=== PATIENT | male | born 1945 | race African-American/Black ===

== ENCOUNTER 2018-11-17 12:50 | Emergency (ER) | payer OTHER ==
--- NOTE | 2018-11-17 14:44 | RAD REPORT ---
EXAM DESCRIPTION: Grabiel Single View11/17/2018 2:35 pm CLINICAL HISTORY: Congestion COMPARISON: 2017 FINDINGS: The lungs are hyperaerated. The lungs appear clear of acute infiltrate. The heart is normal size IMPRESSION: COPD without visualization of an acute abnormality
[2018-11-17] MEDS ORDERED: ALBUTEROL 2.5 MG/3 ML NEB SOL ONE ×2 (17:03→17:07)
[2018-11-17] MEDS ORDERED: IPRATROPIUM BROM 0.5MG/2.5ML ONE (17:04)
--- NOTE | 2018-11-17 17:52 | EDPHYS ---
Physician Documentation [facility] Name: Jesus Mcdowell Age: 73 yrs Sex: Male : 1945 Arrival Date: 11/17/2018 Time: 12:55 Bed 13 Private MD: ED Physician Ismael Figueroa HPI: 11/17 17:44 This 73 yrs old Black Male presents to ER via Ambulatory with complaints of CHECK FOR kb FLUID IN LUNG. 17:44 The patient presents to the emergency department with wheezing, Current therapy: kb albuterol inhaler. Onset: The symptoms/episode began/occurred 2 week(s) ago. Modifying factors: The symptoms are alleviated by inhaler, the symptoms are aggravated by smoking cigarettes. Associated signs and symptoms: The patient has no apparent associated signs or symptoms. Severity of symptoms: At their worst the symptoms were moderate in the emergency department the symptoms are unchanged. The patient has experienced similar episodes in the past, chronically. The patient has not recently seen a physician. 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 States "I know the cigarettes have something to do with it. I will be breathing fine until I smoke and then the wheezing starts. I use my inhaler and it gets better." Denies shortness of breath. Historical: - Allergies: 13:34 No Known Allergies; ph - PMHx: 13:34 Asthma; COPD; Hypertension; ph - Immunization history:: Adult Immunizations unknown. - Social history:: Smoking status: unknown. - Ebola Screening: : Patient negative for fever greater than or equal to 101.5 degrees Fahrenheit, and additional compatible Ebola Virus Disease symptoms Patient denies exposure to infectious person Patient denies travel to an Ebola-affected area in the 21 days before illness onset No symptoms or risks identified at this time. ROS: 17:46 Constitutional: Negative for fever, chills, and weight loss, Cardiovascular: Negative kb for chest pain, palpitations, and edema, Abdomen/GI: Negative for abdominal pain, nausea, vomiting, diarrhea, and constipation, Back: Negative for injury and pain, : Negative for injury, bleeding, discharge, and swelling, MS/Extremity: Negative for injury and deformity, Skin: Negative for injury, rash, and discoloration, Neuro: Negative for headache, weakness, numbness, tingling, and seizure. 17:46 Respiratory: Positive for wheezing, Negative for cough, dyspnea on exertion, hemoptysis, orthopnea, pleurisy, shortness of breath, sputum production. Exam: 17:46 Constitutional: This is a well developed, well nourished patient who is awake, alert, kb and in no acute distress. Head/Face: Normocephalic, atraumatic. ENT: Nares patent. No nasal discharge, no septal abnormalities noted. Tympanic membranes are normal and external auditory canals are clear. Oropharynx with no redness, swelling, or masses, exudates, or evidence of obstruction, uvula midline. Mucous membranes moist. Neck: Trachea midline, no thyromegaly or masses palpated, and no cervical lymphadenopathy. Supple, full range of motion without nuchal rigidity, or vertebral point tenderness. No Meningismus. Chest/axilla: Normal chest wall appearance and motion. Nontender with no deformity. No lesions are appreciated. Cardiovascular: Regular rate and rhythm with a normal S1 and S2. No gallops, murmurs, or rubs. Normal PMI, no JVD. No pulse deficits. Abdomen/GI: Soft, non-tender, with normal bowel sounds. No distension or tympany. No guarding or rebound. No evidence of tenderness throughout. Skin: Warm, dry with normal turgor. Normal color with no rashes, no lesions, and no evidence of cellulitis. MS/ Extremity: Pulses equal, no cyanosis. Neurovascular intact. Full, normal range of motion. Neuro: Awake and alert, GCS 15, oriented to person, place, time, and situation. Cranial nerves II-XII grossly intact. Motor strength 5/5 in all extremities. Sensory grossly intact. Cerebellar exam normal. Normal gait. 17:46 Respiratory: the patient does not display signs of respiratory distress, Respirations: normal, Breath sounds: wheezing: expiratory that is moderate, is heard diffusely. Vital Signs: 13:33 BP 155 / 83; Pulse 73; Resp 18; Temp 97.9; Pulse Ox 98% on R/A; ph 18:20 BP 148 / 78; Pulse 70; Resp 19; Pulse Ox 98% on R/A; Pain 0/10; ls4 MDM: 16:34 Patient medically screened. kb 17:40 Data reviewed: vital signs, nurses notes. Data interpreted: Pulse oximetry: on room air kb is 99 %. Interpretation: normal. 17:50 Counseling: I had a detailed discussion with the patient and/or guardian regarding: the kb historical points, exam findings, and any diagnostic results supporting the discharge/admit diagnosis, radiology results, the need for outpatient follow up, a family practitioner, to return to the emergency department if symptoms worsen or persist or if there are any questions or concerns that arise at home. ED course: wheezing decreased, still denies shortness of breath. 11/17 13:35 Order name: Chest Single View XRAY; Complete Time: 15:05 ph Administered Medications: 16:59 Drug: DuoNeb (3:1) (2.5 mg - 0.5 mg) 3 ml Route: Nebulizer; ls4 18:21 Follow up: Response: No adverse reaction; Marked relief of symptoms ls4 18:10 Drug: predniSONE 40 mg Route: PO; ls4 18:22 Follow up: Response: No adverse reaction; Marked relief of symptoms ls4 18:25 Follow up: Response: No adverse reaction ls4 Disposition: 11/18 09:15 Co-signature as Attending Physician, Ismael Figueroa MD I agree with the assessment and lolis plan of care. Disposition: 11/17/18 17:51 Discharged to Home. Impression: Chronic obstructive pulmonary disease, unspecified. - Condition is Stable. - Discharge Instructions: Chronic Obstructive Pulmonary Disease. - Prescriptions for Prednisone 20 mg Oral Tablet - take 1 tablet by ORAL route once daily for 5 days; 5 tablet. - Medication Reconciliation Form, Thank You Letter, Antibiotic Education, Prescription Opioid Use form. - Follow up: Emergency Department; When: As needed; Reason: Worsening of condition. Follow up: Private Physician; When: 2 - 3 days; Reason: Recheck today's complaints, Continuance of care, Re-evaluation by your physician. Signatures: Dispatcher [employer] Pita Jefferson, URMILA-C URMILA-Ismael Linn MD MD cha Hall, Patricia, RN RN Alma Rodriguez RN RN ls4 Corrections: (The following items were deleted from the chart) 11/17 18:28 17:51 11/17/2018 17:51 Discharged to Home. Impression: Chronic obstructive pulmonary ls4 disease, unspecified. Condition is Stable. Forms are Medication Reconciliation Form, Thank You Letter, Antibiotic Education, Prescription Opioid Use. Follow up: Emergency Department; When: As needed; Reason: Worsening of condition. Follow up: Private Physician; When: 2 - 3 days; Reason: Recheck today's complaints, Continuance of care, Re-evaluation by your physician. kb
--- NOTE | 2018-11-17 17:52 | ER ---
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 Transition of care: patient was not received from another setting of care. Onset of symptoms was November 17, 2018. Risk Assessment: Do you want to hurt yourself or someone else? Patient reports no desire to harm self or others. Care prior to arrival: None. 13:30 Method Of Arrival: Ambulatory ph 13:30 Acuity: [place] 3 ph 16:45 Initial Sepsis Screen: Does the patient meet any 2 criteria? No. Patient's initial ls4 sepsis screen is negative. Does the patient have a suspected source of infection? No. Patient's initial sepsis screen is negative. Triage Assessment: 16:44 General: Appears in no apparent distress. Behavior is cooperative. Pain: Denies pain. ls4 Historical: - Allergies: 13:34 No Known Allergies; ph - PMHx: 13:34 Asthma; COPD; Hypertension; ph - Immunization history:: Adult Immunizations unknown. - Social history:: Smoking status: unknown. - Ebola Screening: : Patient negative for fever greater than or equal to 101.5 degrees Fahrenheit, and additional compatible Ebola Virus Disease symptoms Patient denies exposure to infectious person Patient denies travel to an Ebola-affected area in the 21 days before illness onset No symptoms or risks identified at this time. Screenin:44 Abuse screen: Denies threats or abuse. Denies injuries from another. Nutritional ls4 screening: No deficits noted. Tuberculosis screening: No symptoms or risk factors identified. Fall Risk None identified. Assessment: 16:40 Respiratory: Breath sounds are coarse Breath sounds with rhonchi bilaterally. Breath ls4 sounds with wheezes bilaterally. 16:40 Musculoskeletal: No deficits noted. ls4 Vital Signs: 13:33 BP 155 / 83; Pulse 73; Resp 18; Temp 97.9; Pulse Ox 98% on R/A; ph 18:20 BP 148 / 78; Pulse 70; Resp 19; Pulse Ox 98% on R/A; Pain 0/10; ls4 ED Course: 12:55 Patient arrived in ED. tw3 13:33 Triage completed. ph 13:34 Arm band placed on Patient placed in waiting room, Patient notified of wait time. X-ray ph ordered. 14:33 X-ray completed. Patient tolerated procedure well. Patient moved to radiology via tm4 wheelchair. Patient moved back from radiology. 14:34 Chest Single View XRAY In Process Unspecified. EDMS 16:33 Pita Rdz FNP-C is [facility]. kb 16:33 Ismael Figueroa MD is Attending Physician. kb 16:43 Alma Graham, RN is Primary Nurse. ls4 16:44 Patient has correct armband on for positive identification. Bed in low position. Call ls4 light in reach. Side rails up X 1. 16:44 No provider procedures requiring assistance completed. ls4 18:26 Patient did not have IV access during this emergency room visit. ls4 Administered Medications: 16:59 Drug: DuoNeb (3:1) (2.5 mg - 0.5 mg) 3 ml Route: Nebulizer; ls4 18:21 Follow up: Response: No adverse reaction; Marked relief of symptoms ls4 18:10 Drug: predniSONE 40 mg Route: PO; ls4 18:22 Follow up: Response: No adverse reaction; Marked relief of symptoms ls4 18:25 Follow up: Response: No adverse reaction ls4 Outcome: 17:51 Discharge ordered by . kb 18:25 Discharged to home ambulatory, with family. ls4 18:25 Condition: stable 18:25 Discharge instructions given to patient, family, Instructed on discharge instructions, follow up and referral plans. medication usage, Demonstrated understanding of instructions, follow-up care, medications, Prescriptions given X 1. 18:28 Patient left the ED. ls4 Signatures: Dispatcher [employer] EDMS Pita Rdz FNP-C FNP-Ckb Marroquin, Tracy tm4 Mariel Rosa RN RN ph Wade, Laura tw3 Alma Graham, CHE RN ls4
[2018-11-17] MEDS ORDERED: predniSONE 20 MG TAB ONE (18:10)
[2018-11-17 18:33] VITALS: TEMP 97.9; O2SAT 98
[2018-11-17 18:35] VITALS: BP 148/78
== END 2018-11-17 18:28 | disposition home or self-care (01) ==
LOC: ER 12:50
DX: J44.9 Chronic obstructive pulmonary disease, unspecified (principal); I10 Essential (primary) hypertension; F17.210 Nicotine dependence, cigarettes, uncomplicated
CPT/HCPCS: 71045; 94640; 99284; J7512

== ENCOUNTER 2019-03-13 00:01 | Emergency (ER) | payer OTHER ==
[2019-03-13] MEDS ORDERED: FENTANYL CITR 100 MCG/2 ML ONE ×2 (00:41→02:02)
[2019-03-13] MEDS ORDERED: ONDANSETRON 4 MG/2 ML VIAL ONE (00:41)
[2019-03-13 01:11] LABS: Protime INR 1.05
[2019-03-13 01:13] LABS: Absolute Lymphocytes (CBC) 1.1 K/uL (0.7-4.9); Basophils % 0.5 % (0-1.3); Eosinophils % 0.3 % (0-4.4); Hematocrit 46.5 % (39.6-49.0); Lymphocytes % 12.9 % (15.3-44.8); Monocytes % 11.6 % (3.3-12.3); RBC Red Blood Cell Count 5.32 M/uL (4.33-5.43)
[2019-03-13 01:27] LABS: ALT/SGPT 31 U/L (12-78); AST/SGOT 54 U/L (15-37); Albumin 3.9 g/dL (3.4-5.0); Alkaline Phosphatase 75 U/L (45-117); BUN Blood Urea Nitrogen 19 mg/dL (7-18); Bicarbonate 23 mmol/L (21-32); Bilirubin Direct 0.2 mg/dL (0-0.2); Bilirubin Total 0.7 mg/dL (0.2-1.0); Glucose Level 138 mg/dL (74-106); NT PRO-BNP 132 pg/mL (<450); Potassium 3.9 mmol/L (3.5-5.1); Protein, Total 7.9 g/dL (6.4-8.2); Sodium Level 127 mmol/L (136-145); Troponin (Emerg Dept Use Only) < 0.02 ng/mL (0.0-0.045)
--- NOTE | 2019-03-13 01:27 | ER ---
Nurse's Notes [facility] Name: Jesus Mcdowell Age: 73 yrs Sex: Male : 1945 Arrival Date: 03/13/2019 Time: 00:04 Bed 6 Private MD: Diagnosis: Acute Left Lower Limb Ischemia;Acute Left Lower Leg Pain Presentation: 03/13 00:31 Presenting complaint: Patient states: pain to L leg for two weeks, getting worse the ch past 4 days. I cannot stand it now. Transition of care: patient was not received from another setting of care. Onset of symptoms was February 2019. Risk Assessment: Do you want to hurt yourself or someone else? Patient reports no desire to harm self or others. Initial Sepsis Screen: Does the patient meet any 2 criteria? No. Patient's initial sepsis screen is negative. Does the patient have a suspected source of infection? No. Patient's initial sepsis screen is negative. Care prior to arrival: None. 00:31 Method Of Arrival: EMS: [facility] 00:31 Acuity: [place] 2 ch Triage Assessment: 00:37 General: Appears in no apparent distress. uncomfortable, Behavior is cooperative, ch appropriate for age. Pain: Complains of pain in left leg Pain currently is 9 out of 10 on a pain scale. Pain began gradually. Neuro: No deficits noted. Cardiovascular: Heart tones S1 S2 present Capillary refill is > 3 seconds in bilateral fingers toes pt has poor peripheral circulation. Clubbing of nail beds is present Pulses are absent in left popliteal artery, left posterior tibial artery and left dorsalis pedis artery Rhythm is regular. Respiratory: Airway is patent Respiratory effort is even, unlabored, Breath sounds with wheezes bilaterally. GI: No signs and/or symptoms were reported involving the gastrointestinal system. Derm: Skin is normal, brown. Musculoskeletal: Capillary refill is sluggish, in left toes. Range of motion: limited in left knee and left ankle pt L foot is dusky and cool. pulses are not palpable manually, wrong equipment in the ER to find pulses via Doppler. US ordered. Historical: - Allergies: 00:37 No Known Allergies; ch - Home Meds: 00:37 buspirone 10 mg Oral tab 1 tab 2 times per day [Active]; donepezil 10 mg oral tab 1 tab ch once daily [Active]; isosorbide mononitrate 30 mg Oral Tb24 1 tab once daily [Active]; aspirin 81 mg Oral chew 1 tab once daily [Active]; Toprol XL 100 mg Oral Tb24 1 tab once daily [Active]; pentoxifylline 400 mg oral TbER 1 tab 2 times per day [Active]; tamsulosin 0.4 mg oral cp24 1 cap once daily [Active]; - PMHx: 00:37 COPD; Asthma; Hypertension; arterial insufficiency L leg.; blood clots eren legs; ch "prostates problems"; - PSHx: 00:37 L leg bypass; ch - Immunization history:: Adult Immunizations up to date, Flu vaccine status is unknown. - Social history:: Smoking status: Patient uses tobacco products, states he is a former smoker. - Ebola Screening: : Patient negative for fever greater than or equal to 101.5 degrees Fahrenheit, and additional compatible Ebola Virus Disease symptoms Patient denies exposure to infectious person Patient denies travel to an Ebola-affected area in the 21 days before illness onset No symptoms or risks identified at this time. - Family history:: not pertinent. - Hospitalizations: : No recent hospitalization is reported. Screenin:15 Abuse screen: Denies threats or abuse. Denies injuries from another. Nutritional ch screening: No deficits noted. Tuberculosis screening: No symptoms or risk factors identified. Fall Risk None identified. Assessment: 00:20 Reassessment: pt vomits from pain. ch 01:04 Reassessment: Patient appears in no apparent distress at this time. Patient and/or ch family updated on plan of care and expected duration. Pain level reassessed. Patient is alert, oriented x 3, equal unlabored respirations, skin warm/dry/pink. pt states the pain medication and nausea medication have helped him. awaiting US now Patient states feeling better. Patient states symptoms have improved. 01:30 Reassessment: Patient appears in no apparent distress at this time. pt attempts to get ch out of bed because he hurts. physician notified, verbal order to repeat fentynal. 02:06 Reassessment: Patient appears in no apparent distress at this time. Patient and/or ch family updated on plan of care and expected duration. Pain level reassessed. report called to [facility]. awaiting EMS. 03:01 Reassessment: Patient appears in no apparent distress at this time. pt premedicated for pain for the trip. pt still has dusky cold foot. Vital Signs: 00:15 BP 148 / 81; Pulse 82; Resp 18; Temp 99.2(O); Pulse Ox 95% on R/A; Pain 10/10; ch 01:04 BP 161 / 85; Pulse 84; Resp 12; Pulse Ox 98% on R/A; Pain 3/10; ch 02:14 BP 167 / 73; Pulse 82; Resp 16; Temp 99; Pulse Ox 94% on R/A; Pain 4/10; ch 03:01 BP 162 / 84; Pulse 78; Resp 16; Temp 98.8; Pulse Ox 99% on R/A; Pain 2/10; ch ED Course: 00:04 Patient arrived in ED. 00:08 Jaziel Brennan MD is Attending Physician. ks 00:18 Karmen Hull, RN is Primary Nurse. 00:20 No provider procedures requiring assistance completed. 00:20 Patient has correct armband on for positive identification. Bed in low position. Call light in reach. Side rails up X 1. monitoring and evaluation advisor on. Pulse ox on. NIBP on. Warm blanket given. 00:32 Triage completed. 00:32 EKG done, by ED staff, reviewed by Jaziel Brennan MD. Inserted saline lock: 18 gauge in ag4 left forearm, using aseptic technique. Blood collected. 00:37 Arm band placed on left wrist. Patient placed in an exam room, on a stretcher, on monitor and storage bin tender, on pulse oximetry. 00:46 XRAY Chest (1 view) In Process Unspecified. EDMS 03:01 No apparent distress. Resting quietly. ch 03:01 Patient transferred, IV remains in place. Administered Medications: 00:33 Drug: fentaNYL (PF) 50 mcg Route: IVP; Site: left forearm; lp1 02:58 Follow up: Response: No adverse reaction; Marked relief of symptoms ch 00:33 Drug: Zofran 4 mg Route: IVP; Site: left forearm; lp1 02:58 Follow up: Response: No adverse reaction; Marked relief of symptoms ch 01:47 Drug: fentaNYL (PF) 50 mcg Route: IVP; Site: left forearm; ch 03:00 Follow up: Response: No adverse reaction 02:45 Drug: Dilaudid 1 mg Route: IVP; Site: left forearm; 03:01 Follow up: Response: No adverse reaction Outcome: 01:26 ER care complete, transfer ordered by . judson 03:01 Transferred by ground EMS to [facility], Transfer form completed. X-rays sent w/ patient. 03:01 Condition: unchanged 03:01 critical 03:01 Instructed on the need for transfer. 03:04 Patient left the ED. ch Signatures: Dispatcher [employer] EDKarmen Montano, RN RN ch Kassidy Talbot RN RN Mary Ellen Diaz RN RN lp1 Jaziel Brennan MD MD wa Guzman, Adan ag4 Corrections: (The following items were deleted from the chart) 01:05 00:33 BP 148 / 81; Pulse 82bpm; Resp 18bpm; Pulse Ox 99.2% RA; Temp 95F; ag4 ch 01:07 00:32 Inserted saline lock: 18 gauge in right forearm, using aseptic technique. Blood ch collected. ag4
--- NOTE | 2019-03-13 01:27 | EDPHYS ---
Physician Documentation [facility] Name: Jesus Mcdowell Age: 73 yrs Sex: Male : 1945 Arrival Date: 03/13/2019 Time: 00:04 Bed 6 Private MD: ED Physician Jaziel Brennan HPI: 03/13 02:56 This 73 yrs old Black Male presents to ER via EMS with complaints of L leg pain. wa 02:56 The patient presents with pain, that is acute. The complaints affect the . Context: The wa problem was sustained at home, resulted from an unknown cause, the patient can partially bear weight, the patient is able to ambulate, with severe difficulty, Problem is a result from a previous injury: No. Onset: The symptoms/episode began/occurred 2 day(s) ago. Modifying factors: The symptoms are alleviated by nothing. the symptoms are aggravated by nothing. Associated signs and symptoms: The patient has no apparent associated signs or symptoms. Treatment prior to arrival includes: no previous treatment. Severity of symptoms: At their worst the symptoms were severe, in the emergency department the symptoms are unchanged. The patient has not experienced similar symptoms in the past. The patient has not recently seen a physician. h/o fem-pop bypass at [facility]. [facility] sees Dr. Ant Sood over there. denies injury. [facility] has never has such severe pain in his leg before. Historical: - Allergies: 00:37 No Known Allergies; ch - Home Meds: 00:37 buspirone 10 mg Oral tab 1 tab 2 times per day [Active]; donepezil 10 mg oral tab 1 tab ch once daily [Active]; isosorbide mononitrate 30 mg Oral Tb24 1 tab once daily [Active]; aspirin 81 mg Oral chew 1 tab once daily [Active]; Toprol XL 100 mg Oral Tb24 1 tab once daily [Active]; pentoxifylline 400 mg oral TbER 1 tab 2 times per day [Active]; tamsulosin 0.4 mg oral cp24 1 cap once daily [Active]; - PMHx: 00:37 COPD; Asthma; Hypertension; arterial insufficiency L leg.; blood clots eren legs; ch "prostates problems"; - PSHx: 00:37 L leg bypass; ch - Immunization history:: Adult Immunizations up to date, Flu vaccine status is unknown. - Social history:: Smoking status: Patient uses tobacco products, states he is a former smoker. - Ebola Screening: : Patient negative for fever greater than or equal to 101.5 degrees Fahrenheit, and additional compatible Ebola Virus Disease symptoms Patient denies exposure to infectious person Patient denies travel to an Ebola-affected area in the 21 days before illness onset No symptoms or risks identified at this time. - Family history:: not pertinent. - Hospitalizations: : No recent hospitalization is reported. ROS: 03:02 Constitutional: Negative for fever, chills, and weight loss, Eyes: Negative for injury, wa pain, redness, and discharge, ENT: Negative for injury, pain, and discharge, Neck: Negative for injury, pain, and swelling, Cardiovascular: Negative for chest pain, palpitations, and edema, Respiratory: Negative for shortness of breath, cough, wheezing, and pleuritic chest pain, Abdomen/GI: Negative for abdominal pain, nausea, vomiting, diarrhea, and constipation, Back: Negative for injury and pain, : Negative for injury, bleeding, discharge, and swelling, Skin: Negative for injury, rash, and discoloration, Neuro: Negative for headache, weakness, numbness, tingling, and seizure, Psych: Negative for depression, anxiety, suicide ideation, homicidal ideation, and hallucinations. 03:02 MS/extremity: Positive for pain, Negative for swelling, tenderness. 03:02 Skin: Positive for pallor, of the left leg. 05:09 All other systems are negative. wa Exam: 03:03 Constitutional: This is a well developed, well nourished patient who is awake, alert, wa and in no acute distress. Head/Face: Normocephalic, atraumatic. Eyes: Pupils equal round and reactive to light, extra-ocular motions intact. Lids and lashes normal. Conjunctiva and sclera are non-icteric and not injected. Cornea within normal limits. Periorbital areas with no swelling, redness, or edema. ENT: Nares patent. No nasal discharge, no septal abnormalities noted. Tympanic membranes are normal and external auditory canals are clear. Oropharynx with no redness, swelling, or masses, exudates, or evidence of obstruction, uvula midline. Mucous membranes moist. Neck: Trachea midline, no thyromegaly or masses palpated, and no cervical lymphadenopathy. Supple, full range of motion without nuchal rigidity, or vertebral point tenderness. No Meningismus. Chest/axilla: Normal chest wall appearance and motion. Nontender with no deformity. No lesions are appreciated. Cardiovascular: Regular rate and rhythm with a normal S1 and S2. No gallops, murmurs, or rubs. Normal PMI, no JVD. No pulse deficits. Respiratory: Lungs have equal breath sounds bilaterally, clear to auscultation and percussion. No rales, rhonchi or wheezes noted. No increased work of breathing, no retractions or nasal flaring. Abdomen/GI: Soft, non-tender, with normal bowel sounds. No distension or tympany. No guarding or rebound. No evidence of tenderness throughout. Back: No spinal tenderness. No costovertebral tenderness. Full range of motion. Neuro: Awake and alert, GCS 15, oriented to person, place, time, and situation. Cranial nerves II-XII grossly intact. Motor strength 5/5 in all extremities. Sensory grossly intact. Cerebellar exam normal. Normal gait. Psych: Awake, alert, with orientation to person, place and time. Behavior, mood, and affect are within normal limits. 03:03 Skin: Appearance: Color: dusky, LLE. cool to touch compared to R. DP pulses not palpable even with doppler. 05:09 Musculoskeletal/extremity: Extremities: grossly normal except: noted in the left leg: wa cool to touch. no DP even with doppler. Vital Signs: 00:15 BP 148 / 81; Pulse 82; Resp 18; Temp 99.2(O); Pulse Ox 95% on R/A; Pain 10/10; ch 01:04 BP 161 / 85; Pulse 84; Resp 12; Pulse Ox 98% on R/A; Pain 3/10; ch 02:14 BP 167 / 73; Pulse 82; Resp 16; Temp 99; Pulse Ox 94% on R/A; Pain 4/10; ch 03:01 BP 162 / 84; Pulse 78; Resp 16; Temp 98.8; Pulse Ox 99% on R/A; Pain 2/10; ch MDM: 00:08 Patient medically screened. wa 03:04 Differential diagnosis: concern for arterial occlusion/insufficiency. will work up and wa transfer for emergent vascular evaluation. Data reviewed: vital signs, nurses notes. Response to treatment: the patient's symptoms have mildly improved after treatment. Physician consultation: Dr. Portillo at [facility] Accepted pt for further eval. will have pt transported via ambulance. ED course: had to receive several doses of meds due to pain. . 03:07 Test interpretation: by ED physician or midlevel provider: labs pending. 03/13 00:14 Order name: NT PRO-BNP; Complete Time: 02:03/13 00:14 Order name: Basic Metabolic Panel; Complete Time: 02:03/13 00:14 Order name: CBC with Diff; Complete Time: :03/13 00:14 Order name: LFT's; Complete Time: :03/13 00:14 Order name: PT-INR; Complete Time: :03/13 00:14 Order name: Troponin (emerg Dept Use Only); Complete Time: :03/13 00:14 Order name: XRAY Chest (1 view) 03/13 00:14 Order name: EKG; Complete Time: 00:16 03/13 00:14 Order name: Cardiac monitoring; Complete Time: 00:32 03/13 00:14 Order name: EKG - Nurse/Tech; Complete Time: 00:03/13 00:14 Order name: IV Saline Lock; Complete Time: 00:03/13 00:14 Order name: Labs collected and sent; Complete Time: 00:32 03/13 00:14 Order name: O2 Per Protocol; Complete Time: 00:03/13 00:14 Order name: O2 Sat Monitoring; Complete Time: 00:32 ct Administered Medications: 00:33 Drug: fentaNYL (PF) 50 mcg Route: IVP; Site: left forearm; lp1 02:58 Follow up: Response: No adverse reaction; Marked relief of symptoms ch 00:33 Drug: Zofran 4 mg Route: IVP; Site: left forearm; lp1 02:58 Follow up: Response: No adverse reaction; Marked relief of symptoms ch 01:47 Drug: fentaNYL (PF) 50 mcg Route: IVP; Site: left forearm; ch 03:00 Follow up: Response: No adverse reaction ch 02:45 Drug: Dilaudid 1 mg Route: IVP; Site: left forearm; ch 03:01 Follow up: Response: No adverse reaction Disposition: 03/13/19 01:[address] [facility]. Diagnosis are Acute Left Lower Limb Ischemia, Acute Left Lower Leg Pain. - Reason for transfer: Higher level of care. - Accepting physician is Dr. Portillo. - Condition is Stable. - Problem is new. - Symptoms have improved. Signatures: Dispatcher [employer] Karmen Monroe RN RN Mary Ellen Diaz RN RN lp1 Jaziel Brennan MD MD wa Corrections: (The following items were deleted from the chart) 03:04 01:26 03/13/2019 01:[address] [facility]. Diagnosis is ch Acute Left Lower Limb Ischemia; Acute Left Lower Leg Pain. Reason for transfer: Higher level of care. Accepting physician is Dr. Portillo. Condition is Stable. Problem is new. Symptoms have improved. wa
[2019-03-13] MEDS ORDERED: HYDROMORPHONE HCL 1 MG/ML INJ ONE (03:01)
[2019-03-13 03:20] VITALS: BP 162/84; TEMP 98.8; O2SAT 99
--- NOTE | 2019-03-13 09:09 | RAD REPORT ---
EXAM DESCRIPTION: RAD - Chest Single View - 03/13/2019 12:48 am CLINICAL HISTORY: Shortness of breath COMPARISON: November 2018 TECHNIQUE: AP portable chest image was obtained 0043 hours . FINDINGS: No focal lung parenchymal process. Interstitial pattern is mildly prominent but stable. No failure or volume overload. Heart and vasculature are normal. No measurable pleural effusion and no pneumothorax. No acute bony abnormality seen. No acute aortic findings suspected. IMPRESSION: No acute cardiopulmonary process. No significant change from comparison.
--- NOTE | 2019-03-13 12:52 | EKG ---
Test Date: 2019-03-13 Test Time: 00:25:49 Mortgage Consultant: LEANNE MEASUREMENT RESULTS: Intervals: Rate: 84 KS: 92 QRSD: 118 QT: 386 QTc: 456 [place]: P: 99 KS: 92 QRS: -63 T: 111 INTERPRETIVE STATEMENTS: Sinus rhythm with short KS with premature atrial complexes Left anterior fascicular block Left ventricular hypertrophy with QRS widening Cannot rule out Anteroseptal infarct, age undetermined Abnormal ECG Compared to ECG 03/26/2017 23:25:43 Atrial premature complex(es) now present Short KS interval now present Left anterior fascicular block now present Left ventricular hypertrophy now present Myocardial infarct finding still present Electronically Signed On 03-13-19 12:49:33 CDT by Mehdi Ayala
== END 2019-03-13 03:04 | disposition short-term general hospital (02) ==
LOC: ER 00:01
DX: I77.1 Stricture of artery (principal); M79.605 Pain in left leg; I44.4 Left anterior fascicular block; I51.7 Cardiomegaly; J44.9 Chronic obstructive pulmonary disease, unspecified; J45.909 Unspecified asthma, uncomplicated; I10 Essential (primary) hypertension; Z79.82 Long term (current) use of aspirin
CPT/HCPCS: 93005; 85025; 80048; 36415; 85610; 80076; 84484; 83880; 71045; 96375; 96374; 99285; J3010 ×2; J1170; J2405

== ENCOUNTER 2021-06-27 06:26 | Day surgery (SDC) | payer OTHER ==
--- NOTE | 2021-06-25 12:06 | RAD REPORT ---
EXAM DESCRIPTION: Grabiel Lamas (2 Views)06/25/2021 11:56 am CLINICAL HISTORY: Preop for hernia repair COMPARISON: 2019 FINDINGS: Lungs are mildly hyperaerated. The lungs appear clear of acute infiltrate. The heart is n ormal size IMPRESSION: No acute abnormalities displayed
[2021-06-25 12:52] LABS: Absolute Lymphocytes (CBC) 1.3 K/uL (0.7-4.9); Basophils % 1.5 % (0-1.3); Hematocrit 42.3 % (39.6-49.0); Lymphocytes % 27.3 % (15.3-44.8); MPV 7.6 fL (7.6-11.3); RBC Red Blood Cell Count 4.81 M/uL (4.33-5.43)
[2021-06-27] MEDS ORDERED: CEFAZOLIN/NS 1gm 1 GM/50 ML BAG ONE (07:32)
[2021-06-27] MEDS ORDERED: Ringers Lactate 1,000 ML IV ONE (07:32)
[2021-06-27] MEDS ORDERED: FENTANYL CITR 100 MCG/2 ML ONE (07:43)
[2021-06-27] MEDS ORDERED: LIDOCAINE 2% MPF 5 ML VIAL ONE (07:43)
[2021-06-27] MEDS ORDERED: ROCURONIUM 50 MG/5 ML VIAL IV ONE (07:43)
[2021-06-27] MEDS ORDERED: MIDAZOLAM HCL 2 MG/2 ML INJ ONE (07:43)
[2021-06-27] MEDS ORDERED: propofoL 200 MG/20 ML VIAL IV ONE (07:43)
[2021-06-27] MEDS ORDERED: GLYCOPYRROLATE 0.2 MG/ML SYR ONE ×3 (07:52→09:33)
[2021-06-27] MEDS ORDERED: EPHEDRINE SULF 50 MG/ML VIAL ONE (08:18)
[2021-06-27] MEDS ORDERED: NEOSTIGMINE 1 MG/ML -5 ML ONE (09:24)
[2021-06-27] MEDS ORDERED: ONDANSETRON 4 MG/2 ML VIAL ONE (09:33)
[2021-06-27] MEDS ORDERED: Mastisol Adhesive Liq ONE (09:45)
[2021-06-27] MEDS: HYDROMORPHONE HCL 1 MG/ML INJ ONE ×2 (09:55→10:00)
[2021-06-27] MEDS ORDERED: ALBUTEROL 2.5 MG/3 ML NEB SOL ONE (10:03)
[2021-06-27] MEDS ORDERED: CODEINE 30MG/APAP 300MG TAB ONE ×2 (11:17→15:36)
--- NOTE | 2021-06-27 14:32 | OP ---
Date of Procedure: 06/27/2021 Surgeon: Erik Cai MD Net Sorter: Mike Hdez, surgical endoscopist certified. Preoperative Diagnoses: Umbilical hernia and right inguinal hernia. Postoperative Diagnoses: Umbilical hernia and right inguinal hernia. Procedures: Laparoscopic repair of umbilical hernia and repair of right inguinal hernia. Estimated Blood Loss: Minimal. Specimen: Hernia sac x2. Finding: As above. Anesthesia: General. Complications: None. Disposition: The patient tolerated the procedure in stable condition and taken to Recovery in good g eneral condition. Procedure In Detail: The patient was brought to the OR and placed in supine position. General anest hesia was begun. The patient was prepped and draped in the usual sterile fashion and then Marcaine 0 .5% infiltrated in the left upper quadrant. Subcutaneous tissue divided. Fascia was identified and divided. After 1 cm incision was made and then fascia was identified and divided #1 Vicryl stay sutu re was placed. Peritoneal cavity entered with sharp and blunt dissection. A 12 mm trocar was placed into the peritoneal cavity under direct vision. Pneumoperitoneum was established and then 5 mm troc ar placed in the left lower quadrant under direct vision. Laparoscopy revealed an umbilical hernia a pproximately a 2 cm defect. Then a 3 cm incision made over the umbilicus, subcu tissue divided. Her abhilash contents and sac identified and excised and sent to Pathology. Good fascial edges obtained, then Ventralex medium size mesh was placed in the peritoneal cavity and hernia defect closed with a figur e-of-eight #1 PDS suture. Then pneumoperitoneum reestablished and the mesh was secured to the perito hailee surface with Protac and then complete coverage of the hernia sac with good borders of at least 3 cm in every direction was made and then all trocars were removed under direct vision. Stay sutures were tied to each other to approximate the fascial defect. Subcu wounds were irrigated. Bleeding co ntrolled with cautery. 3-0 chromic used to approximate subcutaneous tissue and 4-0 Monocryl used to close the skin. Then, Marcaine 0.5% was infiltrated in the right groin and then a 4 cm incision was made in the right groin between the pubic tubercle and the anterior iliac superior spine. Subcutaneo us tissue divided. Gary's fascia identified and divided. The aponeurosis was identified and mobil ized inferiorly to expose the shelving edge and then opened through the external ring. The ilioingui nal nerve was identified and retracted out of the field of dissection. The cord mobilized at the pub ic tubercle, and a large direct sac identified medial to the epigastric vessels and freed from the montaño rrounding tissue with sharp and blunt dissection. An opening was approximately 3 cm and this was pur sestring on the inside to close the defect and hernia sac was excised and sent to Pathology as specim en. The inguinal floor was still patulous and so 2-0 nylon was used to strengthen the inguinal floor by starting at the pubic tubercle and joining the conjoined tendon to the shelving edge, including t he internal ring. There was no indirect sac identified. Subsequently Marlex mesh plug was placed in the internal ring and secured with a VersaTack stapler. Onlay mesh was placed on the inguinal floor and secured medially to the pubic tubercle, superiorly to the conjoined tendon, inferiorly to the sh elving edge, laterally to each other and then cord structures and ilioinguinal nerve were placed back in anatomical location and then 2-0 Prolene was used to close the aponeurosis. 3-0 chromic used to r eapproximate subcutaneous tissue and Gary's fascia and 4-0 Monocryl used to close the skin. Steril e dressing was applied. The patient was awakened and taken to recovery room in good general conditio n. Discharge Note: The patient will go to Day Surgery and home when stable. Disposition: Home. Condition: Stable. Discharge Instructions: Resume home medications and diet. Activity as tolerated. No heavy lifting. Remove outer dressing in 2 days. Shower. Keep wound clean and dry. Keep Steri-Strips on at all t imes. Follow up in my office in 1 week. Call for appointment. Tylenol No. 3 one tablet p.o. q.4 p. r.n. pain. Abdominal binder, scrotal support, ice pack as ordered. /MODL Voice ID: [id number] Report ID: [id number]
[2021-06-27 17:09] VITALS: BP 141/69; O2SAT 96
[2021-06-27 18:12] VITALS: TEMP 99
== END 2021-06-27 18:09 | disposition home or self-care (01) ==
LOC: OR 06:26
PROVIDERS: ATTEND Surgery
PROC: 0WQF4ZZ Repair Abdominal Wall, Percutaneous Endoscopic Approach (ICD-10-PCS; principal; 2021-06-27 07:30)
PROC: 0WQF4ZZ Repair Abdominal Wall, Percutaneous Endoscopic Approach (ICD-10-PCS; 2021-06-27 07:30)
DX: K42.9 Umbilical hernia without obstruction or gangrene (principal); K40.90 Unilateral inguinal hernia, without obstruction or gangrene, not specified as recurrent; Z20.822 Contact with and (suspected) exposure to COVID-19
CPT/HCPCS: 36415; 71046; 80048; 85025; 88302; 93005; J0690; J1170; J2250; J2405; J2704; J2710; J3010; J7120; U0003

== ENCOUNTER 2022-10-13 17:56 | Emergency (ER) | payer OTHER ==
--- OUTSIDE RECORDS SUMMARY | 2022-10-13 18:04 | XMS REPORT | Continuity of Care Document ---
:1945 Author Organization [facility] t Address [address] [place] [address] Care Team Providers Name Role Phone SCOOBY VIRGINIASACHIN Primary Care Physician Unavailable Summer HANSEN Attending Clinician Unavailable [id number] Attending Clinician Unavailable Georgi Benton Attending Clinician Unavailable Ana Mendosa Attending Clinician Unavailable Rodney Attending Clinician Unavailable Miftari_E Attending Clinician Unavailable OW_Vineet Attending Clinician Unavailable Nga Hernandez Attending Clinician Kahlil Garcia MD Attending Clinician TAY KOCH Attending Clinician Unavailable [id number] Admitting Clinician Unavailable Rodney Admitting Clinician Unavailable Miftari_E Admitting Clinician Unavailable BRIGITTE_Vineet Admitting Clinician Unavailable TAY KOCH Admitting Clinician Unavailable Payers Payer Name Policy Type Policy Number Effective Date Expiration Date [id number] (MEDICARE 00:00:00 REPLACEMENT O) Problems Condition Condition Condition Status Onset Resolution Last Treating Co mments Source Name Details Category Date Date Treatment Clinician Date Paroxysmal Paroxysmal Disease Active [facility] tachycardi tachycardi 7-16 [facility] a a 00:00: Medical 00 [place] Acute Acute Disease Active [facility] blood loss blood loss 7-15 [facility] [facility] anemia anemia 00:00: Medical 00 [place] 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 [facility]15 [facility] lower lower 00:00: Medical extremitie extremitie 00 Ce nter s, initial s, initial encounter encounter Sepsis Sepsis Disease [facility] Acute Acute Disease Active [facility] respirator respirator 7-15 [place] [facility] y failure y failure 00:00: [facility] with with 00 Center hypoxia hypoxia Critical Critical Disease Active [facility] lower limb lower limb 08 [place] [facility] ischemia ischemia 00:00: Medica l 00 Center Hypertensi Hypertensi Disease Active [facility] on on 03-13 [facility] 00:[facility]: Medical 00 [place] Hyponatrem Hyponatrem Disease Active [facility] ia ia 03-13 [facility] 00:[facility] 00 Center Renal Renal Disease Active [facility] insufficie insufficie 03-13 [facility] ncy ncy 00:00: Medical 00 [place] Postoperat Postoperat Disease Active [facility] jorge anemia jorge anemia 10-13 [facility] due to due to 00:00: Medical acute acute 00 Center blood loss blood loss COPD COPD Disease Active [facility] (chronic (chronic 10-13 [facility] obstructiv obstructiv 00:00: Me dical e e 00 Center pulmonary pulmonary disease) disease) PAD PAD Disease Active [facility] (periphera (periphera 1-30 [place] l artery l artery 00:00: Medica l disease) disease) 00 Center Hyperglyce Hyperglyce Disease Active [facility] Acute Acute Disease Active [facility] post-opera post-opera [facility] tive pain tive pain [facility] SHANIQUE (acute SHANIQUE (acute Disease Active [facility] Medical [place] Encephalop Encephalop Disease Active [facility] athy acute athy acute [facility] Aspiration Aspiration Disease Active [facility] pneumonia pneumonia [facility] of right of right Medica l middle middle Center lobe due lobe due to gastric to gastric secretions secretions Peripheral Peripheral Disease [facility] vascular vascular Colleg e disease disease of Medicin e Venous Venous Disease Active [facility] stasis stasis [place] ulcer of ulcer of of left lower left lower Me dicin extremity extremity e Allergies, Adverse Reactions, Alerts Allergy Allergy Status Severity Reaction(s) Onset Inactive Treating Comm ents Source Name Type Date Date Clinician NO KNOWN Allergy Active [facility] S[facility]NA[facility] Social History Social Habit Start Date Stop Date Quantity Comments Source History of tobacco Cigarette Smoker [facility] [place] use [facility] Alcohol intake 2019-03-29 2019-03-29 Current JUANA Ghotra es 00:00:00 00:00:00 non-drinker of Medical Ce nter alcohol (finding) Cigarettes smoked 2015-10-05 2015-10-[address] [facility] [address] [place] current (pack per 00:00:00 00:00:00 Medical Center day) - Reported Tobacco use and 2015-10-05 2015-10-05 Never used JUANA Kline exposure 00:00:00 00:00:00 [facility] Tobacco Comment 2015-09-25 2015-09-25 used to smoke [facility] 00:00:00 00:00:00 1ppd x 50 yrs of Medicine until 2014 Sex Assigned At [birth year] [facility] [address] Ewa tejada 00:00:00 00:00:00 [facility] Smoking Status Start Date Stop Date Source Never smoker [facility] o f Medicine Current every day smoker 2015-10-05 00:00:00 [facility] Medications Ordered Filled Start Stop Current Ordering Indication Dosage Frequency Signature Comments Components Source Medication Medication Date Date Medication? Clinician (SIG) Name Name fluticasone Yes 1{puff} Inhale 1 [facility] -salmeterol 04-26 Puff by Colle ge (ADVAIR) 19:55: mouth of 250-50 03 every 12 Medicin MCG/DOSE hours. e inhaler aspirin 81 Yes 81mg Take 81 mg [facility] MG tablet 04-26 by mouth Colleg e 19:55: daily. of Medicin e ACETAMINOPH Yes Take by [place] [facility] EN-CODEINE - mouth. College #4 OR 19:55: of 03 Medicin e aspirin 325 2018- Yes 325mg Take 325 [facility] mg tablet 8-21 mg by College 19:55: mouth of 03 every 6 Medicin hours as e needed for Pain. lisinopril 2018- Yes 40mg Take 40 mg [facility] (PRINIVIL, 8-21 by mouth Colle ge ZESTRIL) 40 19:55: daily. of MG tablet Medicin e amlodipine Yes 10mg Take 10 mg [facility] (NORVASC) 821 by mouth Colleg e 10 MG 19:55: daily. of tablet 03 Medicin e collagenase Yes Apply [facility] ointment 04-26 topically Colleg e 19:55: daily. of 03 Medicin e isosorbide Yes 30mg Take 30 mg [facility] dinitrate 04-26 by mouth Colleg e (ISORDIL) 19:55: four times of 30 MG 03 daily. Medicin tablet e metoprolol Yes 100mg Take 100 [facility] (LOPRESSOR) 8-21 mg by [place] 100 MG 19:55: mouth two of tablet 03 times Medicin daily. e gabapentin Yes 100mg Take 100 [facility] (NEURONTIN) 8-21 mg by [place] 100 MG 19:55: mouth 3 of capsule 03 times Medicin daily. e LEILANI Yes Take by [facility] ASPIRIN EC 04-26 mouth. [place] LOW DOSE OR 19:55: of Medicin e Dentifrices Yes Place onto [facility] (CLOSE-UP 04-26 teeth. [place] DT) 19:55: of Medicin e fluticasone Yes 1{puff} Inhale 1 [facility] -salmeterol 04-12 Puff by [facility] betty (ADVAIR) 20:30: mouth of 250-50 56 every 12 Medicin MCG/DOSE hours. e inhaler aspirin 81 Yes 81mg Take 81 mg [facility] MG tablet 04-12 by mouth Colleg e 20:30: daily. of 56 Medicin e ACETAMINOPH Yes Take by [facility] EN-CODEINE 04-12 mouth. [place] #4 OR 20:30: of 56 Medicin e aspirin 325 Yes 325mg Take 325 [facility] mg tablet - mg by [place] 20:30: mouth of 56 every 6 Medicin hours as e needed for Pain. lisinopril Yes 40mg Take 40 mg [facility] (PRINIVIL, 04-12 by mouth Pranav ge ZESTRIL) 40 20:30: daily. of MG tablet 56 Medicin e amlodipine Yes 10mg Take 10 mg [facility] (NORVASC) 07 by mouth Colleg e 10 MG 20:30: daily. of tablet 56 Medicin e collagenase Yes Apply [facility] ointment 04-12 topically Colleg e 20:30: daily. of 56 Medicin e isosorbide 2019 Yes 30mg Take 30 mg [facility] dinitrate 8-07 by mouth Colleg e (ISORDIL) 20:30: four times of 30 MG 56 daily. Medicin tablet e metoprolol 20190 Yes 100mg Take 100 [facility] (LOPRESSOR) 8-07 mg by [place] 100 MG 20:30: mouth two of tablet 56 times Medicin daily. e gabapentin 2019-0 Yes 100mg Take 100 [facility] (NEURONTIN) 8-07 mg by [place] 100 MG 20:30: mouth 3 of capsule 56 times Medicin daily. e LEILANI 0 Yes Take by [facility] ASPIRIN EC 8-07 mouth. [place] LOW DOSE OR 20:30: of [address] Medicin [address] Yes [address] onto [facility] (CLOSE-UP 8- teeth. [place] DT) 20:30: of 56 Medicin e amLODIPine Yes 10mg QD Take [address] (NORVASC) 7-27 by mouth [facility] 10 MG 17:51: daily . Medical tablet 27 [place] aspirin 81 0 Yes 81mg Take [address] MG EC 7-27 by mouth [facility] tablet 17:51: as needed Medica l 27 . Center fluticasone 0 Yes 1{puff} Take [address] -salmeterol 7-27 puff by [facility] (ADVAIR) 17:51: mouth as Medic al 250-50 27 needed . Center mcg/dose diskus inhaler pentoxifyll 0 Yes 400mg Take [address] ine 7-27 mg by [facility] (TRENTAL) 17:51: mouth 3 Medic al 400 mg CR 27 (three) Center tablet times daily with meals. busPIRone 20190 Yes 10mg Q.[id number] Take [address] (BUSPAR) 10 7-27 [id number] by mouth 3 [facility] MG tablet 17:51: 3D (three) Medic al 27 times Center daily. metoprolol 20190 Yes 100mg QD Take [address] (TOPROL-XL) 7-27 mg by [facility] 100 MG 24 17:51: mouth Medical hr tablet 27 daily. Center tamsulosin 0 Yes .4mg QD Take 0.[address] (FLOMAX) 7-27 mg by [facility] 0.4 mg Cap 17:51: mouth Medica l 24 hr 27 daily. Center capsule Immunizations Ordered Immunization Filled Immunization Date Status Commen ts Source Name Name Influenza High Dose 2015-10-18 Completed JUANA [place] Preservative Free 00:00:00 [facility] [id number] Vital Signs Vital Name Observation Time Observation Value Comments Source Systolic blood 2019-04-26 19:54:00 109 mm[Hg] [facility] Diastolic blood 2019-04-26 19:54:00 68 mm[Hg] [facility] Heart rate 2019-04-26 19:54:00 65 /min [facility] Systolic blood 2019-04-26 19:54:00 109 mm[Hg] [facility] Diastolic blood 2019-04-26 19:54:00 68 mm[Hg] [facility] Heart rate 2019-04-26 19:54:00 65 /min [facility] Systolic blood 2019-04-12 20:30:00 99 mm[Hg] [facility] Diastolic blood 2019-04-12 20:30:00 53 mm[Hg] [facility] Heart rate 2019-04-12 20:30:00 91 /min [facility] Systolic blood 2019-04-12 20:30:00 99 mm[Hg] [facility] Diastolic blood 2019-04-12 20:30:00 53 mm[Hg] [facility] Heart rate 2019-04-12 20:30:00 91 /min [facility] Procedures This patient has no known procedures. Plan of Care Planned Activity Planned Date Details Comments Source Future Scheduled Test COLON CANCER SCREENING: [facility] COLONOSCOPY [code = Medicine COLON CANCER SCREENING: COLONOSCOPY] Future Scheduled Test TETANUS SHOT (ADULT) [facility] [code = TETANUS SHOT Medicin e (ADULT)] Future Scheduled Test FALL SCREEN [code = [facility] FALL SCREEN] Medicine Future Scheduled Test PNEUMOVAX >=65 (PPSV23) [facility] [code = PNEUMOVAX >=65 Medic ine (PPSV23)] Future Scheduled Test PREVNAR >= 65 (PCV13) [facility] [code = PREVNAR >= 65 Medici ne (PCV13)] Future Scheduled Test FLU VACCINE > 6 MONTHS [facility] [code = FLU VACCINE > 6 Medi cine MONTHS] Future Scheduled Test COLON CANCER SCREENING: [facility] COLONOSCOPY [code = Medicine COLON CANCER SCREENING: COLONOSCOPY] Future Scheduled Test TETANUS SHOT (ADULT) [facility] [code = TETANUS SHOT Medicin e (ADULT)] Future Scheduled Test FALL SCREEN [code = [facility] FALL SCREEN] Medicine Future Scheduled Test PNEUMOVAX >=65 (PPSV23) [facility] [code = PNEUMOVAX >=65 Medic ine (PPSV23)] Future Scheduled Test PREVNAR >= 65 (PCV13) [facility] [code = PREVNAR >= 65 Medici ne (PCV13)] Future Scheduled Test FLU VACCINE > 6 MONTHS [facility] [code = FLU VACCINE > 6 Medi cine MONTHS] Encounters Start End Encounter Admission Attending Care Care Encounter Source Date/Time Date/Time Type Type Clinicians Facility Department ID 2022-09-03 Outpatient JADE, Na STLMLC STLMLC [id number] 2 Common 16:14:[id number] [facility] 2022-08-21 Outpatient Jade, Na STLMLC STLMLC [id number] 2 Common 11:17:[id number] [facility] 2022-06-09 Outpatient Jade, Na STLMLC STLMLC [id number] 2 Common 13:51:[id number] [facility] 2021-10-02 Out[facility] 3 [id number] [facility] [id number] [facility] 11:14:[address] [facility] 2021-10-02 Outpatient 3 [id number] ENCWO REF [id number] [facility] 11:01:[id number] [facility] 2021-10-01 Outpatient Jade, Na STLMLC STLMLC [id number] 2 Common 13:57:[id number] [facility] 2021-10-01 Outpatient Jade, Na STLMLC STLMLC [id number] 2 Common 12:57:[address] [facility] 2021-10-01 Outpatient STLMLC STLMLC [id number] Common 12:26:[id number] [facility] 2021-10-01 Outpatient STLMLC STLC [id number] Common 12:16:[address] [facility] 2021-10-01 Outpatient Georgi Benton STLMLC STLMLC [id number] 02 Common 12:14:[address] [facility] 2021-10-01 Outpatient Georgi Benton STLMLC STLMLC [id number] 02 Common 12:06:[address] [facility] 2021-10-01 Outpatient Georgi Benton STLMLC STLC [id number] 02 Common 11:59:[id number] [facility] 2021-10-01 Outpatient Deondre, STLMLC STLC [id number] Common 11:14:[address] [facility] 2021-10-01 Outpatient Vikasender, STLMLC STLC [id number] Common 11:05:[address] [facility] 2021-10-01 Outpatient Vikasender, STLMLC STLC [id number] Common 11:05:[address] [facility] 2022-07-28 2022-07-28 [id number] -[id number] [facility] 00:00:00 00:00:00 1122 [facility] 2022-07-28 2022-07-28 Outpatient BWilliams DMG DMG [id number] [facility] 00:00:00 00:00:00 0103 Medica l Group 2022-06-23 2022-06-23 Outpatient Miftari_E DMG G [id number] -[id number] [facility] 00:00:00 00:00:00 1018 Medica l Group 2022-06-02 2022-06-02 Outpatient OWENS_T DMG DM [id number] [facility] 00:00:00 00:00:00 0927 Medica l Group 2022-03-20 2022-03-20 Outpatient OWENS_T DMG DMG [id number] [facility] 06:24:00 06:24:00 0715 Medica l Group 2021-12-23 2021-12-23 CAV Tomora [id number]. [facility] [id number] [facility] 14:30:00 15:30:00 Hernandez [id number]. [facility] [id number] 2021-11-26 2021-11-26 Outpatient OWENS_T DMG [facility] [id number] [facility] 03:33:00 03:33:00 0323 Medica l Group 2020-12-27 2020-12-27 Outpatient OWENS_T DMG [facility] [id number] [facility] 11:41:00 11:41:00 0423 Medica l Group 2019-04-26 2019-04-26 Office MARK Garcia [id number] [facility] 14:09:10 14:24:10 Visit Jayer AMBULATOR [id number] College Y 0.2.7.2.686 of [id number] [facility] tony 820 e 2019-04-26 2019-04-26 Office MARK Garcia [id number] 14:09:10 14:24:10 Visit Jayer AMBULATOR [id number] Y [id number] [id number] 2019-04-12 2019-04-12 Office MARK Garcia [id number] [facility] 15:16:44 16:16:54 Visit Jayer AMBULATOR [id number] College Y 0.2.7.2.686 of [id number] [facility] 820 e 2019-04-12 2019-04-12 Office MARK Garcia [id number] 15:16:44 16:16:54 Visit Jayer AMBULATOR [id number] Y [id number] [id number] Results Test Description Test Time Test Comments Results Result [facility] e Comments TISSUE EXAM 2019-04-02 Surgical Pathology 15:11:00 Report Case: [id number] Authorizing Provider: Kahlil Garcia MD Collected: 03/20/20191812 Ordering Location: [address] Received: 03/21/2019 0905 Cardiovascular Pathologist: Donaldo Crockett MD Specimens: A) - Leg, Left B) - Leg, Right A. EXTREMITY, LEFT LEG, ABOVE THE KNEE AMPUTATION: - VIABLE BONE, SKIN, SOFT TISSUE AND VASCULAR MARGINS - COMPLETE SLOUGHING OF SKIN CONSISTENT WITH GANGRENE - MODERATE TO SEVERE CALCIFIC ATHEROSCLEROSIS B. EXTREMITY, RIGHT LEG, ABOVE THE KNEE AMPUTATION: - VIABLE BONE, SKIN, SOFT TISSUE AND VASCULAR MARGINS - COMPLETE SLOUGHING OF SKIN CONSISTENT WITH GANGRENE - MODERATE TO SEVERE CALCIFIC ATHEROSCLEROSIS Signing Pathologist Direct Phone Line: [phone] ally signed by Donaldo Crockett MD on 04/02/2019 at 3:11 [id number] provided A. LEFT LOWER LEG. B. RIGHT LOWER LEGPart A. Received fresh in a biohazard bag labeled with the patient's name, accession number and "LL" is an zsatk-uey-fivp left leg amputation measuring 65 cm in length and ranging 6.8-12 cm in diameter. There is a 4.5 cm in length of exposed fibula. The attached foot measures 26.8 cm in length. The foot has all five digits, and each digit has an attached, thickened, yellow-donald nail. The lateral surface of the calf has a 17 cm previous incision. On the opposite side of the calf on the medial aspect is a second incision measuring 13.5 cm in length. Distal to the medial incision is a 12.5 x 4 x 0.1 cm hypopigmented, bosselated, pink skin with skin slippage. The tissue subjacent to this area reveals focal areas of hemorrhage in the soft tissue and muscle. The bone is unremarkable. The arteries are dissected, and the dorsalis pedis artery is 90% stenosed by atherosclerotic plaque, and the popliteal artery is 80% stenosed by atherosclerotic plaque, and the anterior tibial artery is 90% stenosed by atherosclerotic plaque. Audio Visual Engineer sections are submitted.Section code:A1-A2, bone margin, bisected, en face A3, skin, soft tissue and femoral artery margin, en face A4, pharmaceutical service representative of hypopigmented skin with underlying tissue A5, pharmaceutical service representative of dorsalis pedis artery, anterior tibial artery (blue), popliteal artery and posterior tibial artery (yellow), following decalcification Part B. Received fresh in a biohazard bag labeled with the patient's name, accession number and "RL" is a right leg unvwf-kwu-hiee amputation measuring 65 cm in length and ranging 6.5-12 cm in diameter. There is a 5.5 cm in length of exposed, transected fibula. The foot length is 27 cm. The foot has all five digits attached, and each digit has an attached, thickened, donald-yellow nail. The skin is brown-black to donald and mottled throughout. There is a 12 x 5.2 x 0.5 cm bulla on the anterior lateral jeffrey located 17 cm from the skin margin. The specimen is serially sectioned to reveal focal areas of hemorrhage. The vessels are dissected, and the anterior tibial artery is 40% stenosed by atherosclerotic plaque, the dorsalis pedis is 20% stenosed by atherosclerotic plaque, the popliteal artery is 30% stenosed by atherosclerotic plaque, and the posterior artery is 80% stenosed by atherosclerotic plaque. The bone is unremarkable. Audio Visual Engineer sections are submitted.Section code:B1-B2, bone margin, bisected, en face, following decalcification B3, skin, soft tissue and femoral vascular margin, en face B4, pharmaceutical service representative of bulla with underlying soft tissueB5, dorsalis pedis artery, anterior tibial artery (blue), popliteal artery (yellow) and posterior tibial artery (red), following decalcificationCG/ewPe rformed. POCT-GLUCOSE METER 2019-04-01 09:22:00 Test Item Value Reference Range Interpretation Comme [facility] POC-GLUCOSE METER (BEAKER) (test 131 mg/dL 70-110 H TESTED AT [facility] [address] [facility] code = 1538) [facility] 7703 0 [id number] 06:35:00 Test Item Value Reference Range Interpretation Comments PHOSPHORUS (BEAKER) (test code = 3.6 mg/dL 2.3-4.7 604) [id number] 06:35:00 Test Item Value Reference Range Interpretation Comments MAGNESIUM (BEAKER) (test code = 1.8 mg/dL 1.6-2.6 627) BASIC METABOLIC [id number] 06:35:00 Test Item Value Reference Range Interpretation Comments SODIUM (BEAKER) 140 meq/L 136-145 (test code = 381) POTASSIUM (BEAKER) 4.1 meq/L 3.5-5.1 (test code = 379) CHLORIDE (BEAKER) 106 meq/L 98-107 (test code = 382) CO2 (BEAKER) (test 25 meq/L 22-29 code = 355) BLOOD UREA NITROGEN 59 mg/dL 7-21 H (BEAKER) (test code = 354) CREATININE (BEAKER) 2.50 mg/dL 0.57-1.25 H (test code = 358) GLUCOSE RANDOM 142 mg/dL 70-105 H (BEAKER) (test code = 652) CALCIUM (BEAKER) 8.3 mg/dL 8.4-10.2 L (test code = 697) EGFR (BEAKER) (test 31 mL/min/1.73 ESTIMA MOHSEN GFR IS code = 1092) sq m NOT ACCURATE CREATININE CLEARANCE IN PREDICTING GLOMERULAR FILTRATION RATE . ESTIMATED GFR I S NOT APPLICABLE FOR DIALYSIS PATIEN TS. CBC W/PLT COUNT & AUTO [id number] 06:16:00 Test Item Value Reference Range Interpretation Comments WHITE BLOOD CELL COUNT (BEAKER) 8.2 K/ L 3.5-10.5 (test code = 775) RED BLOOD CELL COUNT (BEAKER) 2.62 M/ L 4.63-6.08 L (test code = 761) HEMOGLOBIN (BEAKER) (test code = 7.3 GM/DL 13.7-17.5 L 410) HEMATOCRIT (BEAKER) (test code = 23.6 % 40.1-51.0 L 411) MEAN CORPUSCULAR VOLUME (BEAKER) 90.1 fL 79.0-92.2 (test code = 753) MEAN CORPUSCULAR HEMOGLOBIN 27.9 pg 25.7-32.2 (BEAKER) (test code = 751) MEAN CORPUSCULAR HEMOGLOBIN CONC 30.9 GM/DL 32.3-36.5 L (BEAKER) (test code = 752) RED CELL DISTRIBUTION WIDTH 16.8 % 11.6-14.4 H (BEAKER) (test code = 412) PLATELET COUNT (BEAKER) (test 638 K/CU MM 150-450 H code = 756) MEAN PLATELET VOLUME (BEAKER) 9.8 fL 9.4-12.4 (test code = 754) NUCLEATED RED BLOOD CELLS 0 /100 WBC 0-0 (BEAKER) (test code = 413) NEUTROPHILS RELATIVE PERCENT 77 % (BEAKER) (test code = 429) LYMPHOCYTES RELATIVE PERCENT 12 % (BEAKER) (test code = 430) MONOCYTES RELATIVE PERCENT 8 % (BEAKER) (test code = 431) EOSINOPHILS RELATIVE PERCENT 1 % (BEAKER) (test code = 432) BASOPHILS RELATIVE PERCENT 1 % (BEAKER) (test code = 437) NEUTROPHILS ABSOLUTE COUNT 6.29 K/ L 1.78-5.38 H (BEAKER) (test code = 670) LYMPHOCYTES ABSOLUTE COUNT 1.01 K/ L 1.32-3.57 L (BEAKER) (test code = 414) MONOCYTES ABSOLUTE COUNT (BEAKER) 0.62 K/ L 0.30-0.82 (test code = 415) EOSINOPHILS ABSOLUTE COUNT 0.11 K/ L 0.04-0.54 (BEAKER) (test code = 416) BASOPHILS ABSOLUTE COUNT (BEAKER) 0.05 K/ L 0.01-0.08 (test code = 417) IMMATURE GRANULOCYTES-RELATIVE 1 % 0-1 PERCENT (BEAKER) (test code = 2801) POCT-GLUCOSE [id number] 21:28:00 Test Item Value Reference Range Interpretation Comments POC-GLUCOSE METER 140 mg/dL 70-110 H TESTED AT [place] [address] [facility] (test code = [facility] 1538) [address] POCT-GLUCOSE [id number] 16:51:00 Test Item Value Reference Range Interpretation Comments POC-GLUCOSE METER 141 mg/dL 70-110 H TESTED AT [place] [address] ([facility]) (test code = [facility] 1538) [address] POCT-GLUCOSE [id number] 11:51:00 Test Item Value Reference Range Interpretation Comments POC-GLUCOSE METER 91 mg/dL 70-110 TESTED AT [place] [address] ([facility]) (test code = [facility] [address] 1538) POCT-GLUCOSE [id number] 07:31:00 Test Item Value Reference Range Interpretation Comments POC-GLUCOSE METER 129 mg/dL 70-110 H TESTED AT [place] [address] ([facility]) (test code = [facility] 1538) [address] BASIC METABOLIC [id number] 06:51:00 Test Item Value Reference Range Interpretation Comments SODIUM (BEAKER) 139 meq/L 136-145 (test code = 381) POTASSIUM (BEAKER) 4.1 meq/L 3.5-5.1 (test code = 379) CHLORIDE (BEAKER) 107 meq/L 98-107 (test code = 382) CO2 (BEAKER) (test 24 meq/L 22-29 code = 355) BLOOD UREA NITROGEN 68 mg/dL 7-21 H (BEAKER) (test code = 354) CREATININE (BEAKER) 2.79 mg/dL 0.57-1.25 H (test code = 358) GLUCOSE RANDOM 101 mg/dL 70-105 (BEAKER) (test code = 652) CALCIUM (BEAKER) 8.2 mg/dL 8.4-10.2 L (test code = 697) EGFR (BEAKER) (test 27 mL/min/1.73 ESTIMA MOHSEN GFR IS code = 1092) sq m NOT ACCURATE CREATININE CLEARANCE IN PREDICTING GLOMERULAR FILTRATION RATE . ESTIMATED GFR I S NOT APPLICABLE FOR DIALYSIS PATIEN TS. CBC W/PLT COUNT & AUTO [id number] 06:46:00 Test Item Value Reference Range Interpretation Comments WHITE BLOOD CELL COUNT (BEAKER) 9.7 K/ L 3.5-10.5 (test code = 775) RED BLOOD CELL COUNT (BEAKER) 2.71 M/ L 4.63-6.08 L (test code = 761) HEMOGLOBIN (BEAKER) (test code = 7.8 GM/DL 13.7-17.5 L 410) HEMATOCRIT (BEAKER) (test code = 23.8 % 40.1-51.0 L 411) MEAN CORPUSCULAR VOLUME (BEAKER) 87.8 fL 79.0-92.2 (test code = 753) MEAN CORPUSCULAR HEMOGLOBIN 28.8 pg 25.7-32.2 (BEAKER) (test code = 751) MEAN CORPUSCULAR HEMOGLOBIN CONC 32.8 GM/DL 32.3-36.5 (BEAKER) (test code = 752) RED CELL DISTRIBUTION WIDTH 16.8 % 11.6-14.4 H (BEAKER) (test code = 412) PLATELET COUNT (BEAKER) (test 661 K/CU MM 150-450 H code = 756) MEAN PLATELET VOLUME (BEAKER) 9.7 fL 9.4-12.4 (test code = 754) NUCLEATED RED BLOOD CELLS 0 /100 WBC 0-0 (BEAKER) (test code = 413) NEUTROPHILS RELATIVE PERCENT 77 % (BEAKER) (test code = 429) LYMPHOCYTES RELATIVE PERCENT 12 % (BEAKER) (test code = 430) MONOCYTES RELATIVE PERCENT 8 % (BEAKER) (test code = 431) EOSINOPHILS RELATIVE PERCENT 2 % (BEAKER) (test code = 432) BASOPHILS RELATIVE PERCENT 1 % (BEAKER) (test code = 437) NEUTROPHILS ABSOLUTE COUNT 7.44 K/ L 1.78-5.38 H (BEAKER) (test code = 670) LYMPHOCYTES ABSOLUTE COUNT 1.16 K/ L 1.32-3.57 L (BEAKER) (test code = 414) MONOCYTES ABSOLUTE COUNT (BEAKER) 0.74 K/ L 0.30-0.82 (test code = 415) EOSINOPHILS ABSOLUTE COUNT 0.17 K/ L 0.04-0.54 (BEAKER) (test code = 416) BASOPHILS ABSOLUTE COUNT (BEAKER) 0.06 K/ L 0.01-0.08 (test code = 417) IMMATURE GRANULOCYTES-RELATIVE 1 % 0-1 PERCENT (BEAKER) (test code = 2801) [id number] 06:41:00 Test Item Value Reference Range Interpretation Comments PHOSPHORUS (BEAKER) (test code = 3.5 mg/dL 2.3-4.7 604) [id number] 06:41:00 Test Item Value Reference Range Interpretation Comments MAGNESIUM (BEAKER) (test code = 1.9 mg/dL 1.6-2.6 627) POCT-GLUCOSE [id number] 21:15:00 Test Item Value Reference Range Interpretation Comments POC-GLUCOSE METER 145 mg/dL 70-110 H TESTED AT [facility] 6720 (BEAKER) (test code = [place] 1538) [id number] POCT-GLUCOSE [id number] 16:32:00 Test Item Value Reference Range Interpretation Comments POC-GLUCOSE METER 144 mg/dL 70-110 H TESTED AT [facility] 6720 (BEAKER) (test code = [place] 1538) [address] POCT-GLUCOSE [id number] 11:57:00 Test Item Value Reference Range Interpretation Comments POC-GLUCOSE METER 107 mg/dL 70-110 TESTED AT [facility] 6720 (BEAKER) (test code = [place] 1538) [address] POCT-GLUCOSE [id number] 07:42:00 Test Item Value Reference Range Interpretation Comments POC-GLUCOSE METER 112 mg/dL 70-110 H TESTED AT [facility] 6720 (BEAKER) (test code = [place] 1538) [address] BASIC METABOLIC [id number] 05:48:00 Test Item Value Reference Range Interpretation Comments SODIUM (BEAKER) 140 meq/L 136-145 (test code = 381) POTASSIUM (BEAKER) 3.8 meq/L 3.5-5.1 (test code = 379) CHLORIDE (BEAKER) 108 meq/L 98-107 H (test code = 382) CO2 (BEAKER) (test 24 meq/L 22-29 code = 355) BLOOD UREA NITROGEN 73 mg/dL 7-21 H (BEAKER) (test code = 354) CREATININE (BEAKER) 3.22 mg/dL 0.57-1.25 H (test code = 358) GLUCOSE RANDOM 109 mg/dL 70-105 H (BEAKER) (test code = 652) CALCIUM (BEAKER) 7.9 mg/dL 8.4-10.2 L (test code = 697) EGFR (BEAKER) (test 23 mL/min/1.73 ESTIMA MOHSEN GFR IS code = 1092) sq m NOT ACCURATE CREATININE CLEARANCE IN PREDICTING GLOMERULAR FILTRATION RATE . ESTIMATED GFR I S NOT APPLICABLE FOR DIALYSIS PATIEN TS. [id number] 05:03:00 Test Item Value Reference Range Interpretation Comments PHOSPHORUS (BEAKER) (test code = 3.6 mg/dL 2.3-4.7 604) [id number] 05:03:00 Test Item Value Reference Range Interpretation Comments MAGNESIUM (BEAKER) (test code = 2.0 mg/dL 1.6-2.6 627) CBC W/PLT COUNT & AUTO [id number] 04:39:00 Test Item Value Reference Range Interpretation Comments WHITE BLOOD CELL COUNT (BEAKER) 10.3 K/ L 3.5-10.5 (test code = 775) RED BLOOD CELL COUNT (BEAKER) 2.55 M/ L 4.63-6.08 L (test code = 761) HEMOGLOBIN (BEAKER) (test code = 7.2 GM/DL 13.7-17.5 L 410) HEMATOCRIT (BEAKER) (test code = 22.0 % 40.1-51.0 L 411) MEAN CORPUSCULAR VOLUME (BEAKER) 86.3 fL 79.0-92.2 (test code = 753) MEAN CORPUSCULAR HEMOGLOBIN 28.2 pg 25.7-32.2 (BEAKER) (test code = 751) MEAN CORPUSCULAR HEMOGLOBIN CONC 32.7 GM/DL 32.3-36.5 (BEAKER) (test code = 752) RED CELL DISTRIBUTION WIDTH 16.4 % 11.6-14.4 H (BEAKER) (test code = 412) PLATELET COUNT (BEAKER) (test 685 K/CU MM 150-450 H code = 756) MEAN PLATELET VOLUME (BEAKER) 9.5 fL 9.4-12.4 (test code = 754) NUCLEATED RED BLOOD CELLS 0 /100 WBC 0-0 (BEAKER) (test code = 413) NEUTROPHILS RELATIVE PERCENT 79 % (BEAKER) (test code = 429) LYMPHOCYTES RELATIVE PERCENT 10 % (BEAKER) (test code = 430) MONOCYTES RELATIVE PERCENT 7 % (BEAKER) (test code = 431) EOSINOPHILS RELATIVE PERCENT 2 % (BEAKER) (test code = 432) BASOPHILS RELATIVE PERCENT 0 % (BEAKER) (test code = 437) NEUTROPHILS ABSOLUTE COUNT 8.21 K/ L 1.78-5.38 H (BEAKER) (test code = 670) LYMPHOCYTES ABSOLUTE COUNT 1.07 K/ L 1.32-3.57 L (BEAKER) (test code = 414) MONOCYTES ABSOLUTE COUNT (BEAKER) 0.74 K/ L 0.30-0.82 (test code = 415) EOSINOPHILS ABSOLUTE COUNT 0.16 K/ L 0.04-0.54 (BEAKER) (test code = 416) BASOPHILS ABSOLUTE COUNT (BEAKER) 0.04 K/ L 0.01-0.08 (test code = 417) IMMATURE GRANULOCYTES-RELATIVE 1 % 0-1 PERCENT (BEAKER) (test code = 2801) POCT-GLUCOSE [id number] 21:40:00 Test Item Value Reference Range Interpretation Comments POC-GLUCOSE METER 174 mg/dL 70-110 H TESTED AT [facility] 6720 (BEAKER) (test code = [place] [facility] 1538) [address] POCT-GLUCOSE [id number] 17:50:00 Test Item Value Reference Range Interpretation Comments POC-GLUCOSE METER 178 mg/dL 70-110 H [facility] [place] [address] [facility] (test code = [place] [facility] 1538) [address] POCT-GLUCOSE [id number] 12:35:00 Test Item Value Reference Range Interpretation Comments POC-GLUCOSE METER 127 mg/dL 70-110 H TESTED AT [place] [address] ([facility]) (test code = [place] [facility] 1538) [address] POCT-GLUCOSE [id number] 07:48:00 Test Item Value Reference Range Interpretation Comments POC-GLUCOSE METER 122 mg/dL 70-110 H TESTED AT [place] [address] ([facility]) (test code = [place] [facility] 1538) [address] BASIC METABOLIC [id number] 07:00:00 Test Item Value Reference Range Interpretation Comments SODIUM (BEAKER) 141 meq/L 136-145 (test code = 381) POTASSIUM (BEAKER) 3.6 meq/L 3.5-5.1 (test code = 379) CHLORIDE (BEAKER) 107 meq/L 98-107 (test code = 382) CO2 (BEAKER) (test 26 meq/L 22-29 code = 355) BLOOD UREA NITROGEN 71 mg/dL 7-21 H (BEAKER) (test code = 354) CREATININE (BEAKER) 3.59 mg/dL 0.57-1.25 H (test code = 358) GLUCOSE RANDOM 111 mg/dL 70-105 H (BEAKER) (test code = 652) CALCIUM (BEAKER) 8.2 mg/dL 8.4-10.2 L (test code = 697) EGFR (BEAKER) (test 20 mL/min/1.73 ESTIMA MOHSEN GFR IS code = 1092) sq m NOT ACCURATE CREATININE CLEARANCE IN PREDICTING GLOMERULAR FILTRATION RATE . ESTIMATED GFR I S NOT APPLICABLE FOR DIALYSIS PATIEN TS. [id number] 06:59:00 Test Item Value Reference Range Interpretation Comments PHOSPHORUS (BEAKER) (test code = 3.9 mg/dL 2.3-4.7 604) [id number] 06:59:00 Test Item Value Reference Range Interpretation Comments MAGNESIUM (BEAKER) (test code = 2.3 mg/dL 1.6-2.6 627) CBC W/PLT COUNT & AUTO [id number] 06:23:00 Test Item Value Reference Range Interpretation Comments WHITE BLOOD CELL COUNT (BEAKER) 11.1 K/ L 3.5-10.5 H (test code = 775) RED BLOOD CELL COUNT (BEAKER) 2.73 M/ L 4.63-6.08 L (test code = 761) HEMOGLOBIN (BEAKER) (test code = 7.7 GM/DL 13.7-17.5 L 410) HEMATOCRIT (BEAKER) (test code = 23.9 % 40.1-51.0 L 411) MEAN CORPUSCULAR VOLUME (BEAKER) 87.5 fL 79.0-92.2 (test code = 753) MEAN CORPUSCULAR HEMOGLOBIN 28.2 pg 25.7-32.2 (BEAKER) (test code = 751) MEAN CORPUSCULAR HEMOGLOBIN CONC 32.2 GM/DL 32.3-36.5 L (BEAKER) (test code = 752) RED CELL DISTRIBUTION WIDTH 16.6 % 11.6-14.4 H (BEAKER) (test code = 412) PLATELET COUNT (BEAKER) (test 762 K/CU MM 150-450 H code = 756) MEAN PLATELET VOLUME (BEAKER) 9.6 fL 9.4-12.4 (test code = 754) NUCLEATED RED BLOOD CELLS 0 /100 WBC 0-0 (BEAKER) (test code = 413) NEUTROPHILS RELATIVE PERCENT 81 % (BEAKER) (test code = 429) LYMPHOCYTES RELATIVE PERCENT 10 % (BEAKER) (test code = 430) MONOCYTES RELATIVE PERCENT 6 % (BEAKER) (test code = 431) EOSINOPHILS RELATIVE PERCENT 2 % (BEAKER) (test code = 432) BASOPHILS RELATIVE PERCENT 0 % (BEAKER) (test code = 437) NEUTROPHILS ABSOLUTE COUNT 8.90 K/ L 1.78-5.38 H (BEAKER) (test code = 670) LYMPHOCYTES ABSOLUTE COUNT 1.06 K/ L 1.32-3.57 L (BEAKER) (test code = 414) MONOCYTES ABSOLUTE COUNT (BEAKER) 0.71 K/ L 0.30-0.82 (test code = 415) EOSINOPHILS ABSOLUTE COUNT 0.19 K/ L 0.04-0.54 (BEAKER) (test code = 416) BASOPHILS ABSOLUTE COUNT (BEAKER) 0.04 K/ L 0.01-0.08 (test code = 417) IMMATURE GRANULOCYTES-RELATIVE 1 % 0-1 PERCENT (BEAKER) (test code = 2801) POCT-GLUCOSE [id number] 21:18:00 Test Item Value Reference Range Interpretation Comments POC-GLUCOSE METER 135 mg/dL 70-110 H [facility] [place] [address] [facility] (test code = [facility] 1538) [address] POCT-GLUCOSE [id number] 16:41:00 Test Item Value Reference Range Interpretation Comments POC-GLUCOSE METER 123 mg/dL 70-110 H TESTED AT [place] [address] ([facility]) (test code = [facility] 1538) [address] [id number] 16:21:00 Test Item Value Reference Range Interpretation Comments POTASSIUM (BEAKER) (test code = 3.4 meq/L 3.5-5.1 L 379) POCT-GLUCOSE [id number] 12:31:00 Test Item Value Reference Range Interpretation Comments POC-GLUCOSE METER 143 mg/dL 70-110 H TESTED AT [place] [address] ([facility]) (test code = [facility] 1538) [address] POCT-GLUCOSE [id number] 07:27:00 Test Item Value Reference Range Interpretation Comments POC-GLUCOSE METER 118 mg/dL 70-110 H TESTED AT [place] [address] [facility] (test code = [facility] 1538) [address] [id number] 05:22:00 Test Item Value Reference Range Interpretation Comments FERRITIN (BEAKER) (test code = 361) 884 ng/mL 5-275 H BASIC METABOLIC [id number] 05:21:00 Test Item Value Reference Range Interpretation Comments SODIUM (BEAKER) 141 meq/L 136-145 (test code = 381) POTASSIUM (BEAKER) 3.0 meq/L 3.5-5.1 L (test code = 379) CHLORIDE (BEAKER) 105 meq/L 98-107 (test code = 382) CO2 (BEAKER) (test 26 meq/L 22-29 code = 355) BLOOD UREA NITROGEN 69 mg/dL 7-21 H (BEAKER) (test code = 354) CREATININE (BEAKER) 3.81 mg/dL 0.57-1.25 H (test code = 358) GLUCOSE RANDOM 102 mg/dL 70-105 (BEAKER) (test code = 652) CALCIUM (BEAKER) 8.0 mg/dL 8.4-10.2 L (test code = 697) EGFR (BEAKER) (test 19 mL/min/1.73 ESTIMA MOHSEN GFR IS code = 1092) sq m NOT ACCURATE CREATININE CLEARANCE IN PREDICTING GLOMERULAR FILTRATION RATE . ESTIMATED GFR I S NOT APPLICABLE FOR DIALYSIS PATIEN TS. [id number] 05:20:00 Test Item Value Reference Range Interpretation Comments PHOSPHORUS (BEAKER) (test code = 3.9 mg/dL 2.3-4.7 604) [id number] 05:20:00 Test Item Value Reference Range Interpretation Comments MAGNESIUM (BEAKER) (test code = 2.3 mg/dL 1.6-2.6 627) CBC W/PLT COUNT & AUTO [id number] 05:02:00 Test Item Value Reference Range Interpretation Comments WHITE BLOOD CELL COUNT (BEAKER) 12.5 K/ L 3.5-10.5 H (test code = 775) RED BLOOD CELL COUNT (BEAKER) 2.86 M/ L 4.63-6.08 L (test code = 761) HEMOGLOBIN (BEAKER) (test code = 8.2 GM/DL 13.7-17.5 L 410) HEMATOCRIT (BEAKER) (test code = 24.5 % 40.1-51.0 L 411) MEAN CORPUSCULAR VOLUME (BEAKER) 85.7 fL 79.0-92.2 (test code = 753) MEAN CORPUSCULAR HEMOGLOBIN 28.7 pg 25.7-32.2 (BEAKER) (test code = 751) MEAN CORPUSCULAR HEMOGLOBIN CONC 33.5 GM/DL 32.3-36.5 (BEAKER) (test code = 752) RED CELL DISTRIBUTION WIDTH 16.3 % 11.6-14.4 H (BEAKER) (test code = 412) PLATELET COUNT (BEAKER) (test 702 K/CU MM 150-450 H code = 756) MEAN PLATELET VOLUME (BEAKER) 9.8 fL 9.4-12.4 (test code = 754) NUCLEATED RED BLOOD CELLS 0 /100 WBC 0-0 (BEAKER) (test code = 413) NEUTROPHILS RELATIVE PERCENT 83 % (BEAKER) (test code = 429) LYMPHOCYTES RELATIVE PERCENT 7 % (BEAKER) (test code = 430) MONOCYTES RELATIVE PERCENT 6 % (BEAKER) (test code = 431) EOSINOPHILS RELATIVE PERCENT 2 % (BEAKER) (test code = 432) BASOPHILS RELATIVE PERCENT 0 % (BEAKER) (test code = 437) NEUTROPHILS ABSOLUTE COUNT 10.41 K/ L 1.78-5.38 H (BEAKER) (test code = 670) LYMPHOCYTES ABSOLUTE COUNT 0.90 K/ L 1.32-3.57 L (BEAKER) (test code = 414) MONOCYTES ABSOLUTE COUNT (BEAKER) 0.77 K/ L 0.30-0.82 (test code = 415) EOSINOPHILS ABSOLUTE COUNT 0.26 K/ L 0.04-0.54 (BEAKER) (test code = 416) BASOPHILS ABSOLUTE COUNT (BEAKER) 0.04 K/ L 0.01-0.08 (test code = 417) IMMATURE GRANULOCYTES-RELATIVE 1 % 0-1 PERCENT (BEAKER) (test code = 2807) IRON, TIBC, % SAT. (WITHOUT FERRITIN)2019-03-28 05:02:00 Test Item Value Reference Range Interpretation Comments IRON (BEAKER) (test code = 547) 25.0 ug/dL 40.0-160.0 L TOTAL IRON BINDING CAPACITY 140 ug/dL 250-450 L (BEAKER) (test code = 769) IRON % SATURATION (2) (BEAKER) 18 % 20-55 L (test code = 2590) POCT-GLUCOSE [id number] 21:14:00 Test Item Value Reference Range Interpretation Comments POC-GLUCOSE METER 125 mg/dL 70-110 H TESTED AT [facility] 6720 (BEAKER) (test code = [facility] 1538) [address] POCT-GLUCOSE [id number] 18:05:00 Test Item Value Reference Range Interpretation Comments POC-GLUCOSE METER 124 mg/dL 70-110 H TESTED AT [facility] 6720 (BEAKER) (test code = [facility] 1538) [address] POCT-GLUCOSE [id number] 12:17:00 Test Item Value Reference Range Interpretation Comments POC-GLUCOSE METER 132 mg/dL 70-110 H TESTED AT [facility] [facility] (test code = [place] 1538) [address] BASIC METABOLIC [id number] 06:49:00 Test Item Value Reference Range Interpretation Comments SODIUM (BEAKER) 141 meq/L 136-145 (test code = 381) POTASSIUM (BEAKER) 3.4 meq/L 3.5-5.1 L Specimen slightly (test code = 379) hemolyzed CHLORIDE (BEAKER) 104 meq/L 98-107 (test code = 382) CO2 (BEAKER) (test 26 meq/L 22-29 code = 355) BLOOD UREA NITROGEN 69 mg/dL 7-21 H (BEAKER) (test code = 354) CREATININE (BEAKER) 4.09 mg/dL 0.57-1.25 H Specimen slightly (test code = 358) hemolyzed GLUCOSE RANDOM 105 mg/dL 70-105 (BEAKER) (test code = 652) CALCIUM (BEAKER) 8.1 mg/dL 8.4-10.2 L (test code = 697) EGFR (BEAKER) (test 17 mL/min/1.73 ESTIMA MOHSEN GFR IS code = 1092) sq m NOT ACCURATE CREATININE CLEARANCE IN PREDICTING GLOMERULAR FILTRATION RATE . ESTIMATED GFR I S NOT APPLICABLE FOR DIALYSIS PATIEN TS. POCT-GLUCOSE [id number] 06:38:00 Test Item Value Reference Range Interpretation Comments POC-GLUCOSE METER 129 mg/dL 70-110 H TESTED AT [facility] 6720 (BEAKER) (test code = [place] [facility] 1538) [address] [id number] 06:15:00 Test Item Value Reference Range Interpretation Comments MAGNESIUM (BEAKER) 2.6 mg/dL 1.6-2.6 Specimen slightly (test code = 627) hemolyzed [id number] 06:15:00 Test Item Value Reference Range Interpretation Comments PHOSPHORUS (BEAKER) 3.7 mg/dL 2.3-4.7 Specimen slightly (test code = 604) hemolyzed CBC W/PLT COUNT & AUTO [id number] 05:00:00 Test Item Value Reference Range Interpretation Comments WHITE BLOOD CELL COUNT (BEAKER) 13.2 K/ L 3.5-10.5 H (test code = 775) RED BLOOD CELL COUNT (BEAKER) 2.74 M/ L 4.63-6.08 L (test code = 761) HEMOGLOBIN (BEAKER) (test code = 7.9 GM/DL 13.7-17.5 L 410) HEMATOCRIT (BEAKER) (test code = 23.7 % 40.1-51.0 L 411) MEAN CORPUSCULAR VOLUME (BEAKER) 86.5 fL 79.0-92.2 (test code = 753) MEAN CORPUSCULAR HEMOGLOBIN 28.8 pg 25.7-32.2 (BEAKER) (test code = 751) MEAN CORPUSCULAR HEMOGLOBIN CONC 33.3 GM/DL 32.3-36.5 (BEAKER) (test code = 752) RED CELL DISTRIBUTION WIDTH 16.8 % 11.6-14.4 H (BEAKER) (test code = 412) PLATELET COUNT (BEAKER) (test 684 K/CU MM 150-450 H code = 756) MEAN PLATELET VOLUME (BEAKER) 10.2 fL 9.4-12.4 (test code = 754) NUCLEATED RED BLOOD CELLS 0 /100 WBC 0-0 (BEAKER) (test code = 413) NEUTROPHILS RELATIVE PERCENT 83 % (BEAKER) (test code = 429) LYMPHOCYTES RELATIVE PERCENT 7 % (BEAKER) (test code = 430) MONOCYTES RELATIVE PERCENT 6 % (BEAKER) (test code = 431) EOSINOPHILS RELATIVE PERCENT 2 % (BEAKER) (test code = 432) BASOPHILS RELATIVE PERCENT 0 % (BEAKER) (test code = 437) NEUTROPHILS ABSOLUTE COUNT 10.93 K/ L 1.78-5.38 H (BEAKER) (test code = 670) LYMPHOCYTES ABSOLUTE COUNT 0.94 K/ L 1.32-3.57 L (BEAKER) (test code = 414) MONOCYTES ABSOLUTE COUNT (BEAKER) 0.79 K/ L 0.30-0.82 (test code = 415) EOSINOPHILS ABSOLUTE COUNT 0.29 K/ L 0.04-0.54 (BEAKER) (test code = 416) BASOPHILS ABSOLUTE COUNT (BEAKER) 0.05 K/ L 0.01-0.08 (test code = 417) IMMATURE GRANULOCYTES-RELATIVE 1 % 0-1 PERCENT (BEAKER) (test code = 2801) POCT-GLUCOSE [id number] 00:14:00 Test Item Value Reference Range Interpretation Comments POC-GLUCOSE METER 111 mg/dL 70-110 H TESTED AT [place] [address] ([facility]) (test code = [place] [facility] 1538) [address] POCT-GLUCOSE [id number] 23:11:00 Test Item Value Reference Range Interpretation Comments POC-GLUCOSE METER 106 mg/dL 70-110 TESTED AT [place] [address] ([facility]) (test code = [place] [facility] 1538) [address] POCT-GLUCOSE [id number] 17:18:00 Test Item Value Reference Range Interpretation Comments POC-GLUCOSE METER 127 mg/dL 70-110 H TESTED AT [place] [address] ([facility]) (test code = [place] [facility] 1538) [address] CBC (HEMOGRAM ONLY)2019-03-26 13:23:00 Test Item Value Reference Range Interpretation Comments WHITE BLOOD CELL COUNT (BEAKER) 13.0 K/ L 3.5-10.5 H (test code = 775) RED BLOOD CELL COUNT (BEAKER) 2.66 M/ L 4.63-6.08 L (test code = 761) HEMOGLOBIN (BEAKER) (test code = 7.6 GM/DL 13.7-17.5 L 410) HEMATOCRIT (BEAKER) (test code = 22.8 % 40.1-51.0 L 411) MEAN CORPUSCULAR VOLUME (BEAKER) 85.7 fL 79.0-92.2 (test code = 753) MEAN CORPUSCULAR HEMOGLOBIN 28.6 pg 25.7-32.2 (BEAKER) (test code = 751) MEAN CORPUSCULAR HEMOGLOBIN CONC 33.3 GM/DL 32.3-36.5 (BEAKER) (test code = 752) RED CELL DISTRIBUTION WIDTH 16.5 % 11.6-14.4 H (BEAKER) (test code = 412) PLATELET COUNT (BEAKER) (test 550 K/CU MM 150-450 H code = 756) MEAN PLATELET VOLUME (BEAKER) 10.1 fL 9.4-12.4 (test code = 754) NUCLEATED RED BLOOD CELLS 0 /100 WBC 0-0 (BEAKER) (test code = 413) BASIC METABOLIC [id number] 13:11:00 Test Item Value Reference Range Interpretation Comments SODIUM (BEAKER) 143 meq/L 136-145 (test code = 381) POTASSIUM (BEAKER) 3.5 meq/L 3.5-5.1 (test code = 379) CHLORIDE (BEAKER) 104 meq/L 98-107 (test code = 382) CO2 (BEAKER) (test 31 meq/L 22-29 H code = 355) BLOOD UREA NITROGEN 65 mg/dL 7-21 H (BEAKER) (test code = 354) CREATININE (BEAKER) 3.99 mg/dL 0.57-1.25 H (test code = 358) GLUCOSE RANDOM 116 mg/dL 70-105 H (BEAKER) (test code = 652) CALCIUM (BEAKER) 8.2 mg/dL 8.4-10.2 L (test code = 697) EGFR (BEAKER) (test 18 mL/min/1.73 ESTIMA MOHSEN GFR IS code = 1092) sq m NOT ACCURATE CREATININE CLEARANCE IN PREDICTING GLOMERULAR FILTRATION RATE . ESTIMATED GFR I S NOT APPLICABLE FOR DIALYSIS PATIEN TS. [id number] 13:08:00 Test Item Value Reference Range Interpretation Comments PHOSPHORUS (BEAKER) (test code = 2.9 mg/dL 2.3-4.7 604) [id number] 13:08:00 Test Item Value Reference Range Interpretation Comments MAGNESIUM (BEAKER) (test code = 2.7 mg/dL 1.6-2.6 H 627) POCT-GLUCOSE [id number] 12:32:00 Test Item Value Reference Range Interpretation Comments POC-GLUCOSE METER 186 mg/dL 70-110 H TESTED AT [facility] [address] (BEAKER) (test code = [place] 1538) [id number] POCT-GLUCOSE [id number] 06:32:00 Test Item Value Reference Range Interpretation Comments POC-GLUCOSE METER 152 mg/dL 70-110 H TESTED AT [facility] 67[address] (BEAKER) (test code = [place] 1538) [id number] BASIC METABOLIC [id number] 04:43:00 Test Item Value Reference Range Interpretation Comments SODIUM (BEAKER) 143 meq/L 136-145 (test code = 381) POTASSIUM (BEAKER) 2.9 meq/L 3.5-5.1 L (test code = 379) CHLORIDE (BEAKER) 102 meq/L 98-107 (test code = 382) CO2 (BEAKER) (test 29 meq/L 22-29 code = 355) BLOOD UREA NITROGEN 59 mg/dL 7-21 H (BEAKER) (test code = 354) CREATININE (BEAKER) 3.79 mg/dL 0.57-1.25 H (test code = 358) GLUCOSE RANDOM 122 mg/dL 70-105 H (BEAKER) (test code = 652) CALCIUM (BEAKER) 8.0 mg/dL 8.4-10.2 L (test code = 697) EGFR (BEAKER) (test 19 mL/min/1.73 ESTIMA MOHSEN GFR IS code = 1092) sq m NOT ACCURATE CREATININE CLEARANCE IN PREDICTING GLOMERULAR FILTRATION RATE . ESTIMATED GFR I S NOT APPLICABLE FOR DIALYSIS PATIEN TS. [id number] 04:32:00 Test Item Value Reference Range Interpretation Comments PHOSPHORUS (BEAKER) (test code = 2.7 mg/dL 2.3-4.7 604) [id number] 04:32:00 Test Item Value Reference Range Interpretation Comments MAGNESIUM (BEAKER) (test code = 2.6 mg/dL 1.6-2.6 627) HEPATIC FUNCTION [id number] 04:32:00 Test Item Value Reference Range Interpretation Comments TOTAL PROTEIN (BEAKER) (test code = 5.9 gm/dL 6.0-8.3 L 770) ALBUMIN (BEAKER) (test code = 1145) 3.2 g/dL 3.5-5.0 L BILIRUBIN TOTAL (BEAKER) (test code 0.8 mg/dL 0.2-1.2 = 377) BILIRUBIN DIRECT (BEAKER) (test 0.5 mg/dL 0.1-0.5 code = 706) ALKALINE PHOSPHATASE (BEAKER) (test 145 U/L 40-150 code = 346) AST (SGOT) (BEAKER) (test code = 61 U/L 5-34 H 353) ALT (SGPT) (BEAKER) (test code = 48 U/L 6-55 347) CBC W/PLT COUNT & AUTO [id number] 04:09:00 Test Item Value Reference Range Interpretation Comments WHITE BLOOD CELL COUNT (BEAKER) 13.6 K/ L 3.5-10.5 H (test code = 775) RED BLOOD CELL COUNT (BEAKER) 2.43 M/ L 4.63-6.08 L (test code = 761) HEMOGLOBIN (BEAKER) (test code = 7.2 GM/DL 13.7-17.5 L 410) HEMATOCRIT (BEAKER) (test code = 20.6 % 40.1-51.0 L 411) MEAN CORPUSCULAR VOLUME (BEAKER) 84.8 fL 79.0-92.2 (test code = 753) MEAN CORPUSCULAR HEMOGLOBIN 29.6 pg 25.7-32.2 (BEAKER) (test code = 751) MEAN CORPUSCULAR HEMOGLOBIN CONC 35.0 GM/DL 32.3-36.5 (BEAKER) (test code = 752) RED CELL DISTRIBUTION WIDTH 16.5 % 11.6-14.4 H (BEAKER) (test code = 412) PLATELET COUNT (BEAKER) (test 483 K/CU MM 150-450 H code = 756) MEAN PLATELET VOLUME (BEAKER) 10.2 fL 9.4-12.4 (test code = 754) NUCLEATED RED BLOOD CELLS 0 /100 WBC 0-0 (BEAKER) (test code = 413) NEUTROPHILS RELATIVE PERCENT 84 % (BEAKER) (test code = 429) LYMPHOCYTES RELATIVE PERCENT 7 % (BEAKER) (test code = 430) MONOCYTES RELATIVE PERCENT 6 % (BEAKER) (test code = 431) EOSINOPHILS RELATIVE PERCENT 1 % (BEAKER) (test code = 432) BASOPHILS RELATIVE PERCENT 0 % (BEAKER) (test code = 437) NEUTROPHILS ABSOLUTE COUNT 11.44 K/ L 1.78-5.38 H (BEAKER) (test code = 670) LYMPHOCYTES ABSOLUTE COUNT 0.92 K/ L 1.32-3.57 L (BEAKER) (test code = 414) MONOCYTES ABSOLUTE COUNT (BEAKER) 0.81 K/ L 0.30-0.82 (test code = 415) EOSINOPHILS ABSOLUTE COUNT 0.16 K/ L 0.04-0.54 (BEAKER) (test code = 416) BASOPHILS ABSOLUTE COUNT (BEAKER) 0.02 K/ L 0.01-0.08 (test code = 417) IMMATURE GRANULOCYTES-RELATIVE 2 % 0-1 H PERCENT ([facility]) (test code = 2801) POCT-GLUCOSE [id number] 00:24:00 Test Item Value Reference Range Interpretation Comments POC-GLUCOSE METER 126 mg/dL 70-110 H TESTED AT [place] [address] ([facility]) (test code = [place] [facility] 1538) [id number] POCT-GLUCOSE [id number] 18:59:00 Test Item Value Reference Range Interpretation Comments POC-GLUCOSE METER 178 mg/dL 70-110 H TESTED AT [place] [address] ([facility]) (test code = [place] [facility] 1538) [id number] POCT-GLUCOSE [id number] 12:57:00 Test Item Value Reference Range Interpretation Comments POC-GLUCOSE METER 173 mg/dL 70-110 H TESTED AT [place] [address] ([facility]) (test code = [place] Jose [facility] 1538) [address] RAD, CHEST, 1 VIEW, NON [id number] 09:49:00Reason for exam:->Pulmonary edemaFINAL REPORT AP chest HISTORY: Pulmonary edema. COMPARISON: 03/24/2018. IMPRESSION: Left IJ catheter. Stable cardiac silhouette. Diffuse interstitial opacities unchanged. No pneumothorax. Signed: Uri Govea MDReport Verified Date/Time: 03/25/2019 09:49:08 Reading Location: [address] Consult Reading Room URINE [id number] 09:31:00 Test Item Value Reference Range Interpretation Comments CULTURE ([facility]) (test code = 1095) No growth OCCULT BLOOD, [id number] 07:54:00 Test Item Value Reference Range Interpretation Comments FECAL OCCULT BLOOD ([facility]) (test Negative Negative code = 618) POCT-GLUCOSE [id number] 07:31:00 Test Item Value Reference Range Interpretation Comments POC-GLUCOSE METER 131 mg/dL 70-110 H TESTED AT [place] [address] ([facility]) (test code = [place] [facility] 1538) [address] BASIC METABOLIC [id number] 04:31:00 Test Item Value Reference Range Interpretation Comments SODIUM ([facility]) 142 meq/L 136-145 (test code = 381) POTASSIUM (BEAKER) 3.2 meq/L 3.5-5.1 L (test code = 379) CHLORIDE (BEAKER) 100 meq/L 98-107 (test code = 382) CO2 (BEAKER) (test 31 meq/L 22-29 H code = 355) BLOOD UREA NITROGEN 37 mg/dL 7-21 H (BEAKER) (test code = 354) CREATININE (BEAKER) 2.60 mg/dL 0.57-1.25 H (test code = 358) GLUCOSE RANDOM 120 mg/dL 70-105 H (BEAKER) (test code = 652) CALCIUM (BEAKER) 8.1 mg/dL 8.4-10.2 L (test code = 697) EGFR (BEAKER) (test 29 mL/min/1.73 ESTIMA MOHSEN GFR IS code = 1092) sq m NOT ACCURATE CREATININE CLEARANCE IN PREDICTING GLOMERULAR FILTRATION RATE . ESTIMATED GFR I S NOT APPLICABLE FOR DIALYSIS PATIEN TS. [id number] 04:24:00 Test Item Value Reference Range Interpretation Comments PHOSPHORUS (BEAKER) (test code = 2.4 mg/dL 2.3-4.7 604) [id number] 04:24:00 Test Item Value Reference Range Interpretation Comments MAGNESIUM (BEAKER) (test code = 1.9 mg/dL 1.6-2.6 627) HEPATIC FUNCTION [id number] 04:24:00 Test Item Value Reference Range Interpretation Comments TOTAL PROTEIN (BEAKER) (test code = 6.0 gm/dL 6.0-8.3 770) ALBUMIN (BEAKER) (test code = 1145) 2.6 g/dL 3.5-5.0 L BILIRUBIN TOTAL (BEAKER) (test code 0.8 mg/dL 0.2-1.2 = 377) BILIRUBIN DIRECT (BEAKER) (test 0.4 mg/dL 0.1-0.5 code = 706) ALKALINE PHOSPHATASE (BEAKER) (test 220 U/L 40-150 H code = 346) AST (SGOT) (BEAKER) (test code = 96 U/L 5-34 H 353) ALT (SGPT) (BEAKER) (test code = 71 U/L 6-55 H 347) CBC W/PLT COUNT & AUTO [id number] 04:11:00 Test Item Value Reference Range Interpretation Comments WHITE BLOOD CELL COUNT (BEAKER) 25.0 K/ L 3.5-10.5 H (test code = 775) RED BLOOD CELL COUNT (BEAKER) 2.93 M/ L 4.63-6.08 L (test code = 761) HEMOGLOBIN (BEAKER) (test code = 8.6 GM/DL 13.7-17.5 L 410) HEMATOCRIT (BEAKER) (test code = 24.6 % 40.1-51.0 L 411) MEAN CORPUSCULAR VOLUME (BEAKER) 84.0 fL 79.0-92.2 (test code = 753) MEAN CORPUSCULAR HEMOGLOBIN 29.4 pg 25.7-32.2 (BEAKER) (test code = 751) MEAN CORPUSCULAR HEMOGLOBIN CONC 35.0 GM/DL 32.3-36.5 (BEAKER) (test code = 752) RED CELL DISTRIBUTION WIDTH 16.1 % 11.6-14.4 H (BEAKER) (test code = 412) PLATELET COUNT (BEAKER) (test 486 K/CU MM 150-450 H code = 756) MEAN PLATELET VOLUME (BEAKER) 10.1 fL 9.4-12.4 (test code = 754) NUCLEATED RED BLOOD CELLS 0 /100 WBC 0-0 (BEAKER) (test code = 413) NEUTROPHILS RELATIVE PERCENT 90 % (BEAKER) (test code = 429) LYMPHOCYTES RELATIVE PERCENT 5 % (BEAKER) (test code = 430) MONOCYTES RELATIVE PERCENT 4 % (BEAKER) (test code = 431) EOSINOPHILS RELATIVE PERCENT 0 % (BEAKER) (test code = 432) BASOPHILS RELATIVE PERCENT 0 % (BEAKER) (test code = 437) NEUTROPHILS ABSOLUTE COUNT 22.33 K/ L 1.78-5.38 H (BEAKER) (test code = 670) LYMPHOCYTES ABSOLUTE COUNT 1.12 K/ L 1.32-3.57 L (BEAKER) (test code = 414) MONOCYTES ABSOLUTE COUNT (BEAKER) 0.95 K/ L 0.30-0.82 H (test code = 415) EOSINOPHILS ABSOLUTE COUNT 0.08 K/ L 0.04-0.54 (BEAKER) (test code = 416) BASOPHILS ABSOLUTE COUNT (BEAKER) 0.04 K/ L 0.01-0.08 (test code = 417) IMMATURE GRANULOCYTES-RELATIVE 2 % 0-1 H PERCENT (BEAKER) (test code = 2801) CBC (HEMOGRAM ONLY)2019-03-25 00:20:00 Test Item Value Reference Range Interpretation Comments WHITE BLOOD CELL COUNT (BEAKER) 28.0 K/ L 3.5-10.5 H (test code = 775) RED BLOOD CELL COUNT (BEAKER) 3.02 M/ L 4.63-6.08 L (test code = 761) HEMOGLOBIN (BEAKER) (test code = 8.7 GM/DL 13.7-17.5 L 410) HEMATOCRIT (BEAKER) (test code = 25.7 % 40.1-51.0 L 411) MEAN CORPUSCULAR VOLUME (BEAKER) 85.1 fL 79.0-92.2 (test code = 753) MEAN CORPUSCULAR HEMOGLOBIN 28.8 pg 25.7-32.2 (BEAKER) (test code = 751) MEAN CORPUSCULAR HEMOGLOBIN CONC 33.9 GM/DL 32.3-36.5 (BEAKER) (test code = 752) RED CELL DISTRIBUTION WIDTH 15.8 % 11.6-14.4 H (BEAKER) (test code = 412) PLATELET COUNT (BEAKER) (test 488 K/CU MM 150-450 H code = 756) MEAN PLATELET VOLUME (BEAKER) 10.3 fL 9.4-12.4 (test code = 754) NUCLEATED RED BLOOD CELLS 0 /100 WBC 0-0 (BEAKER) (test code = 413) POCT-GLUCOSE [id number] 23:42:00 Test Item Value Reference Range Interpretation Comments POC-GLUCOSE METER 116 mg/dL 70-110 H [facility] [place] [address] [facility] (test code = [place] 1538) [address] POCT-GLUCOSE [id number] 17:36:00 Test Item Value Reference Range Interpretation Comments POC-GLUCOSE METER 156 mg/dL 70-110 H [facility] AT [place] [address] [facility] (test code = [place] 1538) [address] POCT-GLUCOSE [id number] 11:18:00 Test Item Value Reference Range Interpretation Comments POC-GLUCOSE METER 115 mg/dL 70-110 H TESTED AT [facility] 6720 (BEAKER) (test code = [place] 1538) [address] RAD, CHEST, 1 VIEW, NON [id number] 09:13:00Reason for exam:->Pulmonary edemaShould this be performed at the bedside?->YesFINAL REPORT Chest dated 03/24/2019 Clinical Information: Pulmonary edema Comment: Heart is normal in size. Pulmonary vasculature is indistinct. Interstitial disease is seen bilaterally suggestive of vascular congestion, pulmonary edema, pneumonia. No pleural effusion is noted. Left IJ central venous catheter is present. No pneumothorax is seen. Signed: Deshawn Arzolaeport Verified Date/Time: 03/24/2019 09:13:53 Reading Location: [facility] Radiology Reading Room CBC W/PLT COUNT & AUTO [id number] 07:50:00 Test Item Value Reference Range Interpretation Comments WHITE BLOOD CELL COUNT (BEAKER) 24.7 K/ L 3.5-10.5 H (test code = 775) RED BLOOD CELL COUNT (BEAKER) 2.42 M/ L 4.63-6.08 L (test code = 761) HEMOGLOBIN (BEAKER) (test code = 7.1 GM/DL 13.7-17.5 L 410) HEMATOCRIT (BEAKER) (test code = 21.1 % 40.1-51.0 L 411) MEAN CORPUSCULAR VOLUME (BEAKER) 87.2 fL 79.0-92.2 (test code = 753) MEAN CORPUSCULAR HEMOGLOBIN 29.3 pg 25.7-32.2 (BEAKER) (test code = 751) MEAN CORPUSCULAR HEMOGLOBIN CONC 33.6 GM/DL 32.3-36.5 (BEAKER) (test code = 752) RED CELL DISTRIBUTION WIDTH 15.4 % 11.6-14.4 H (BEAKER) (test code = 412) PLATELET COUNT (BEAKER) (test 468 K/CU MM 150-450 H code = 756) MEAN PLATELET VOLUME (BEAKER) 10.1 fL 9.4-12.4 (test code = 754) NUCLEATED RED BLOOD CELLS 0 /100 WBC 0-0 (BEAKER) (test code = 413) (CELLAVISION MANUAL DIFF)2019-03-24 07:50:00 Test Item Value Reference Range Interpretation Comments NEUTROPHILS - REL 96 % (CELLAVISION)(BEAKER) (test code = 2816) LYMPHOCYTES - REL 3 % (CELLAVISION)(BEAKER) (test code = 2817) MONOCYTES - REL 1 % (CELLAVISION)(BEAKER) (test code = 2818) NEUTROPHILS - ABS 23.71 K/ul 1.78-5.38 H (CELLAVISION)(BEAKER) (test code = 2830) LYMPHOCYTES - ABS 0.74 K/ul 1.32-3.57 L (CELLAVISION)(BEAKER) (test code = 2831) MONOCYTES - ABS 0.25 K/uL 0.30-0.82 L (CELLAVISION)(BEAKER) (test code = 2832) TOTAL COUNTED (BEAKER) (test code 100 = 1351) WBC MORPHOLOGY (BEAKER) (test Normal code = 487) PLT MORPHOLOGY (BEAKER) (test Normal code = 486) POLYCHROMATOPHILLIC RBCS(BEAKER) 1+ few (test code = 478) HYPOCHROMIA (BEAKER) (test code = 2+ moderate 963) ANISOCYTOSIS (BEAKER) (test code 1+ few = 961) MACROCYTES (BEAKER) (test code = 1+ few 964) POIKILOCYTES (BEAKER) (test code 2+ moderate = 966) ROULEAUX (BEAKER) (test code = 1+ few 763) ELLIPTOCYTES (BEAKER) (test code 2+ moderate = 962) OVALOCYTES (BEAKER) (test code = 2+ moderate 477) TEAR DROP CELLS (BEAKER) (test 1+ few code = 481) STOMATOCYTES (BEAKER) (test code 1+ few = 479) ARTIFACT (CELLAVISION)(BEAKER) Present (test code = 3432) PLATELET CONCENTRATION Increased (CELLAVISION)(BEAKER) (test code = 3438) Received comment: User comments: Slide comments: WBC: SEGMENTED WITH TOXIC GRANULATIONS PRESENTHEMOGLOBIN AND [id number] 06:19:00 Test Item Value Reference Range Interpretation Comments HEMOGLOBIN (BEAKER) (test code = 7.0 GM/DL 13.7-17.5 L 410) HEMATOCRIT (BEAKER) (test code = 21.0 % 40.1-51.0 L 411) POCT-GLUCOSE [id number] 05:41:00 Test Item Value Reference Range Interpretation Comments POC-GLUCOSE METER 134 mg/dL 70-110 H TESTED AT [facility] 6720 (BEAKER) (test code = [place] 1538) [address] BASIC METABOLIC [id number] 04:09:00 Test Item Value Reference Range Interpretation Comments SODIUM (BEAKER) 142 meq/L 136-145 (test code = 381) POTASSIUM (BEAKER) 3.9 meq/L 3.5-5.1 (test code = 379) CHLORIDE (BEAKER) 104 meq/L 98-107 (test code = 382) CO2 (BEAKER) (test 28 meq/L 22-29 code = 355) BLOOD UREA NITROGEN 69 mg/dL 7-21 H (BEAKER) (test code = 354) CREATININE (BEAKER) 4.88 mg/dL 0.57-1.25 H (test code = 358) GLUCOSE RANDOM 108 mg/dL 70-105 H (BEAKER) (test code = 652) CALCIUM (BEAKER) 8.0 mg/dL 8.4-10.2 L (test code = 697) EGFR (BEAKER) (test 14 mL/min/1.73 ESTIMA MOHSEN GFR IS code = 1092) sq m NOT ACCURATE CREATININE CLEARANCE IN PREDICTING GLOMERULAR FILTRATION RATE . ESTIMATED GFR I S NOT APPLICABLE FOR DIALYSIS PATIEN TS. [id number] 04:04:00 Test Item Value Reference Range Interpretation Comments PHOSPHORUS (BEAKER) (test code = 4.3 mg/dL 2.3-4.7 604) [id number] 04:04:00 Test Item Value Reference Range Interpretation Comments MAGNESIUM (BEAKER) (test code = 2.5 mg/dL 1.6-2.6 627) HEPATIC FUNCTION [id number] 04:04:00 Test Item Value Reference Range Interpretation Comments TOTAL PROTEIN (BEAKER) (test code = 5.6 gm/dL 6.0-8.3 L 770) ALBUMIN (BEAKER) (test code = 1145) 2.4 g/dL 3.5-5.0 L BILIRUBIN TOTAL (BEAKER) (test code 0.6 mg/dL 0.2-1.2 = 377) BILIRUBIN DIRECT (BEAKER) (test 0.4 mg/dL 0.1-0.5 code = 706) ALKALINE PHOSPHATASE (BEAKER) (test 248 U/L 40-150 H code = 346) AST (SGOT) (BEAKER) (test code = 95 U/L 5-34 H 353) ALT (SGPT) (BEAKER) (test code = 65 U/L 6-55 H 347) POCT-GLUCOSE [id number] 00:03:00 Test Item Value Reference Range Interpretation Comments POC-GLUCOSE METER 128 mg/dL 70-110 H TESTED AT [place] [address] ([facility]) (test code = [place] 1538) [address] OCCULT BLOOD, [id number] 22:12:00 Test Item Value Reference Range Interpretation Comments FECAL OCCULT BLOOD (AKER) (test Negative Negative code = 618) POCT-GLUCOSE [id number] 18:02:00 Test Item Value Reference Range Interpretation Comments POC-GLUCOSE METER 145 mg/dL 70-110 H TESTED AT [place] [address] ([facility]) (test code = [place] [facility] 1538) [id number] CBC (HEMOGRAM ONLY)2019-03-23 14:54:00 Test Item Value Reference Range Interpretation Comments WHITE BLOOD CELL COUNT (BEAKER) 24.0 K/ L 3.5-10.5 H (test code = 775) RED BLOOD CELL COUNT (BEAKER) 2.78 M/ L 4.63-6.08 L (test code = 761) HEMOGLOBIN (BEAKER) (test code = 8.0 GM/DL 13.7-17.5 L 410) HEMATOCRIT (BEAKER) (test code = 24.0 % 40.1-51.0 L 411) MEAN CORPUSCULAR VOLUME (BEAKER) 86.3 fL 79.0-92.2 (test code = 753) MEAN CORPUSCULAR HEMOGLOBIN 28.8 pg 25.7-32.2 (BEAKER) (test code = 751) MEAN CORPUSCULAR HEMOGLOBIN CONC 33.3 GM/DL 32.3-36.5 (BEAKER) (test code = 752) RED CELL DISTRIBUTION WIDTH 15.1 % 11.6-14.4 H (BEAKER) (test code = 412) PLATELET COUNT (BEAKER) (test 426 K/CU MM 150-450 code = 756) MEAN PLATELET VOLUME (BEAKER) 10.2 fL 9.4-12.4 (test code = 754) NUCLEATED RED BLOOD CELLS 0 /100 WBC 0-0 (BEAKER) (test code = 413) POCT-GLUCOSE [id number] 11:33:00 Test Item Value Reference Range Interpretation Comments POC-GLUCOSE METER 136 mg/dL 70-110 H TESTED AT [facility] 6720 (BEAKER) (test code = [place] 1538) [address] RAD, CHEST, 1 VIEW, NON [id number] 09:50:00Reason for exam:->Ett placement verificationShould this be performed at the bedside?->YesFINAL REPORT Chest, 1 view. History: Endotracheal tube placement verification. Comparison: 03/22/2019. Impression: Endotracheal tube tip terminates approximately 4.2 cm above the fabricio. Right IJ central venous catheter and left IJ nontunneled dialysis catheter identified in stableposition. Enteric tubes noted coursing below the diaphragm. The trachea is midline. There are mildlyincreased right basilar opacities, improved from the prior examination. There is no evidence for newlarge focal consolidation, pneumothorax, or significant pleural effusion. The cardiomediastinal silhouette is within normal limits. No acute osseous abnormality is identified. Signed: Wayne Harman MDRepresearch psychiatric center Verified Date/Time: 03/23/2019 09:50:27 Reading Location: [facility] Radiology Reading Room CREATINE KINASE (CK)2019-03-23 06:32:00 Test Item Value Reference Range Interpretation Comments CREATINE KINASE TOTAL (BEAKER) (test 2512 U/L 29-200 H code = 380) HEMOGLOBIN AND [id number] 06:05:00 Test Item Value Reference Range Interpretation Comments HEMOGLOBIN (BEAKER) (test code = 7.2 GM/DL 13.7-17.5 L 410) HEMATOCRIT (BEAKER) (test code = 20.9 % 40.1-51.0 L 411) Recollect.POCT-GLUCOSE [id number] 05:55:00 Test Item Value Reference Range Interpretation Comments POC-GLUCOSE METER 138 mg/dL 70-110 H TESTED AT [facility] 6720 (BEAKER) (test code = [place] 1538) [address] CBC W/PLT COUNT & AUTO [id number] 04:33:00 Test Item Value Reference Range Interpretation Comments WHITE BLOOD CELL COUNT (BEAKER) 27.1 K/ L 3.5-10.5 H (test code = 775) RED BLOOD CELL COUNT (BEAKER) 2.38 M/ L 4.63-6.08 L (test code = 761) HEMOGLOBIN (BEAKER) (test code = 6.9 GM/DL 13.7-17.5 L 410) HEMATOCRIT (BEAKER) (test code = 20.1 % 40.1-51.0 L 411) MEAN CORPUSCULAR VOLUME (BEAKER) 84.5 fL 79.0-92.2 (test code = 753) MEAN CORPUSCULAR HEMOGLOBIN 29.0 pg 25.7-32.2 (BEAKER) (test code = 751) MEAN CORPUSCULAR HEMOGLOBIN CONC 34.3 GM/DL 32.3-36.5 (BEAKER) (test code = 752) RED CELL DISTRIBUTION WIDTH 15.3 % 11.6-14.4 H (BEAKER) (test code = 412) PLATELET COUNT (BEAKER) (test 380 K/CU MM 150-450 code = 756) MEAN PLATELET VOLUME (BEAKER) 10.5 fL 9.4-12.4 (test code = 754) NUCLEATED RED BLOOD CELLS 0 /100 WBC 0-0 (BEAKER) (test code = 413) NEUTROPHILS RELATIVE PERCENT 89 % (BEAKER) (test code = 429) LYMPHOCYTES RELATIVE PERCENT 3 % (BEAKER) (test code = 430) MONOCYTES RELATIVE PERCENT 4 % (BEAKER) (test code = 431) EOSINOPHILS RELATIVE PERCENT 1 % (BEAKER) (test code = 432) BASOPHILS RELATIVE PERCENT 0 % (BEAKER) (test code = 437) NEUTROPHILS ABSOLUTE COUNT 24.19 K/ L 1.78-5.38 H (BEAKER) (test code = 670) LYMPHOCYTES ABSOLUTE COUNT 0.88 K/ L 1.32-3.57 L (BEAKER) (test code = 414) MONOCYTES ABSOLUTE COUNT (BEAKER) 1.00 K/ L 0.30-0.82 H (test code = 415) EOSINOPHILS ABSOLUTE COUNT 0.17 K/ L 0.04-0.54 (BEAKER) (test code = 416) BASOPHILS ABSOLUTE COUNT (BEAKER) 0.04 K/ L 0.01-0.08 (test code = 417) IMMATURE GRANULOCYTES-RELATIVE 3 % 0-1 H PERCENT (BEAKER) (test code = 2801) BASIC METABOLIC [id number] 04:18:00 Test Item Value Reference Range Interpretation Comments SODIUM (BEAKER) 140 meq/L 136-145 (test code = 381) POTASSIUM (BEAKER) 3.9 meq/L 3.5-5.1 (test code = 379) CHLORIDE (BEAKER) 104 meq/L 98-107 (test code = 382) CO2 (BEAKER) (test 27 meq/L 22-29 code = 355) BLOOD UREA NITROGEN 43 mg/dL 7-21 H (BEAKER) (test code = 354) CREATININE (BEAKER) 3.52 mg/dL 0.57-1.25 H (test code = 358) GLUCOSE RANDOM 140 mg/dL 70-105 H (BEAKER) (test code = 652) CALCIUM (BEAKER) 8.3 mg/dL 8.4-10.2 L (test code = 697) EGFR (BEAKER) (test 21 mL/min/1.73 ESTIMA MOHSEN GFR IS code = 1092) sq m NOT ACCURATE CREATININE CLEARANCE IN PREDICTING GLOMERULAR FILTRATION RATE . ESTIMATED GFR I S NOT APPLICABLE FOR DIALYSIS PATIEN TS. [id number] 03:36:00 Test Item Value Reference Range Interpretation Comments PHOSPHORUS (BEAKER) (test code = 3.7 mg/dL 2.3-4.7 604) [id number] 03:36:00 Test Item Value Reference Range Interpretation Comments MAGNESIUM (BEAKER) (test code = 2.2 mg/dL 1.6-2.6 627) HEMOGLOBIN AND [id number] 03:14:00 Test Item Value Reference Range Interpretation Comments HEMOGLOBIN (BEAKER) (test code = 6.9 GM/DL 13.7-17.5 L 410) HEMATOCRIT (BEAKER) (test code = 20.1 % 40.1-51.0 L 411) POCT-GLUCOSE [id number] 23:53:00 Test Item Value Reference Range Interpretation Comments POC-GLUCOSE METER 173 mg/dL 70-110 H TESTED AT [facility] 67 ([facility]) (test code = [place] 1538) [id number] OCCULT BLOOD, [id number] 19:28:00 Test Item Value Reference Range Interpretation Comments FECAL OCCULT BLOOD (BEAKER) (test Negative Negative code = 618) POCT-GLUCOSE [id number] 18:50:00 Test Item Value Reference Range Interpretation Comments POC-GLUCOSE METER 162 mg/dL 70-110 H TESTED AT [place] [address] ([facility]) (test code = [place] 1538) [address] HEMOGLOBIN AND [id number] 18:44:00 Test Item Value Reference Range Interpretation Comments HEMOGLOBIN (BEAKER) (test code = 7.9 GM/DL 13.7-17.5 L 410) HEMATOCRIT (BEAKER) (test code = 22.1 % 40.1-51.0 L 411) CBC W/PLT COUNT & AUTO [id number] 16:27:00 Test Item Value Reference Range Interpretation Comments WHITE BLOOD CELL COUNT (BEAKER) 32.6 K/ L 3.5-10.5 H (test code = 775) RED BLOOD CELL COUNT (BEAKER) 2.67 M/ L 4.63-6.08 L (test code = 761) HEMOGLOBIN (BEAKER) (test code = 7.9 GM/DL 13.7-17.5 L 410) HEMATOCRIT (BEAKER) (test code = 22.3 % 40.1-51.0 L 411) MEAN CORPUSCULAR VOLUME (BEAKER) 83.5 fL 79.0-92.2 (test code = 753) MEAN CORPUSCULAR HEMOGLOBIN 29.6 pg 25.7-32.2 (BEAKER) (test code = 751) MEAN CORPUSCULAR HEMOGLOBIN CONC 35.4 GM/DL 32.3-36.5 (BEAKER) (test code = 752) RED CELL DISTRIBUTION WIDTH 15.3 % 11.6-14.4 H (BEAKER) (test code = 412) PLATELET COUNT (BEAKER) (test 359 K/CU MM 150-450 code = 756) MEAN PLATELET VOLUME (BEAKER) 9.9 fL 9.4-12.4 (test code = 754) NUCLEATED RED BLOOD CELLS 0 /100 WBC 0-0 (BEAKER) (test code = 413) (CELLAVISION MANUAL DIFF)2019-03-22 16:26:00 Test Item Value Reference Range Interpretation Comments NEUTROPHILS - REL 97 % (CELLAVISION)(BEAKER) (test code = 2816) LYMPHOCYTES - REL 1 % (CELLAVISION)(BEAKER) (test code = 2817) MONOCYTES - REL 2 % (CELLAVISION)(BEAKER) (test code = 2818) NEUTROPHILS - ABS 31.62 K/ul 1.78-5.38 H (CELLAVISION)(BEAKER) (test code = 2830) LYMPHOCYTES - ABS 0.33 K/ul 1.32-3.57 L (CELLAVISION)(BEAKER) (test code = 2831) MONOCYTES - ABS 0.65 K/uL 0.30-0.82 (CELLAVISION)(BEAKER) (test code = 2832) TOTAL COUNTED (BEAKER) (test code 100 = 1351) WBC MORPHOLOGY (BEAKER) (test code Normal = 487) GIANT PLATELETS (BEAKER) (test Present code = 313) POLYCHROMATOPHILLIC RBCS(BEAKER) 1+ few (test code = 478) ANISOCYTOSIS (BEAKER) (test code = 1+ few 961) MACROCYTES (BEAKER) (test code = 1+ few 964) POIKILOCYTES (BEAKER) (test code = 1+ few 966) TARGET CELLS (BEAKER) (test code = 1+ few 480) OVALOCYTES (BEAKER) (test code = 1+ few 477) ARTIFACT (CELLAVISION)(BEAKER) Present (test code = 3432) PLATELET CONCENTRATION Adequate (CELLAVISION)(BEAKER) (test code = 3438) Received comment: User comments: Slide comments:BASIC METABOLIC [id number] 16:23:00 Test Item Value Reference Range Interpretation Comments SODIUM (BEAKER) 142 meq/L 136-145 (test code = 381) POTASSIUM (BEAKER) 3.5 meq/L 3.5-5.1 (test code = 379) CHLORIDE (BEAKER) 103 meq/L 98-107 (test code = 382) CO2 (BEAKER) (test 31 meq/L 22-29 H code = 355) BLOOD UREA NITROGEN 30 mg/dL 7-21 H (BEAKER) (test code = 354) CREATININE (BEAKER) 2.51 mg/dL 0.57-1.25 H (test code = 358) GLUCOSE RANDOM 118 mg/dL 70-105 H (BEAKER) (test code = 652) CALCIUM (BEAKER) 8.4 mg/dL 8.4-10.2 (test code = 697) EGFR (BEAKER) (test 31 mL/min/1.73 ESTIMA MOHSEN GFR IS code = 1092) sq m NOT ACCURATE CREATININE CLEARANCE IN PREDICTING GLOMERULAR FILTRATION RATE . ESTIMATED GFR I S NOT APPLICABLE FOR DIALYSIS PATIEN TS. HEMOGLOBIN AND [id number] 16:01:00 Test Item Value Reference Range Interpretation Comments HEMOGLOBIN (BEAKER) (test code = 7.9 GM/DL 13.7-17.5 L 410) HEMATOCRIT (BEAKER) (test code = 22.3 % 40.1-51.0 L 411) POCT-GLUCOSE [id number] 13:00:00 Test Item Value Reference Range Interpretation Comments POC-GLUCOSE METER 160 mg/dL 70-110 H TESTED AT [facility] 6720 (BEAKER) (test code = [place] [facility] 1538) [address] RAD, CHEST, 1 VIEW, NON [id number] 09:50:00Reason for exam:->eval pulm edemaShould this be performed at the bedside?->YesFINAL REPORT Comparison: 03/21/2019 TECHNIQUE: Single view of the chest FINDINGS: There is airspace disease in the right mid and lower lung which appears somewhat increased from before. This could represent worsening pneumonitis. Some nonspecific scattered interstitial opacities elsewhere in the lungs are seen. No large effusions. Support lines and tubes are stable. Signed: Kerwin Mcgeeeport Verified Date/Time: 03/22/2019 09:50:01 Reading Location: [facility] Radiology Reading Room POCT-GLUCOSE [id number] 06:36:00 Test Item Value Reference Range Interpretation Comments POC-GLUCOSE METER 151 mg/dL 70-110 H TESTED AT [facility] 6720 (BEAKER) (test code = [place] 1538) [address] CBC W/PLT COUNT & AUTO [id number] 04:22:00 Test Item Value Reference Range Interpretation Comments WHITE BLOOD CELL COUNT (BEAKER) 27.0 K/ L 3.5-10.5 H (test code = 775) RED BLOOD CELL COUNT (BEAKER) 2.44 M/ L 4.63-6.08 L (test code = 761) HEMOGLOBIN (BEAKER) (test code = 7.2 GM/DL 13.7-17.5 L 410) HEMATOCRIT (BEAKER) (test code = 20.3 % 40.1-51.0 L 411) MEAN CORPUSCULAR VOLUME (BEAKER) 83.2 fL 79.0-92.2 (test code = 753) MEAN CORPUSCULAR HEMOGLOBIN 29.5 pg 25.7-32.2 (BEAKER) (test code = 751) MEAN CORPUSCULAR HEMOGLOBIN CONC 35.5 GM/DL 32.3-36.5 (BEAKER) (test code = 752) RED CELL DISTRIBUTION WIDTH 14.7 % 11.6-14.4 H (BEAKER) (test code = 412) PLATELET COUNT (BEAKER) (test 302 K/CU MM 150-450 code = 756) MEAN PLATELET VOLUME (BEAKER) 10.2 fL 9.4-12.4 (test code = 754) NUCLEATED RED BLOOD CELLS 0 /100 WBC 0-0 (BEAKER) (test code = 413) NEUTROPHILS RELATIVE PERCENT 89 % (BEAKER) (test code = 429) LYMPHOCYTES RELATIVE PERCENT 3 % (BEAKER) (test code = 430) MONOCYTES RELATIVE PERCENT 4 % (BEAKER) (test code = 431) EOSINOPHILS RELATIVE PERCENT 0 % (BEAKER) (test code = 432) BASOPHILS RELATIVE PERCENT 0 % (BEAKER) (test code = 437) NEUTROPHILS ABSOLUTE COUNT 24.08 K/ L 1.78-5.38 H (BEAKER) (test code = 670) LYMPHOCYTES ABSOLUTE COUNT 0.86 K/ L 1.32-3.57 L (BEAKER) (test code = 414) MONOCYTES ABSOLUTE COUNT (BEAKER) 1.14 K/ L 0.30-0.82 H (test code = 415) EOSINOPHILS ABSOLUTE COUNT 0.04 K/ L 0.04-0.54 (BEAKER) (test code = 416) BASOPHILS ABSOLUTE COUNT (BEAKER) 0.03 K/ L 0.01-0.08 (test code = 417) IMMATURE GRANULOCYTES-RELATIVE 3 % 0-1 H PERCENT (BEAKER) (test code = 2801) PH, [id number] 03:53:00 Test Item Value Reference Range Interpretation Comments PH UA (BEAKER) (test code = 467) 7.5 5.0-8.0 CREATINE KINASE (CK)2019-03-22 03:45:00 Test Item Value Reference Range Interpretation Comments CREATINE KINASE TOTAL (BEAKER) (test 3289 U/L 29-200 H code = 380) BASIC METABOLIC [id number] 03:45:00 Test Item Value Reference Range Interpretation Comments SODIUM (BEAKER) 142 meq/L 136-145 (test code = 381) POTASSIUM (BEAKER) 4.0 meq/L 3.5-5.1 (test code = 379) CHLORIDE (BEAKER) 104 meq/L 98-107 (test code = 382) CO2 (BEAKER) (test 25 meq/L 22-29 code = 355) BLOOD UREA NITROGEN 68 mg/dL 7-21 H (BEAKER) (test code = 354) CREATININE (BEAKER) 5.59 mg/dL 0.57-1.25 H (test code = 358) GLUCOSE RANDOM 131 mg/dL 70-105 H (BEAKER) (test code = 652) CALCIUM (BEAKER) 7.7 mg/dL 8.4-10.2 L (test code = 697) EGFR (BEAKER) (test 12 mL/min/1.73 ESTIMA MOHSEN GFR IS code = 1092) sq m NOT ACCURATE CREATININE CLEARANCE IN PREDICTING GLOMERULAR FILTRATION RATE . ESTIMATED GFR I S NOT APPLICABLE FOR DIALYSIS PATIEN TS. [id number] 03:42:00 Test Item Value Reference Range Interpretation Comments PHOSPHORUS (BEAKER) (test code = 6.1 mg/dL 2.3-4.7 H 604) [id number] 03:42:00 Test Item Value Reference Range Interpretation Comments MAGNESIUM (BEAKER) (test code = 2.6 mg/dL 1.6-2.6 627) [id number] 03:36:00 Test Item Value Reference Range Interpretation Comments PARTIAL THROMBOPLASTIN TIME 44.2 seconds 22.5-36.0 H (BEAKER) (test code = 760) CALCIUM, [id number] 03:29:00 Test Item Value Reference Range Interpretation Comments CALCIUM IONIZED (BEAKER) (test 1.00 mmol/L 1.12-1.27 L code = 698) PH, BLOOD (BEAKER) (test code = 7.47 1810) POCT-GLUCOSE [id number] 00:23:00 Test Item Value Reference Range Interpretation Comments POC-GLUCOSE METER 136 mg/dL 70-110 H TESTED AT [facility] [address] (BEAKER) (test code = [place] [address]) [address] BASIC METABOLIC [id number] 19:09:00 Test Item Value Reference Range Interpretation Comments SODIUM (BEAKER) 142 meq/L 136-145 (test code = 381) POTASSIUM (BEAKER) 4.4 meq/L 3.5-5.1 Specimen slightly (test code = 379) hemolyzed CHLORIDE (BEAKER) 104 meq/L 98-107 (test code = 382) CO2 (BEAKER) (test 24 meq/L 22-29 code = 355) BLOOD UREA NITROGEN 60 mg/dL 7-21 H (BEAKER) (test code = 354) CREATININE (BEAKER) 5.33 mg/dL 0.57-1.25 H Specimen slightly (test code = 358) hemolyzed GLUCOSE RANDOM 121 mg/dL 70-105 H (BEAKER) (test code = 652) CALCIUM (BEAKER) 8.0 mg/dL 8.4-10.2 L (test code = 697) EGFR (BEAKER) (test 13 mL/min/1.73 ESTIMA MOHSEN GFR IS code = 1092) sq m NOT ACCURATE CREATININE CLEARANCE IN PREDICTING GLOMERULAR FILTRATION RATE . ESTIMATED GFR I S NOT APPLICABLE FOR DIALYSIS PATIEN TS. [id number] 19:08:00 Test Item Value Reference Range Interpretation Comments PROTIME (BEAKER) (test code = 15.9 seconds 11.9-14.2 H 759) INR (BEAKER) (test code = 370) 1.3 <=5.9 PARTIAL THROMBOPLASTIN TIME 39.9 seconds 22.5-36.0 H (BEAKER) (test code = 760) Effective 02/01/2019: PT Reference Range ChangeNew: 11.9-14.2 Previous: 11.7- 14.7RECOMMENDED COUMADIN/WARFARIN INR THERAPY RANGESSTANDARD DOSE: 2.0-3.0 Includes: PROPHYLAXIS for venous thrombosis, systemic embolization; TREATMENT for venous thrombosis and/or pulmonary embolus.HIGH RISK: Target INR is 2.5-3.5 for patients wiht mechanical heart valves.POCT-GLUCOSE [id number] 18:32:00 Test Item Value Reference Range Interpretation Comments POC-GLUCOSE METER 134 mg/dL 70-110 H TESTED AT [facility] [address] (BEAKER) (test code = [place] [address]) [address] URINALYSIS W/ [id number] 14:36:00 Test Item Value Reference Range Interpretation Comments COLOR (BEAKER) (test code = 470) Yellow CLARITY (BEAKER) (test code = 469) Hazy SPECIFIC GRAVITY UA (BEAKER) (test 1.012 1.001-1.035 code = 468) PH UA (BEAKER) (test code = 467) 7.5 5.0-8.0 PROTEIN UA (BEAKER) (test code = 100 mg/dL Negative A 464) GLUCOSE UA (BEAKER) (test code = Negative Negative 365) KETONES UA (BEAKER) (test code = Negative Negative 371) BILIRUBIN UA (BEAKER) (test code = Negative Negative 462) BLOOD UA (BEAKER) (test code = 461) Moderate Negative A NITRITE UA (BEAKER) (test code = Negative Negative 465) LEUKOCYTE ESTERASE UA (BEAKER) Large Negative A (test code = 466) UROBILINOGEN UA (BEAKER) (test code 0.2 mg/dL 0.2-1.0 = 463) RBC UA (BEAKER) (test code = 519) 9 /HPF WBC UA (BEAKER) (test code = 520) 56 /HPF SQUAMOUS EPITHELIAL (BEAKER) (test < /HPF code = 516) HYALINE CASTS (BEAKER) (test code = 2 /LPF 514) TRIPLE PHOSPHATE CRYSTALS (BEAKER) Rare (test code = 1582) SOURCE(BEAKER) (test code = 2795) BLOOD [id number] 12:01:00 Test Item Value Reference Range Interpretation Comments CULTURE (BEAKER) (test No growth in 5 days code = 1095) BLOOD [id number] 12:01:00 Test Item Value Reference Range Interpretation Comments CULTURE (BEAKER) (test No growth in 5 days code = 1095) POCT-GLUCOSE [id number] 11:46:00 Test Item Value Reference Range Interpretation Comments POC-GLUCOSE METER 147 mg/dL 70-110 H TESTED AT [facility] [address] ([facility]) (test code = [place] [facility] 1538) [address] VANCOMYCIN LEVEL, [id number] 09:14:00 Test Item Value Reference Range Interpretation Comments VANCOMYCIN RANDOM (BEAKER) (test 19.5 ug/mL code = 523) Reference Range: No NormalsPOCT-GLUCOSE [id number] 08:33:00 Test Item Value Reference Range Interpretation Comments POC-GLUCOSE METER 115 mg/dL 70-110 H TESTED AT [place] [address] ([facility]) (test code = [place] [facility] 1538) [address] RAD, CHEST, 1 VIEW, NON [id number] 06:55:00Reason for exam:->respiratory failureShould this be performed at the bedside?->YesFINAL REPORT Chest one view. Clinical history: respiratory failure Comparison: Chest radiograph 03/20/2019. Technique: A single frontal view of the chest was obtained. Findings:Support lines and tubes are in satisfactory positions.The cardiomediastinal contours are stable. There are small bibasilar airspace opacities which may represent pneumonia. There is no pleural effusion or pn eumothorax. Signed: Nahed Landis MDReport Verified Date/Time: 03/21/2019 06:55:56 CBC W/PLT COUNT & AUTO [id number] 06:48:00 Test Item Value Reference Range Interpretation Comments WHITE BLOOD CELL COUNT (BEAKER) 24.5 K/ L 3.5-10.5 H (test code = 775) RED BLOOD CELL COUNT (BEAKER) 3.19 M/ L 4.63-6.08 L (test code = 761) HEMOGLOBIN (BEAKER) (test code = 9.3 GM/DL 13.7-17.5 L 410) HEMATOCRIT (BEAKER) (test code = 26.8 % 40.1-51.0 L 411) MEAN CORPUSCULAR VOLUME (BEAKER) 84.0 fL 79.0-92.2 (test code = 753) MEAN CORPUSCULAR HEMOGLOBIN 29.2 pg 25.7-32.2 (BEAKER) (test code = 751) MEAN CORPUSCULAR HEMOGLOBIN CONC 34.7 GM/DL 32.3-36.5 (BEAKER) (test code = 752) RED CELL DISTRIBUTION WIDTH 14.3 % 11.6-14.4 (BEAKER) (test code = 412) PLATELET COUNT (BEAKER) (test 280 K/CU MM 150-450 code = 756) MEAN PLATELET VOLUME (BEAKER) 10.4 fL 9.4-12.4 (test code = 754) NUCLEATED RED BLOOD CELLS 0 /100 WBC 0-0 (BEAKER) (test code = 413) (CELLAVISION MANUAL DIFF)2019-03-21 06:48:00 Test Item Value Reference Range Interpretation Comments NEUTROPHILS - REL 91 % (CELLAVISION)(BEAKER) (test code = 2816) LYMPHOCYTES - REL 3 % (CELLAVISION)(BEAKER) (test code = 2817) MONOCYTES - REL 2 % (CELLAVISION)(BEAKER) (test code = 2818) MYELOCYTES - REL 2 % 0-0 H (CELLAVISION)(BEAKER) (test code = 2822) PROMYELOCYTES - REL 1 % 0-0 H (CELLAVSION)(BEAKER) (test code = 2825) ATYPICAL LYMPHOCYTES - REL 1 % 0-0 H (CELLAVISION)(BEAKER) (test code = 2829) NEUTROPHILS - ABS 22.30 K/ul 1.78-5.38 H (CELLAVISION)(BEAKER) (test code = 2830) LYMPHOCYTES - ABS 0.74 K/ul 1.32-3.57 L (CELLAVISION)(BEAKER) (test code = 2831) MONOCYTES - ABS 0.49 K/uL 0.30-0.82 (CELLAVISION)(BEAKER) (test code = 2832) MYELOCYTES-ABS 0.49 K/uL 0.00-0.00 H (CELLAVISION)(BEAKER) (test code = 2837) PROMYELOCYTES - ABS 0.25 K/uL 0.00-0.00 H (CELLAVISION)(BEAKER) (test code = 2838) ATYPICAL LYMPHOCYTES - ABS 0.25 K/uL 0.00-0.00 H (CELLAVISION)(BEAKER) (test code = 2858) TOTAL COUNTED (BEAKER) (test code 100 = 1351) SMUDGE CELLS (BEAKER) (test code Present = 1371) GIANT PLATELETS (BEAKER) (test Present code = 313) POLYCHROMATOPHILLIC RBCS(BEAKER) 1+ few (test code = 478) ANISOCYTOSIS (BEAKER) (test code 1+ few = 961) POIKILOCYTES (BEAKER) (test code 2+ moderate = 966) TARGET CELLS (BEAKER) (test code 1+ few = 480) SCHISTOCYTES (BEAKER) (test code 1+ few = 765) GRISELDA CELLS (BEAKER) (test code = 1+ few 474) PLATELET CONCENTRATION Adequate (CELLAVISION)(BEAKER) (test code = 3438) Received comment: User comments: Slide comments:RAD, ABDOMEN/KUB, 1 VIEW AP 2019-03-21 06:19:00Reason for exam:->CORPAK PLACEMENTFINAL REPORT Abdomen one view Comparison: Abdominal radiograph 03/18/2019. Reason for exam: CORPAK PLACEMENT Findings:Supine view of the abdomen was obtained. There is a feeding tube with tip in the gastric fundus. There is gaseous distention of small and large bowel loops which may represent an ileus. There are bibasilar airspace opacities, right greater than left which may represent pneumonia and/or subsegmental atelectasis. There is a mild lumbar levoscoliosis. There are vascul ar stents overlying the pelvis. Signed: Nahed Landis MDReport Verified Date/Time: 03/21/2019 06:19:55 PH, [id number] 05:05:00 Test Item Value Reference Range Interpretation Comments PH UA (BEAKER) (test code = 467) 7.5 5.0-8.0 BASIC METABOLIC [id number] 05:01:00 Test Item Value Reference Range Interpretation Comments SODIUM (BEAKER) 142 meq/L 136-145 (test code = 381) POTASSIUM (BEAKER) 4.9 meq/L 3.5-5.1 (test code = 379) CHLORIDE (BEAKER) 105 meq/L 98-107 (test code = 382) CO2 (BEAKER) (test 25 meq/L 22-29 code = 355) BLOOD UREA NITROGEN 36 mg/dL 7-21 H (BEAKER) (test code = 354) CREATININE (BEAKER) 3.90 mg/dL 0.57-1.25 H (test code = 358) GLUCOSE RANDOM 116 mg/dL 70-105 H (BEAKER) (test code = 652) CALCIUM (BEAKER) 8.3 mg/dL 8.4-10.2 L (test code = 697) EGFR (BEAKER) (test 18 mL/min/1.73 ESTIMA MOHSEN GFR IS code = 1092) sq m NOT ACCURATE CREATININE CLEARANCE IN PREDICTING GLOMERULAR FILTRATION RATE . ESTIMATED GFR I S NOT APPLICABLE FOR DIALYSIS PATIEN TS. CREATINE KINASE (CK)2019-03-21 05:01:00 Test Item Value Reference Range Interpretation Comments CREATINE KINASE TOTAL (BEAKER) 495[address] U/L 29-200 H (test code = 380) [id number] 04:55:00 Test Item Value Reference Range Interpretation Comments PHOSPHORUS (BEAKER) (test code = 5.6 mg/dL 2.3-4.7 H 604) [id number] 04:55:00 Test Item Value Reference Range Interpretation Comments MAGNESIUM (BEAKER) (test code = 2.1 mg/dL 1.6-2.6 627) CBC W/PLT COUNT & AUTO [id number] 04:28:00 Test Item Value Reference Range Interpretation Comments WHITE BLOOD CELL COUNT (BEAKER) 31.0 K/ L 3.5-10.5 H (test code = 775) RED BLOOD CELL COUNT (BEAKER) 3.15 M/ L 4.63-6.08 L (test code = 761) HEMOGLOBIN (BEAKER) (test code = 9.3 GM/DL 13.7-17.5 L 410) HEMATOCRIT (BEAKER) (test code = 25.9 % 40.1-51.0 L 411) MEAN CORPUSCULAR VOLUME (BEAKER) 82.2 fL 79.0-92.2 (test code = 753) MEAN CORPUSCULAR HEMOGLOBIN 29.5 pg 25.7-32.2 (BEAKER) (test code = 751) MEAN CORPUSCULAR HEMOGLOBIN CONC 35.9 GM/DL 32.3-36.5 (BEAKER) (test code = 752) RED CELL DISTRIBUTION WIDTH 14.5 % 11.6-14.4 H (BEAKER) (test code = 412) PLATELET COUNT (BEAKER) (test 288 K/CU MM 150-450 code = 756) MEAN PLATELET VOLUME (BEAKER) 10.6 fL 9.4-12.4 (test code = 754) NUCLEATED RED BLOOD CELLS 0 /100 WBC 0-0 (BEAKER) (test code = 413) NEUTROPHILS RELATIVE PERCENT 89 % (BEAKER) (test code = 429) LYMPHOCYTES RELATIVE PERCENT 2 % (BEAKER) (test code = 430) MONOCYTES RELATIVE PERCENT 6 % (BEAKER) (test code = 431) EOSINOPHILS RELATIVE PERCENT 0 % (BEAKER) (test code = 432) BASOPHILS RELATIVE PERCENT 0 % (BEAKER) (test code = 437) NEUTROPHILS ABSOLUTE COUNT 27.56 K/ L 1.78-5.38 H (BEAKER) (test code = 670) LYMPHOCYTES ABSOLUTE COUNT 0.64 K/ L 1.32-3.57 L (BEAKER) (test code = 414) MONOCYTES ABSOLUTE COUNT (BEAKER) 1.78 K/ L 0.30-0.82 H (test code = 415) EOSINOPHILS ABSOLUTE COUNT 0.01 K/ L 0.04-0.54 L (BEAKER) (test code = 416) BASOPHILS ABSOLUTE COUNT (BEAKER) 0.07 K/ L 0.01-0.08 (test code = 417) IMMATURE GRANULOCYTES-RELATIVE 3 % 0-1 H PERCENT (BEAKER) (test code = 2801) BLOOD GAS, [id number] 04:20:00 Test Item Value Reference Range Interpretation Comments PH ARTERIAL (BEAKER) (test code = 7.43 7.35-7.45 383) PCO2 ARTERIAL (BEAKER) (test code 40 mmHg 35-45 = 384) PO2 ARTERIAL (BEAKER) (test code = 346 mmHg 80-90 H 385) O2 SATURATION ARTERIAL (BEAKER) 99.8 % 96.0-97.0 H (test code = 386) HCO3 ARTERIAL (BEAKER) (test code 26 mmol/L 21-29 = 388) BASE EXCESS ARTERIAL (BEAKER) 1.8 mmol/L -2.0-3.0 (test code = 387) PATIENT TEMPERATURE (BEAKER) (test 37.5 C code = 1818) FIO2 (BEAKER) (test code = 1819) 100.0 % CALCIUM, [id number] 04:19:00 Test Item Value Reference Range Interpretation Comments CALCIUM IONIZED (BEAKER) (test 1.02 mmol/L 1.12-1.27 L code = 698) PH, BLOOD (BEAKER) (test code = 7.44 1810) TROPONIN [id number] 01:31:00 Test Item Value Reference Range Interpretation Comments TROPONIN I (BEAKER) (test code = 0.05 ng/mL 0.00-0.03 H 397) Troponin I (TnI) levels must be interpreted in the context of the presenting symptoms and the clinical findings. Elevated TnI levels indicate myocardial damage, but are not specific for ischemic heart disease. Elevated TnI levels are seen in patients with other cardiac conditions (including myocarditis and congestive heart failure), and slight TnI elevations occur in patients with other conditions, including sepsis, renal failure, acidosis, acute neurological disease, and persistent tachyarrhythmia.HEMOGLOBIN AND [id number] 01:26:00 Test Item Value Reference Range Interpretation Comments HEMOGLOBIN (BEAKER) (test code = 9.1 GM/DL 13.7-17.5 L 410) HEMATOCRIT (BEAKER) (test code = 26.3 % 40.1-51.0 L 411) POCT-GLUCOSE [id number] 00:23:00 Test Item Value Reference Range Interpretation Comments POC-GLUCOSE METER 119 mg/dL 70-110 H TESTED AT [facility] [address] (BEAKER) (test code = [place] [address]) [id number] 00:09:00 Test Item Value Reference Range Interpretation Comments PHOSPHORUS (BEAKER) (test code = 9.1 mg/dL 2.3-4.7 HH 604) BASIC METABOLIC [id number] 00:08:00 Test Item Value Reference Range Interpretation Comments SODIUM (BEAKER) 141 meq/L 136-145 (test code = 381) POTASSIUM (BEAKER) 4.7 meq/L 3.5-5.1 (test code = 379) CHLORIDE (BEAKER) 103 meq/L 98-107 (test code = 382) CO2 (BEAKER) (test 23 meq/L 22-29 code = 355) BLOOD UREA NITROGEN 69 mg/dL 7-21 H (BEAKER) (test code = 354) CREATININE (BEAKER) 6.40 mg/dL 0.57-1.25 H (test code = 358) GLUCOSE RANDOM 125 mg/dL 70-105 H (BEAKER) (test code = 652) CALCIUM (BEAKER) 7.9 mg/dL 8.4-10.2 L (test code = 697) EGFR (BEAKER) (test 10 mL/min/1.73 ESTIMA MOHSEN GFR IS code = 1092) sq m NOT ACCURATE CREATININE CLEARANCE IN PREDICTING GLOMERULAR FILTRATION RATE . ESTIMATED GFR I S NOT APPLICABLE FOR DIALYSIS PATIEN TS. [id number] 23:53:00 Test Item Value Reference Range Interpretation Comments PROTIME (BEAKER) (test code = 15.0 seconds 11.9-14.2 H 759) INR (BEAKER) (test code = 370) 1.2 <=5.9 PARTIAL THROMBOPLASTIN TIME 28.9 seconds 22.5-36.0 (BEAKER) (test code = 760) Effective 02/01/2019: PT Reference Range ChangeNew: 11.9-14.2 Previous: 11.7- 14.7RECOMMENDED COUMADIN/WARFARIN INR THERAPY RANGESSTANDARD DOSE: 2.0-3.0 Includes: PROPHYLAXIS for venous thrombosis, systemic embolization; TREATMENT for venous thrombosis and/or pulmonary embolus.HIGH RISK: Target INR is 2.5-3.5 for patients wiht mechanical heart valves.[id number] 23:46:00 Test Item Value Reference Range Interpretation Comments MAGNESIUM (BEAKER) (test code = 2.6 mg/dL 1.6-2.6 627) LACTIC ACID, [id number] 23:21:00 Test Item Value Reference Range Interpretation Comments LACTATE BLOOD ARTERIAL (2) 0.8 mmol/L 0.5-2.2 (BEAKER) (test code = 2874) BLOOD GAS, [id number] 19:37:00 Test Item Value Reference Range Interpretation Comments PH ARTERIAL (BEAKER) (test code = 7.39 7.35-7.45 383) PCO2 ARTERIAL (BEAKER) (test code 45 mmHg 35-45 = 384) PO2 ARTERIAL (BEAKER) (test code = 106 mmHg 80-90 H 385) O2 SATURATION ARTERIAL (BEAKER) 97.8 % 96.0-97.0 H (test code = 386) HCO3 ARTERIAL (BEAKER) (test code 26 mmol/L 21-29 = 388) BASE EXCESS ARTERIAL (BEAKER) 1.3 mmol/L -2.0-3.0 (test code = 387) PATIENT TEMPERATURE (BEAKER) (test 37.2 C code = 1818) FIO2 (BEAKER) (test code = 1819) 55.0 % GLUCOSE-STAT [id number] 19:37:00 Test Item Value Reference Range Interpretation Comments GLUCOSE RANDOM (BEAKER) (test code 125 mg/dL 70-110 H = 652) HGB/HCT (H&H) - STAT [id number] 19:37:00 Test Item Value Reference Range Interpretation Comments HEMOGLOBIN (BEAKER) (test code = 8.2 g/dL 13.0-16.8 L 410) HEMATOCRIT (BEAKER) (test code = 24.0 % 40.0-50.0 L 411) SODIUM NA-STAT [id number] 19:36:00 Test Item Value Reference Range Interpretation Comments SODIUM (BEAKER) (test code = 381) 138 meq/L 135-148 POTASSIUM-STAT [id number] 19:36:00 Test Item Value Reference Range Interpretation Comments POTASSIUM (BEAKER) (test code = 4.3 meq/L 3.6-5.5 379) BLOOD GAS, [id number] 18:51:00 Test Item Value Reference Range Interpretation Comments PH ARTERIAL (BEAKER) (test code = 7.29 7.35-7.45 L 383) PCO2 ARTERIAL (BEAKER) (test code 54 mmHg 35-45 H = 384) PO2 ARTERIAL (BEAKER) (test code 102 mmHg 80-90 H = 385) O2 SATURATION ARTERIAL (BEAKER) 96.6 % 96.0-97.0 (test code = 386) HCO3 ARTERIAL (BEAKER) (test code 25 mmol/L 21-29 = 388) BASE EXCESS ARTERIAL (BEAKER) -1.8 mmol/L -2.0-3.0 (test code = 387) PATIENT TEMPERATURE (BEAKER) 37.9 C (test code = 1818) FIO2 (BEAKER) (test code = 1819) 55.0 % GLUCOSE-STAT [id number] 18:51:00 Test Item Value Reference Range Interpretation Comments GLUCOSE RANDOM (BEAKER) (test code 124 mg/dL 70-110 H = 652) HGB/HCT (H&H) - STAT [id number] 18:51:00 Test Item Value Reference Range Interpretation Comments HEMOGLOBIN (BEAKER) (test code = 9.8 g/dL 13.0-16.8 L 410) HEMATOCRIT (BEAKER) (test code = 29.0 % 40.0-50.0 L 411) SODIUM NA-STAT [id number] 18:35:00 Test Item Value Reference Range Interpretation Comments SODIUM (BEAKER) (test code = 381) 138 meq/L 135-148 POTASSIUM-STAT [id number] 18:35:00 Test Item Value Reference Range Interpretation Comments POTASSIUM (BEAKER) (test code = 4.2 meq/L 3.6-5.5 379) SODIUM NA-STAT [id number] 17:38:00 Test Item Value Reference Range Interpretation Comments SODIUM (BEAKER) (test code = 381) 135 meq/L 135-148 POTASSIUM-STAT [id number] 17:38:00 Test Item Value Reference Range Interpretation Comments POTASSIUM (BEAKER) (test code = 3.8 meq/L 3.6-5.5 379) BLOOD GAS, [id number] 17:38:00 Test Item Value Reference Range Interpretation Comments PH ARTERIAL (BEAKER) (test code = 7.34 7.35-7.45 L 383) PCO2 ARTERIAL (BEAKER) (test code 52 mmHg 35-45 H = 384) PO2 ARTERIAL (BEAKER) (test code = 150 mmHg 80-90 H 385) O2 SATURATION ARTERIAL (BEAKER) 98.8 % 96.0-97.0 H (test code = 386) HCO3 ARTERIAL (BEAKER) (test code 27 mmol/L 21-29 = 388) BASE EXCESS ARTERIAL (BEAKER) 1.1 mmol/L -2.0-3.0 (test code = 387) PATIENT TEMPERATURE (BEAKER) (test 37.4 C code = 1818) FIO2 (BEAKER) (test code = 1819) 60.0 % GLUCOSE-STAT [id number] 17:38:00 Test Item Value Reference Range Interpretation Comments GLUCOSE RANDOM (BEAKER) (test code 124 mg/dL 70-110 H = 652) HGB/HCT (H&H) - STAT [id number] 17:38:00 Test Item Value Reference Range Interpretation Comments HEMOGLOBIN (BEAKER) (test code = 9.0 g/dL 13.0-16.8 L 410) HEMATOCRIT (BEAKER) (test code = 26.0 % 40.0-50.0 L 411) TROPONIN [id number] 15:32:00 Test Item Value Reference Range Interpretation Comments TROPONIN I (BEAKER) (test code = 0.05 ng/mL 0.00-0.03 H 397) Troponin I (TnI) levels must be interpreted in the context of the presenting symptoms and the clinical findings. Elevated TnI levels indicate myocardial damage, but are not specific for ischemic heart disease. Elevated TnI levels are seen in patients with other cardiac conditions (including myocarditis and congestive heart failure), and slight TnI elevations occur in patients with other conditions, including sepsis, renal failure, acidosis, acute neurological disease, and persistent tachyarrhythmia.BASIC METABOLIC [id number] 15:25:00 Test Item Value Reference Range Interpretation Comments SODIUM (BEAKER) 141 meq/L 136-145 (test code = 381) POTASSIUM (BEAKER) 4.1 meq/L 3.5-5.1 Specimen slightly (test code = 379) hemolyzed CHLORIDE (BEAKER) 101 meq/L 98-107 (test code = 382) CO2 (BEAKER) (test 25 meq/L 22-29 code = 355) BLOOD UREA NITROGEN 63 mg/dL 7-21 H (BEAKER) (test code = 354) CREATININE (BEAKER) 6.24 mg/dL 0.57-1.25 H Specimen slightly (test code = 358) hemolyzed GLUCOSE RANDOM 128 mg/dL 70-105 H (BEAKER) (test code = 652) CALCIUM (BEAKER) 8.3 mg/dL 8.4-10.2 L (test code = 697) EGFR (BEAKER) (test 11 mL/min/1.73 ESTIMA MOHSEN GFR IS code = 1092) sq m NOT ACCURATE CREATININE CLEARANCE IN PREDICTING GLOMERULAR FILTRATION RATE . ESTIMATED GFR I S NOT APPLICABLE FOR DIALYSIS PATIEN TS. SPUTUM CULTURE + GRAM [id number] 14:04:00 Test Item Value Reference Range Interpretation Comments CULTURE (BEAKER) (test See comment code = 1095) GRAM STAIN RESULT 3+ WBCs (BEAKER) (test code = 1123) GRAM STAIN RESULT 5-10 epithelial cells (BEAKER) (test code = 800285) GRAM STAIN RESULT <1+ gram variable rods (BEAKER) (test code = 878657) 2+ Normal respiratory nathan [id number] 12:57:00 Test Item Value Reference Range Interpretation Comments PARTIAL THROMBOPLASTIN TIME 55.4 seconds 22.5-36.0 H (BEAKER) (test code = 760) POCT-GLUCOSE [id number] 11:38:00 Test Item Value Reference Range Interpretation Comments POC-GLUCOSE METER 151 mg/dL 70-110 H TESTED AT [facility] [address] (BEAKER) (test code = [place] 1538) [address] PH, [id number] 11:38:00 Test Item Value Reference Range Interpretation Comments PH UA (BEAKER) (test code = 467) 7.5 5.0-8.0 RAD, CHEST, 1 VIEW, NON [id number] 10:15:00Reason for exam:->respiratory failureShould this be performed at the bedside?->YesFINAL REPORT AP chest HISTORY: Respiratory failure. COMPARISON: 03/19/2019. IMPRE SSION: Supportive lines unchanged. Stable cardiac silhouette. Grossly clear lungs. Signed: Uri Goveaeport Verified Date/Time: 03/20/2019 10:15:56 [facility] [place] [facility] CREATINE KINASE (CK) 2019-03-20 06:29:00 Test Item Value Reference Range Interpretation Comments CREATINE KINASE TOTAL (BEAKER) 21269 U/L 29-200 H (test code = 380) [id number] 05:29:00 Test Item Value Reference Range Interpretation Comments PARTIAL THROMBOPLASTIN TIME 53.3 seconds 22.5-36.0 H (BEAKER) (test code = 760) BASIC METABOLIC [id number] 05:29:00 Test Item Value Reference Range Interpretation Comments SODIUM (BEAKER) 140 meq/L 136-145 (test code = 381) POTASSIUM (BEAKER) 3.8 meq/L 3.5-5.1 (test code = 379) CHLORIDE (BEAKER) 100 meq/L 98-107 (test code = 382) CO2 (BEAKER) (test 27 meq/L 22-29 code = 355) BLOOD UREA NITROGEN 57 mg/dL 7-21 H (BEAKER) (test code = 354) CREATININE (BEAKER) 5.68 mg/dL 0.57-1.25 H (test code = 358) GLUCOSE RANDOM 137 mg/dL 70-105 H (BEAKER) (test code = 652) CALCIUM (BEAKER) 8.1 mg/dL 8.4-10.2 L (test code = 697) EGFR (BEAKER) (test 12 mL/min/1.73 ESTIMA MOHSEN GFR IS code = 1092) sq m NOT ACCURATE CREATININE CLEARANCE IN PREDICTING GLOMERULAR FILTRATION RATE . ESTIMATED GFR I S NOT APPLICABLE FOR DIALYSIS PATIEN TS. [id number] 05:28:00 Test Item Value Reference Range Interpretation Comments PHOSPHORUS (BEAKER) (test code = 7.3 mg/dL 2.3-4.7 H 604) [id number] 05:28:00 Test Item Value Reference Range Interpretation Comments MAGNESIUM (BEAKER) (test code = 2.6 mg/dL 1.6-2.6 627) CBC W/PLT COUNT & AUTO [id number] 05:26:00 Test Item Value Reference Range Interpretation Comments WHITE BLOOD CELL COUNT (BEAKER) 18.5 K/ L 3.5-10.5 H (test code = 775) RED BLOOD CELL COUNT (BEAKER) 2.62 M/ L 4.63-6.08 L (test code = 761) HEMOGLOBIN (BEAKER) (test code = 7.6 GM/DL 13.7-17.5 L 410) HEMATOCRIT (BEAKER) (test code = 21.8 % 40.1-51.0 L 411) MEAN CORPUSCULAR VOLUME (BEAKER) 83.2 fL 79.0-92.2 (test code = 753) MEAN CORPUSCULAR HEMOGLOBIN 29.0 pg 25.7-32.2 (BEAKER) (test code = 751) MEAN CORPUSCULAR HEMOGLOBIN CONC 34.9 GM/DL 32.3-36.5 (BEAKER) (test code = 752) RED CELL DISTRIBUTION WIDTH 15.0 % 11.6-14.4 H (BEAKER) (test code = 412) PLATELET COUNT (BEAKER) (test 290 K/CU MM 150-450 code = 756) MEAN PLATELET VOLUME (BEAKER) 10.4 fL 9.4-12.4 (test code = 754) NUCLEATED RED BLOOD CELLS 0 /100 WBC 0-0 (BEAKER) (test code = 413) NEUTROPHILS RELATIVE PERCENT 84 % (BEAKER) (test code = 429) LYMPHOCYTES RELATIVE PERCENT 4 % (BEAKER) (test code = 430) MONOCYTES RELATIVE PERCENT 7 % (BEAKER) (test code = 431) EOSINOPHILS RELATIVE PERCENT 0 % (BEAKER) (test code = 432) BASOPHILS RELATIVE PERCENT 0 % (BEAKER) (test code = 437) NEUTROPHILS ABSOLUTE COUNT 15.48 K/ L 1.78-5.38 H (BEAKER) (test code = 670) LYMPHOCYTES ABSOLUTE COUNT 0.71 K/ L 1.32-3.57 L (BEAKER) (test code = 414) MONOCYTES ABSOLUTE COUNT (BEAKER) 1.25 K/ L 0.30-0.82 H (test code = 415) EOSINOPHILS ABSOLUTE COUNT 0.04 K/ L 0.04-0.54 (BEAKER) (test code = 416) BASOPHILS ABSOLUTE COUNT (BEAKER) 0.02 K/ L 0.01-0.08 (test code = 417) IMMATURE GRANULOCYTES-RELATIVE 5 % 0-1 H PERCENT (BEAKER) (test code = 2801) CALCIUM, [id number] 04:55:00 Test Item Value Reference Range Interpretation Comments CALCIUM IONIZED (BEAKER) (test 0.99 mmol/L 1.12-1.27 L code = 698) PH, BLOOD (BEAKER) (test code = 7.45 1810) BLOOD GAS, [id number] 04:55:00 Test Item Value Reference Range Interpretation Comments PH ARTERIAL (BEAKER) (test code = 7.44 7.35-7.45 383) PCO2 ARTERIAL (BEAKER) (test code 39 mmHg 35-45 = 384) PO2 ARTERIAL (BEAKER) (test code = 115 mmHg 80-90 H 385) O2 SATURATION ARTERIAL (BEAKER) 98.3 % 96.0-97.0 H (test code = 386) HCO3 ARTERIAL (BEAKER) (test code 26 mmol/L 21-29 = 388) BASE EXCESS ARTERIAL (BEAKER) 1.8 mmol/L -2.0-3.0 (test code = 387) PATIENT TEMPERATURE (BEAKER) (test 37.4 C code = 1818) FIO2 (BEAKER) (test code = 1819) 40.0 % POCT-GLUCOSE [id number] 00:55:00 Test Item Value Reference Range Interpretation Comments POC-GLUCOSE METER 141 mg/dL 70-110 H TESTED AT [facility] 6720 (BEAKER) (test code = [place] 1538) [address] HEMOGLOBIN AND [id number] 23:07:00 Test Item Value Reference Range Interpretation Comments HEMOGLOBIN (BEAKER) (test code = 7.7 GM/DL 13.7-17.5 L 410) HEMATOCRIT (BEAKER) (test code = 21.7 % 40.1-51.0 L 411) BASIC METABOLIC [id number] 18:46:00 Test Item Value Reference Range Interpretation Comments SODIUM (BEAKER) 139 meq/L 136-145 (test code = 381) POTASSIUM (BEAKER) 3.8 meq/L 3.5-5.1 (test code = 379) CHLORIDE (BEAKER) 101 meq/L 98-107 (test code = 382) CO2 (BEAKER) (test 27 meq/L 22-29 code = 355) BLOOD UREA NITROGEN 51 mg/dL 7-21 H (BEAKER) (test code = 354) CREATININE ([facility]) 5.28 mg/dL 0.57-1.25 H (test code = 358) GLUCOSE RANDOM 135 mg/dL 70-105 H ([facility]) (test code = 652) CALCIUM ([facility]) 8.0 mg/dL 8.4-10.2 L (test code = 697) EGFR ([facility]) (test 13 mL/min/1.73 ESTIMA MOHSEN GFR IS code = 1092) sq m NOT ACCURATE CREATININE CLEARANCE IN PREDICTING GLOMERULAR FILTRATION RATE . ESTIMATED GFR I S NOT APPLICABLE FOR DIALYSIS PATIEN TS. POCT-GLUCOSE [id number] 18:14:00 Test Item Value Reference Range Interpretation Comments POC-GLUCOSE METER 153 mg/dL 70-110 H TESTED AT [place] [address] ([facility]) (test code = [place] [facility] 1538) [address] POCT-GLUCOSE [id number] 12:26:00 Test Item Value Reference Range Interpretation Comments POC-GLUCOSE METER 133 mg/dL 70-110 H TESTED AT [place] [address] ([facility]) (test code = [facility] 1538) [address] HEMOGLOBIN AND [id number] 12:24:00 Test Item Value Reference Range Interpretation Comments HEMOGLOBIN ([facility]) (test code = 7.6 GM/DL 13.7-17.5 L 410) HEMATOCRIT ([facility]) (test code = 21.4 % 40.1-51.0 L 411) POCT-GLUCOSE [id number] 11:57:00 Test Item Value Reference Range Interpretation Comments POC-GLUCOSE METER 141 mg/dL 70-110 H TESTED AT [place] [address] ([facility]) (test code = [facility] 1538) [address] RAD, CHEST, 1 VIEW, NON [id number] 09:39:00Reason for exam:->respiratory failureShould this be performed at the bedside?->YesFINAL REPORT Chest dated 03/19/2019 COMPARISON: 03/18/2019 Clinical Information: r espiratory failure Comment: Heart is normal in size. Pulmonary vasculature is indistinct. Interstitial disease is seen bilaterally suggestive of vascular congestion, pulmonary edema, or pneumonia improved since prior examination. No pleural effusion or pneumothorax is seen. Left hemidiaphragm is elevated. Feeding tube and bilateral IJ central venous catheter present. Tip of feeding tube is seen in the gastric fundus. Signed: Deshawn Arzola MDReport Verified Date/Time: 03/19/2019 09:39:26 Reading Location: [facility] B1 C013Y CT Body Reading Room OMYCIN LEVEL, [id number] 08:58:00 Test Item Value Reference Range Interpretation Comments VANCOMYCIN TROUGH (BEAKER) (test 14.4 ug/mL 10.0-20.0 code = 522) CREATINE KINASE (CK)2019-03-19 08:51:00 Test Item Value Reference Range Interpretation Comments CREATINE KINASE TOTAL (BEAKER) 04396 U/L 29-200 H (test code = 380) BLOOD GAS, [id number] 08:31:00 Test Item Value Reference Range Interpretation Comments PH ARTERIAL (BEAKER) (test code = 7.46 7.35-7.45 H 383) PCO2 ARTERIAL (BEAKER) (test code 39 mmHg 35-45 = 384) PO2 ARTERIAL (BEAKER) (test code = 148 mmHg 80-90 H 385) O2 SATURATION ARTERIAL (BEAKER) 99.0 % 96.0-97.0 H (test code = 386) HCO3 ARTERIAL (BEAKER) (test code 27 mmol/L 21-29 = 388) BASE EXCESS ARTERIAL (BEAKER) 3.1 mmol/L -2.0-3.0 H (test code = 387) PATIENT TEMPERATURE (BEAKER) (test 37.5 C code = 1818) FIO2 (BEAKER) (test code = 1819) 40.0 % POCT-GLUCOSE [id number] 05:55:00 Test Item Value Reference Range Interpretation Comments POC-GLUCOSE METER 134 mg/dL 70-110 H TESTED AT [facility] 6720 (BEAKER) (test code = [place] 1538) [address] BASIC METABOLIC [id number] 05:23:00 Test Item Value Reference Range Interpretation Comments SODIUM (BEAKER) 138 meq/L 136-145 (test code = 381) POTASSIUM (BEAKER) 3.9 meq/L 3.5-5.1 (test code = 379) CHLORIDE (BEAKER) 101 meq/L 98-107 (test code = 382) CO2 (BEAKER) (test 26 meq/L 22-29 code = 355) BLOOD UREA NITROGEN 40 mg/dL 7-21 H (BEAKER) (test code = 354) CREATININE (BEAKER) 4.37 mg/dL 0.57-1.25 H (test code = 358) GLUCOSE RANDOM 123 mg/dL 70-105 H (BEAKER) (test code = 652) CALCIUM (BEAKER) 7.9 mg/dL 8.4-10.2 L (test code = 697) EGFR (BEAKER) (test 16 mL/min/1.73 ESTIMA MOHSEN GFR IS code = 1092) sq m NOT ACCURATE CREATININE CLEARANCE IN PREDICTING GLOMERULAR FILTRATION RATE . ESTIMATED GFR I S NOT APPLICABLE FOR DIALYSIS PATIEN TS. PH, [id number] 05:16:00 Test Item Value Reference Range Interpretation Comments PH UA (BEAKER) (test code = 467) 7.5 5.0-8.0 [id number] 05:03:00 Test Item Value Reference Range Interpretation Comments PHOSPHORUS (BEAKER) (test code = 5.8 mg/dL 2.3-4.7 H 604) [id number] 05:03:00 Test Item Value Reference Range Interpretation Comments MAGNESIUM (BEAKER) (test code = 2.3 mg/dL 1.6-2.6 627) CALCIUM, [id number] 04:36:00 Test Item Value Reference Range Interpretation Comments CALCIUM IONIZED (BEAKER) (test 0.97 mmol/L 1.12-1.27 L code = 698) PH, BLOOD (BEAKER) (test code = 7.48 1810) [id number] 04:30:00 Test Item Value Reference Range Interpretation Comments PARTIAL THROMBOPLASTIN TIME 69.5 seconds 22.5-36.0 H (BEAKER) (test code = 760) CBC W/PLT COUNT & AUTO [id number] 04:27:00 Test Item Value Reference Range Interpretation Comments WHITE BLOOD CELL COUNT (BEAKER) 15.0 K/ L 3.5-10.5 H (test code = 775) RED BLOOD CELL COUNT (BEAKER) 2.56 M/ L 4.63-6.08 L (test code = 761) HEMOGLOBIN (BEAKER) (test code = 7.5 GM/DL 13.7-17.5 L 410) HEMATOCRIT (BEAKER) (test code = 20.7 % 40.1-51.0 L 411) MEAN CORPUSCULAR VOLUME (BEAKER) 80.9 fL 79.0-92.2 (test code = 753) MEAN CORPUSCULAR HEMOGLOBIN 29.3 pg 25.7-32.2 (BEAKER) (test code = 751) MEAN CORPUSCULAR HEMOGLOBIN CONC 36.2 GM/DL 32.3-36.5 (BEAKER) (test code = 752) RED CELL DISTRIBUTION WIDTH 14.6 % 11.6-14.4 H (BEAKER) (test code = 412) PLATELET COUNT (BEAKER) (test 249 K/CU MM 150-450 code = 756) MEAN PLATELET VOLUME (BEAKER) 10.1 fL 9.4-12.4 (test code = 754) NUCLEATED RED BLOOD CELLS 0 /100 WBC 0-0 (BEAKER) (test code = 413) NEUTROPHILS RELATIVE PERCENT 83 % (BEAKER) (test code = 429) LYMPHOCYTES RELATIVE PERCENT 6 % (BEAKER) (test code = 430) MONOCYTES RELATIVE PERCENT 9 % (BEAKER) (test code = 431) EOSINOPHILS RELATIVE PERCENT 0 % (BEAKER) (test code = 432) BASOPHILS RELATIVE PERCENT 0 % (BEAKER) (test code = 437) NEUTROPHILS ABSOLUTE COUNT 12.45 K/ L 1.78-5.38 H (BEAKER) (test code = 670) LYMPHOCYTES ABSOLUTE COUNT 0.90 K/ L 1.32-3.57 L (BEAKER) (test code = 414) MONOCYTES ABSOLUTE COUNT (BEAKER) 1.33 K/ L 0.30-0.82 H (test code = 415) EOSINOPHILS ABSOLUTE COUNT 0.03 K/ L 0.04-0.54 L (BEAKER) (test code = 416) BASOPHILS ABSOLUTE COUNT (BEAKER) 0.01 K/ L 0.01-0.08 (test code = 417) IMMATURE GRANULOCYTES-RELATIVE 2 % 0-1 H PERCENT (BEAKER) (test code = 2801) POCT-GLUCOSE [id number] 00:07:00 Test Item Value Reference Range Interpretation Comments POC-GLUCOSE METER 130 mg/dL 70-110 H TESTED AT [facility] 6720 (BEAKER) (test code = [place] 1538) [address] POCT-GLUCOSE [id number] 18:51:00 Test Item Value Reference Range Interpretation Comments POC-GLUCOSE METER 124 mg/dL 70-110 H TESTED AT [facility] 6720 (BEAKER) (test code = [place] 1538) [address] HEPATITIS B SURFACE [id number] 13:52:00 Test Item Value Reference Range Interpretation Comments HEPATITIS B SURFACE ANTIGEN (2) Nonreactive Nonreactive (BEAKER) (test code = 2585) HEPATIC FUNCTION [id number] 13:30:00 Test Item Value Reference Range Interpretation Comments TOTAL PROTEIN (BEAKER) (test code = 5.6 gm/dL 6.0-8.3 L 770) ALBUMIN (BEAKER) (test code = 1145) 2.8 g/dL 3.5-5.0 L BILIRUBIN TOTAL (BEAKER) (test code 0.8 mg/dL 0.2-1.2 = 377) BILIRUBIN DIRECT (BEAKER) (test 0.6 mg/dL 0.1-0.5 H code = 706) ALKALINE PHOSPHATASE (BEAKER) (test 198 U/L 40-150 H code = 346) AST (SGOT) (BEAKER) (test code = 474 U/L 5-34 H 353) ALT (SGPT) (BEAKER) (test code = 118 U/L 6-55 H 347) HEMOGLOBIN AND [id number] 13:14:00 Test Item Value Reference Range Interpretation Comments HEMOGLOBIN (BEAKER) (test code = 8.2 GM/DL 13.7-17.5 L 410) HEMATOCRIT (BEAKER) (test code = 22.5 % 40.1-51.0 L 411) Please draw \\T\\ send HH as soon as PRBC are done transfusing - no post- transfusion wait timeRAD, CHEST, 1 VIEW, NON [id number] 12:39:00Reason for exam:->HD line placementShould this be performed at the bedside?->YesFINAL REPORT History: Status post central venous catheter placement Comparison:0542 hours on 03/18/2019 Findings: Interval placement of a left jugular catheter, with the tip in thesuperior vena cava region. A right jugular catheter remains in place, with its tip in the superior vena cava region. No pneumothorax is identified. Nasogastric tube passes below the diaphragm, with thetip not imaged. Airspace consolidation in the right infrahilar region is similar in appearance as are mild are opacities in the right perihilar region. Question mild focal consolidation at the medial left lung base. Cardiac shadow normal in size. No pleural effusions or pneumothorax are identified. Signed: Ezequiel Arredondo Verified Date/Time: 03/18/2019 12:39:44 Reading Location: [address] Transitional Reading Room RAD, ABDOMEN/KUB, 1 VIEW AP 2019-03-18 12:34:00Reason for exam:->corpak placementShould this be performed at the bedside?->YesFINAL REPORT ONE VIEW ABDOMEN HISTORY: Status post feeding tube placement COMPARISON: 03/17/2019 FINDINGS: Single supine AP image of the abdomen was obtained. Feeding tube passes below the diaphragm, with the tip in the region of the proximal stomach. No dilated bowel loops are identified. Signed: Ezequiel Arredondo Verified Date/Time: 03/18/2019 12:34:39 Reading Location: [address] Transitional Reading Room POCT-GLUCOSE [id number] 12:17:00 Test Item Value Reference Range Interpretation Comments POC-GLUCOSE METER 137 mg/dL 70-110 H TESTED AT [place] [address] ([facility] (test code = [facility] 1538) [address] POCT-GLUCOSE [id number] 09:22:00 Test Item Value Reference Range Interpretation Comments POC-GLUCOSE METER 117 mg/dL 70-110 H TESTED AT [place] [address] ([facility] (test code = [facility] 1538) [address] VANCOMYCIN LEVEL, [id number] 09:05:00 Test Item Value Reference Range Interpretation Comments VANCOMYCIN TROUGH ([facility]) (test 12.9 ug/mL 10.0-20.0 code = 522) Check level before giving dose on 03/18 hold vancomycin if trough level >20 URINALYSIS W/ [id number] 08:05:00 Test Item Value Reference Range Interpretation Comments COLOR (BEAKER) (test code = 470) Light Yellow CLARITY (BEAKER) (test code = Hazy 469) SPECIFIC GRAVITY UA (BEAKER) 1.008 1.001-1.035 (test code = 468) PH UA (BEAKER) (test code = 467) 6.0 5.0-8.0 PROTEIN UA (BEAKER) (test code = 50 mg/dL Negative A 464) GLUCOSE UA (BEAKER) (test code = Negative Negative 365) KETONES UA (BEAKER) (test code = Negative Negative 371) BILIRUBIN UA (BEAKER) (test code Negative Negative = 462) BLOOD UA (BEAKER) (test code = Large Negative A 461) NITRITE UA (BEAKER) (test code = Negative Negative 465) LEUKOCYTE ESTERASE UA (BEAKER) Negative Negative (test code = 466) UROBILINOGEN UA (BEAKER) (test 0.2 mg/dL 0.2-1.0 code = 463) RBC UA (BEAKER) (test code = 2 /HPF 519) WBC UA (BEAKER) (test code = 2 /HPF 520) BACTERIA (BEAKER) (test code = Occasional 517) MUCUS (BEAKER) (test code = Rare 1574) SOURCE(BEAKER) (test code = 1958) POCT-GLUCOSE [id number] 08:01:00 Test Item Value Reference Range Interpretation Comments POC-GLUCOSE METER 134 mg/dL 70-110 H TESTED AT [facility] 6720 (BEAKER) (test code = [place] 1538) [address] CBC W/PLT COUNT & AUTO [id number] 07:55:00 Test Item Value Reference Range Interpretation Comments WHITE BLOOD CELL COUNT (BEAKER) 13.3 K/ L 3.5-10.5 H (test code = 775) RED BLOOD CELL COUNT (BEAKER) 2.31 M/ L 4.63-6.08 L (test code = 761) HEMOGLOBIN (BEAKER) (test code = 6.7 GM/DL 13.7-17.5 L 410) HEMATOCRIT (BEAKER) (test code = 18.7 % 40.1-51.0 L 411) MEAN CORPUSCULAR VOLUME (BEAKER) 81.0 fL 79.0-92.2 (test code = 753) MEAN CORPUSCULAR HEMOGLOBIN 29.0 pg 25.7-32.2 (BEAKER) (test code = 751) MEAN CORPUSCULAR HEMOGLOBIN CONC 35.8 GM/DL 32.3-36.5 (BEAKER) (test code = 752) RED CELL DISTRIBUTION WIDTH 14.9 % 11.6-14.4 H (BEAKER) (test code = 412) PLATELET COUNT (BEAKER) (test 215 K/CU MM 150-450 code = 756) MEAN PLATELET VOLUME (BEAKER) 9.7 fL 9.4-12.4 (test code = 754) NUCLEATED RED BLOOD CELLS 0 /100 WBC 0-0 (BEAKER) (test code = 413) (CELLAVISION MANUAL DIFF)2019-03-18 07:55:00 Test Item Value Reference Range Interpretation Comments NEUTROPHILS - REL 91 % (CELLAVISION)(BEAKER) (test code = 2816) LYMPHOCYTES - REL 3 % (CELLAVISION)(BEAKER) (test code = 2817) MONOCYTES - REL 4 % (CELLAVISION)(BEAKER) (test code = 2818) BANDS - REL (CELLAVISION)(BEAKER) 2 % 0-10 (test code = 2826) NEUTROPHILS - ABS 12.10 K/ul 1.78-5.38 H (CELLAVISION)(BEAKER) (test code = 2830) LYMPHOCYTES - ABS 0.40 K/ul 1.32-3.57 L (CELLAVISION)(BEAKER) (test code = 2831) MONOCYTES - ABS 0.53 K/uL 0.30-0.82 (CELLAVISION)(BEAKER) (test code = 2832) BANDS - ABS (CELLAVISION)(BEAKER) 0.27 K/uL 0.00-0.80 (test code = 2840) TOTAL COUNTED (BEAKER) (test code 100 = 1351) WBC MORPHOLOGY (BEAKER) (test Normal code = 487) GIANT PLATELETS (BEAKER) (test Present code = 313) LARGE PLT(BEAKER) (test code = Present 2155) POLYCHROMATOPHILLIC RBCS(BEAKER) 1+ few (test code = 478) HYPOCHROMIA (BEAKER) (test code = 2+ moderate 963) ANISOCYTOSIS (BEAKER) (test code 2+ moderate = 961) MICROCYTES (BEAKER) (test code = 1+ few 965) MACROCYTES (BEAKER) (test code = 2+ moderate 964) POIKILOCYTES (BEAKER) (test code 1+ few = 966) TARGET CELLS (BEAKER) (test code 1+ few = 480) ARTIFACT (CELLAVISION)(BEAKER) Present (test code = 3432) PLATELET CONCENTRATION Adequate (CELLAVISION)(BEAKER) (test code = 3438) Received comment: User comments: Slide comments:RAD, CHEST, 1 VIEW, NON DEPT 2019-03-18 07:15:00Reason for exam:->hypoxiaShould this be performed at the bedside?->YesFINAL REPORT Chest dated 03/18/2019 COMPARISON: 03/17/2019 Clinical Information: hypoxia Comment: Heart is normal in size. Pulmonary vasculature is indistinct. Interstitial disease is seen on the right suggestive of pulmonary edema or pneumonia. No pleural effusion or pneumothorax seen. Right IJ centimeters catheter remains in place. Signed: Deshawn Arzola MDReport Verified Date/Time:03/18/2019 07:15:32 Reading Location: [facility] C013Y CT Body Reading Room CREATINE KINASE (CK)2019-03-18 06:57:00 Test Item Value Reference Range Interpretation Comments CREATINE KINASE TOTAL (BEAKER) (test > U/L 29-200 H code = 380) PH, [id number] 06:39:00 Test Item Value Reference Range Interpretation Comments PH UA (BEAKER) (test code = 467) 6.0 5.0-8.0 HEMOGLOBIN AND [id number] 06:10:00 Test Item Value Reference Range Interpretation Comments HEMOGLOBIN (BEAKER) (test code = 6.4 GM/DL 13.7-17.5 L 410) HEMATOCRIT (BEAKER) (test code = 17.8 % 40.1-51.0 L 411) BASIC METABOLIC [id number] 04:49:00 Test Item Value Reference Range Interpretation Comments SODIUM (BEAKER) 137 meq/L 136-145 (test code = 381) POTASSIUM (BEAKER) 3.9 meq/L 3.5-5.1 (test code = 379) CHLORIDE (BEAKER) 98 meq/L 98-107 (test code = 382) CO2 (BEAKER) (test 24 meq/L 22-29 code = 355) BLOOD UREA NITROGEN 56 mg/dL 7-21 H (BEAKER) (test code = 354) CREATININE (BEAKER) 5.55 mg/dL 0.57-1.25 H (test code = 358) GLUCOSE RANDOM 121 mg/dL 70-105 H (BEAKER) (test code = 652) CALCIUM (BEAKER) 7.5 mg/dL 8.4-10.2 L (test code = 697) EGFR (BEAKER) (test 12 mL/min/1.73 ESTIMA MOHSEN GFR IS code = 1092) sq m NOT ACCURATE CREATININE CLEARANCE IN PREDICTING GLOMERULAR FILTRATION RATE . ESTIMATED GFR I S NOT APPLICABLE FOR DIALYSIS PATIEN TS. URIC [id number] 04:47:00 Test Item Value Reference Range Interpretation Comments URIC ACID (BEAKER) (test code = 9.7 mg/dL 2.6-7.2 H 773) [id number] 04:47:00 Test Item Value Reference Range Interpretation Comments MAGNESIUM (BEAKER) (test code = 2.4 mg/dL 1.6-2.6 627) [id number] 04:47:00 Test Item Value Reference Range Interpretation Comments PHOSPHORUS (BEAKER) (test code = 8.3 mg/dL 2.3-4.7 H 604) [id number] 04:38:00 Test Item Value Reference Range Interpretation Comments PARTIAL THROMBOPLASTIN TIME 76.1 seconds 22.5-36.0 H (BEAKER) (test code = 760) CALCIUM, [id number] 04:35:00 Test Item Value Reference Range Interpretation Comments CALCIUM IONIZED (BEAKER) (test 0.91 mmol/L 1.12-1.27 L code = 698) PH, BLOOD (BEAKER) (test code = 7.46 1810) BLOOD GAS, [id number] 02:26:00 Test Item Value Reference Range Interpretation Comments PH ARTERIAL (BEAKER) (test code = 7.48 7.35-7.45 H 383) PCO2 ARTERIAL (BEAKER) (test code 35 mmHg 35-45 = 384) PO2 ARTERIAL (BEAKER) (test code = 91 mmHg 80-90 H 385) O2 SATURATION ARTERIAL (BEAKER) 97.4 % 96.0-97.0 H (test code = 386) HCO3 ARTERIAL (BEAKER) (test code 25 mmol/L 21-29 = 388) BASE EXCESS ARTERIAL (BEAKER) 1.8 mmol/L -2.0-3.0 (test code = 387) PATIENT TEMPERATURE (BEAKER) (test 37.3 C code = 1818) FIO2 (BEAKER) (test code = 1819) 60.0 % BLOOD GAS, [id number] 23:31:00 Test Item Value Reference Range Interpretation Comments PH ARTERIAL (BEAKER) (test code = 7.49 7.35-7.45 H 383) PCO2 ARTERIAL (BEAKER) (test code 34 mmHg 35-45 L = 384) PO2 ARTERIAL (BEAKER) (test code = 93 mmHg 80-90 H 385) O2 SATURATION ARTERIAL (BEAKER) 97.6 % 96.0-97.0 H (test code = 386) HCO3 ARTERIAL (BEAKER) (test code 25 mmol/L 21-29 = 388) BASE EXCESS ARTERIAL (BEAKER) 1.3 mmol/L -2.0-3.0 (test code = 387) PATIENT TEMPERATURE (BEAKER) (test 37.0 C code = 1818) FIO2 (BEAKER) (test code = 1819) 75.0 % BASIC METABOLIC [id number] 23:25:00 Test Item Value Reference Range Interpretation Comments SODIUM (BEAKER) 135 meq/L 136-145 L (test code = 381) POTASSIUM (BEAKER) 3.9 meq/L 3.5-5.1 (test code = 379) CHLORIDE (BEAKER) 97 meq/L 98-107 L (test code = 382) CO2 (BEAKER) (test 22 meq/L 22-29 code = 355) BLOOD UREA NITROGEN 51 mg/dL 7-21 H (BEAKER) (test code = 354) CREATININE (BEAKER) 5.39 mg/dL 0.57-1.25 H (test code = 358) GLUCOSE RANDOM 123 mg/dL 70-105 H (BEAKER) (test code = 652) CALCIUM (BEAKER) 7.7 mg/dL 8.4-10.2 L (test code = 697) EGFR (BEAKER) (test 13 mL/min/1.73 ESTIMA MOHSEN GFR IS code = 1092) sq m NOT ACCURATE CREATININE CLEARANCE IN PREDICTING GLOMERULAR FILTRATION RATE . ESTIMATED GFR I S NOT APPLICABLE FOR DIALYSIS PATIEN TS. POCT-GLUCOSE [id number] 23:20:00 Test Item Value Reference Range Interpretation Comments POC-GLUCOSE METER 130 mg/dL 70-110 H TESTED AT [facility] 6720 ([place]) (test code = [place] 1538) [address] [id number] 22:52:00 Test Item Value Reference Range Interpretation Comments PHOSPHORUS (BEAKER) (test code = 7.6 mg/dL 2.3-4.7 H 604) [id number] 22:52:00 Test Item Value Reference Range Interpretation Comments MAGNESIUM (BEAKER) (test code = 2.7 mg/dL 1.6-2.6 H 627) RAD, CHEST, 1 VIEW, NON [id number] 22:50:00Reason for exam:->tube placementShould this be performed at the bedside?->YesFINAL REPORT EXAMINATION: AP PORTABLE CHEST RADIOGRAPH CLINICAL INDICATION: Fee ding tube placement IMPRESSION: Compared with 03/17/2019, 1819 hours. Asymmetric loss of right lung volume and multiple right-sided parenchymal lung opacities are again noted, similar to previous. Although the etiology is indeterminate, the findings may reflect a multifocal pneumonia. Pulmonary hemorrhage as well as sequela from aspiration would also be considerations. Underlying neoplastic process cannot be excluded. No definite evidence of new lung consolidation, pleural effusion or pneumothorax. Cardiac and mediastinal contours are stable. The tip of the feeding tube extends below the diaphragm and inferior margin of today's study. The tip of the right jugular central line projects over the super ior vena cava. Chest CT could be performed for further evaluation if warranted. Signed: Sourav HudsonMDReport Verified Date/Time: 03/17/2019 22:50:01 Reading Location: [address] Reading Room RAD, ABDOMEN/KUB, 1 VIEW [id number] 22:39:00 Reason for exam:->corpak placementShould this be performed at the bedside?->YesFINAL REPORT Abdomen, 03/17/2019 There is been no change since the prior study done approximately one hour ago. Feeding tube is again seen with its tip in the fundus the stomach. Moderate amount of gas remains throughout the gastrointestinal tract. No definite abnormal calcifications are seen. Signed: Jeannette Thomson MDRriverort Verified Date/Time: 03/17/2019 22:39:11 Reading Location:[address] Consult Reading Room BLOOD GAS, [id number] 22:33:00 Test Item Value Reference Range Interpretation Comments PH ARTERIAL (BEAKER) (test code = 7.47 7.35-7.45 H 383) PCO2 ARTERIAL (BEAKER) (test code 36 mmHg 35-45 = 384) PO2 ARTERIAL (BEAKER) (test code = 57 mmHg 80-90 L 385) O2 SATURATION ARTERIAL (BEAKER) 91.6 % 96.0-97.0 L (test code = 386) HCO3 ARTERIAL (BEAKER) (test code 26 mmol/L 21-29 = 388) BASE EXCESS ARTERIAL (BEAKER) 2.2 mmol/L -2.0-3.0 (test code = 387) PATIENT TEMPERATURE (BEAKER) (test 37.0 C code = 1818) FIO2 (BEAKER) (test code = 1819) 75.0 % RAD, ABDOMEN/KUB, 1 VIEW [id number] 20:42:00Reason for exam:->corpak replacedShould this be performed at the bedside?->YesFINAL REPORT EXAMINATION: SUPINE ABDOMEN CLINICAL INDICATION: FEEDING TUBE PLACEMENT IMPRESSION: Compared with 03/17/2019, 1822 hours. Tip of the feeding tube projects over left upper abdomen in the region of the stomach. Gaseous distention of the stomach and bowel is again noted, nonspecific but possible ileus. Obstructive process cannot be excluded. Signed: Hudson, Sourav MDReport Verified Date/Time: 03/17/2019 20:42:57 Reading Location: [address] Reading Room [id number] 20:17:00 Test Item Value Reference Range Interpretation Comments PARTIAL THROMBOPLASTIN TIME 82.2 seconds 22.5-36.0 H (BEAKER) (test code = 760) RAD, ABDOMEN/KUB, 1 VIEW [id number] 19:37:00Reason for exam:->corpak placementShould this be performed at the bedside?->YesFINAL REPORT EXAMINATION: SUPINE ABDOMEN CLINICAL INDICATION: FEEDING TUBE PLACE MENT IMPRESSION: Tip of the feeding tube projects over left upper abdomen in the region of the stomach. There is moderate gaseous distention of the small bowel and colon, nonspecific but possible ileus. Obstructive process cannot be excluded. Signed: Sourav Hudson MDReport Verified Date/Time: 03/17/2019 19:37:19 Reading Location: [address] Reading Room RAD, CHEST, 1 VIEW, NON [id number] 18:58:00Reason for exam:->suspicion of aspirationShould this be performed at the bedside?->YesFINAL REPORT Chest, 03/17/2019 Patchy opacities are seen in the right perihilar region that appears similar to that noted 12 hours previously. Right jugular catheter is seen with its tip at the junction of superior vena cava and right atrium. Feeding tube terminates below the diaphragm. Left lung is clear. Heart size normal Patchy right-sided pulmonary abnormalities consistent with pneumonitis. Signed: Jeannette Thomson MDReport Verified Date/Time: 03/17/2019 18:58:58 Reading Location: [facility] B1 [id number] Consult Reading Room BASIC METABOLIC [id number] 18:03:00 Test Item Value Reference Range Interpretation Comments SODIUM (BEAKER) 135 meq/L 136-145 L (test code = 381) POTASSIUM (BEAKER) 4.4 meq/L 3.5-5.1 Specimen slightly (test code = 379) hemolyzed CHLORIDE (BEAKER) 98 meq/L 98-107 (test code = 382) CO2 (BEAKER) (test 25 meq/L - code = 355) BLOOD UREA NITROGEN 50 mg/dL 7-21 H (BEAKER) (test code = 354) CREATININE (BEAKER) 5.20 mg/dL 0.57-1.25 H Specimen slightly (test code = 358) hemolyzed GLUCOSE RANDOM 122 mg/dL 70-105 H (BEAKER) (test code = 652) CALCIUM (BEAKER) 8.1 mg/dL 8.4-10.2 L (test code = 697) EGFR (BEAKER) (test 13 mL/min/1.73 ESTIMA MOHSEN GFR IS code = 1092) sq m NOT ACCURATE CREATININE CLEARANCE IN PREDICTING GLOMERULAR FILTRATION RATE . ESTIMATED GFR I S NOT APPLICABLE FOR DIALYSIS PATIEN TS. POCT-GLUCOSE [id number] 17:18:00 Test Item Value Reference Range Interpretation Comments POC-GLUCOSE METER 143 mg/dL 70-110 H TESTED AT [facility] 67 ([facility]) (test code = [facility] 1538) [id number] 13:29:00 Test Item Value Reference Range Interpretation Comments PARTIAL THROMBOPLASTIN TIME 71.8 seconds 22.5-36.0 H (BEAKER) (test code = 760) POCT-GLUCOSE [id number] 12:41:00 Test Item Value Reference Range Interpretation Comments POC-GLUCOSE METER 149 mg/dL 70-110 H TESTED AT [facility] 6720 ([facility]) (test code = [facility] 1538) [id number] BASIC METABOLIC [id number] 10:26:00 Test Item Value Reference Range Interpretation Comments SODIUM (BEAKER) 132 meq/L 136-145 L (test code = 381) POTASSIUM (BEAKER) 4.1 meq/L 3.5-5.1 Specimen slightly (test code = 379) hemolyzed CHLORIDE (BEAKER) 96 meq/L 98-107 L (test code = 382) CO2 (BEAKER) (test 23 meq/L code = 355) BLOOD UREA NITROGEN 45 mg/dL 7-21 H (BEAKER) (test code = 354) CREATININE (BEAKER) 4.79 mg/dL 0.57-1.25 H Specimen slightly (test code = 358) hemolyzed GLUCOSE RANDOM 128 mg/dL 70-105 H (BEAKER) (test code = 652) CALCIUM (BEAKER) 8.4 mg/dL 8.4-10.2 (test code = 697) EGFR (BEAKER) (test 14 mL/min/1.73 ESTIMA MOHSEN GFR IS code = 1092) sq m NOT ACCURATE CREATININE CLEARANCE IN PREDICTING GLOMERULAR FILTRATION RATE . ESTIMATED GFR I S NOT APPLICABLE FOR DIALYSIS PATIEN TS. CBC W/PLT COUNT & AUTO [id number] 10:15:00 Test Item Value Reference Range Interpretation Comments WHITE BLOOD CELL COUNT (BEAKER) 11.6 K/ L 3.5-10.5 H (test code = 775) RED BLOOD CELL COUNT (BEAKER) 2.60 M/ L 4.63-6.08 L (test code = 761) HEMOGLOBIN (BEAKER) (test code = 7.6 GM/DL 13.7-17.5 L 410) HEMATOCRIT (BEAKER) (test code = 20.9 % 40.1-51.0 L 411) MEAN CORPUSCULAR VOLUME (BEAKER) 80.4 fL 79.0-92.2 (test code = 753) MEAN CORPUSCULAR HEMOGLOBIN 29.2 pg 25.7-32.2 (BEAKER) (test code = 751) MEAN CORPUSCULAR HEMOGLOBIN CONC 36.4 GM/DL 32.3-36.5 (BEAKER) (test code = 752) RED CELL DISTRIBUTION WIDTH 14.7 % 11.6-14.4 H (BEAKER) (test code = 412) PLATELET COUNT (BEAKER) (test 177 K/CU MM 150-450 code = 756) MEAN PLATELET VOLUME (BEAKER) 10.1 fL 9.4-12.4 (test code = 754) NUCLEATED RED BLOOD CELLS 0 /100 WBC 0-0 (BEAKER) (test code = 413) (CELLAVISION MANUAL DIFF)2019-03-17 10:15:00 Test Item Value Reference Range Interpretation Comments NEUTROPHILS - REL 89 % (CELLAVISION)(BEAKER) (test code = 2816) LYMPHOCYTES - REL 6 % (CELLAVISION)(BEAKER) (test code = 2817) MONOCYTES - REL 4 % (CELLAVISION)(BEAKER) (test code = 2818) BASOPHILS - REL 1 % (CELLAVISION)(BEAKER) (test code = 2820) NEUTROPHILS - ABS 10.32 K/ul 1.78-5.38 H (CELLAVISION)(BEAKER) (test code = 2830) LYMPHOCYTES - ABS 0.70 K/ul 1.32-3.57 L (CELLAVISION)(BEAKER) (test code = 2831) MONOCYTES - ABS 0.46 K/uL 0.30-0.82 (CELLAVISION)(BEAKER) (test code = 2832) BASOPHILS - ABS 0.12 K/uL 0.01-0.08 H (CELLAVISION)(BEAKER) (test code = 2835) TOTAL COUNTED (BEAKER) (test code 100 = 1351) WBC MORPHOLOGY (BEAKER) (test code Normal = 487) PLT MORPHOLOGY (BEAKER) (test code Normal = 486) POIKILOCYTES (BEAKER) (test code = 1+ few 966) TARGET CELLS (BEAKER) (test code = 1+ few 480) ARTIFACT (CELLAVISION)(BEAKER) Present (test code = 3432) PLATELET CONCENTRATION Adequate (CELLAVISION)(BEAKER) (test code = 3438) Received comment: User comments: Slide comments:POCT-GLUCOSE [id number] 09:44:00 Test Item Value Reference Range Interpretation Comments POC-GLUCOSE METER 139 mg/dL 70-110 H TESTED AT [facility] 67[address] (BEAKER) (test code = [place] [facility] 1538) [id number] RAD, CHEST, 1 VIEW, NON [id number] 09:00:00Reason for exam:- >hypoxiaShould this be performed at the bedside?->YesFINAL REPORT Exam: RAD, CHEST, 1 VIEW, NON DEPTDate: 03/17/2019 8:58 AM Indicatio n: Hypoxia Comparison: Chest radiograph 03/16/2019 FINDINGS: Lines/Tubes: Right IJ central venous catheter terminates in SVC. EKG leads overlie the chest. Lungs: The lungs are moderately inflated. Againseen are patchy airspace opacities in the right lung which silhouette the right heart border. Pleura:No pleural effusion. No pneumothorax. Heart/Mediastinum:The cardiomediastinal silhouette is normal in size and contour. Bones/Soft Tissues:No acute fracture or dislocation. Abdomen:No free air under the diaphragm. IMPRESSION:Patchy right lung airspace opacities, slightly increased at the right middle lobe compared to 03/16/2019 represent aspiration and/or pneumonia in the proper clinical setting. Signed: Earnestine North MDReport Verified Date/Time: 03/17/2019 09:00:52 Reading Location: [facility] Radiology Reading Room URINALYSIS W/ [id number] 07:05:00 Test Item Value Reference Range Interpretation Comments COLOR (BEAKER) (test code = 470) Yellow CLARITY (BEAKER) (test code = 469) Hazy SPECIFIC GRAVITY UA (BEAKER) (test 1.006 1.001-1.035 code = 468) PH UA (BEAKER) (test code = 467) 7.5 5.0-8.0 PROTEIN UA (BEAKER) (test code = 30 mg/dL Negative A 464) GLUCOSE UA (BEAKER) (test code = Negative Negative 365) KETONES UA (BEAKER) (test code = Negative Negative 371) BILIRUBIN UA (BEAKER) (test code = Negative Negative 462) BLOOD UA (BEAKER) (test code = 461) Moderate Negative A NITRITE UA (BEAKER) (test code = Negative Negative 465) LEUKOCYTE ESTERASE UA (BEAKER) Moderate Negative A (test code = 466) UROBILINOGEN UA (BEAKER) (test code 0.2 mg/dL 0.2-1.0 = 463) RBC UA (BEAKER) (test code = 519) < /HPF WBC UA (BEAKER) (test code = 520) 16 /HPF SQUAMOUS EPITHELIAL (BEAKER) (test 1 /HPF code = 516) GRANULAR CASTS (BEAKER) (test code 11 /LPF = 515) SOURCE(BEAKER) (test code = 2795) CREATINE KINASE (CK)2019-03-17 06:53:00 Test Item Value Reference Range Interpretation Comments CREATINE KINASE TOTAL (BEAKER) (test > U/L 29-200 H code = 380) BASIC METABOLIC [id number] 06:38:00 Test Item Value Reference Range Interpretation Comments SODIUM (BEAKER) 135 meq/L 136-145 L (test code = 381) POTASSIUM (BEAKER) 4.3 meq/L 3.5-5.1 Specimen slightly (test code = 379) hemolyzed CHLORIDE (BEAKER) 98 meq/L 98-107 (test code = 382) CO2 (BEAKER) (test 25 meq/L 22-29 code = 355) BLOOD UREA NITROGEN 44 mg/dL 7-21 H (BEAKER) (test code = 354) CREATININE (BEAKER) 4.72 mg/dL 0.57-1.25 H Specimen slightly (test code = 358) hemolyzed GLUCOSE RANDOM 125 mg/dL 70-105 H (BEAKER) (test code = 652) CALCIUM (BEAKER) 8.1 mg/dL 8.4-10.2 L (test code = 697) EGFR (BEAKER) (test 15 mL/min/1.73 ESTIMA MOHSEN GFR IS code = 1092) sq m NOT ACCURATE CREATININE CLEARANCE IN PREDICTING GLOMERULAR FILTRATION RATE . ESTIMATED GFR I S NOT APPLICABLE FOR DIALYSIS PATIEN TS. [id number] 05:36:00 Test Item Value Reference Range Interpretation Comments PARTIAL THROMBOPLASTIN TIME 67.0 seconds 22.5-36.0 H (BEAKER) (test code = 760) CALCIUM, [id number] 04:55:00 Test Item Value Reference Range Interpretation Comments CALCIUM IONIZED (BEAKER) (test 1.00 mmol/L 1.12-1.27 L code = 698) PH, BLOOD (BEAKER) (test code = 7.47 1810) [id number] 04:43:00 Test Item Value Reference Range Interpretation Comments MAGNESIUM (BEAKER) 2.3 mg/dL 1.6-2.6 Specimen slightly (test code = 627) hemolyzed [id number] 04:43:00 Test Item Value Reference Range Interpretation Comments PHOSPHORUS (BEAKER) 7.1 mg/dL 2.3-4.7 H Specimen slightly (test code = 604) hemolyzed URIC [id number] 04:43:00 Test Item Value Reference Range Interpretation Comments URIC ACID (BEAKER) 9.0 mg/dL 2.6-7.2 H Specimen slightly (test code = 773) hemolyzed PH, [id number] 04:38:00 Test Item Value Reference Range Interpretation Comments PH UA (BEAKER) (test code = 467) 7.5 5.0-8.0 LACTIC ACID, [id number] 04:29:00 Test Item Value Reference Range Interpretation Comments LACTATE BLOOD 0.8 mmol/L 0.5-2.2 Specimen sligh tly ARTERIAL (2) (BEAKER) hemoly zed (test code = 2874) BLOOD GAS, [id number] 04:22:00 Test Item Value Reference Range Interpretation Comments PH ARTERIAL (BEAKER) (test code = 7.47 7.35-7.45 H 383) PCO2 ARTERIAL (BEAKER) (test code 37 mmHg 35-45 = 384) PO2 ARTERIAL (BEAKER) (test code = 72 mmHg 80-90 L 385) O2 SATURATION ARTERIAL (BEAKER) 95.4 % 96.0-97.0 L (test code = 386) HCO3 ARTERIAL (BEAKER) (test code 27 mmol/L 21-29 = 388) BASE EXCESS ARTERIAL (BEAKER) 3.1 mmol/L -2.0-3.0 H (test code = 387) PATIENT TEMPERATURE (BEAKER) (test 37.0 C code = 1818) FIO2 (BEAKER) (test code = 1819) 60.0 % BASIC METABOLIC [id number] 00:38:00 Test Item Value Reference Range Interpretation Comments SODIUM (BEAKER) 133 meq/L 136-145 L (test code = 381) POTASSIUM (BEAKER) 4.6 meq/L 3.5-5.1 Specimen slightly (test code = 379) hemolyzed CHLORIDE (BEAKER) 97 meq/L 98-107 L (test code = 382) CO2 (BEAKER) (test 24 meq/L 22-29 code = 355) BLOOD UREA NITROGEN 41 mg/dL 7-21 H (BEAKER) (test code = 354) CREATININE (BEAKER) 4.33 mg/dL 0.57-1.25 H Specimen slightly (test code = 358) hemolyzed GLUCOSE RANDOM 125 mg/dL 70-105 H (BEAKER) (test code = 652) CALCIUM (BEAKER) 7.7 mg/dL 8.4-10.2 L (test code = 697) EGFR (BEAKER) (test 16 mL/min/1.73 ESTIMA MOHSEN GFR IS code = 1092) sq m NOT ACCURATE CREATININE CLEARANCE IN PREDICTING GLOMERULAR FILTRATION RATE . ESTIMATED GFR I S NOT APPLICABLE FOR DIALYSIS PATIEN TS. [id number] 23:33:00 Test Item Value Reference Range Interpretation Comments PARTIAL THROMBOPLASTIN TIME 76.4 seconds 22.5-36.0 H (BEAKER) (test code = 760) POCT-GLUCOSE [id number] 22:04:00 Test Item Value Reference Range Interpretation Comments POC-GLUCOSE METER 175 mg/dL 70-110 H TESTED AT [place] [address] ([facility]) (test code = [facility] 1538) [id number] POCT-GLUCOSE [id number] 17:56:00 Test Item Value Reference Range Interpretation Comments POC-GLUCOSE METER 118 mg/dL 70-110 H TESTED AT [place] [address] ([facility]) (test code = [facility] 1538) [id number] [id number] 15:00:00 Test Item Value Reference Range Interpretation Comments PARTIAL THROMBOPLASTIN TIME 68.9 seconds 22.5-36.0 H (BEAKER) (test code = 760) BASIC METABOLIC [id number] 13:21:00 Test Item Value Reference Range Interpretation Comments SODIUM (BEAKER) 132 meq/L 136-145 L (test code = 381) POTASSIUM (BEAKER) 4.2 meq/L 3.5-5.1 (test code = 379) CHLORIDE (BEAKER) 100 meq/L 98-107 (test code = 382) CO2 (BEAKER) (test 23 meq/L 22-29 code = 355) BLOOD UREA NITROGEN 35 mg/dL 7-21 H (BEAKER) (test code = 354) CREATININE (BEAKER) 3.81 mg/dL 0.57-1.25 H (test code = 358) GLUCOSE RANDOM 135 mg/dL 70-105 H (BEAKER) (test code = 652) CALCIUM (BEAKER) 7.9 mg/dL 8.4-10.2 L (test code = 697) EGFR (BEAKER) (test 19 mL/min/1.73 ESTIMA MOHSEN GFR IS code = 1092) sq m NOT ACCURATE CREATININE CLEARANCE IN PREDICTING GLOMERULAR FILTRATION RATE . ESTIMATED GFR I S NOT APPLICABLE FOR DIALYSIS PATIEN TS. [id number] 13:19:00 Test Item Value Reference Range Interpretation Comments PHOSPHORUS (BEAKER) (test code = 6.4 mg/dL 2.3-4.7 H 604) [id number] 13:19:00 Test Item Value Reference Range Interpretation Comments MAGNESIUM (BEAKER) (test code = 2.3 mg/dL 1.6-2.6 627) CALCIUM, [id number] 12:39:00 Test Item Value Reference Range Interpretation Comments CALCIUM IONIZED (BEAKER) (test 1.03 mmol/L 1.12-1.27 L code = 698) PH, BLOOD (BEAKER) (test code = 7.47 1810) POCT-GLUCOSE [id number] 12:15:00 Test Item Value Reference Range Interpretation Comments POC-GLUCOSE METER 165 mg/dL 70-110 H TESTED AT [facility] 6720 (BEAKER) (test code = [place] 1538) [id number] CREATINE KINASE (CK)2019-03-16 09:41:00 Test Item Value Reference Range Interpretation Comments CREATINE KINASE TOTAL (BEAKER) [address] U/L 29-200 H (test code = 380) PH, [id number] 09:00:00 Test Item Value Reference Range Interpretation Comments PH UA (BEAKER) (test code = 467) 7.5 5.0-8.0 [id number] 08:54:00 Test Item Value Reference Range Interpretation Comments PARTIAL THROMBOPLASTIN TIME 78.6 seconds 22.5-36.0 H (BEAKER) (test code = 760) URIC [id number] 08:53:00 Test Item Value Reference Range Interpretation Comments URIC ACID (BEAKER) (test code = 8.3 mg/dL 2.6-7.2 H 773) CALCIUM, [id number] 08:33:00 Test Item Value Reference Range Interpretation Comments CALCIUM IONIZED (BEAKER) (test 1.03 mmol/L 1.12-1.27 L code = 698) PH, BLOOD (BEAKER) (test code = 7.48 1810) RAD, CHEST, 1 VIEW, NON [id number] 07:23:00Reason for exam:- >hypoxiaShould this be performed at the bedside?->YesFINAL REPORT Chest, 1 view, 03/16/2019 5:23 AM. History: Hypoxia. Comparison: 03/06. Discussion: The cardiomediastinal silhouette and pulmonary vasculature are within normal limits for a portable exam. Right upper and midlung airspace opacities have increased. There is no evidence of pleural effusion. Right IJ central line is unchanged in position. The soft tissues and osseousstructures are intact. IMPRESSION: Worsening of right-sided pulmonary opacities concerning for pneumonia versus asymmetric pulmonary edema. Signed: Ant Kumar Verified Date/Time: 03/16/2019 07:23:12 Reading Location: [facility] Radiology Reading Room [id number] 03:37:00 Test Item Value Reference Range Interpretation Comments PARTIAL THROMBOPLASTIN TIME 59.5 seconds 22.5-36.0 H (BEAKER) (test code = 760) PROTHROMBIN [id number] 03:36:00 Test Item Value Reference Range Interpretation Comments PROTIME (BEAKER) (test code = 15.2 seconds 11.9-14.2 H 759) INR (BEAKER) (test code = 370) 1.3 <=5.9 Effective 02/01/2019: PT Reference Range ChangeNew: 11.9-14.2 Previous: 11.7- 14.7RECOMMENDED COUMADIN/WARFARIN INR THERAPY RANGESSTANDARD DOSE: 2.0-3.0 Includes: PROPHYLAXIS for venous thrombosis, systemic embolization; TREATMENT for venous thrombosis and/or pulmonary embolus.HIGH RISK: Target INR is 2.5-3.5 for patients wiht mechanical heart valves.[id number] 03:22:00 Test Item Value Reference Range Interpretation Comments PHOSPHORUS (BEAKER) (test code = 5.5 mg/dL 2.3-4.7 H 604) [id number] 03:22:00 Test Item Value Reference Range Interpretation Comments MAGNESIUM (BEAKER) (test code = 2.3 mg/dL 1.6-2.6 627) BASIC METABOLIC [id number] 03:22:00 Test Item Value Reference Range Interpretation Comments SODIUM (BEAKER) 131 meq/L 136-145 L (test code = 381) POTASSIUM (BEAKER) 4.2 meq/L 3.5-5.1 (test code = 379) CHLORIDE (BEAKER) 99 meq/L 98-107 (test code = 382) CO2 (BEAKER) (test 23 meq/L 22-29 code = 355) BLOOD UREA NITROGEN 30 mg/dL 7-21 H (BEAKER) (test code = 354) CREATININE (BEAKER) 3.35 mg/dL 0.57-1.25 H (test code = 358) GLUCOSE RANDOM 124 mg/dL 70-105 H (BEAKER) (test code = 652) CALCIUM (BEAKER) 7.8 mg/dL 8.4-10.2 L (test code = 697) EGFR (BEAKER) (test 22 mL/min/1.73 ESTIMA MOHSEN GFR IS code = 1092) sq m NOT ACCURATE CREATININE CLEARANCE IN PREDICTING GLOMERULAR FILTRATION RATE . ESTIMATED GFR I S NOT APPLICABLE FOR DIALYSIS PATIEN TS. CBC (HEMOGRAM ONLY)2019-03-16 03:04:00 Test Item Value Reference Range Interpretation Comments WHITE BLOOD CELL COUNT (BEAKER) 10.3 K/ L 3.5-10.5 (test code = 775) RED BLOOD CELL COUNT (BEAKER) 2.65 M/ L 4.63-6.08 L (test code = 761) HEMOGLOBIN (BEAKER) (test code = 7.8 GM/DL 13.7-17.5 L 410) HEMATOCRIT (BEAKER) (test code = 21.6 % 40.1-51.0 L 411) MEAN CORPUSCULAR VOLUME (BEAKER) 81.5 fL 79.0-92.2 (test code = 753) MEAN CORPUSCULAR HEMOGLOBIN 29.4 pg 25.7-32.2 (BEAKER) (test code = 751) MEAN CORPUSCULAR HEMOGLOBIN CONC 36.1 GM/DL 32.3-36.5 (BEAKER) (test code = 752) RED CELL DISTRIBUTION WIDTH 14.7 % 11.6-14.4 H (BEAKER) (test code = 412) PLATELET COUNT (BEAKER) (test 139 K/CU MM 150-450 L code = 756) MEAN PLATELET VOLUME (BEAKER) 9.8 fL 9.4-12.4 (test code = 754) NUCLEATED RED BLOOD CELLS 0 /100 WBC 0-0 (BEAKER) (test code = 413) BLOOD GAS, [id number] 03:04:00 Test Item Value Reference Range Interpretation Comments PH ARTERIAL (BEAKER) (test code = 7.53 7.35-7.45 H 383) PCO2 ARTERIAL (BEAKER) (test code 30 mmHg 35-45 L = 384) PO2 ARTERIAL (BEAKER) (test code = 70 mmHg 80-90 L 385) O2 SATURATION ARTERIAL (BEAKER) 95.9 % 96.0-97.0 L (test code = 386) HCO3 ARTERIAL (BEAKER) (test code 25 mmol/L 21-29 = 388) BASE EXCESS ARTERIAL (BEAKER) 1.9 mmol/L -2.0-3.0 (test code = 387) PATIENT TEMPERATURE (BEAKER) (test 36.9 C code = 1818) FIO2 (BEAKER) (test code = 1819) 80.0 % [id number] 00:37:00 Test Item Value Reference Range Interpretation Comments PROTIME (BEAKER) (test code = 15.6 seconds 11.9-14.2 H 759) INR (BEAKER) (test code = 370) 1.3 <=5.9 PARTIAL THROMBOPLASTIN TIME 46.1 seconds 22.5-36.0 H (BEAKER) (test code = 760) Effective 02/01/2019: PT Reference Range ChangeNew: 11.9-14.2 Previous: 11.7- 14.7RECOMMENDED COUMADIN/WARFARIN INR THERAPY RANGESSTANDARD DOSE: 2.0-3.0 Includes: PROPHYLAXIS for venous thrombosis, systemic embolization; TREATMENT for venous thrombosis and/or pulmonary embolus.HIGH RISK: Target INR is 2.5-3.5 for patients wiht mechanical heart valves.BASIC METABOLIC [id number] 00:28:00 Test Item Value Reference Range Interpretation Comments SODIUM (BEAKER) 132 meq/L 136-145 L (test code = 381) POTASSIUM (BEAKER) 4.4 meq/L 3.5-5.1 (test code = 379) CHLORIDE (BEAKER) 100 meq/L 98-107 (test code = 382) CO2 (BEAKER) (test 23 meq/L 22-29 code = 355) BLOOD UREA NITROGEN 29 mg/dL 7-21 H (BEAKER) (test code = 354) CREATININE (BEAKER) 3.21 mg/dL 0.57-1.25 H (test code = 358) GLUCOSE RANDOM 134 mg/dL 70-105 H (BEAKER) (test code = 652) CALCIUM (BEAKER) 7.8 mg/dL 8.4-10.2 L (test code = 697) EGFR (BEAKER) (test 23 mL/min/1.73 ESTIMA MOHSEN GFR IS code = 1092) sq m NOT ACCURATE CREATININE CLEARANCE IN PREDICTING GLOMERULAR FILTRATION RATE . ESTIMATED GFR I S NOT APPLICABLE FOR DIALYSIS PATIEN TS. [id number] 00:19:00 Test Item Value Reference Range Interpretation Comments PHOSPHORUS (BEAKER) (test code = 5.4 mg/dL 2.3-4.7 H 604) [id number] 00:19:00 Test Item Value Reference Range Interpretation Comments MAGNESIUM (BEAKER) (test code = 2.2 mg/dL 1.6-2.6 627) CBC W/PLT COUNT & AUTO [id number] 23:47:00 Test Item Value Reference Range Interpretation Comments WHITE BLOOD CELL COUNT (BEAKER) 10.9 K/ L 3.5-10.5 H (test code = 775) RED BLOOD CELL COUNT (BEAKER) 2.55 M/ L 4.63-6.08 L (test code = 761) HEMOGLOBIN (BEAKER) (test code = 7.5 GM/DL 13.7-17.5 L 410) HEMATOCRIT (BEAKER) (test code = 20.8 % 40.1-51.0 L 411) MEAN CORPUSCULAR VOLUME (BEAKER) 81.6 fL 79.0-92.2 (test code = 753) MEAN CORPUSCULAR HEMOGLOBIN 29.4 pg 25.7-32.2 (BEAKER) (test code = 751) MEAN CORPUSCULAR HEMOGLOBIN CONC 36.1 GM/DL 32.3-36.5 (BEAKER) (test code = 752) RED CELL DISTRIBUTION WIDTH 15.1 % 11.6-14.4 H (BEAKER) (test code = 412) PLATELET COUNT (BEAKER) (test 142 K/CU MM 150-450 L code = 756) MEAN PLATELET VOLUME (BEAKER) 9.9 fL 9.4-12.4 (test code = 754) NUCLEATED RED BLOOD CELLS 0 /100 WBC 0-0 (BEAKER) (test code = 413) NEUTROPHILS RELATIVE PERCENT 89 % (BEAKER) (test code = 429) LYMPHOCYTES RELATIVE PERCENT 4 % (BEAKER) (test code = 430) MONOCYTES RELATIVE PERCENT 6 % (BEAKER) (test code = 431) EOSINOPHILS RELATIVE PERCENT 0 % (BEAKER) (test code = 432) BASOPHILS RELATIVE PERCENT 0 % (BEAKER) (test code = 437) NEUTROPHILS ABSOLUTE COUNT 9.65 K/ L 1.78-5.38 H (BEAKER) (test code = 670) LYMPHOCYTES ABSOLUTE COUNT 0.45 K/ L 1.32-3.57 L (BEAKER) (test code = 414) MONOCYTES ABSOLUTE COUNT (BEAKER) 0.69 K/ L 0.30-0.82 (test code = 415) EOSINOPHILS ABSOLUTE COUNT 0.00 K/ L 0.04-0.54 L (BEAKER) (test code = 416) BASOPHILS ABSOLUTE COUNT (BEAKER) 0.01 K/ L 0.01-0.08 (test code = 417) IMMATURE GRANULOCYTES-RELATIVE 1 % 0-1 PERCENT (BEAKER) (test code = 2801) CALCIUM, [id number] 23:41:00 Test Item Value Reference Range Interpretation Comments CALCIUM IONIZED (BEAKER) (test 1.03 mmol/L 1.12-1.27 L code = 698) PH, BLOOD (BEAKER) (test code = 7.51 1810) POCT-GLUCOSE [id number] 23:37:00 Test Item Value Reference Range Interpretation Comments POC-GLUCOSE METER 144 mg/dL 70-110 H TESTED AT [facility] 6720 (BEAKER) (test code = RENÉ CHAU 1538) [address] RAD, CHEST, 1 VIEW, NON [id number] 20:27:00Reason for exam:- >hypoxiaShould this be performed at the bedside?->YesFINAL REPORT Chest, 1 view. History: Hypoxia. Comparison: 03/15/2019 at 0859. Imp ression: Right IJ central venous catheter identified in stable position. The trachea is midline. There is increased opacity present within the right mid/lower lung zones which may present a developing airspace process such as pneumonia. There is no evidence for pneumothorax or significant pleural effus ion. The cardiomediastinal silhouette is stable in appearance. No acute osseous abnormality is identified. Signed: Wayne Harman MDReport Verified Date/Time: 03/15/2019 20:27:35 Reading Location: [address] Consult Reading Room APTT 2019-03-15 20:10:00 Test Item Value Reference Range Interpretation Comments PARTIAL THROMBOPLASTIN TIME 42.8 seconds 22.5-36.0 H (BEAKER) (test code = 760) [id number] 20:03:00 Test Item Value Reference Range Interpretation Comments PHOSPHORUS (BEAKER) (test code = 5.3 mg/dL 2.3-4.7 H 604) BLOOD GAS, [id number] 19:54:00 Test Item Value Reference Range Interpretation Comments PH ARTERIAL (BEAKER) (test code = 7.50 7.35-7.45 H 383) PCO2 ARTERIAL (BEAKER) (test code 33 mmHg 35-45 L = 384) PO2 ARTERIAL (BEAKER) (test code = 125 mmHg 80-90 H 385) O2 SATURATION ARTERIAL (BEAKER) 98.8 % 96.0-97.0 H (test code = 386) HCO3 ARTERIAL (BEAKER) (test code 26 mmol/L 21-29 = 388) BASE EXCESS ARTERIAL (BEAKER) 2.5 mmol/L -2.0-3.0 (test code = 387) PATIENT TEMPERATURE (BEAKER) (test 37.1 C code = 1818) FIO2 (BEAKER) (test code = 1819) 100.0 % CALCIUM, [id number] 19:54:00 Test Item Value Reference Range Interpretation Comments CALCIUM IONIZED (BEAKER) (test 0.96 mmol/L 1.12-1.27 L code = 698) PH, BLOOD (BEAKER) (test code = 7.50 1810) PH, [id number] 18:44:00 Test Item Value Reference Range Interpretation Comments PH UA (BEAKER) (test code = 467) 7.5 5.0-8.0 POCT-GLUCOSE [id number] 18:03:00 Test Item Value Reference Range Interpretation Comments POC-GLUCOSE METER 131 mg/dL 70-110 H TESTED AT [facility] 6720 (BEAKER) (test code = [place] 1538) [id number] CREATINE KINASE (CK)2019-03-15 17:56:00 Test Item Value Reference Range Interpretation Comments CREATINE KINASE TOTAL (BEAKER) 42776 U/L 29-200 H (test code = 380) BASIC METABOLIC [id number] 17:27:00 Test Item Value Reference Range Interpretation Comments SODIUM (BEAKER) 133 meq/L 136-145 L (test code = 381) POTASSIUM (BEAKER) 4.8 meq/L 3.5-5.1 (test code = 379) CHLORIDE (BEAKER) 101 meq/L 98-107 (test code = 382) CO2 (BEAKER) (test 24 meq/L 22-29 code = 355) BLOOD UREA NITROGEN 26 mg/dL 7-21 H (BEAKER) (test code = 354) CREATININE (BEAKER) 2.84 mg/dL 0.57-1.25 H (test code = 358) GLUCOSE RANDOM 129 mg/dL 70-105 H (BEAKER) (test code = 652) CALCIUM (BEAKER) 7.9 mg/dL 8.4-10.2 L (test code = 697) EGFR (BEAKER) (test 26 mL/min/1.73 ESTIMA MOHSEN GFR IS code = 1092) sq m NOT ACCURATE CREATININE CLEARANCE IN PREDICTING GLOMERULAR FILTRATION RATE . ESTIMATED GFR I S NOT APPLICABLE FOR DIALYSIS PATIEN TS. LACTIC ACID, [id number] 17:20:00 Test Item Value Reference Range Interpretation Comments LACTATE BLOOD ARTERIAL (2) 1.4 mmol/L 0.5-2.2 (BEAKER) (test code = 2874) BLOOD GAS, [id number] 17:05:00 Test Item Value Reference Range Interpretation Comments PH ARTERIAL (BEAKER) (test code = 7.49 7.35-7.45 H 383) PCO2 ARTERIAL (BEAKER) (test code 35 mmHg 35-45 = 384) PO2 ARTERIAL (BEAKER) (test code = 66 mmHg 80-90 L 385) O2 SATURATION ARTERIAL (BEAKER) 94.6 % 96.0-97.0 L (test code = 386) HCO3 ARTERIAL (BEAKER) (test code 26 mmol/L 21-29 = 388) BASE EXCESS ARTERIAL (BEAKER) 2.7 mmol/L -2.0-3.0 (test code = 387) PATIENT TEMPERATURE (BEAKER) (test 37.0 C code = 1818) FIO2 (BEAKER) (test code = 1819) 40.0 % URINALYSIS WITH MICROSCOPIC IF [id number] 11:28:00 Test Item Value Reference Range Interpretation Comments COLOR (BEAKER) (test code = 470) Yellow CLARITY (BEAKER) (test code = 469) Hazy SPECIFIC GRAVITY UA (BEAKER) (test 1.010 1.001-1.035 code = 468) PH UA (BEAKER) (test code = 467) 5.5 5.0-8.0 PROTEIN UA (BEAKER) (test code = 70 mg/dL Negative A 464) GLUCOSE UA (BEAKER) (test code = 30 mg/dL Negative A 365) KETONES UA (BEAKER) (test code = Negative Negative 371) BILIRUBIN UA (BEAKER) (test code = Negative Negative 462) BLOOD UA (BEAKER) (test code = 461) Large Negative A NITRITE UA (BEAKER) (test code = Negative Negative 465) LEUKOCYTE ESTERASE UA (BEAKER) Moderate Negative A (test code = 466) UROBILINOGEN UA (BEAKER) (test code 0.2 mg/dL 0.2-1.0 = 463) SOURCE(BEAKER) (test code = 2795) URINALYSIS [id number] 11:28:00 Test Item Value Reference Range Interpretation Comments RBC UA (BEAKER) (test code = 519) 1 /HPF WBC UA (BEAKER) (test code = 520) 18 /HPF MUCUS (BEAKER) (test code = 1574) Rare GRANULAR CASTS (BEAKER) (test code 11 /LPF = 515) AMORPHOUS CRYSTALS (BEAKER) (test Occasional code = 1584) [id number] 11:14:00 Test Item Value Reference Range Interpretation Comments PARTIAL THROMBOPLASTIN TIME 105.0 seconds 22.5-36.0 H (BEAKER) (test code = 760) BASIC METABOLIC [id number] 11:12:00 Test Item Value Reference Range Interpretation Comments SODIUM (BEAKER) 134 meq/L 136-145 L (test code = 381) POTASSIUM (BEAKER) 4.7 meq/L 3.5-5.1 (test code = 379) CHLORIDE (BEAKER) 101 meq/L 98-107 (test code = 382) CO2 (BEAKER) (test 25 meq/L 22-29 code = 355) BLOOD UREA NITROGEN 24 mg/dL 7-21 H (BEAKER) (test code = 354) CREATININE (BEAKER) 2.47 mg/dL 0.57-1.25 H (test code = 358) GLUCOSE RANDOM 130 mg/dL 70-105 H (BEAKER) (test code = 652) CALCIUM (BEAKER) 7.7 mg/dL 8.4-10.2 L (test code = 697) EGFR (BEAKER) (test 31 mL/min/1.73 ESTIMA MOHSEN GFR IS code = 1092) sq m NOT ACCURATE CREATININE CLEARANCE IN PREDICTING GLOMERULAR FILTRATION RATE . ESTIMATED GFR I S NOT APPLICABLE FOR DIALYSIS PATIEN TS. BLOOD GAS, [id number] 10:53:00 Test Item Value Reference Range Interpretation Comments PH ARTERIAL (BEAKER) (test code = 7.53 7.35-7.45 H 383) PCO2 ARTERIAL (BEAKER) (test code 31 mmHg 35-45 L = 384) PO2 ARTERIAL (BEAKER) (test code = 105 mmHg 80-90 H 385) O2 SATURATION ARTERIAL (BEAKER) 98.4 % 96.0-97.0 H (test code = 386) HCO3 ARTERIAL (BEAKER) (test code 25 mmol/L 21-29 = 388) BASE EXCESS ARTERIAL (BEAKER) 2.8 mmol/L -2.0-3.0 (test code = 387) PATIENT TEMPERATURE (BEAKER) (test 37.0 C code = 1818) FIO2 (BEAKER) (test code = 1819) 36.0 % POCT-GLUCOSE [id number] 10:49:00 Test Item Value Reference Range Interpretation Comments POC-GLUCOSE METER 154 mg/dL 70-110 H TESTED AT [facility] [address] (BEAKER) (test code = [place] 1538) [address] RAD, CHEST, 1 VIEW, NON [id number] 09:24:00Reason for exam:- >HypoxiaShould this be performed at the bedside?->YesFINAL REPORT AP view of the chest dated 03/15/2019 COMPARISON: 03/14/2019 CLINICAL INFORMATION: Hypoxia Comment: Heart is normal in size. Pulmonary vasculature is unremarkable. Infiltrate is seen in the right lower lobe suggestive pneumonia. The rest of the lungs are clear. No pleural effusion is present. Right IJ central venous catheter remains in place. Impression: Findings suggestive of right lower lobe pneumonia. Signed: Deshawn Arzola Verified Date/Time: 03/15/2019 09:24:32 Reading Location: [facility] Radiology Reading Room CREATINE KINASE (CK)2019-03-15 09:04:00 Test Item Value Reference Range Interpretation Comments CREATINE KINASE TOTAL (BEAKER) 95033 U/L 29-200 H (test code = 380) [id number] 07:52:00 Test Item Value Reference Range Interpretation Comments MAGNESIUM (BEAKER) (test code = 2.3 mg/dL 1.6-2.6 627) BASIC METABOLIC [id number] 07:00:00 Test Item Value Reference Range Interpretation Comments SODIUM (BEAKER) 133 meq/L 136-145 L (test code = 381) POTASSIUM (BEAKER) 4.5 meq/L 3.5-5.1 (test code = 379) CHLORIDE (BEAKER) 102 meq/L 98-107 (test code = 382) CO2 (BEAKER) (test 22 meq/L 22-29 code = 355) BLOOD UREA NITROGEN 23 mg/dL 7-21 H (BEAKER) (test code = 354) CREATININE (BEAKER) 2.16 mg/dL 0.57-1.25 H (test code = 358) GLUCOSE RANDOM 136 mg/dL 70-105 H (BEAKER) (test code = 652) CALCIUM (BEAKER) 7.5 mg/dL 8.4-10.2 L (test code = 697) EGFR (BEAKER) (test 36 mL/min/1.73 ESTIMA MOHSEN GFR IS code = 1092) sq m NOT ACCURATE CREATININE CLEARANCE IN PREDICTING GLOMERULAR FILTRATION RATE . ESTIMATED GFR I S NOT APPLICABLE FOR DIALYSIS PATIEN TS. BLOOD GAS, [id number] 06:32:00 Test Item Value Reference Range Interpretation Comments PH ARTERIAL (BEAKER) (test code = 7.50 7.35-7.45 H 383) PCO2 ARTERIAL (BEAKER) (test code 33 mmHg 35-45 L = 384) PO2 ARTERIAL (BEAKER) (test code = 58 mmHg 80-90 L 385) O2 SATURATION ARTERIAL (BEAKER) 92.5 % 96.0-97.0 L (test code = 386) HCO3 ARTERIAL (BEAKER) (test code 25 mmol/L 21-29 = 388) BASE EXCESS ARTERIAL (BEAKER) 1.7 mmol/L -2.0-3.0 (test code = 387) PATIENT TEMPERATURE (BEAKER) (test 36.9 C code = 1818) FIO2 (BEAKER) (test code = 1819) 28.0 % POCT-GLUCOSE [id number] 06:31:00 Test Item Value Reference Range Interpretation Comments POC-GLUCOSE METER 162 mg/dL 70-110 H TESTED AT [facility] 67[address] (BEAKER) (test code = [place] 1538) [id number] 04:29:00 Test Item Value Reference Range Interpretation Comments PROTIME (BEAKER) (test code = 16.1 seconds 11.9-14.2 H 759) INR (BEAKER) (test code = 370) 1.4 <=5.9 PARTIAL THROMBOPLASTIN TIME 80.7 seconds 22.5-36.0 H (BEAKER) (test code = 760) Effective 02/01/2019: PT Reference Range ChangeNew: 11.9-14.2 Previous: 11.7- 14.7RECOMMENDED COUMADIN/WARFARIN INR THERAPY RANGESSTANDARD DOSE: 2.0-3.0 Includes: PROPHYLAXIS for venous thrombosis, systemic embolization; TREATMENT for venous thrombosis and/or pulmonary embolus.HIGH RISK: Target INR is 2.5-3.5 for patients wiht mechanical heart valves.HEPATIC FUNCTION [id number] 03:10:00 Test Item Value Reference Range Interpretation Comments TOTAL PROTEIN (BEAKER) (test code = 5.0 gm/dL 6.0-8.3 L 770) ALBUMIN (BEAKER) (test code = 1145) 3.2 g/dL 3.5-5.0 L BILIRUBIN TOTAL (BEAKER) (test code 1.1 mg/dL 0.2-1.2 = 377) BILIRUBIN DIRECT (BEAKER) (test 0.7 mg/dL 0.1-0.5 H code = 706) ALKALINE PHOSPHATASE (BEAKER) (test 43 U/L 40-150 code = 346) AST (SGOT) (BEAKER) (test code = 302 U/L 5-34 H 353) ALT (SGPT) (BEAKER) (test code = 69 U/L 6-55 H 347) BASIC METABOLIC [id number] 03:10:00 Test Item Value Reference Range Interpretation Comments SODIUM (BEAKER) 134 meq/L 136-145 L (test code = 381) POTASSIUM (BEAKER) 4.5 meq/L 3.5-5.1 (test code = 379) CHLORIDE (BEAKER) 102 meq/L 98-107 (test code = 382) CO2 (BEAKER) (test 23 meq/L 22-29 code = 355) BLOOD UREA NITROGEN 22 mg/dL 7-21 H (BEAKER) (test code = 354) CREATININE (BEAKER) 2.06 mg/dL 0.57-1.25 H (test code = 358) GLUCOSE RANDOM 138 mg/dL 70-105 H (BEAKER) (test code = 652) CALCIUM (BEAKER) 8.0 mg/dL 8.4-10.2 L (test code = 697) EGFR (BEAKER) (test 38 mL/min/1.73 ESTIMA MOHSEN GFR IS code = 1092) sq m NOT ACCURATE CREATININE CLEARANCE IN PREDICTING GLOMERULAR FILTRATION RATE . ESTIMATED GFR I S NOT APPLICABLE FOR DIALYSIS PATIEN TS. PROTHROMBIN [id number] 02:58:00 Test Item Value Reference Range Interpretation Comments PROTIME (BEAKER) (test code = 16.1 seconds 11.9-14.2 H 759) INR (BEAKER) (test code = 370) 1.4 <=5.9 Effective 02/01/2019: PT Reference Range ChangeNew: 11.9-14.2 Previous: 11.7- 14.7RECOMMENDED COUMADIN/WARFARIN INR THERAPY RANGESSTANDARD DOSE: 2.0-3.0 Includes: PROPHYLAXIS for venous thrombosis, systemic embolization; TREATMENT for venous thrombosis and/or pulmonary embolus.HIGH RISK: Target INR is 2.5-3.5 for patients wiht mechanical heart valves.CBC (HEMOGRAM ONLY)2019-03-15 02:51:00 Test Item Value Reference Range Interpretation Comments WHITE BLOOD CELL COUNT (BEAKER) 10.0 K/ L 3.5-10.5 (test code = 775) RED BLOOD CELL COUNT (BEAKER) 3.19 M/ L 4.63-6.08 L (test code = 761) HEMOGLOBIN (BEAKER) (test code = 9.4 GM/DL 13.7-17.5 L 410) HEMATOCRIT (BEAKER) (test code = 26.6 % 40.1-51.0 L 411) MEAN CORPUSCULAR VOLUME (BEAKER) 83.4 fL 79.0-92.2 (test code = 753) MEAN CORPUSCULAR HEMOGLOBIN 29.5 pg 25.7-32.2 (BEAKER) (test code = 751) MEAN CORPUSCULAR HEMOGLOBIN CONC 35.3 GM/DL 32.3-36.5 (BEAKER) (test code = 752) RED CELL DISTRIBUTION WIDTH 14.8 % 11.6-14.4 H (BEAKER) (test code = 412) PLATELET COUNT (BEAKER) (test 166 K/CU MM 150-450 code = 756) MEAN PLATELET VOLUME (BEAKER) 9.4 fL 9.4-12.4 (test code = 754) NUCLEATED RED BLOOD CELLS 0 /100 WBC 0-0 (BEAKER) (test code = 413) POCT-GLUCOSE [id number] 23:48:00 Test Item Value Reference Range Interpretation Comments POC-GLUCOSE METER 144 mg/dL 70-110 H TESTED AT [facility] 67[address] (BEAKER) (test code = [place] 1538) [id number] CREATINE KINASE (CK)2019-03-14 22:39:00 Test Item Value Reference Range Interpretation Comments CREATINE KINASE TOTAL (BEAKER) (test > U/L 29-200 H code = 380) [id number] 22:21:00 Test Item Value Reference Range Interpretation Comments MAGNESIUM (BEAKER) 2.0 mg/dL 1.6-2.6 Specimen slightly (test code = 627) hemolyzed BASIC METABOLIC [id number] 22:21:00 Test Item Value Reference Range Interpretation Comments SODIUM (BEAKER) 135 meq/L 136-145 L (test code = 381) POTASSIUM (BEAKER) 4.5 meq/L 3.5-5.1 Specimen slightly (test code = 379) hemolyzed CHLORIDE (BEAKER) 102 meq/L 98-107 (test code = 382) CO2 (BEAKER) (test 23 meq/L 22-29 code = 355) BLOOD UREA NITROGEN 21 mg/dL 7-21 (BEAKER) (test code = 354) CREATININE (BEAKER) 1.73 mg/dL 0.57-1.25 H Specimen slightly (test code = 358) hemolyzed GLUCOSE RANDOM 141 mg/dL 70-105 H (BEAKER) (test code = 652) CALCIUM (BEAKER) 8.3 mg/dL 8.4-10.2 L (test code = 697) EGFR (BEAKER) (test 47 mL/min/1.73 ESTIMA MOHSEN GFR IS code = 1092) sq m NOT ACCURATE CREATININE CLEARANCE IN PREDICTING GLOMERULAR FILTRATION RATE . ESTIMATED GFR I S NOT APPLICABLE FOR DIALYSIS PATIEN TS. LACTIC ACID, [id number] 22:17:00 Test Item Value Reference Range Interpretation Comments LACTATE BLOOD 2.9 mmol/L 0.5-2.2 H Specimen sligh tly ARTERIAL (2) (BEAKER) hemoly zed (test code = 2874) [id number] 22:15:00 Test Item Value Reference Range Interpretation Comments PARTIAL THROMBOPLASTIN TIME 80.7 seconds 22.5-36.0 H (BEAKER) (test code = 760) HEMOGLOBIN AND [id number] 22:02:00 Test Item Value Reference Range Interpretation Comments HEMOGLOBIN (BEAKER) (test code = 10.2 GM/DL 13.7-17.5 L 410) HEMATOCRIT (BEAKER) (test code = 28.8 % 40.1-51.0 L 411) BLOOD GAS, [id number] 22:01:00 Test Item Value Reference Range Interpretation Comments PH ARTERIAL (BEAKER) (test code = 7.48 7.35-7.45 H 383) PCO2 ARTERIAL (BEAKER) (test code 35 mmHg 35-45 = 384) PO2 ARTERIAL (BEAKER) (test code = 61 mmHg 80-90 L 385) O2 SATURATION ARTERIAL (BEAKER) 93.2 % 96.0-97.0 L (test code = 386) HCO3 ARTERIAL (BEAKER) (test code 26 mmol/L 21-29 = 388) BASE EXCESS ARTERIAL (BEAKER) 2.3 mmol/L -2.0-3.0 (test code = 387) PATIENT TEMPERATURE (BEAKER) (test 36.9 C code = 1818) FIO2 (BEAKER) (test code = 1819) 21.0 % RAD, CHEST, 1 VIEW, NON [id number] 18:24:00Reason for exam:->Central LineShould this be performed at the bedside?->YesFINAL REPORT EXAM: Chest one view COMPARISON: March 13, 2019 CLINICAL HISTORY: Central line insertion FINDINGS: There is interval insertion of a right internal jugular central venouscatheter with its tip overlying the cavoatrial junction. There is no evidence of pleural effusion orpneumothorax. The cardiac size is within normal limits. Bilateral increased interstitial pulmonary opacities are noted which may represent edema versus atypical pneumonitis. The regional osseous structures are unremarkable. Signed: Luis Manuel Lawson MDReport Verified Date/Time: 03/14/2019 18:24:45 Reading Location: [address] Consult Reading Room BLOOD GAS, [id number] 17:45:00 Test Item Value Reference Range Interpretation Comments PH ARTERIAL (BEAKER) (test code = 7.51 7.35-7.45 H 383) PCO2 ARTERIAL (BEAKER) (test code 32 mmHg 35-45 L = 384) PO2 ARTERIAL (BEAKER) (test code = 58 mmHg 80-90 L 385) O2 SATURATION ARTERIAL (BEAKER) 93.2 % 96.0-97.0 L (test code = 386) HCO3 ARTERIAL (BEAKER) (test code 25 mmol/L 21-29 = 388) BASE EXCESS ARTERIAL (BEAKER) 2.2 mmol/L -2.0-3.0 (test code = 387) PATIENT TEMPERATURE (BEAKER) (test 36.5 C code = 1818) FIO2 (BEAKER) (test code = 1819) 21.0 % HEPATIC FUNCTION [id number] 17:45:00 Test Item Value Reference Range Interpretation Comments TOTAL PROTEIN (BEAKER) (test code = 5.1 gm/dL 6.0-8.3 L 770) ALBUMIN (BEAKER) (test code = 1145) 3.3 g/dL 3.5-5.0 L BILIRUBIN TOTAL (BEAKER) (test code 1.3 mg/dL 0.2-1.2 H = 377) BILIRUBIN DIRECT (BEAKER) (test 0.7 mg/dL 0.1-0.5 H code = 706) ALKALINE PHOSPHATASE (BEAKER) (test 42 U/L 40-150 code = 346) AST (SGOT) (BEAKER) (test code = 316 U/L 5-34 H 353) ALT (SGPT) (BEAKER) (test code = 67 U/L 6-55 H 347) CREATINE KINASE (CK)2019-03-14 16:52:00 Test Item Value Reference Range Interpretation Comments CREATINE KINASE TOTAL (BEAKER) (test > U/L 29-200 H code = 380) [id number] 16:33:00 Test Item Value Reference Range Interpretation Comments PHOSPHORUS (BEAKER) (test code = 5.6 mg/dL 2.3-4.7 H 604) [id number] 16:33:00 Test Item Value Reference Range Interpretation Comments MAGNESIUM (BEAKER) (test code = 2.3 mg/dL 1.6-2.6 627) BASIC METABOLIC [id number] 16:33:00 Test Item Value Reference Range Interpretation Comments SODIUM (BEAKER) 137 meq/L 136-145 (test code = 381) POTASSIUM (BEAKER) 4.9 meq/L 3.5-5.1 (test code = 379) CHLORIDE (BEAKER) 101 meq/L 98-107 (test code = 382) CO2 (BEAKER) (test 25 meq/L 22-29 code = 355) BLOOD UREA NITROGEN 17 mg/dL 7-21 (BEAKER) (test code = 354) CREATININE (BEAKER) 1.41 mg/dL 0.57-1.25 H (test code = 358) GLUCOSE RANDOM 127 mg/dL 70-105 H (BEAKER) (test code = 652) CALCIUM (BEAKER) 8.5 mg/dL 8.4-10.2 (test code = 697) EGFR (BEAKER) (test 59 mL/min/1.73 ESTIMA MOHSEN GFR IS code = 1092) sq m NOT ACCURATE CREATININE CLEARANCE IN PREDICTING GLOMERULAR FILTRATION RATE . ESTIMATED GFR I S NOT APPLICABLE FOR DIALYSIS PATIEN TS. PROTHROMBIN [id number] 16:21:00 Test Item Value Reference Range Interpretation Comments PROTIME (BEAKER) (test code = 15.8 seconds 11.9-14.2 H 759) INR (BEAKER) (test code = 370) 1.3 <=5.9 Effective 02/01/2019: PT Reference Range ChangeNew: 11.9-14.2 Previous: 11.7- 14.7RECOMMENDED COUMADIN/WARFARIN INR THERAPY RANGESSTANDARD DOSE: 2.0-3.0 Includes: PROPHYLAXIS for venous thrombosis, systemic embolization; TREATMENT for venous thrombosis and/or pulmonary embolus.HIGH RISK: Target INR is 2.5-3.5 for patients wiht mechanical heart valves.[id number] 16:21:00 Test Item Value Reference Range Interpretation Comments FIBRINOGEN LEVEL (BEAKER) (test 310 mg/dl 225-434 code = 658) [id number] 16:21:00 Test Item Value Reference Range Interpretation Comments PARTIAL THROMBOPLASTIN TIME 32.2 seconds 22.5-36.0 (BEAKER) (test code = 760) LACTIC ACID, [id number] 16:17:00 Test Item Value Reference Range Interpretation Comments LACTATE BLOOD 3.5 mmol/L 0.5-2.2 H Specimen moder ately ARTERIAL (2) (BEAKER) hemoly zed (test code = 2874) CBC W/PLT COUNT & AUTO [id number] 16:03:00 Test Item Value Reference Range Interpretation Comments WHITE BLOOD CELL COUNT (BEAKER) 9.6 K/ L 3.5-10.5 (test code = 775) RED BLOOD CELL COUNT (BEAKER) 3.74 M/ L 4.63-6.08 L (test code = 761) HEMOGLOBIN (BEAKER) (test code = 11.0 GM/DL 13.7-17.5 L 410) HEMATOCRIT (BEAKER) (test code = 31.1 % 40.1-51.0 L 411) MEAN CORPUSCULAR VOLUME (BEAKER) 83.2 fL 79.0-92.2 (test code = 753) MEAN CORPUSCULAR HEMOGLOBIN 29.4 pg 25.7-32.2 (BEAKER) (test code = 751) MEAN CORPUSCULAR HEMOGLOBIN CONC 35.4 GM/DL 32.3-36.5 (BEAKER) (test code = 752) RED CELL DISTRIBUTION WIDTH 14.9 % 11.6-14.4 H (BEAKER) (test code = 412) PLATELET COUNT (BEAKER) (test 167 K/CU MM 150-450 code = 756) MEAN PLATELET VOLUME (BEAKER) 9.0 fL 9.4-12.4 L (test code = 754) NUCLEATED RED BLOOD CELLS 0 /100 WBC 0-0 (BEAKER) (test code = 413) NEUTROPHILS RELATIVE PERCENT 85 % (BEAKER) (test code = 429) LYMPHOCYTES RELATIVE PERCENT 4 % (BEAKER) (test code = 430) MONOCYTES RELATIVE PERCENT 11 % (BEAKER) (test code = 431) EOSINOPHILS RELATIVE PERCENT 0 % (BEAKER) (test code = 432) BASOPHILS RELATIVE PERCENT 0 % (BEAKER) (test code = 437) NEUTROPHILS ABSOLUTE COUNT 8.08 K/ L 1.78-5.38 H (BEAKER) (test code = 670) LYMPHOCYTES ABSOLUTE COUNT 0.41 K/ L 1.32-3.57 L (BEAKER) (test code = 414) MONOCYTES ABSOLUTE COUNT (BEAKER) 1.02 K/ L 0.30-0.82 H (test code = 415) EOSINOPHILS ABSOLUTE COUNT 0.00 K/ L 0.04-0.54 L (BEAKER) (test code = 416) BASOPHILS ABSOLUTE COUNT (BEAKER) 0.01 K/ L 0.01-0.08 (test code = 417) IMMATURE GRANULOCYTES-RELATIVE 0 % 0-1 PERCENT (BEAKER) (test code = 2801) BLOOD GAS, [id number] 15:58:00 Test Item Value Reference Range Interpretation Comments PH ARTERIAL (BEAKER) (test code = 7.47 7.35-7.45 H 383) PCO2 ARTERIAL (BEAKER) (test code 37 mmHg 35-45 = 384) PO2 ARTERIAL (BEAKER) (test code = 64 mmHg 80-90 L 385) O2 SATURATION ARTERIAL (BEAKER) 94.0 % 96.0-97.0 L (test code = 386) HCO3 ARTERIAL (BEAKER) (test code 27 mmol/L 21-29 = 388) BASE EXCESS ARTERIAL (BEAKER) 2.8 mmol/L -2.0-3.0 (test code = 387) PATIENT TEMPERATURE (BEAKER) (test 36.5 C code = 1818) FIO2 (BEAKER) (test code = 1819) 28.0 % CALCIUM, [id number] 15:58:00 Test Item Value Reference Range Interpretation Comments CALCIUM IONIZED (BEAKER) (test 1.07 mmol/L 1.12-1.27 L code = 698) PH, BLOOD (BEAKER) (test code = 7.46 1810) PLATELET [id number] 15:55:00 Test Item Value Reference Range Interpretation Comments PLATELET COUNT (BEAKER) (test 167 K/CU MM 150-450 code = 756) HEMOGLOBIN [id number] 15:31:00 Test Item Value Reference Range Interpretation Comments HEMOGLOBIN A1C (BEAKER) (test code = 6.2 % 4.3-6.1 H 368) POSSIBLE HEMOGLOBIN S VARIANT NOTED IN HEMOGLOBIN A1C CHROMATOGRAPH. SUGGEST HEMOGLOBIN ELECTROPHORESIS IF CLINICALLY INDICATED.BLOOD GAS, [id number] 15:25:00 Test Item Value Reference Range Interpretation Comments PH ARTERIAL (BEAKER) (test code = 7.39 7.35-7.45 383) PCO2 ARTERIAL (BEAKER) (test code 49 mmHg 35-45 H = 384) PO2 ARTERIAL (BEAKER) (test code = 455 mmHg 80-90 H 385) O2 SATURATION ARTERIAL (BEAKER) 99.8 % 96.0-97.0 H (test code = 386) HCO3 ARTERIAL (BEAKER) (test code 30 mmol/L 21-29 H = 388) BASE EXCESS ARTERIAL (BEAKER) 3.8 mmol/L -2.0-3.0 H (test code = 387) PATIENT TEMPERATURE (BEAKER) (test 36.5 C code = 1818) FIO2 (BEAKER) (test code = 1819) 100.0 % SODIUM NA-STAT [id number] 15:25:00 Test Item Value Reference Range Interpretation Comments SODIUM (BEAKER) (test code = 381) 133 meq/L 135-148 L HGB/HCT (H&H) - STAT [id number] 15:25:00 Test Item Value Reference Range Interpretation Comments HEMOGLOBIN (BEAKER) (test code = 9.8 g/dL 13.0-16.8 L 410) HEMATOCRIT (BEAKER) (test code = 29.0 % 40.0-50.0 L 411) CALCIUM, [id number] 15:25:00 Test Item Value Reference Range Interpretation Comments CALCIUM IONIZED (BEAKER) (test 1.06 mmol/L 1.12-1.27 L code = 698) PH, BLOOD (BEAKER) (test code = 7.39 1810) GLUCOSE-STAT [id number] 15:22:00 Test Item Value Reference Range Interpretation Comments GLUCOSE RANDOM (BEAKER) (test code 109 mg/dL 70-110 = 652) POTASSIUM-STAT [id number] 15:22:00 Test Item Value Reference Range Interpretation Comments POTASSIUM (BEAKER) (test code = 4.4 meq/L 3.6-5.5 379) BLOOD GAS, [id number] 14:22:00 Test Item Value Reference Range Interpretation Comments PH ARTERIAL (BEAKER) (test code = 7.31 7.35-7.45 L 383) PCO2 ARTERIAL (BEAKER) (test code 47 mmHg 35-45 H = 384) PO2 ARTERIAL (BEAKER) (test code 414 mmHg 80-90 H = 385) O2 SATURATION ARTERIAL (BEAKER) 99.8 % 96.0-97.0 H (test code = 386) HCO3 ARTERIAL (BEAKER) (test code 23 mmol/L 21-29 = 388) BASE EXCESS ARTERIAL (BEAKER) -3.4 mmol/L -2.0-3.0 L (test code = 387) PATIENT TEMPERATURE (BEAKER) 36.4 C (test code = 1818) FIO2 (BEAKER) (test code = 1819) 100.0 % SODIUM NA-STAT [id number] 14:22:00 Test Item Value Reference Range Interpretation Comments SODIUM (BEAKER) (test code = 381) 132 meq/L 135-148 L GLUCOSE-STAT [id number] 14:22:00 Test Item Value Reference Range Interpretation Comments GLUCOSE RANDOM (BEAKER) (test code 150 mg/dL 70-110 H = 652) HGB/HCT (H&H) - STAT [id number] 14:22:00 Test Item Value Reference Range Interpretation Comments HEMOGLOBIN (BEAKER) (test code = 13.3 g/dL 13.0-16.8 410) HEMATOCRIT (BEAKER) (test code = 39.0 % 40.0-50.0 L 411) CALCIUM, [id number] 14:21:00 Test Item Value Reference Range Interpretation Comments CALCIUM IONIZED (BEAKER) (test 1.45 mmol/L 1.12-1.27 H code = 698) PH, BLOOD (BEAKER) (test code = 7.30 1810) POTASSIUM-STAT [id number] 14:20:00 Test Item Value Reference Range Interpretation Comments POTASSIUM (BEAKER) (test code = 3.9 meq/L 3.6-5.5 379) CREATINE KINASE ([id number] 10:50:00 Test Item Value Reference Range Interpretation Comments CREATINE KINASE TOTAL (BEAKER) (test > U/L 29-200 H code = 380) [id number] 10:08:00 Test Item Value Reference Range Interpretation Comments MAGNESIUM (BEAKER) 2.1 mg/dL 1.6-2.6 Specimen slightly (test code = 627) hemolyzed BASIC METABOLIC [id number] 10:08:00 Test Item Value Reference Range Interpretation Comments SODIUM (BEAKER) 130 meq/L 136-145 L (test code = 381) POTASSIUM (BEAKER) 4.7 meq/L 3.5-5.1 Specimen slightly (test code = 379) hemolyzed CHLORIDE (BEAKER) 101 meq/L 98-107 (test code = 382) CO2 (BEAKER) (test 21 meq/L 22-29 L code = 355) BLOOD UREA NITROGEN 14 mg/dL 7-21 (BEAKER) (test code = 354) CREATININE (BEAKER) 1.04 mg/dL 0.57-1.25 Specimen slightly (test code = 358) hemolyzed GLUCOSE RANDOM 144 mg/dL 70-105 H (BEAKER) (test code = 652) CALCIUM (BEAKER) 8.6 mg/dL 8.4-10.2 (test code = 697) EGFR (BEAKER) (test 84 mL/min/1.73 ESTIMA MOHSEN GFR IS code = 1092) sq m NOT ACCURATE CREATININE CLEARANCE IN PREDICTING GLOMERULAR FILTRATION RATE . ESTIMATED GFR I S NOT APPLICABLE FOR DIALYSIS PATIEN TS. LIPID [id number] 10:08:00 Test Item Value Reference Range Interpretation Comments TRIGLYCERIDES (BEAKER) 61 mg/dL Speci men slightly (test code = 540) hemolyzed CHOLESTEROL (BEAKER) 165 mg/dL Specime n slightly (test code = 631) hemolyzed HDL CHOLESTEROL (BEAKER) 50 mg/dL (test code = 976) LDL CHOLESTEROL 103 mg/dL CALCULATED (BEAKER) (test code = 633) Triglyceride Reference Range: Low Risk <150 Borderline 150-199 High Risk 200- 499 Very High Risk >=500Cholesterol Reference Range: Low Risk <200 Borderline 200-239 High Risk >240HDL Cholesterol Reference Range: Low Risk >=60 High Risk <40LDL Cholesterol Reference Range: Optimal <100 Near Optimal 100-129 Borderline 130-159 High 160-189 Very High >=190LACTIC ACID, [id number] 09:55:00 Test Item Value Reference Range Interpretation Comments LACTATE BLOOD 1.7 mmol/L 0.5-2.2 Specimen sligh tly ARTERIAL (2) (BEAKER) hemoly zed (test code = 2874) [id number] 09:36:00 Test Item Value Reference Range Interpretation Comments PARTIAL THROMBOPLASTIN TIME 99.8 seconds 22.5-36.0 H (BEAKER) (test code = 760) Prior to initiating heparinCBC (HEMOGRAM ONLY)2019-03-14 09:29:00 Test Item Value Reference Range Interpretation Comments WHITE BLOOD CELL COUNT (BEAKER) 12.4 K/ L 3.5-10.5 H (test code = 775) RED BLOOD CELL COUNT (BEAKER) 5.56 M/ L 4.63-6.08 (test code = 761) HEMOGLOBIN (BEAKER) (test code = 15.9 GM/DL 13.7-17.5 410) HEMATOCRIT (BEAKER) (test code = 45.3 % 40.1-51.0 411) MEAN CORPUSCULAR VOLUME (BEAKER) 81.5 fL 79.0-92.2 (test code = 753) MEAN CORPUSCULAR HEMOGLOBIN 28.6 pg 25.7-32.2 (BEAKER) (test code = 751) MEAN CORPUSCULAR HEMOGLOBIN CONC 35.1 GM/DL 32.3-36.5 (BEAKER) (test code = 752) RED CELL DISTRIBUTION WIDTH 14.8 % 11.6-14.4 H (BEAKER) (test code = 412) PLATELET COUNT (BEAKER) (test 270 K/CU MM 150-450 code = 756) MEAN PLATELET VOLUME (BEAKER) 9.2 fL 9.4-12.4 L (test code = 754) NUCLEATED RED BLOOD CELLS 0 /100 WBC 0-0 (BEAKER) (test code = 413) PROTHROMBIN TIME/[id number] 05:15:00 Test Item Value Reference Range Interpretation Comments PROTIME (BEAKER) (test code = 13.9 seconds 11.9-14.2 759) INR (BEAKER) (test code = 370) 1.1 <=5.9 Effective 02/01/2019: PT Reference Range ChangeNew: 11.9-14.2 Previous: 11.7- 14.7RECOMMENDED COUMADIN/WARFARIN INR THERAPY RANGESSTANDARD DOSE: 2.0-3.0 Includes: PROPHYLAXIS for venous thrombosis, systemic embolization; TREATMENT for venous thrombosis and/or pulmonary embolus.HIGH RISK: Target INR is 2.5-3.5 for patients wiht mechanical heart valves.[id number] 05:15:00 Test Item Value Reference Range Interpretation Comments FIBRINOGEN LEVEL (BEAKER) (test 515 mg/dl 225-434 H code = 658) [id number] 05:15:00 Test Item Value Reference Range Interpretation Comments PARTIAL THROMBOPLASTIN TIME 36.2 seconds 22.5-36.0 H (BEAKER) (test code = 760) B-TYPE NATRIURETIC FACTOR (BNP)2019-03-14 05:07:00 Test Item Value Reference Range Interpretation Comments B-TYPE NATRIURETIC PEPTIDE (BEAKER) 103 pg/mL 0-100 H (test code = 700) LACTIC ACID, [id number] 05:05:00 Test Item Value Reference Range Interpretation Comments LACTATE BLOOD VENOUS 3.8 mmol/L 0.5-2.2 H Specime n markedly (2) (BEAKER) (test hemolyzed code = 2872) Specimen slightly lipemicCBC (HEMOGRAM ONLY)2019-03-14 04:40:00 Test Item Value Reference Range Interpretation Comments WHITE BLOOD CELL COUNT (BEAKER) 10.2 K/ L 3.5-10.5 (test code = 775) RED BLOOD CELL COUNT (BEAKER) 5.97 M/ L 4.63-6.08 (test code = 761) HEMOGLOBIN (BEAKER) (test code = 17.4 GM/DL 13.7-17.5 410) HEMATOCRIT (BEAKER) (test code = 49.6 % 40.1-51.0 411) MEAN CORPUSCULAR VOLUME (BEAKER) 83.1 fL 79.0-92.2 (test code = 753) MEAN CORPUSCULAR HEMOGLOBIN 29.1 pg 25.7-32.2 (BEAKER) (test code = 751) MEAN CORPUSCULAR HEMOGLOBIN CONC 35.1 GM/DL 32.3-36.5 (BEAKER) (test code = 752) RED CELL DISTRIBUTION WIDTH 15.2 % 11.6-14.4 H (BEAKER) (test code = 412) PLATELET COUNT (BEAKER) (test 216 K/CU MM 150-450 code = 756) MEAN PLATELET VOLUME (BEAKER) 8.8 fL 9.4-12.4 L (test code = 754) NUCLEATED RED BLOOD CELLS 0 /100 WBC 0-0 (BEAKER) (test code = 413) LACTIC ACID, [id number] 01:57:00 Test Item Value Reference Range Interpretation Comments LACTATE BLOOD VENOUS 3.1 mmol/L 0.5-2.2 H Specime n markedly (2) (BEAKER) (test hemolyzed code = 287) [id number] 01:06:00 Test Item Value Reference Range Interpretation Comments FIBRINOGEN LEVEL (BEAKER) (test 533 mg/dl 225-434 H code = 658) BLOOD GAS, [id number] 00:28:00 Test Item Value Reference Range Interpretation Comments PH VENOUS (BEAKER) (test code = 7.38 7.32-7.42 701) PCO2 VENOUS (BEAKER) (test code = 43 mmHg 41-51 755) PO2 VENOUS (BEAKER) (test code = 43 mmHg 25-40 H 702) O2 SATURATION VENOUS (BEAKER) 77.9 % 40.0-70.0 H (test code = 703) HCO3 VENOUS (BEAKER) (test code = 25 mmol/L 21-29 705) BASE EXCESS VENOUS (BEAKER) (test -0.5 mmol/L -2.0-3.0 code = 704) PATIENT TEMPERATURE (BEAKER) 36.8 C (test code = 1818) FIO2 (BEAKER) (test code = 1819) 21.0 % BASIC METABOLIC [id number] 21:01:00 Test Item Value Reference Range Interpretation Comments SODIUM (BEAKER) 132 meq/L 136-145 L (test code = 381) POTASSIUM (BEAKER) 4.6 meq/L 3.5-5.1 Specimen markedly (test code = 379) hemolyzed CHLORIDE (BEAKER) 99 meq/L 98-107 (test code = 382) CO2 (BEAKER) (test 20 meq/L 22-29 L code = 355) BLOOD UREA NITROGEN 15 mg/dL 7-21 (BEAKER) (test code = 354) CREATININE (BEAKER) 1.16 mg/dL 0.57-1.25 Specimen markedly (test code = 358) hemolyzed GLUCOSE RANDOM 170 mg/dL 70-105 H (BEAKER) (test code = 652) CALCIUM (BEAKER) 8.8 mg/dL 8.4-10.2 (test code = 697) EGFR (BEAKER) (test 74 mL/min/1.73 ESTIMA MOHSEN GFR IS code = 1092) sq m NOT ACCURATE CREATININE CLEARANCE IN PREDICTING GLOMERULAR FILTRATION RATE . ESTIMATED GFR I S NOT APPLICABLE FOR DIALYSIS PATIEN TS. [id number] 20:51:00 Test Item Value Reference Range Interpretation Comments PARTIAL THROMBOPLASTIN TIME 118.2 seconds 22.5-36.0 H (BEAKER) (test code = 760) [id number] 20:48:00 Test Item Value Reference Range Interpretation Comments FIBRINOGEN LEVEL (BEAKER) (test 485 mg/dl 225-434 H code = 658) PROTHROMBIN TIME/[id number] 20:47:00 Test Item Value Reference Range Interpretation Comments PROTIME (BEAKER) (test code = 14.1 seconds 11.9-14.2 759) INR (BEAKER) (test code = 370) 1.2 <=5.9 Effective 02/01/2019: PT Reference Range ChangeNew: 11.9-14.2 Previous: 11.7- 14.7RECOMMENDED COUMADIN/WARFARIN INR THERAPY RANGESSTANDARD DOSE: 2.0-3.0 Includes: PROPHYLAXIS for venous thrombosis, systemic embolization; TREATMENT for venous thrombosis and/or pulmonary embolus.HIGH RISK: Target INR is 2.5-3.5 for patients wiht mechanical heart valves.HEMOGLOBIN AND [id number] 20:38:00 Test Item Value Reference Range Interpretation Comments HEMOGLOBIN (BEAKER) (test code = 15.3 GM/DL 13.7-17.5 410) HEMATOCRIT (BEAKER) (test code = 43.1 % 40.1-51.0 411) CBC W/PLT COUNT & AUTO [id number] 20:38:00 Test Item Value Reference Range Interpretation Comments WHITE BLOOD CELL COUNT (BEAKER) 11.3 K/ L 3.5-10.5 H (test code = 775) RED BLOOD CELL COUNT (BEAKER) 5.24 M/ L 4.63-6.08 (test code = 761) HEMOGLOBIN (BEAKER) (test code = 15.3 GM/DL 13.7-17.5 410) HEMATOCRIT (BEAKER) (test code = 43.1 % 40.1-51.0 411) MEAN CORPUSCULAR VOLUME (BEAKER) 82.3 fL 79.0-92.2 (test code = 753) MEAN CORPUSCULAR HEMOGLOBIN 29.2 pg 25.7-32.2 (BEAKER) (test code = 751) MEAN CORPUSCULAR HEMOGLOBIN CONC 35.5 GM/DL 32.3-36.5 (BEAKER) (test code = 752) RED CELL DISTRIBUTION WIDTH 15.0 % 11.6-14.4 H (BEAKER) (test code = 412) PLATELET COUNT (BEAKER) (test 313 K/CU MM 150-450 code = 756) MEAN PLATELET VOLUME (BEAKER) 9.4 fL 9.4-12.4 (test code = 754) NUCLEATED RED BLOOD CELLS 0 /100 WBC 0-0 (BEAKER) (test code = 413) NEUTROPHILS RELATIVE PERCENT 73 % (BEAKER) (test code = 429) LYMPHOCYTES RELATIVE PERCENT 14 % (BEAKER) (test code = 430) MONOCYTES RELATIVE PERCENT 11 % (BEAKER) (test code = 431) EOSINOPHILS RELATIVE PERCENT 0 % (BEAKER) (test code = 432) BASOPHILS RELATIVE PERCENT 0 % (BEAKER) (test code = 437) NEUTROPHILS ABSOLUTE COUNT 8.29 K/ L 1.78-5.38 H (BEAKER) (test code = 670) LYMPHOCYTES ABSOLUTE COUNT 1.60 K/ L 1.32-3.57 (BEAKER) (test code = 414) MONOCYTES ABSOLUTE COUNT (BEAKER) 1.26 K/ L 0.30-0.82 H (test code = 415) EOSINOPHILS ABSOLUTE COUNT 0.02 K/ L 0.04-0.54 L (BEAKER) (test code = 416) BASOPHILS ABSOLUTE COUNT (BEAKER) 0.05 K/ L 0.01-0.08 (test code = 417) IMMATURE GRANULOCYTES-RELATIVE 1 % 0-1 PERCENT (BEAKER) (test code = 2801) [id number] 14:24:00 Test Item Value Reference Range Interpretation Comments PARTIAL THROMBOPLASTIN TIME 46.9 seconds 22.5-36.0 H (BEAKER) (test code = 760) RAD, CHEST, 1 VIEW, NON [id number] 10:39:00Reason for exam:->wheezing, dyspneaFINAL REPORT AP view of the chest dated 03/13/2019 COMPARISON: October 07, 2015 CLINICAL INFORMATION: wheezing, dyspnea Comment: Heart is normal in size. Pulmonary vasculature is unremarkable. Lungs are clear. No pulmonary infiltrate or pleural effusion is present. Impression: No active cardiopulmonary disease or interval change. Signed: Deshawn Arzola Verified Date/Time: 03/13/2019 10:39:59 Reading Location: [facility] Rad[facility] Reading Room BASIC METABOLIC [id number] 10:13:00 Test Item Value Reference Range Interpretation Comments SODIUM (BEAKER) 127 meq/L 136-145 L (test code = 381) POTASSIUM (BEAKER) 4.7 meq/L 3.5-5.1 (test code = 379) CHLORIDE (BEAKER) 94 meq/L 98-107 L (test code = 382) CO2 (BEAKER) (test 25 meq/L 22-29 code = 355) BLOOD UREA NITROGEN 20 mg/dL 7-21 (BEAKER) (test code = 354) CREATININE (BEAKER) 1.52 mg/dL 0.57-1.25 H (test code = 358) GLUCOSE RANDOM 102 mg/dL 70-105 (BEAKER) (test code = 652) CALCIUM (BEAKER) 9.4 mg/dL 8.4-10.2 (test code = 697) EGFR (BEAKER) (test 54 mL/min/1.73 ESTIMA MOHSEN GFR IS code = 1092) sq m NOT ACCURATE CREATININE CLEARANCE IN PREDICTING GLOMERULAR FILTRATION RATE . ESTIMATED GFR I S NOT APPLICABLE FOR DIALYSIS PATIANDREW TS. [id number] 06:58:00 Test Item Value Reference Range Interpretation Comments PARTIAL THROMBOPLASTIN TIME 31.5 seconds 22.5-36.0 (BEAKER) (test code = 760) Prior to initiating heparinHEMOGLOBIN AND [id number] 06:38:00 Test Item Value Reference Range Interpretation Comments HEMOGLOBIN (BEAKER) (test code = 14.7 GM/DL 13.7-17.5 410) HEMATOCRIT (BEAKER) (test code = 42.8 % 40.1-51.0 411) CBC (HEMOGRAM ONLY)2019-03-13 06:38:00 Test Item Value Reference Range Interpretation Comments WHITE BLOOD CELL COUNT (BEAKER) 9.1 K/ L 3.5-10.5 (test code = 775) RED BLOOD CELL COUNT (BEAKER) 5.04 M/ L 4.63-6.08 (test code = 761) HEMOGLOBIN (BEAKER) (test code = 14.7 GM/DL 13.7-17.5 410) HEMATOCRIT (BEAKER) (test code = 42.8 % 40.1-51.0 411) MEAN CORPUSCULAR VOLUME (BEAKER) 84.9 fL 79.0-92.2 (test code = 753) MEAN CORPUSCULAR HEMOGLOBIN 29.2 pg 25.7-32.2 (BEAKER) (test code = 751) MEAN CORPUSCULAR HEMOGLOBIN CONC 34.3 GM/DL 32.3-36.5 (BEAKER) (test code = 752) RED CELL DISTRIBUTION WIDTH 14.9 % 11.6-14.4 H (BEAKER) (test code = 412) PLATELET COUNT (BEAKER) (test 245 K/CU MM 150-450 code = 756) MEAN PLATELET VOLUME (BEAKER) 8.9 fL 9.4-12.4 L (test code = 754) NUCLEATED RED BLOOD CELLS 0 /100 WBC 0-0 (BEAKER) (test code = 413)
[2022-10-13] MEDS ORDERED: IPRATROPIUM BROM 0.5MG/2.5ML ONE (18:18)
[2022-10-13] MEDS ORDERED: predniSONE 20 MG TAB ONE (18:18)
[2022-10-13] MEDS ORDERED: ALBUTEROL 2.5 MG/3 ML NEB SOL ONE (18:18)
--- NOTE | 2022-10-13 18:35 | ER ---
Nurse's Notes [facility] Name: Jesus Mcdowell Age: 77 yrs Sex: Male : 1945 Arrival Date: 10/13/2022 Time: 18:01 Bed 5 Private MD: Diagnosis: COPD/ Chronic obstructive pulmonary disease with (acute) exacerbation Presentation: 10/13 18:02 Chief complaint: EMS states: patient called with complaints of being short of breath ko1 and wheezing for 3 days. Coronavirus screen: At this time, the client does not indicate any symptoms associated with coronavirus-19. Ebola Screen: No symptoms or risks identified at this time. Initial Sepsis Screen: Does the patient meet any 2 criteria? No. Patient's initial sepsis screen is negative. Does the patient have a suspected source of infection? No. Patient's initial sepsis screen is negative. Risk Assessment: Do you want to hurt yourself or someone else? Patient reports no desire to harm self or others. Onset of symptoms was October 10, 2022 at 12:00. Care prior to arrival: Medication(s) given: Albuterol Neb x 1, Atrovent Neb x 1. 18:02 Method Of Arrival: EMS: [facility] ko1 18:02 Acuity: [place] 3 ko1 Triage Assessment: 18:04 General: Appears in no apparent distress. comfortable, Behavior is calm, cooperative, ko1 appropriate for age. Pain: Denies pain. Historical: - Allergies: 18:04 No Known Allergies; ko1 - Home Meds: 18:04 aspirin 81 mg Oral chew 1 tab once daily [Active]; ko1 - PMHx: 18:04 Asthma; arterial insufficiency L leg.; "prostates problems"; blood clots eren legs; ko1 COPD; Hypertension; - Immunization history:: Adult Immunizations up to date. - Social history:: Smoking status: Patient/guardian denies using tobacco, but has a distant history of tobacco abuse. Screenin:20 [facility] ED Fall Risk Assessment (Adult) History of falling in the last 3 months, ko1 including since admission No falls in past 3 months (0 pts) Confusion or Disorientation No (0 pts) Intoxicated or Sedated No (0 pts) Impaired Gait Yes (1 pt) Mobility Assist Device Used Yes (1 pt) Altered Elimination No (0 pt) Score/Fall Risk Level 0 - 2 = Low Risk Oriented to surroundings, Maintained a safe environment, Educated pt \\T\\ family on fall prevention, incl call for assistance when getting out of bed, Assessed \\T\\ reinforced patient's understanding of fall precautions, Provided non-skid footwear, Hourly rounding (assess needs \\T\\ fall precautionary measures) done, Used ambulatory aids as needed (educated on \\T\\ assisted with), Used gait belt as appropriate. Abuse screen: Denies threats or abuse. Denies injuries from another. Nutritional screening: No deficits noted. Tuberculosis screening: No symptoms or risk factors identified. Assessment: 18:22 General: Appears in no apparent distress. comfortable, Behavior is calm, cooperative, ko1 appropriate for age. Pain: Denies pain. Neuro: No deficits noted. Cardiovascular: No deficits noted. Respiratory: Reports shortness of breath at rest on exertion. Respiratory: Breath sounds with wheezes bilaterally. GI: No deficits noted. : No deficits noted. EENT: No deficits noted. Derm: No deficits noted. Musculoskeletal: No deficits noted. Vital Signs: 18:02 BP 162 / 79; Pulse 102; Resp 20; Temp 99.8(O); Pulse Ox 95% on R/A; Weight 53 kg; ko1 Height 5 ft. 9 in. (175.26 cm); Pain 0/10; 18:20 BP 181 / 84; Pulse 98; Resp 20; Pulse Ox 97% ; ko1 18:37 BP 172 / 84; Pulse 112; Resp 20; Pulse Ox 99% on Nebulizer Mask; ko1 18:53 BP 153 / 86; Pulse 99; Resp 20; Pulse Ox 98% ; ko1 18:02 Body Mass Index 17.25 (53.00 kg, 175.26 cm) ko1 ED Course: 18:01 Patient arrived in ED. ko1 18:02 Gloria Mercado MD is Attending Physician. sp3 18:02 Christel Izquierdo, CHE is Primary Nurse. ko1 18:04 Triage completed. ko1 18:04 Arm band placed on right wrist. ko1 18:20 Patient has correct armband on for positive identification. Bed in low position. Call ko1 light in reach. Side rails up X 1. Pulse ox on. NIBP on. 18:20 Initial Neb Treatment Given as ordered Patient was instructed and evaluated on ko1 procedure Patient tolerated procedure well without adverse effect. 18:37 No provider procedures requiring assistance completed. Patient did not have IV access ko1 during this emergency room visit. 18:51 CXR XRAY In Process Unspecified. EDMS Administered Medications: 18:19 Drug: predniSONE 40 mg Route: PO; ko1 18:48 Follow up: Response: No adverse reaction ko1 18:20 Drug: DuoNeb (albuterol 2.5 mg, ipratropium 0.5 mg) (3:1) (2.5 mg - 0.5 mg) 3 ml Route: ko1 Nebulizer; 18:48 Follow up: Response: No adverse reaction; Wheezing diminished ko1 Medication: 18:37 VIS not applicable for this client. ko1 Outcome: 18:34 Discharge ordered by . sp3 18:57 Discharged to home via ambulance. ko1 18:57 Condition: improved 18:57 Discharge instructions given to patient, EMS, Instructed on discharge instructions, follow up and referral plans. medication usage, Demonstrated understanding of instructions, follow-up care, medications, Prescriptions given X 2. 19:00 Patient left the ED. ko1 Signatures: Dispatcher [employer] EDMS Gloria Mercado MD MD sp3 Christel Izquierdo RN RN ko1
--- NOTE | 2022-10-13 18:35 | EDPHYS ---
Physician Documentation [facility] Name: Jesus Mcdowell Age: 77 yrs Sex: Male : 1945 Arrival Date: 10/13/2022 Time: 18:01 Bed 5 Private MD: ED Physician Gloria Mercado HPI: 10/13 18:16 This 77 yrs old Black Male presents to ER via EMS with complaints of cough/wheezing. 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 Denies any headache, fever, neck pain, back pain, chest pain, abdominal pain, nausea, vomiting, diarrhea, syncope, rash, known sick contacts, travel history, or any other symptoms on ROS at this time. Patient's had multiple episodes like this in the past. He is talking on the phone and had to return multiple times in order to fully assess patient and perform H\\T\\P.. Historical: - Allergies: 18:04 No Known Allergies; ko1 - Home Meds: 18:04 aspirin 81 mg Oral chew 1 tab once daily [Active]; ko1 - PMHx: 18:04 Asthma; arterial insufficiency L leg.; "prostates problems"; blood clots eren legs; ko1 COPD; Hypertension; - Immunization history:: Adult Immunizations up to date. - Social history:: Smoking status: Patient/guardian denies using tobacco, but has a distant history of tobacco abuse. ROS: 18:18 Constitutional: Negative for fever, chills, and weight loss, Eyes: Negative for injury, sp3 pain, redness, and discharge, ENT: Negative for injury, pain, and discharge, Neck: Negative for injury, pain, and swelling, Cardiovascular: Negative for chest pain, palpitations, and edema, Abdomen/GI: Negative for abdominal pain, nausea, vomiting, diarrhea, and constipation, Back: Negative for injury and pain, Skin: Negative for injury, rash, and discoloration, Neuro: Negative for headache, weakness, numbness, tingling, and seizure, Psych: Negative for depression, anxiety, suicide ideation, homicidal ideation, and hallucinations, Allergy/Immunology: Negative for hives, rash, and allergies. 18:18 All other systems are negative. Exam: 18:19 Constitutional: This is a well developed, well nourished patient who is awake, alert, sp3 and in no acute distress. Head/Face: Normocephalic, atraumatic. Eyes: Pupils equal round and reactive to light, extra-ocular motions intact. Lids and lashes normal. Conjunctiva and sclera are non-icteric and not injected. Cornea within normal limits. Periorbital areas with no swelling, redness, or edema. ENT: Nares patent. No nasal discharge, no septal abnormalities noted. External auditory canals are clear. Oropharynx with no redness, swelling, or masses, exudates, or evidence of obstruction, uvula midline. Mucous membranes moist. Neck: Trachea midline, no thyromegaly or masses palpated, and no cervical lymphadenopathy. Supple, full range of motion without nuchal rigidity, or vertebral point tenderness. No Meningismus. Chest/axilla: Normal chest wall appearance and motion. Nontender with no deformity. No lesions are appreciated. Cardiovascular: Regular rate and rhythm with a normal S1 and S2. No gallops, murmurs, or rubs. Normal PMI, no JVD. No pulse deficits. Abdomen/GI: Soft, non-tender, with normal bowel sounds. No distension or tympany. No guarding or rebound. No evidence of tenderness throughout. Back: No spinal tenderness. No costovertebral tenderness. Full range of motion. Skin: Warm, dry with normal turgor. Normal color with no rashes, no lesions, and no evidence of cellulitis. 18:20 Respiratory: Mild wheezing bilaterally. Patient is in no acute distress is able to sp3 speak freely on the phone without any difficulty. Respiratory rate is normal, there is no accessory muscle use. Oxygenation is at 95% on room air.. Vital Signs: 18:02 BP 162 / 79; Pulse 102; Resp 20; Temp 99.8(O); Pulse Ox 95% on R/A; Weight 53 kg; ko1 Height 5 ft. 9 in. (175.26 cm); Pain 0/10; 18:20 BP 181 / 84; Pulse 98; Resp 20; Pulse Ox 97% ; ko1 18:37 BP 172 / 84; Pulse 112; Resp 20; Pulse Ox 99% on Nebulizer Mask; ko1 18:53 BP 153 / 86; Pulse 99; Resp 20; Pulse Ox 98% ; ko1 18:02 Body Mass Index 17.25 (53.00 kg, 175.26 cm) ko1 MDM: 18:08 Patient medically screened. sp3 18:19 Data reviewed: vital signs, nurses notes, EMS record, radiologic studies. ED course: sp3 77-year-old male with likely mild COPD exacerbation. Symptoms are mainly resolved will obtain chest x-ray and administer 1 additional duo nebulizer and also prednisone 40 mg p.o. Likely discharge patient on steroids and Z-Boom for outpatient treatment. Patient diagnosis includes asthma exacerbation, COPD exacerbation, pneumonia, viral syndrome. Clinically I am not highly suspicious for acute coronary syndrome, aortic pathology, sepsis, shock, or any other critical findings.. 18:33 ED course: CXR negative for pneumonia -- pt still talking on the phone without any sp3 difficulty or problems. Will d/c after nebulizer treatment on Prednisone and Z-Boom. . 10/13 18:08 Order name: CXR XRAY sp3 Administered Medications: 18:19 Drug: predniSONE 40 mg Route: PO; ko1 18:48 Follow up: Response: No adverse reaction ko1 18:20 Drug: DuoNeb (albuterol 2.5 mg, ipratropium 0.5 mg) (3:1) (2.5 mg - 0.5 mg) 3 ml Route: ko1 Nebulizer; 18:48 Follow up: Response: No adverse reaction; Wheezing diminished ko1 Disposition Summary: 10/13/22 18:34 Discharge Ordered Location: Home sp3 Condition: Stable sp3 Diagnosis - COPD/ Chronic obstructive pulmonary disease with (acute) exacerbation sp3 Followup: sp3 - With: Private Physician - When: Upon discharge from the Emergency Department - Reason: Continuance of care Discharge Instructions: - Discharge Summary Sheet sp3 - Chronic Obstructive Pulmonary Disease sp3 Forms: - Medication Reconciliation Form sp3 - Thank You Letter sp3 - Antibiotic Education sp3 - Prescription Opioid Use sp3 - SBAR form ko1 Prescriptions: - Zithromax Z-Boom 250 mg Oral Tablet - take 1 tablet by ORAL route as directed for 5 days Day 1 - take two (2) tablets sp3 one time. Day 2, 3, 4 , 5 take one (1) tablet once daily.; 6 tablet; Refills: 0, Product Selection Permitted - Prednisone 20 mg Oral Tablet - take 2 tablets by ORAL route once daily for 5 days; 10 tablet; Refills: 0, sp3 Product Selection Permitted Signatures: Dispatcher [employer] Gloria Rossi MD MD sp3 Christel Izquierdo, RN RN ko1
--- NOTE | 2022-10-13 19:03 | RAD REPORT ---
EXAM DESCRIPTION: RAD - Chest Single View - 10/13/2022 6:49 pm CLINICAL HISTORY: COUGH Chest pain. COMPARISON: Chest Pa And Lat (2 Views) dated 06/25/2021; Chest Single View dated 03/13/2019; Chest Sin gle View dated 11/17/2018; Chest Pa And Lat (2 Views) dated 03/28/2017 FINDINGS: Portable technique limits examination quality. Mildly prominent bilateral interstitial lung markings noted. This may represent bronchitis/viral infe ction. The heart is normal in size. No displaced fractures.
[2022-10-13 19:43] VITALS: TEMP 99.8
[2022-10-13 19:47] VITALS: BP 153/86; O2SAT 98
== END 2022-10-13 19:00 | disposition home or self-care (01) ==
LOC: ER 17:56
DX: J44.1 Chronic obstructive pulmonary disease with (acute) exacerbation (principal); I10 Essential (primary) hypertension; Z79.82 Long term (current) use of aspirin; Z89.612 Acquired absence of left leg above knee; Z89.611 Acquired absence of right leg above knee
CPT/HCPCS: 71045; J7512; J7613; J7644

== ENCOUNTER 2023-04-14 13:54 | Emergency (ER) | payer OTHER ==
--- OUTSIDE RECORDS SUMMARY | 2023-04-14 14:06 | XMS REPORT | Continuity of Care Document ---
:1945 Author Organization [facility] t Address [address]. [address] [place] [address] Care Team Providers Name Role Phone Chase Jackson Primary Care Physician Jayden Mercado Attending Clinician Unavailable Iwona Phillips Attending Clinician Unavailable Summer HANSEN Attending Clinician Unavailable [id number] Attending Clinician Unavailable Georgi Benton Attending Clinician Unavailable Ana Mendosa Attending Clinician Unavailable Chase Jackson Attending Clinician BWillicarol Attending Clinician Unavailable Miftari_E Attending Clinician Unavailable OWENS_T Attending Clinician Unavailable Nga Hernandez Attending Clinician TAY KOCH Attending Clinician Unavailable [id number] Admitting Clinician Unavailable WILLIAMillicarol Admitting Clinician Unavailable Miftari_E Admitting Clinician Unavailable BRIGITTE_T Admitting Clinician Unavailable TAY KOCH Admitting Clinician Unavailable Payers Payer Name Policy Type Policy Number Effective Date Expiration Date S wild [facility] [id number] [facility] DUGKFK 2020 (MEDICARE 00:00:00 REPLACEMENT HMO) Problems Condition Condition Condition Status Onset Resolution Last Treating Co mments Source Name Details Category Date Date Treatment Clinician Date Paroxysmal Paroxysmal Disease Active [facility] tachycardi tachycardi 7-16 [facility] 00:[facility]: Medical 00 Center Acute Acute Disease Active [facility] blood loss blood loss 7-15 [facility] anemia anemia 00:00: Medical 00 [place] 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 both [facility]15 [facility] lower lower 00:00: Medical extremitie extremitie 00 Ce nter s, initial s, initial encounter encounter Sepsis Sepsis Disease Active [facility] Acute Acute Disease Active [facility] respirator respirator 7-15 [facility] [facility] y failure y failure 00:00: [facility] with with 00 Center hypoxia hypoxia Critical Critical Disease Active [facility] limb lower limb 7-08 [facility] ischemia ischemia 00:00: Medica l 00 Center Hypertensi Hypertensi Disease Active [facility] on on 03-13 [facility] 00:[facility]: Medical 00 [place] Hyponatrem Hyponatrem Disease Active [facility] ia ia 03-13 [facility] 00:[facility]: Medical 00 Center Renal Renal Disease Active [facility] insufficie insufficie -08 [facility] ncy ncy 00:00: Medical 00 [place] COPD COPD Disease Active [facility] (chronic (chronic 2-07 [facility] obstructiv obstructiv 00:00: Me dical e e 00 Center pulmonary pulmonary disease) disease) Postoperat Postoperat Disease Active [facility] jorge anemia jorge anemia 2-07 [facility] due to due to 00:00: Medical acute acute 00 Center blood loss blood loss PAD PAD Disease Active [facility] (periphera (periphera 1-30 [place] [facility] l artery l artery 00:00: Medica l disease) disease) 00 Center SHANIQUE (acute SHANIQUE (acute Disease Recurre [facility] kidney kidney nje [facility] injury) injury) Medical Center Aspiration Aspiration Disease Recurre [facility] pneumonia pneumonia nce [facility] s of right of right Medica l middle middle Center lobe due lobe due to gastric to gastric secretions secretions Hyperglyce Hyperglyce Disease Active [facility] kt [facility] Acute Acute Disease Active [facility] post-opera post-opera [facility] tive pain tive pain [facility] Encephalop Encephalop Disease Active [facility] athy acute athy acute [facility] Allergies, Adverse Reactions, Alerts Allergy Allergy Status Severity Reaction(s) Onset Inactive Treating Comm ents Source Name Type Date Date Clinician NO KNOWN Allergy Active [facility] SAVANAH [facility] Social History Social Habit Start Date Stop Date Quantity Comments Source History of tobacco Cigarette Smoker [facility] use [facility] Alcohol intake 2019-03-29 2019-03-29 Current JUANA Ghotra es 00:00:00 00:00:00 non-drinker of Medical Ce nter alcohol (finding) Tobacco use and 2015-10-05 2015-10-05 Never used JUANA Kline exposure 00:00:00 00:00:00 [facility] Cigarettes smoked 2015-10-05 2015-10-[address] [facility] [address] [place] current (pack per 00:00:00 00:00:00 Medical Center day) - Reported Sex Ass[birth year] At [birth year] JUANA Kline 00:00:00 00:00:00 [facility] Smoking Status Start Date Stop Date Source Current every day smoker 2015-10-05 00:00:00 [facility] Medications Ordered Filled Start Stop Current Ordering Indication Dosage Frequency Signature Comments Components Source Medication Medication Date Date Medication? Clinician (SIG) Name Name amLODIPine Yes 10mg QD Take [address] (NORVASC) 7-27 by mouth [facility] 10 MG 17:51: daily . Medical tablet 27 [place] aspirin 81 Yes 81mg Take [address] MG EC 7-27 by mouth [facility] tablet 17:51: as needed Medica l 27 . [place] fluticasone Yes 1{puff} Take [address] -salmeterol 7-27 puff by [facility] (ADVAIR) 17:51: mouth as Medic al 250-50 27 needed . [place] mcg/dose diskus inhaler pentoxifyll Yes 400mg Take [address] ine 7-27 mg by [facility] (TRENTAL) 17:51: mouth 3 Medic al 400 mg CR 27 (three) Center tablet times daily with meals. busPIRone 2018- Yes 10mg Q.[id number] Take [address] (BUSPAR) 10 7-27 [id number] by mouth 3 [facility] MG tablet 17:51: 3D (three) Medic al 27 times Center daily. metoprolol 2019-0 Yes 100mg QD Take [address] (TOPROL-XL) 7-27 mg by [facility] 100 MG 24 17:51: mouth Medical hr tablet 27 daily. Center tamsulosin 2018- Yes .4mg QD Take 0.[address] (FLOMAX) 7-27 mg by [facility] 0.4 mg Cap 17:51: mouth Medica l 24 hr 27 daily. [place] capsule amLODIPine Yes 10mg QD Take [address] (NORVASC) 7-27 by mouth [facility] 10 MG 17:51: daily . Medical tablet 27 [place] aspirin 81 Yes 81mg Take [address] MG EC 7-27 by mouth [facility] tablet 17:51: as needed Medica l 27 . [place] fluticasone Yes 1{puff} Take [address] -salmeterol 7-27 puff by [facility] (ADVAIR) 17:51: mouth as Medic al 250-50 27 needed . [place] mcg/dose diskus inhaler pentoxifyll Yes 400mg Take [address] ine 7-27 mg by [facility] (TRENTAL) 17:51: mouth 3 Medic al 400 mg CR 27 (three) Center tablet times daily with meals. busPIRone Yes 10mg Q.[id number] Take [address] (BUSPAR) 10 7-27 [id number] by mouth 3 [facility] MG tablet 17:51: 3D (three) Medic al 27 times Center daily. metoprolol Yes 100mg QD Take [address] (TOPROL-XL) 7-27 mg by [facility] 100 MG 24 17:51: mouth Medical hr tablet 27 daily. [place] tamsulosin Yes .4mg QD Take 0.[address] (FLOMAX) 7-27 mg by [facility] 0.4 mg Cap 17:51: mouth Medica l 24 hr 27 daily. [place] capsule Immunizations Ordered Immunization Filled Immunization Date Status Commen ts Source Name Name Influenza High Dose 2015-10-18 [facility] Preserv[facility] 00:00:00 [facility] [id number] Influenza High Dose 2015-10-18 [facility] Preserv[facility] Free 00[facility]00:00 [facility] [id number] Procedures This patient has no known procedures. Encounters Start End Encounter Admission Attending Care Care Encounter Source Date/Time Date/Time Type Type Clinicians Facility Department ID 2023-01-22 [facility] [id number] Common 08:51:00 [facility] [id number] [facility] 2022-12-21 Outpatient Jacqueline, STLMLC STLMLC [id number] Common 16:17:00 Iwona [address]686 [facility] 2022-12-04 Outpatient Jacqueline, STLMLC STLMLC [id number] Common 08:55:01 Iwoan 35681 [facility] 2022-12-01 Outpatient HANSEN, Na STLMLC STLMLC [id number] 2 Common 15:43:00 [id number] [facility] 2022-11-20 Outpatient HANSEN, Na STLMLC STLMLC [id number] 2 Common 15:10:00 [id number] [facility] 2022-09-03 Outpatient HANSEN, Na STLMLC STLMLC [id number] 2 Common 16:14:00 [id number] [facility] 2022-08-21 Outpatient Hansen, Na STLMLC STLMLC [id number] Common 11:17:00 [id number] [facility] 2022-06-09 Outpatient Hansen, Na STLMLC STLMLC [id number] 2 Common 13:51:00 [id number] [facility] 2021-10-02 Outpatient 3 [id number] ENCWO OT [id number] Encompa 11:14:26 [id number] [facility] 2021-10-02 Outpatient 3 [id number] ENCWO REF [id number] Encompa 11:01:40 [id number] [facility] 2021-10-01 Outpatient Hansen, Na STLMLC STLMLC [id number] 2 Common 13:57:57 [id number] [facility] 2021-10-01 Outpatient Hansen, Na STLMLC STLMLC [id number] 2 Common 12:57:39 [id number] [facility] 2021-10-01 Outpatient STLMLC STLMLC [id number] Common 12:26:02 [id number] [facility] 2021-10-01 Outpatient STLMLC STLMLC [id number] Common 12:16:11 [id number] [facility] 2021-10-01 Outpatient Benton, Kin STLMLC [facility] [id number] Common 12:14:08 [id number] [facility] 2021-10-01 Outpatient Georgi Benton [facility] [id number] 02 Common 12:06:09 [id number] [facility] 2021-10-01 Outpatient Georgi Benton [facility] [id number] 02 Common 11:59:23 [id number] [facility] 2021-10-01 Outpatient Deondre [facility] [id number] Common 11:14:35 Ana 15144 [facility] 2021-10-01 [facility] [id number] Common 11:05:44 Ana 17905 [facility] 2021-10-01 [facility] [id number] Common 11:05:33 Ana 32843 [facility] 2023-01-14 2023-01-14 Telephone Manuel, [facility] [id number] [facility] [place] 00:00:00 00:00:00 [facility] 2022-07-28 2022-07-28 Outpatient BWilliams DMG [facility] [id number] Devoted 00:00:00 00:00:00 1122 [facility] 2022-07-28 2022-07-28 Outpatient BWilliams DMG [facility] [id number] [facility] 00:00:00 00:00:00 0103 [facility] 2022-06-23 2022-06-23 Outpatient Miftari_E DMG [facility] [id number] [facility] 00:00:00 00:00:00 1018 [facility] l Group 2022-06-02 2022-06-02 Outpatient OWENS_T DMG DMG [id number] [facility]oted 00:00:00 00:00:00 0927 Medica l Group 2022-03-20 2022-03-20 Outpatient OWENS_T DMG [facility]G [id number] [facility]oted 06:24:00 06:24:00 0715 Medica l Group 2021-12-23 2021-12-23 CAV Tomora [id number] [facility] [id number] 14:30:00 15:30:00 Hernandez [id number] 5[facility] [id number] 2021-11-26 2021-11-26 Outpatient OWENS_T DMG [facility] [id number] Devoted 03:33:00 03:33:00 0323 Medica l Group 2020-12-27 2020-12-27 Outpatient OWENS_T DM DMG [id number] Devoted 11:41:00 11:41:00 0423 Medica l Group Results Test Description Test Time Test Comments Results Result [facility] e Comments TISSUE EXAM 2019-04-02 Surgical Pathology 15:11:00 Report Case: [id number] Authorizing Provider: Kahlil Garcia MD Collected: 03/20/20191812 Ordering Location: [address] Received: 03/21/2019 0905 Cardiovascular Pathologist: Donaldo [...] CALCIFIC ATHEROSCLEROSIS Signing Pathologist Direct Phone Line: [phone] ally signed by Donaldo Crockett MD on 04/02/2019 at 3:11 [id number] provided A. LEFT LOWER LEG. B. RIGHT LOWER LEGPart A. Received fresh in a biohazard bag labeled with the patient's name, accession number and "LL" is an fmtpi-bxw-ffgd left leg amputation measuring 65 cm in [...] artery is 90% stenosed by atherosclerotic plaque. Microbial Specialist sections are submitted.Section code:A1-A2, bone margin, bisected, en face A3, skin, soft tissue and femoral artery margin, en face A4, community health program representative of hypopigmented skin with underlying tissue A5, community health program representative of dorsalis pedis artery, anterior tibial artery (blue), popliteal artery and posterior tibial artery (yellow), following decalcification Part B. Received fresh in a biohazard bag labeled with the patient's name, accession number and "RL" is a right leg vuvfj-dbj-xfzf amputation measuring 65 cm in length and [...] by atherosclerotic plaque. The bone is unremarkable. Microbial Specialist sections are submitted.Section code:B1-B2, bone margin, bisected, en face, following decalcification B3, skin, soft tissue and femoral vascular margin, en face B4, community health program representative of bulla with underlying soft tissueB5, dorsalis pedis artery, anterior tibial artery (blue), popliteal artery (yellow) and posterior tibial artery (red), following decalcificationCG/ewPe rformed. POCT-GLUCOSE METER 2019-04-01 09:22:00 Test Item Value Reference Range Interpretation Comme nts POC-GLUCOSE METER (BEAKER) (test 131 mg/dL 70-110 H TESTED AT [facility] [address] code = 1538) [place] [address] [id number] 06:35:00 Test Item Value Reference Range Interpretation Comments PHOSPHORUS (BEAKER) (test code = 3.6 mg/dL 2.3-4.7 604) [id number] 06:35:00 Test Item Value Reference Range Interpretation Comments MAGNESIUM (BEAKER) (test code = 1.8 mg/dL 1.6-2.6 627) BASIC METABOLIC [id number] 06:35:00 Test Item Value Reference Range Interpretation [...] PATIEN TS. CBC W/PLT COUNT & AUTO [id number] 06:16:00 Test Item Value Reference Range Interpretation [...] PERCENT (BEAKER) (test code = 2801) POCT-GLUCOSE [id number] 21:28:00 Test Item Value Reference Range Interpretation Comments POC-GLUCOSE METER 140 mg/dL 70-110 H TESTED AT [facility] 6720 (BEAKER) (test code = [facility] 1538) [address] POCT-GLUCOSE [id number] 16:51:00 Test Item Value Reference Range Interpretation Comments POC-GLUCOSE METER 141 mg/dL 70-110 H TESTED AT [place] [address] ([facility]) (test code = [facility] 1538) [address] POCT-GLUCOSE [id number] 11:51:00 Test Item Value Reference Range Interpretation Comments POC-GLUCOSE METER 91 mg/dL 70-110 TESTED AT [place] [address] ([facility]) (test code = [facility] [address] 1538) POCT-GLUCOSE [id number] 07:31:00 Test Item Value Reference Range Interpretation Comments POC-GLUCOSE METER 129 mg/dL 70-110 H TESTED AT [place] [address] ([facility]) (test code = [facility] 1538) [address] BASIC METABOLIC [id number] 06:51:00 Test Item Value Reference Range Interpretation [...] PATIEN TS. CBC W/PLT COUNT & AUTO [id number] 06:46:00 Test Item Value Reference Range Interpretation [...] 0-1 PERCENT (BEAKER) (test code = 2801) [id number] 06:41:00 Test Item Value Reference Range Interpretation Comments PHOSPHORUS (BEAKER) (test code = 3.5 mg/dL 2.3-4.7 604) [id number] 06:41:00 Test Item Value Reference Range Interpretation Comments MAGNESIUM (BEAKER) (test code = 1.9 mg/dL 1.6-2.6 627) POCT-GLUCOSE [id number] 21:15:00 Test Item Value Reference Range Interpretation Comments POC-GLUCOSE METER 145 mg/dL 70-110 H TESTED AT [place] [address] ([facility] = [facility] 1538) [address] POCT-GLUCOSE [id number] 16:32:00 Test Item Value Reference Range Interpretation Comments POC-GLUCOSE METER 144 mg/dL 70-110 H TESTED AT [place] [address] ([facility]) (test code = [facility] 1538) [address]697 POCT-GLUCOSE [id number] 11:57:00 Test Item Value Reference Range Interpretation Comments POC-GLUCOSE METER 107 mg/dL 70-110 TESTED AT [place] [address] ([facility] (test code = [facility] 1538) [address] POCT-GLUCOSE [id number] 07:42:00 Test Item Value Reference Range Interpretation Comments POC-GLUCOSE METER 112 mg/dL 70-110 H TESTED AT [place] [address] ([facility]) (test code = [facility] 1538) [address] BASIC METABOLIC [id number] 05:48:00 Test Item Value Reference Range Interpretation [...] S NOT APPLICABLE FOR DIALYSIS PATIEN TS. [id number] 05:03:00 Test Item Value Reference Range Interpretation Comments PHOSPHORUS (BEAKER) (test code = 3.6 mg/dL 2.3-4.7 604) [id number] 05:03:00 Test Item Value Reference Range Interpretation Comments MAGNESIUM (BEAKER) (test code = 2.0 mg/dL 1.6-2.6 627) CBC W/PLT COUNT & AUTO [id number] 04:39:00 Test Item Value Reference Range Interpretation [...] PERCENT (BEAKER) (test code = 2801) POCT-GLUCOSE [id number] 21:40:00 Test Item Value Reference Range Interpretation Comments POC-GLUCOSE METER 174 mg/dL 70-110 H TESTED AT [place] [address] ([facility]) (test code = [facility] 1538) [address] POCT-GLUCOSE [id number] 17:50:00 Test Item Value Reference Range Interpretation Comments POC-GLUCOSE METER 178 mg/dL 70-110 H TESTED AT [place] [address] ([facility]) (test code = [facility] 1538) [address] POCT-GLUCOSE [id number] 12:35:00 Test Item Value Reference Range Interpretation Comments POC-GLUCOSE METER 127 mg/dL 70-110 H TESTED AT [place] [address] ([facility]) (test code = [facility] Rebeca [facility] 1538) [address] POCT-GLUCOSE [id number] 07:48:00 Test Item Value Reference Range Interpretation Comments POC-GLUCOSE METER 122 mg/dL 70-110 H TESTED AT [place] [address] ([facility]) (test code = [facility] Rebeca [facility] 1538) [address] BASIC METABOLIC [id number] 07:00:00 Test Item Value Reference Range Interpretation [...] S NOT APPLICABLE FOR DIALYSIS PATIEN TS. [id number] 06:59:00 Test Item Value Reference Range Interpretation Comments PHOSPHORUS (BEAKER) (test code = 3.9 mg/dL 2.3-4.7 604) [id number] 06:59:00 Test Item Value Reference Range Interpretation Comments MAGNESIUM (BEAKER) (test code = 2.3 mg/dL 1.6-2.6 627) CBC W/PLT COUNT & AUTO [id number] 06:23:00 Test Item Value Reference Range Interpretation [...] 0-1 PERCENT (BEAKER) (test code = 2807) POCT-GLUCOSE [id number] 21:18:00 Test Item Value Reference Range Interpretation Comments POC-GLUCOSE METER 135 mg/dL 70-110 H TESTED AT [place] [address] ([facility]) (test code = RENÉ CHAU 1538) [address] POCT-GLUCOSE [id number] 16:41:00 Test Item Value Reference Range Interpretation Comments POC-GLUCOSE METER 123 mg/dL 70-110 H TESTED AT [facility] 67 (BEAKER) (test code = [place] 1538) [address] [id number] 16:21:00 Test Item Value Reference Range Interpretation Comments POTASSIUM (BEAKER) (test code = 3.4 meq/L 3.5-5.1 L 379) POCT-GLUCOSE [id number] 12:31:00 Test Item Value Reference Range Interpretation Comments POC-GLUCOSE METER 143 mg/dL 70-110 H TESTED AT [facility] 6720 (BEAKER) (test code = RENÉ Jose [place] 1538) [address] POCT-GLUCOSE [id number] 07:27:00 Test Item Value Reference Range Interpretation Comments POC-GLUCOSE METER 118 mg/dL 70-110 H TESTED AT [facility] 6720 (BEAKER) (test code = RENÉ Jose [place] 1538) [address] [id number] 05:22:00 Test Item Value Reference Range Interpretation Comments FERRITIN (BEAKER) (test code = 361) 884 ng/mL 5-275 H BASIC METABOLIC [id number] 05:21:00 Test Item Value Reference Range Interpretation [...] S NOT APPLICABLE FOR DIALYSIS PATIEN TS. [id number] 05:20:00 Test Item Value Reference Range Interpretation Comments PHOSPHORUS (BEAKER) (test code = 3.9 mg/dL 2.3-4.7 604) [id number] 05:20:00 Test Item Value Reference Range Interpretation Comments MAGNESIUM (BEAKER) (test code = 2.3 mg/dL 1.6-2.6 627) CBC W/PLT COUNT & AUTO [id number] 05:02:00 Test Item Value Reference Range Interpretation [...] % 0-1 PERCENT (BEAKER) (test code = 7971) IRON, TIBC, % SAT. (WITHOUT FERRITIN)2019-03-28 05:02:00 Test Item Value Reference Range Interpretation Comments IRON (BEAKER) (test code = 547) 25.0 ug/dL 40.0-160.0 L TOTAL IRON BINDING CAPACITY 140 ug/dL 250-450 L (BEAKER) (test code = 769) IRON % SATURATION (2) (BEAKER) 18 % 20-55 L (test code = 2590) POCT-GLUCOSE [id number] 21:14:00 Test Item Value Reference Range Interpretation Comments POC-GLUCOSE METER 125 mg/dL 70-110 H TESTED AT [facility] 6720 (BEAKER) (test code = [facility] 1538) [address] POCT-GLUCOSE [id number] 18:05:00 Test Item Value Reference Range Interpretation Comments POC-GLUCOSE METER 124 mg/dL 70-110 H TESTED AT [place] [address] (BEAKER) (test code = [facility] 1538) [address] POCT-GLUCOSE [id number] 12:17:00 Test Item Value Reference Range Interpretation Comments POC-GLUCOSE METER 132 mg/dL 70-110 H TESTED AT [facility] 67 (BEAKER) (test code = [facility] 1538) [address] BASIC METABOLIC [id number] 06:49:00 Test Item Value Reference Range Interpretation [...] NOT APPLICABLE FOR DIALYSIS PATIEN TS. POCT-GLUCOSE [id number] 06:38:00 Test Item Value Reference Range Interpretation Comments POC-GLUCOSE METER 129 mg/dL 70-110 H TESTED AT [facility] 6720 (BEAKER) (test code = [place] 1538) [address] [id number] 06:15:00 Test Item Value Reference Range Interpretation Comments MAGNESIUM (BEAKER) 2.6 mg/dL 1.6-2.6 Specimen slightly (test code = 627) hemolyzed [id number] 06:15:00 Test Item Value Reference Range Interpretation Comments PHOSPHORUS (BEAKER) 3.7 mg/dL 2.3-4.7 Specimen slightly (test code = 604) hemolyzed CBC W/PLT COUNT & AUTO [id number] 05:00:00 Test Item Value Reference Range Interpretation [...] PERCENT (BEAKER) (test code = 2801) POCT-GLUCOSE [id number] 00:14:00 Test Item Value Reference Range Interpretation Comments POC-GLUCOSE METER 111 mg/dL 70-110 H TESTED AT [place] [address] ([facility]) (test code = RENÉ Jose [facility] 1538) [address] POCT-GLUCOSE [id number] 23:11:00 Test Item Value Reference Range Interpretation Comments POC-GLUCOSE METER 106 mg/dL 70-110 TESTED AT [place] [address] ([facility]) (test code = RENÉ Jose [facility] 1538) [address] POCT-GLUCOSE [id number] 17:18:00 Test Item Value Reference Range Interpretation Comments POC-GLUCOSE METER 127 mg/dL 70-110 H TESTED AT [place] [address] ([facility] (test code = [facility] Rebeca [facility] 1538) [address] CBC (HEMOGRAM ONLY)2019-03-26 13:23:00 Test Item Value [...] (BEAKER) (test code = 413) BASIC METABOLIC [id number] 13:11:00 Test Item Value Reference Range Interpretation [...] S NOT APPLICABLE FOR DIALYSIS PATIEN TS. [id number] 13:08:00 Test Item Value Reference Range Interpretation Comments PHOSPHORUS (BEAKER) (test code = 2.9 mg/dL 2.3-4.7 604) [id number] 13:08:00 Test Item Value Reference Range Interpretation Comments MAGNESIUM (BEAKER) (test code = 2.7 mg/dL 1.6-2.6 H 627) POCT-GLUCOSE [id number] 12:32:00 Test Item Value Reference Range Interpretation Comments POC-GLUCOSE METER 186 mg/dL 70-110 H TESTED AT [facility] 6720 (BEAKER) (test code = RENÉ Jose [place] 1538) [address] POCT-GLUCOSE [id number] 06:32:00 Test Item Value Reference Range Interpretation Comments POC-GLUCOSE METER 152 mg/dL 70-110 H TESTED AT [facility] 6720 (BEAKER) (test code = SIMÓNID Rebeca [place] 1538) [address] BASIC METABOLIC [id number] 04:43:00 Test Item Value Reference Range Interpretation [...] S NOT APPLICABLE FOR DIALYSIS PATIEN TS. [id number] 04:32:00 Test Item Value Reference Range Interpretation Comments PHOSPHORUS (BEAKER) (test code = 2.7 mg/dL 2.3-4.7 604) [id number] 04:32:00 Test Item Value Reference Range Interpretation Comments MAGNESIUM (BEAKER) (test code = 2.6 mg/dL 1.6-2.6 627) HEPATIC FUNCTION [id number] 04:32:00 Test Item Value Reference Range Interpretation [...] 6-55 347) CBC W/PLT COUNT & AUTO [id number] 04:09:00 Test Item Value Reference Range Interpretation [...] PERCENT (BEAKER) (test code = 2801) POCT-GLUCOSE [id number] 00:24:00 Test Item Value Reference Range Interpretation Comments POC-GLUCOSE METER 126 mg/dL 70-110 H TESTED AT [place] [address] ([facility] (test code = [facility] Rebeca [facility] 1538) [address] POCT-GLUCOSE [id number] 18:59:00 Test Item Value Reference Range Interpretation Comments POC-GLUCOSE METER 178 mg/dL 70-110 H TESTED AT [place] [id number] ([facility]) (test code = [facility] 1538) [address] POCT-GLUCOSE [id number] 12:57:00 Test Item Value Reference Range Interpretation Comments POC-GLUCOSE METER 173 mg/dL 70-110 H TESTED AT [place] [address] ([facility]) (test code = [facility] 1538) [address] RAD, CHEST, 1 VIEW, NON [id number] 09:49:00Reason for exam:->Pulmonary edemaFINAL REPORT AP chest HISTORY: Pulmonary edema. COMPARISON: 03/24/2018. IMPRESSION: Left IJ catheter. Stable cardiac silhouette. Diffuse interstitial opacities unchanged. No pneumothorax. Signed: Uri Govea MDReport Verified Date/Time: 03/25/2019 09:49:08 Reading Location: [address] Ortho Consult Reading Room URINE [id number] 09:31:00 Test Item Value Reference Range Interpretation Comments CULTURE (BEAKER) (test code = 1095) No growth OCCULT BLOOD, [id number] 07:54:00 Test Item Value Reference Range Interpretation Comments FECAL OCCULT BLOOD (BEAKER) (test Negative Negative code = 618) POCT-GLUCOSE [id number] 07:31:00 Test Item Value Reference Range Interpretation Comments POC-GLUCOSE METER 131 mg/dL 70-110 H TESTED AT [facility] 6720 (BEAKER) (test code = [place] 1538) [address] BASIC METABOLIC [id number] 04:31:00 Test Item Value Reference Range Interpretation [...] S NOT APPLICABLE FOR DIALYSIS PATIEN TS. [id number] 04:24:00 Test Item Value Reference Range Interpretation Comments PHOSPHORUS (BEAKER) (test code = 2.4 mg/dL 2.3-4.7 604) [id number] 04:24:00 Test Item Value Reference Range Interpretation Comments MAGNESIUM (BEAKER) (test code = 1.9 mg/dL 1.6-2.6 627) HEPATIC FUNCTION [id number] 04:24:00 Test Item Value Reference Range Interpretation [...] H 347) CBC W/PLT COUNT & AUTO [id number] 04:11:00 Test Item Value Reference Range Interpretation [...] H code = 756) MEAN PLATELET VOLUME ([facility]) 10.3 fL 9.4-12.4 (test code = 754) NUCLEATED RED BLOOD CELLS 0 /100 WBC 0-0 ([facility]) (test code = 413) POCT-GLUCOSE [id number] 23:42:00 Test Item Value Reference Range Interpretation Comments POC-GLUCOSE METER 116 mg/dL 70-110 H TESTED AT [place] [address] ([facility]) (test code = REN[place] Jose [facility] 1538) [address] POCT-GLUCOSE [id number] 17:36:00 Test Item Value Reference Range Interpretation Comments POC-GLUCOSE METER 156 mg/dL 70-110 H TESTED AT [place] [address] ([facility]) (test code = [facility] Rebeca [facility] 1538) [address] POCT-GLUCOSE [id number] 11:18:00 Test Item Value Reference Range Interpretation Comments POC-GLUCOSE METER 115 mg/dL 70-110 H TESTED AT [place] [address] ([facility]) (test code = [facility] Rebeca [facility] 1538) [address] RAD, CHEST, 1 VIEW, NON [id number] 09:13:00Reason for exam:->Pulmonary edemaShould this be performed at the bedside?->YesFINAL REPORT Chest dated 03/24/2019 Clinical Information: Pulmonary edema Comment: Heart is normal in size. Pulmonary vasculature is indistinct. Interstitial disease is seen bilaterally suggestive of vascular congestion, pulmonary edema, pneumonia. No pleural effusion is noted. Left IJ central venous catheter is present. No pneumothorax is seen. Signed: Deshawn Arzola Verified Date/Time: 03/24/2019 09:13:53 Reading Location: [facility] Radiology Reading Room CBC W/PLT COUNT & AUTO [id number] 07:50:00 Test Item Value Reference Range Interpretation Comments WHITE BLOOD CELL COUNT ([facility]) 24.7 K/ L 3.5-10.5 H (test code = 775) RED BLOOD CELL COUNT (AKER) 2.42 M/ L 4.63-6.08 L (test code [...] WBC: SEGMENTED WITH TOXIC GRANULATIONS PRESENTHEMOGLOBIN AND [id number] 06:19:00 Test Item Value Reference Range Interpretation Comments HEMOGLOBIN (BEAKER) (test code = 7.0 GM/DL 13.7-17.5 L 410) HEMATOCRIT (BEAKER) (test code = 21.0 % 40.1-51.0 L 411) POCT-GLUCOSE [id number] 05:41:00 Test Item Value Reference Range Interpretation Comments POC-GLUCOSE METER 134 mg/dL 70-110 H TESTED AT [facility] 6720 (BEAKER) (test code = [place] 1538) [address] BASIC METABOLIC [id number] 04:09:00 Test Item Value Reference Range Interpretation [...] S NOT APPLICABLE FOR DIALYSIS PATIEN TS. [id number] 04:04:00 Test Item Value Reference Range Interpretation Comments PHOSPHORUS (BEAKER) (test code = 4.3 mg/dL 2.3-4.7 604) [id number] 04:04:00 Test Item Value Reference Range Interpretation Comments MAGNESIUM (BEAKER) (test code = 2.5 mg/dL 1.6-2.6 627) HEPATIC FUNCTION [id number] 04:04:00 Test Item Value Reference Range Interpretation [...] = 65 U/L 6-55 H 347) POCT-GLUCOSE [id number] 00:03:00 Test Item Value Reference Range Interpretation Comments POC-GLUCOSE METER 128 mg/dL 70-110 H TESTED AT [facility] 6720 (BEAKER) (test code = [place] 1538) [address] OCCULT BLOOD, [id number] 22:12:00 Test Item Value Reference Range Interpretation Comments FECAL OCCULT BLOOD (BEAKER) (test Negative Negative code = 618) POCT-GLUCOSE [id number] 18:02:00 Test Item Value Reference Range Interpretation Comments POC-GLUCOSE METER 145 mg/dL 70-110 H TESTED AT [facility] 6720 (BEAKER) (test code = [place] 1538) [address] CBC (HEMOGRAM ONLY)2019-03-23 14:54:00 Test Item Value [...] 0-0 (BEAKER) (test code = 413) POCT-GLUCOSE [id number] 11:33:00 Test Item Value Reference Range Interpretation Comments POC-GLUCOSE METER 136 mg/dL 70-110 H TESTED AT [facility] 67[facility] ([facility] (test code = [place] Jose [facility] 1538) [address] RAD, CHEST, 1 VIEW, NON [id number] 09:50:00Reason for exam:->Ett placement verificationShould this be [...] osseous abnormality is identified. Signed: Wayne Harman Verified Date/Time: 03/23/2019 09:50:27 Reading Location: [facility] Radiology Reading Room CREATINE KINASE (CK)2019-03-23 06:32:00 Test Item Value Reference Range Interpretation Comments CREATINE KINASE TOTAL (BEAKER) (test 2512 U/L 29-200 H code = 380) HEMOGLOBIN AND [id number] 06:05:00 Test Item Value Reference Range Interpretation Comments HEMOGLOBIN (BEAKER) (test code = 7.2 GM/DL 13.7-17.5 L 410) HEMATOCRIT (BEAKER) (test code = 20.9 % 40.1-51.0 L 411) Recollect.POCT-GLUCOSE [id number] 05:55:00 Test Item Value Reference Range Interpretation Comments POC-GLUCOSE METER 138 mg/dL 70-110 H TESTED AT [facility] 6720 (BEAKER) (test code = [place] Jose [facility] 1538) [address] CBC W/PLT COUNT & AUTO [id number] 04:33:00 Test Item Value Reference Range Interpretation [...] (BEAKER) (test code = 2801) BASIC METABOLIC [id number] 04:18:00 Test Item Value Reference Range Interpretation [...] S NOT APPLICABLE FOR DIALYSIS PATIEN TS. [id number] 03:36:00 Test Item Value Reference Range Interpretation Comments PHOSPHORUS (BEAKER) (test code = 3.7 mg/dL 2.3-4.7 604) [id number] 03:36:00 Test Item Value Reference Range Interpretation Comments MAGNESIUM (BEAKER) (test code = 2.2 mg/dL 1.6-2.6 627) HEMOGLOBIN AND [id number] 03:14:00 Test Item Value Reference Range Interpretation Comments HEMOGLOBIN (BEAKER) (test code = 6.9 GM/DL 13.7-17.5 L 410) HEMATOCRIT (BEAKER) (test code = 20.1 % 40.1-51.0 L 411) POCT-GLUCOSE [id number] 23:53:00 Test Item Value Reference Range Interpretation Comments POC-GLUCOSE METER 173 mg/dL 70-110 H TESTED AT [place] [address] ([facility] 1538) [address] OCCULT BLOOD, [id number] 19:28:00 Test Item Value Reference Range Interpretation Comments FECAL OCCULT BLOOD (BEAKER) (test Negative Negative code = 618) POCT-GLUCOSE [id number] 18:50:00 Test Item Value Reference Range Interpretation Comments POC-GLUCOSE METER 162 mg/dL 70-110 H TESTED AT [facility] 6720 (BEAKER) ([facility] = [facility] 1538) [address] HEMOGLOBIN AND [id number] 18:44:00 Test Item Value Reference Range Interpretation Comments HEMOGLOBIN (BEAKER) (test code = 7.9 GM/DL 13.7-17.5 L 410) HEMATOCRIT (BEAKER) (test code = 22.1 % 40.1-51.0 L 411) CBC W/PLT COUNT & AUTO [id number] 16:27:00 Test Item Value Reference Range Interpretation [...] Received comment: User comments: Slide comments:BASIC METABOLIC [id number] 16:23:00 Test Item Value Reference Range Interpretation [...] APPLICABLE FOR DIALYSIS PATIEN TS. HEMOGLOBIN AND [id number] 16:01:00 Test Item Value Reference Range Interpretation Comments HEMOGLOBIN (BEAKER) (test code = 7.9 GM/DL 13.7-17.5 L 410) HEMATOCRIT (BEAKER) (test code = 22.3 % 40.1-51.0 L 411) POCT-GLUCOSE [id number] 13:00:00 Test Item Value Reference Range Interpretation Comments POC-GLUCOSE METER 160 mg/dL 70-110 H TESTED AT [facility] 6720 ([facility]) (test code = [place] Jose [facility] 1538) [address] RAD, CHEST, 1 VIEW, NON [id number] 09:50:00Reason for exam:->eval pulm edemaShould this be [...] lines and tubes are stable. Signed: Kerwin Mcgee Verified Date/Time: 03/22/2019 09:50:01 Reading Location: [facility] Radiology Reading Room POCT-GLUCOSE [id number] 06:36:00 Test Item Value Reference Range Interpretation Comments POC-GLUCOSE METER 151 mg/dL 70-110 H TESTED AT [facility] 6720 ([facility]) (test code = [place] Jose [facility] 1538) [address] CBC W/PLT COUNT & AUTO [id number] 04:22:00 Test Item Value Reference Range Interpretation [...] PERCENT (BEAKER) (test code = 2801) PH, [id number] 03:53:00 Test Item Value Reference Range Interpretation Comments PH UA (BEAKER) (test code = 467) 7.5 5.0-8.0 CREATINE KINASE (CK)2019-03-22 03:45:00 Test Item Value Reference Range Interpretation Comments CREATINE KINASE TOTAL (BEAKER) (test 3289 U/L 29-200 H code = 380) BASIC METABOLIC [id number] 03:45:00 Test Item Value Reference Range Interpretation [...] S NOT APPLICABLE FOR DIALYSIS PATIEN TS. [id number] 03:42:00 Test Item Value Reference Range Interpretation Comments PHOSPHORUS (BEAKER) (test code = 6.1 mg/dL 2.3-4.7 H 604) [id number] 03:42:00 Test Item Value Reference Range Interpretation Comments MAGNESIUM (BEAKER) (test code = 2.6 mg/dL 1.6-2.6 627) [id number] 03:36:00 Test Item Value Reference Range Interpretation Comments PARTIAL THROMBOPLASTIN TIME 44.2 seconds 22.5-36.0 H (BEAKER) (test code = 760) CALCIUM, [id number] 03:29:00 Test Item Value Reference Range Interpretation Comments CALCIUM IONIZED (BEAKER) (test 1.00 mmol/L 1.12-1.27 L code = 698) PH, BLOOD (BEAKER) (test code = 7.47 1810) POCT-GLUCOSE [id number] 00:23:00 Test Item Value Reference Range Interpretation Comments POC-GLUCOSE METER 136 mg/dL 70-110 H TESTED AT [facility] 6720 (BEAKER) (test code = [place] 1531) [address] BASIC METABOLIC [id number] 19:09:00 Test Item Value Reference Range Interpretation [...] S NOT APPLICABLE FOR DIALYSIS PATIEN TS. [id number] 19:08:00 Test Item Value Reference Range Interpretation [...] 2.5-3.5 for patients wiht mechanical heart valves.POCT-GLUCOSE [id number] 18:32:00 Test Item Value Reference Range Interpretation Comments POC-GLUCOSE METER 134 mg/dL 70-110 H TESTED AT [facility] 6720 (BEAKER) (test code = [place] 8050) [address] URINALYSIS W/ [id number] 14:36:00 Test Item Value Reference Range Interpretation [...] 1582) SOURCE(BEAKER) (test code = 2795) BLOOD [id number] 12:01:00 Test Item Value Reference Range Interpretation Comments CULTURE (BEAKER) (test No growth in 5 days code = 1095) BLOOD [id number] 12:01:00 Test Item Value Reference Range Interpretation Comments CULTURE (BEAKER) (test No growth in 5 days code = 1095) POCT-GLUCOSE [id number] 11:46:00 Test Item Value Reference Range Interpretation Comments POC-GLUCOSE METER 147 mg/dL 70-110 H TESTED AT [place] [address] ([facility]) (test code = [place] 1538) [address] VANCOMYCIN LEVEL, [id number] 09:14:00 Test Item Value Reference Range Interpretation Comments VANCOMYCIN RANDOM (BEAKER) (test 19.5 ug/mL code = 523) Reference Range: No NormalsPOCT-GLUCOSE [id number] 08:33:00 Test Item Value Reference Range Interpretation Comments POC-GLUCOSE METER 115 mg/dL 70-110 H TESTED AT [place] [address] ([facility]) (test code = [place] 1538) [address] RAD, CHEST, 1 VIEW, NON [id number] 06:55:00Reason for exam:->respiratory failureShould this be performed at the bedside?->YesFINAL REPORT Chest one view. Clinical history: respiratory failure Comparison: Chest radiograph 03/20/2019. Technique: A single frontal view of the chest was obtained. Findings:Support lines and tubes are in satisfactory positions.The cardiomediastinal contours are stable. There are small bibasilar airspace opacities which may represent pneumonia. There is no pleural effusion or pn eumothorax. Signed: Nhaed Landis MDReport Verified Date/Time: 03/21/2019 06:55:56 CBC W/PLT COUNT & AUTO [id number] 06:48:00 Test Item Value Reference Range Interpretation [...] Landis MDReport Verified Date/Time: 03/21/2019 06:19:55 PH, [id number] 05:05:00 Test Item Value Reference Range Interpretation Comments PH UA (BEAKER) (test code = 467) 7.5 5.0-8.0 BASIC METABOLIC [id number] 05:01:00 Test Item Value Reference Range Interpretation [...] Range Interpretation Comments CREATINE KINASE TOTAL (BEAKER) 29693 U/L 29-200 H (test code = 380) [id number] 04:55:00 Test Item Value Reference Range Interpretation Comments PHOSPHORUS (BEAKER) (test code = 5.6 mg/dL 2.3-4.7 H 604) [id number] 04:55:00 Test Item Value Reference Range Interpretation Comments MAGNESIUM (BEAKER) (test code = 2.1 mg/dL 1.6-2.6 627) CBC W/PLT COUNT & AUTO [id number] 04:28:00 Test Item Value Reference Range Interpretation [...] (BEAKER) (test code = 2801) BLOOD GAS, [id number] 04:20:00 Test Item Value Reference Range Interpretation [...] (test code = 1819) 100.0 % CALCIUM, [id number] 04:19:00 Test Item Value Reference Range Interpretation Comments CALCIUM IONIZED (BEAKER) (test 1.02 mmol/L 1.12-1.27 L code = 698) PH, BLOOD (BEAKER) (test code = 7.44 1810) TROPONIN [id number] 01:31:00 Test Item Value Reference Range Interpretation [...] acute neurological disease, and persistent tachyarrhythmia.HEMOGLOBIN AND [id number] 01:26:00 Test Item Value Reference Range Interpretation Comments HEMOGLOBIN (BEAKER) (test code = 9.1 GM/DL 13.7-17.5 L 410) HEMATOCRIT (BEAKER) (test code = 26.3 % 40.1-51.0 L 411) POCT-GLUCOSE [id number] 00:23:00 Test Item Value Reference Range Interpretation Comments POC-GLUCOSE METER 119 mg/dL 70-110 H TESTED AT [facility] 6720 (BEAKER) (test code = [place] Jose [facility] 1538) [address] [id number] 00:09:00 Test Item Value Reference Range Interpretation Comments PHOSPHORUS (BEAKER) (test code = 9.1 mg/dL 2.3-4.7 HH 604) BASIC METABOLIC [id number] 00:08:00 Test Item Value Reference Range Interpretation [...] S NOT APPLICABLE FOR DIALYSIS PATIEN TS. [id number] 23:53:00 Test Item Value Reference Range Interpretation [...] is 2.5-3.5 for patients wiht mechanical heart valves.[id number] 23:46:00 Test Item Value Reference Range Interpretation Comments MAGNESIUM (BEAKER) (test code = 2.6 mg/dL 1.6-2.6 627) LACTIC ACID, [id number] 23:21:00 Test Item Value Reference Range Interpretation Comments LACTATE BLOOD ARTERIAL (2) 0.8 mmol/L 0.5-2.2 (BEAKER) (test code = 2874) BLOOD GAS, [id number] 19:37:00 Test Item Value Reference Range Interpretation [...] (test code = 1819) 55.0 % GLUCOSE-STAT [id number] 19:37:00 Test Item Value Reference Range Interpretation Comments GLUCOSE RANDOM (BEAKER) (test code 125 mg/dL 70-110 H = 652) HGB/HCT (H&H) - STAT [id number] 19:37:00 Test Item Value Reference Range Interpretation Comments HEMOGLOBIN (BEAKER) (test code = 8.2 g/dL 13.0-16.8 L 410) HEMATOCRIT (BEAKER) (test code = 24.0 % 40.0-50.0 L 411) SODIUM NA-STAT [id number] 19:36:00 Test Item Value Reference Range Interpretation Comments SODIUM (BEAKER) (test code = 381) 138 meq/L 135-148 POTASSIUM-STAT [id number] 19:36:00 Test Item Value Reference Range Interpretation Comments POTASSIUM (BEAKER) (test code = 4.3 meq/L 3.6-5.5 379) BLOOD GAS, [id number] 18:51:00 Test Item Value Reference Range Interpretation [...] (test code = 1819) 55.0 % GLUCOSE-STAT [id number] 18:51:00 Test Item Value Reference Range Interpretation Comments GLUCOSE RANDOM (BEAKER) (test code 124 mg/dL 70-110 H = 652) HGB/HCT (H&H) - STAT [id number] 18:51:00 Test Item Value Reference Range Interpretation Comments HEMOGLOBIN (BEAKER) (test code = 9.8 g/dL 13.0-16.8 L 410) HEMATOCRIT (BEAKER) (test code = 29.0 % 40.0-50.0 L 411) SODIUM NA-STAT [id number] 18:35:00 Test Item Value Reference Range Interpretation Comments SODIUM (BEAKER) (test code = 381) 138 meq/L 135-148 POTASSIUM-STAT [id number] 18:35:00 Test Item Value Reference Range Interpretation Comments POTASSIUM (BEAKER) (test code = 4.2 meq/L 3.6-5.5 379) SODIUM NA-STAT [id number] 17:38:00 Test Item Value Reference Range Interpretation Comments SODIUM (BEAKER) (test code = 381) 135 meq/L 135-148 POTASSIUM-STAT [id number] 17:38:00 Test Item Value Reference Range Interpretation Comments POTASSIUM (BEAKER) (test code = 3.8 meq/L 3.6-5.5 379) BLOOD GAS, [id number] 17:38:00 Test Item Value Reference Range Interpretation [...] (test code = 1819) 60.0 % GLUCOSE-STAT [id number] 17:38:00 Test Item Value Reference Range Interpretation Comments GLUCOSE RANDOM (BEAKER) (test code 124 mg/dL 70-110 H = 652) HGB/HCT (H&H) - STAT [id number] 17:38:00 Test Item Value Reference Range Interpretation Comments HEMOGLOBIN (BEAKER) (test code = 9.0 g/dL 13.0-16.8 L 410) HEMATOCRIT (BEAKER) (test code = 26.0 % 40.0-50.0 L 411) TROPONIN [id number] 15:32:00 Test Item Value Reference Range Interpretation [...] acute neurological disease, and persistent tachyarrhythmia.BASIC METABOLIC [id number] 15:25:00 Test Item Value Reference Range Interpretation [...] DIALYSIS PATIEN TS. SPUTUM CULTURE + GRAM [id number] 14:04:00 Test Item Value Reference Range Interpretation Comments CULTURE (BEAKER) (test See comment code = 1095) GRAM STAIN RESULT 3+ WBCs (BEAKER) (test code = 1123) GRAM STAIN RESULT 5-10 epithelial cells (BEAKER) (test code = 016358) GRAM STAIN RESULT <1+ gram variable rods (BEAKER) (test code = 006835) 2+ Normal respiratory nathan [id number] 12:57:00 Test Item Value Reference Range Interpretation Comments PARTIAL THROMBOPLASTIN TIME 55.4 seconds 22.5-36.0 H (BEAKER) (test code = 760) POCT-GLUCOSE [id number] 11:38:00 Test Item Value Reference Range Interpretation Comments POC-GLUCOSE METER 151 mg/dL 70-110 H TESTED AT [facility] 6720 (BEAKER) (test code = [place] 1538) [address] PH, [id number] 11:38:00 Test Item Value Reference Range Interpretation Comments PH UA (BEAKER) (test code = 467) 7.5 5.0-8.0 RAD, CHEST, 1 VIEW, NON [id number] 10:15:00Reason for exam:->respiratory failureShould this be performed at the bedside?->YesFINAL REPORT AP chest HISTORY: Respiratory failure. COMPARISON: 03/19/2019. IMPRE SSION: Supportive lines unchanged. Stable cardiac silhouette. Grossly clear lungs. Signed: Uri Govea MDReport Verified Date/Time: 03/20/2019 10:15:56 Reading Location: [facility] Radiology Reading Room CREATINE KINASE (CK) 2019-03-20 06:29:00 Test Item Value Reference Range Interpretation Comments CREATINE KINASE TOTAL (BEAKER) 97972 U/L 29-200 H (test code = 380) [id number] 05:29:00 Test Item Value Reference Range Interpretation Comments PARTIAL THROMBOPLASTIN TIME 53.3 seconds 22.5-36.0 H (BEAKER) (test code = 760) BASIC METABOLIC [id number] 05:29:00 Test Item Value Reference Range Interpretation [...] S NOT APPLICABLE FOR DIALYSIS PATIEN TS. [id number] 05:28:00 Test Item Value Reference Range Interpretation Comments PHOSPHORUS (BEAKER) (test code = 7.3 mg/dL 2.3-4.7 H 604) [id number] 05:28:00 Test Item Value Reference Range Interpretation Comments MAGNESIUM (BEAKER) (test code = 2.6 mg/dL 1.6-2.6 627) CBC W/PLT COUNT & AUTO [id number] 05:26:00 Test Item Value Reference Range Interpretation [...] PERCENT (BEAKER) (test code = 2801) CALCIUM, [id number] 04:55:00 Test Item Value Reference Range Interpretation Comments CALCIUM IONIZED (BEAKER) (test 0.99 mmol/L 1.12-1.27 L code = 698) PH, BLOOD (BEAKER) (test code = 7.45 1810) BLOOD GAS, [id number] 04:55:00 Test Item Value Reference Range Interpretation [...] (test code = 1819) 40.0 % POCT-GLUCOSE [id number] 00:55:00 Test Item Value Reference Range Interpretation Comments POC-GLUCOSE METER 141 mg/dL 70-110 H TESTED AT [facility] 6720 (BEAKER) (test code = [place] 1538) [address] HEMOGLOBIN AND [id number] 23:07:00 Test Item Value Reference Range Interpretation Comments HEMOGLOBIN (BEAKER) (test code = 7.7 GM/DL 13.7-17.5 L 410) HEMATOCRIT (BEAKER) (test code = 21.7 % 40.1-51.0 L 411) BASIC METABOLIC [id number] 18:46:00 Test Item Value Reference Range Interpretation Comments SODIUM (BEAKER) 139 meq/L 136-145 (test code = 381) POTASSIUM (BEAKER) 3.8 meq/L 3.5-5.1 (test code = 379) CHLORIDE (BEAKER) 101 meq/L 98-107 (test code = 382) CO2 (BEAKER) (test 27 meq/L 22-29 code = 355) BLOOD UREA NITROGEN 51 mg/dL 7-21 H (BEAKER) (test code = 354) CREATININE (BEAKER) 5.28 mg/dL 0.57-1.25 H (test code = [...] NOT APPLICABLE FOR DIALYSIS PATIEN TS. POCT-GLUCOSE [id number] 18:14:00 Test Item Value Reference Range Interpretation Comments POC-GLUCOSE METER 153 mg/dL 70-110 H TESTED AT [facility] 6720 (BEAKER) (test code = [facility] Re[place] 1538) [address] POCT-GLUCOSE [id number] 12:26:00 Test Item Value Reference Range Interpretation Comments POC-GLUCOSE METER 133 mg/dL 70-110 H TESTED AT [facility] 6720 (BEAKER) (test code = [facility] [place] 1538) [address] HEMOGLOBIN AND [id number] 12:24:00 Test Item Value Reference Range Interpretation Comments HEMOGLOBIN (BEAKER) (test code = 7.6 GM/DL 13.7-17.5 L 410) HEMATOCRIT (BEAKER) (test code = 21.4 % 40.1-51.0 L 411) POCT-GLUCOSE [id number] 11:57:00 Test Item Value Reference Range Interpretation Comments POC-GLUCOSE METER 141 mg/dL 70-110 H TESTED AT [facility] 67[facility] (BEAKER) (test code = [place] 1538) [address] RAD, CHEST, 1 VIEW, NON [id number] 09:39:00Reason for exam:->respiratory failureShould this be performed [...] MDReport Verified Date/Time: 03/19/2019 09:39:26 Reading Location: [place] [address] CT Body Reading Room OMYCIN LEVEL, [id number] 08:58:00 Test Item Value Reference Range Interpretation Comments VANCOMYCIN TROUGH (BEAKER) (test 14.4 ug/mL 10.0-20.0 code = 522) CREATINE KINASE (CK)2019-03-19 08:51:00 Test Item Value Reference Range Interpretation Comments CREATINE KINASE TOTAL (BEAKER) 42457 U/L 29-200 H (test code = 380) BLOOD GAS, [id number] 08:31:00 Test Item Value Reference Range Interpretation [...] (test code = 1819) 40.0 % POCT-GLUCOSE [id number] 05:55:00 Test Item Value Reference Range Interpretation Comments POC-GLUCOSE METER 134 mg/dL 70-110 H TESTED AT [facility] 67[facility] (BEAKER) (test code = [place] 1538) [address] BASIC METABOLIC [id number] 05:23:00 Test Item Value Reference Range Interpretation [...] NOT APPLICABLE FOR DIALYSIS PATIEN TS. PH, [id number] 05:16:00 Test Item Value Reference Range Interpretation Comments PH UA (BEAKER) (test code = 467) 7.5 5.0-8.0 [id number] 05:03:00 Test Item Value Reference Range Interpretation Comments PHOSPHORUS (BEAKER) (test code = 5.8 mg/dL 2.3-4.7 H 604) [id number] 05:03:00 Test Item Value Reference Range Interpretation Comments MAGNESIUM (BEAKER) (test code = 2.3 mg/dL 1.6-2.6 627) CALCIUM, [id number] 04:36:00 Test Item Value Reference Range Interpretation Comments CALCIUM IONIZED (BEAKER) (test 0.97 mmol/L 1.12-1.27 L code = 698) PH, BLOOD (BEAKER) (test code = 7.48 1810) [id number] 04:30:00 Test Item Value Reference Range Interpretation Comments PARTIAL THROMBOPLASTIN TIME 69.5 seconds 22.5-36.0 H (BEAKER) (test code = 760) CBC W/PLT COUNT & AUTO [id number] 04:27:00 Test Item Value Reference Range Interpretation [...] IMMATURE GRANULOCYTES-RELATIVE 2 % 0-1 H PERCENT (AKER) (test code = 2801) POCT-GLUCOSE [id number] 00:07:00 Test Item Value Reference Range Interpretation Comments POC-GLUCOSE METER 130 mg/dL 70-110 H TESTED AT [place] [address] ([facility]) (test code = [facility] 1538) [address] POCT-GLUCOSE [id number] 18:51:00 Test Item Value Reference Range Interpretation Comments POC-GLUCOSE METER 124 mg/dL 70-110 H TESTED AT [place] [address] ([facility]) (test code = [facility] 1538) [address] HEPATITIS B SURFACE [id number] 13:52:00 Test Item Value Reference Range Interpretation Comments HEPATITIS B SURFACE ANTIGEN (2) Nonreactive Nonreactive ([facility]) (test code = 2585) HEPATIC FUNCTION [id number] 13:30:00 Test Item Value Reference Range Interpretation [...] 118 U/L 6-55 H 347) HEMOGLOBIN AND [id number] 13:14:00 Test Item Value Reference Range Interpretation Comments HEMOGLOBIN (BEAKER) (test code = 8.2 GM/DL 13.7-17.5 L 410) HEMATOCRIT (BEAKER) (test code = 22.5 % 40.1-51.0 L 411) Please draw \\T\\ send HH as soon as PRBC are done transfusing - no post- transfusion wait timeRAD, CHEST, 1 VIEW, NON [id number] 12:39:00Reason for exam:->HD line placementShould this be [...] Arredondo Verified Date/Time: 03/18/2019 12:39:44 Reading Location: [address] Transitional Reading Room RAD, ABDOMEN/KUB, 1 [...] Arredondo Verified Date/Time: 03/18/2019 12:34:39 Reading Location: [facility] B1 C013T Transitional Reading Room POCT-GLUCOSE [id number] 12:17:00 Test Item Value Reference Range Interpretation Comments POC-GLUCOSE METER 137 mg/dL 70-110 H TESTED AT [facility] 6720 (BEAKER) (test code = [place] 1538) [address] POCT-GLUCOSE [id number] 09:22:00 Test Item Value Reference Range Interpretation Comments POC-GLUCOSE METER 117 mg/dL 70-110 H TESTED AT [facility] 67[address] (BEAKER) (test code = [place] 1538) [address] VANCOMYCIN LEVEL, [id number] 09:05:00 Test Item Value Reference Range Interpretation Comments VANCOMYCIN TROUGH (BEAKER) (test 12.9 ug/mL 10.0-20.0 code = 522) Check level before giving dose on 03/18 hold vancomycin if trough level >20 URINALYSIS W/ [id number] 08:05:00 Test Item Value Reference Range Interpretation [...] = Rare 1574) SOURCE(BEAKER) (test code = 2795) POCT-GLUCOSE [id number] 08:01:00 Test Item Value Reference Range Interpretation Comments POC-GLUCOSE METER 134 mg/dL 70-110 H TESTED AT [facility] [address] (BEAKER) (test code = [place] 1538) [address] CBC W/PLT COUNT & AUTO [id number] 07:55:00 Test Item Value Reference Range Interpretation [...] 313) LARGE PLT(BEAKER) (test code = Present 2156) POLYCHROMATOPHILLIC RBCS(BEAKER) 1+ few (test code = [...] Arzola MDReport Verified Date/Time:03/18/2019 07:15:32 Reading Location: [facility] B1 C013Y CT Body Reading Room CREATINE KINASE (CK)2019-03-18 06:57:00 Test Item Value Reference Range Interpretation Comments CREATINE KINASE TOTAL (BEAKER) (test > U/L 29-200 H code = 380) PH, [id number] 06:39:00 Test Item Value Reference Range Interpretation Comments PH UA (BEAKER) (test code = 467) 6.0 5.0-8.0 HEMOGLOBIN AND [id number] 06:10:00 Test Item Value Reference Range Interpretation Comments HEMOGLOBIN (BEAKER) (test code = 6.4 GM/DL 13.7-17.5 L 410) HEMATOCRIT (BEAKER) (test code = 17.8 % 40.1-51.0 L 411) BASIC METABOLIC [id number] 04:49:00 Test Item Value Reference Range Interpretation [...] NOT APPLICABLE FOR DIALYSIS PATIEN TS. URIC [id number] 04:47:00 Test Item Value Reference Range Interpretation Comments URIC ACID (BEAKER) (test code = 9.7 mg/dL 2.6-7.2 H 773) [id number] 04:47:00 Test Item Value Reference Range Interpretation Comments MAGNESIUM (BEAKER) (test code = 2.4 mg/dL 1.6-2.6 627) [id number] 04:47:00 Test Item Value Reference Range Interpretation Comments PHOSPHORUS (BEAKER) (test code = 8.3 mg/dL 2.3-4.7 H 604) [id number] 04:38:00 Test Item Value Reference Range Interpretation Comments PARTIAL THROMBOPLASTIN TIME 76.1 seconds 22.5-36.0 H (BEAKER) (test code = 760) CALCIUM, [id number] 04:35:00 Test Item Value Reference Range Interpretation Comments CALCIUM IONIZED (BEAKER) (test 0.91 mmol/L 1.12-1.27 L code = 698) PH, BLOOD (BEAKER) (test code = 7.46 1810) BLOOD GAS, [id number] 02:26:00 Test Item Value Reference Range Interpretation [...] code = 1819) 60.0 % BLOOD GAS, [id number] 23:31:00 Test Item Value Reference Range Interpretation [...] code = 1819) 75.0 % BASIC METABOLIC [id number] 23:25:00 Test Item Value Reference Range Interpretation [...] NOT APPLICABLE FOR DIALYSIS PATIEN TS. POCT-GLUCOSE [id number] 23:20:00 Test Item Value Reference Range Interpretation Comments POC-GLUCOSE METER 130 mg/dL 70-110 H TESTED AT [facility] 67[address] (BEAKER) (test code = [place] 1538) [address] [id number] 22:52:00 Test Item Value Reference Range Interpretation Comments PHOSPHORUS (BEAKER) (test code = 7.6 mg/dL 2.3-4.7 H 604) [id number] 22:52:00 Test Item Value Reference Range Interpretation Comments MAGNESIUM (BEAKER) (test code = 2.7 mg/dL 1.6-2.6 H 627) RAD, CHEST, 1 VIEW, NON [id number] 22:50:00Reason for exam:->tube placementShould this be performed at the bedside?->YesFINAL REPORT EXAMINATION: AP PORTABLE CHEST RADIOGRAPH CLINICAL INDICATION: Feed ing tube placement IMPRESSION: Compared with 03/17/2019, 1819 [...] right jugular central line projects over the superior vena cava. Chest CT could be performed for further evaluation if warranted. Signed: Sourav Hudson Verified Date/Time: 03/17/2019 22:50:01 Reading Location: [address] Reading Room RAD, ABDOMEN/KUB, 1 VIEW [id number] 22:39:00Reason for exam:->corpak placementShould this be performed at the bedside?->YesFINAL REPORT Abdomen, 03/17/2019 There is been no change since the prior study done approximately one hour ago. Feeding tube is again seen with its tip in the fundus the stomach. Moderate amount of gas remains throughout the gastrointestinal tract. No definite abnormal calcifications are seen. Signed: Jeannette Thomson Verified Date/Time: 03/17/2019 22:39:11 Reading Location:[facility] C013W [facility] Reading Room BLOOD GAS, [id number] 22:33:00 Test Item Value Reference Range Interpretation [...] 1819) 75.0 % RAD, ABDOMEN/KUB, 1 VIEW [id number] 20:42:00Reason for exam:->corpak replacedShould this be performed at the bedside?->YesFINAL REPORT EXAMINATION: SUPINE ABDOMEN CLINICAL INDICATION: FEEDING TUBE PLACEMENT IMPRESSION: Compared with 03/17/2019, 1822 hours. Tip of the feeding tube projects over left upper abdomen in the region of the stomach. Gaseous distention of the stomach and bowel is again noted, nonspecific but possible ileus. Obstructive process cannot be excluded. Signed: Sourav Hudson Verified Date/Time: 03/17/2019 20:42:57 Reading Location: [address] Reading Room [id number] 20:17:00 Test Item Value Reference Range Interpretation Comments PARTIAL THROMBOPLASTIN TIME 82.2 seconds 22.5-36.0 H (BEAKER) (test code = 760) RAD, ABDOMEN/KUB, 1 VIEW [id number] 19:37:00Reason for exam:->corpak placementShould this be performed at the bedside?->YesFINAL REPORT EXAMINATION: SUPINE ABDOMEN CLINICAL INDICATION: FEEDING TUBE PLACE MENT IMPRESSION: Tip of the feeding tube projects over left upper abdomen in the region of the stomach. There is moderate gaseous distention of the small bowel and colon, nonspecific but possible ileus. Obstructive process cannot be excluded. Signed: Sourav Hudson Verified Date/Time: 03/17/2019 19:37:19 Reading Location: [address] Reading Room RAD, CHEST, 1 VIEW, NON [id number] 18:58:00Reason for exam:->suspicion of aspirationShould this be [...] MDReport Verified Date/Time: 03/17/2019 18:58:58 Reading Location: [address] Consult [facility] [id number] 18:03:00 Test Item Value Reference Range Interpretation Comments SODIUM (BEAKER) 135 meq/L 136-145 L (test code = 381) POTASSIUM (BEAKER) 4.4 meq/L 3.5-5.1 Specimen slightly (test code = 379) hemolyzed CHLORIDE (BEAKER) 98 meq/L 98-107 (test code = 382) CO2 (BEAKER) (test 25 meq/L 22-29 code = 355) BLOOD UREA NITROGEN 50 [...] NOT APPLICABLE FOR DIALYSIS PATIEN TS. POCT-GLUCOSE [id number] 17:18:00 Test Item Value Reference Range Interpretation Comments POC-GLUCOSE METER 143 mg/dL 70-110 H TESTED AT [facility] 67[address] (BEAKER) (test code = [place] 1538) [address] [id number] 13:29:00 Test Item Value Reference Range Interpretation Comments PARTIAL THROMBOPLASTIN TIME 71.8 seconds 22.5-36.0 H (BEAKER) (test code = 760) POCT-GLUCOSE [id number] 12:41:00 Test Item Value Reference Range Interpretation Comments POC-GLUCOSE METER 149 mg/dL 70-110 H TESTED AT [facility] 6720 (BEAKER) (test code = [place] 1538) [address] BASIC METABOLIC [id number] 10:26:00 Test Item Value Reference Range Interpretation Comments SODIUM (BEAKER) 132 meq/L 136-145 L (test code = 381) POTASSIUM (BEAKER) 4.1 meq/L 3.5-5.1 Specimen slightly (test code = 379) hemolyzed CHLORIDE (BEAKER) 96 meq/L 98-107 L (test code = 382) CO2 (BEAKER) (test 23 meq/L 22-29 code = 355) BLOOD UREA NITROGEN 45 [...] PATIEN TS. CBC W/PLT COUNT & AUTO [id number] 10:15:00 Test Item Value Reference Range Interpretation [...] 3438) Received comment: User comments: Slide comments:POCT-GLUCOSE [id number] 09:44:00 Test Item Value Reference Range Interpretation Comments POC-GLUCOSE METER 139 mg/dL 70-110 H TESTED AT [facility] 67[address] (BEAKER) (test code = [place] 1538) [address] RAD, CHEST, 1 VIEW, NON [id number] 09:00:00Reason for exam:- >hypoxiaShould this be performed [...] MDReport Verified Date/Time: 03/17/2019 09:00:52 Reading Location: [facility] Radiology Reading Room URINALYSIS W/ [id number] 07:05:00 Test Item Value Reference Range Interpretation [...] 29-200 H code = 380) BASIC METABOLIC [id number] 06:38:00 Test Item Value Reference Range Interpretation [...] S NOT APPLICABLE FOR DIALYSIS PATIEN TS. [id number] 05:36:00 Test Item Value Reference Range Interpretation Comments PARTIAL THROMBOPLASTIN TIME 67.0 seconds 22.5-36.0 H (BEAKER) (test code = 760) CALCIUM, [id number] 04:55:00 Test Item Value Reference Range Interpretation Comments CALCIUM IONIZED (BEAKER) (test 1.00 mmol/L 1.12-1.27 L code = 698) PH, BLOOD (BEAKER) (test code = 7.47 1810) [id number] 04:43:00 Test Item Value Reference Range Interpretation Comments MAGNESIUM (BEAKER) 2.3 mg/dL 1.6-2.6 Specimen slightly (test code = 627) hemolyzed [id number] 04:43:00 Test Item Value Reference Range Interpretation Comments PHOSPHORUS (BEAKER) 7.1 mg/dL 2.3-4.7 H Specimen slightly (test code = 604) hemolyzed URIC [id number] 04:43:00 Test Item Value Reference Range Interpretation Comments URIC ACID (BEAKER) 9.0 mg/dL 2.6-7.2 H Specimen slightly (test code = 773) hemolyzed PH, [id number] 04:38:00 Test Item Value Reference Range Interpretation Comments PH UA (BEAKER) (test code = 467) 7.5 5.0-8.0 LACTIC ACID, [id number] 04:29:00 Test Item Value Reference Range Interpretation Comments LACTATE BLOOD 0.8 mmol/L 0.5-2.2 Specimen sligh tly ARTERIAL (2) (BEAKER) hemoly zed (test code = 2874) BLOOD GAS, [id number] 04:22:00 Test Item Value Reference Range Interpretation [...] code = 1819) 60.0 % BASIC METABOLIC [id number] 00:38:00 Test Item Value Reference Range Interpretation [...] S NOT APPLICABLE FOR DIALYSIS PATIEN TS. [id number] 23:33:00 Test Item Value Reference Range Interpretation Comments PARTIAL THROMBOPLASTIN TIME 76.4 seconds 22.5-36.0 H (BEAKER) (test code = 760) POCT-GLUCOSE [id number] 22:04:00 Test Item Value Reference Range Interpretation Comments POC-GLUCOSE METER 175 mg/dL 70-110 H TESTED AT [facility] (test code = [place] 1538) [address] POCT-GLUCOSE [id number] 17:56:00 Test Item Value Reference Range Interpretation Comments POC-GLUCOSE METER 118 mg/dL 70-110 H TESTED AT [facility] 6720 (BEAKER) (test code = [place] 1538) [address] [id number] 15:00:00 Test Item Value Reference Range Interpretation Comments PARTIAL THROMBOPLASTIN TIME 68.9 seconds 22.5-36.0 H (BEAKER) (test code = 760) BASIC METABOLIC [id number] 13:21:00 Test Item Value Reference Range Interpretation [...] S NOT APPLICABLE FOR DIALYSIS PATIEN TS. [id number] 13:19:00 Test Item Value Reference Range Interpretation Comments PHOSPHORUS (BEAKER) (test code = 6.4 mg/dL 2.3-4.7 H 604) [id number] 13:19:00 Test Item Value Reference Range Interpretation Comments MAGNESIUM (BEAKER) (test code = 2.3 mg/dL 1.6-2.6 627) CALCIUM, [id number] 12:39:00 Test Item Value Reference Range Interpretation Comments CALCIUM IONIZED (BEAKER) (test 1.03 mmol/L 1.12-1.27 L code = 698) PH, BLOOD (BEAKER) (test code = 7.47 1810) POCT-GLUCOSE [id number] 12:15:00 Test Item Value Reference Range Interpretation Comments POC-GLUCOSE METER 165 mg/dL 70-110 H TESTED AT [facility] 6720 (BEAKER) (test code = [place] 1538) [address] CREATINE KINASE (CK)2019-03-16 09:41:00 Test Item Value Reference Range Interpretation Comments CREATINE KINASE TOTAL (BEAKER) [address] U/L 29-200 H (test code = 380) PH, [id number] 09:00:00 Test Item Value Reference Range Interpretation Comments PH UA (BEAKER) (test code = 467) 7.5 5.0-8.0 [id number] 08:54:00 Test Item Value Reference Range Interpretation Comments PARTIAL THROMBOPLASTIN TIME 78.6 seconds 22.5-36.0 H (BEAKER) (test code = 760) URIC [id number] 08:53:00 Test Item Value Reference Range Interpretation Comments URIC ACID (BEAKER) (test code = 8.3 mg/dL 2.6-7.2 H 773) CALCIUM, [id number] 08:33:00 Test Item Value Reference Range Interpretation Comments CALCIUM IONIZED (BEAKER) (test 1.03 mmol/L 1.12-1.27 L code = 698) PH, BLOOD (BEAKER) (test code = 7.48 1810) RAD, CHEST, 1 VIEW, NON [id number] 07:23:00Reason for exam:- >hypoxiaShould this be performed [...] versus asymmetric pulmonary edema. Signed: Ant Kumar MDReport Verified Date/Time: 03/16/2019 07:23:12 Reading Location: [facility] Radiology Reading Room [id number] 03:37:00 Test Item Value Reference Range Interpretation Comments PARTIAL THROMBOPLASTIN TIME 59.5 seconds 22.5-36.0 H (BEAKER) (test code = 760) PROTHROMBIN [id number] 03:36:00 Test Item Value Reference Range Interpretation [...] is 2.5-3.5 for patients wiht mechanical heart valves.[id number] 03:22:00 Test Item Value Reference Range Interpretation Comments PHOSPHORUS (BEAKER) (test code = 5.5 mg/dL 2.3-4.7 H 604) [id number] 03:22:00 Test Item Value Reference Range Interpretation Comments MAGNESIUM (BEAKER) (test code = 2.3 mg/dL 1.6-2.6 627) BASIC METABOLIC [id number] 03:22:00 Test Item Value Reference Range Interpretation Comments SODIUM (BEAKER) 131 meq/L 136-145 L (test code = 381) POTASSIUM (BEAKER) 4.2 meq/L 3.5-5.1 (test code = 379) CHLORIDE (BEAKER) 99 meq/L 98-107 (test code = 382) CO2 (BEAKER) (test 23 meq/L - code = 355) BLOOD UREA NITROGEN 30 [...] (BEAKER) (test code = 413) BLOOD GAS, [id number] 03:04:00 Test Item Value Reference Range Interpretation [...] (BEAKER) (test code = 1819) 80.0 % [id number] 00:37:00 Test Item Value Reference Range Interpretation [...] for patients wiht mechanical heart valves.BASIC METABOLIC [id number] 00:28:00 Test Item Value Reference Range Interpretation [...] S NOT APPLICABLE FOR DIALYSIS PATIEN TS. [id number] 00:19:00 Test Item Value Reference Range Interpretation Comments PHOSPHORUS (BEAKER) (test code = 5.4 mg/dL 2.3-4.7 H 604) [id number] 00:19:00 Test Item Value Reference Range Interpretation Comments MAGNESIUM (BEAKER) (test code = 2.2 mg/dL 1.6-2.6 627) CBC W/PLT COUNT & AUTO [id number] 23:47:00 Test Item Value Reference Range Interpretation [...] PERCENT (BEAKER) (test code = 2801) CALCIUM, [id number] 23:41:00 Test Item Value Reference Range Interpretation Comments CALCIUM IONIZED (BEAKER) (test 1.03 mmol/L 1.12-1.27 L code = 698) PH, BLOOD (BEAKER) (test code = 7.51 1810) POCT-GLUCOSE [id number] 23:37:00 Test Item Value Reference Range Interpretation Comments POC-GLUCOSE METER 144 mg/dL 70-110 H TESTED AT [facility] ([facility]) (test code = [place] 1538) [address] RAD, CHEST, 1 VIEW, NON [id number] 20:27:00Reason for exam:- >hypoxiaShould this be performed [...] MDReport Verified Date/Time: 03/15/2019 20:27:35 Reading Location: [facility] C013W Consult Reading Room APTT 2019-03-15 20:10:00 Test Item Value Reference Range Interpretation Comments PARTIAL THROMBOPLASTIN TIME 42.8 seconds 22.5-36.0 H (BEAKER) (test code = 760) [id number] 20:03:00 Test Item Value Reference Range Interpretation Comments PHOSPHORUS (BEAKER) (test code = 5.3 mg/dL 2.3-4.7 H 604) BLOOD GAS, [id number] 19:54:00 Test Item Value Reference Range Interpretation [...] (test code = 1819) 100.0 % CALCIUM, [id number] 19:54:00 Test Item Value Reference Range Interpretation Comments CALCIUM IONIZED (BEAKER) (test 0.96 mmol/L 1.12-1.27 L code = 698) PH, BLOOD (BEAKER) (test code = 7.50 1810) PH, [id number] 18:44:00 Test Item Value Reference Range Interpretation Comments PH UA (BEAKER) (test code = 467) 7.5 5.0-8.0 POCT-GLUCOSE [id number] 18:03:00 Test Item Value Reference Range Interpretation Comments POC-GLUCOSE METER 131 mg/dL 70-110 H TESTED AT [facility] 6720 (BEAKER) (test code = [place] 1538) [address] CREATINE KINASE (CK)2019-03-15 17:56:00 Test Item Value Reference Range Interpretation Comments CREATINE KINASE TOTAL (BEAKER) 537[address] U/L 29-200 H (test code = 380) BASIC METABOLIC [id number] 17:27:00 Test Item Value Reference Range Interpretation [...] APPLICABLE FOR DIALYSIS PATIEN TS. LACTIC ACID, [id number] 17:20:00 Test Item Value Reference Range Interpretation Comments LACTATE BLOOD ARTERIAL (2) 1.4 mmol/L 0.5-2.2 (BEAKER) (test code = 2874) BLOOD GAS, [id number] 17:05:00 Test Item Value Reference Range Interpretation [...] 1819) 40.0 % URINALYSIS WITH MICROSCOPIC IF [id number] 11:28:00 Test Item Value Reference Range Interpretation [...] 463) SOURCE(BEAKER) (test code = 2795) URINALYSIS [id number] 11:28:00 Test Item Value Reference Range Interpretation Comments RBC UA (BEAKER) (test code = 519) 1 /HPF WBC UA (BEAKER) (test code = 520) 18 /HPF MUCUS (BEAKER) (test code = 1574) Rare GRANULAR CASTS (BEAKER) (test code 11 /LPF = 515) AMORPHOUS CRYSTALS (BEAKER) (test Occasional code = 1584) [id number] 11:14:00 Test Item Value Reference Range Interpretation Comments PARTIAL THROMBOPLASTIN TIME 105.0 seconds 22.5-36.0 H (BEAKER) (test code = 760) BASIC METABOLIC [id number] 11:12:00 Test Item Value Reference Range Interpretation [...] APPLICABLE FOR DIALYSIS PATIEN TS. BLOOD GAS, [id number] 10:53:00 Test Item Value Reference Range Interpretation [...] (test code = 1819) 36.0 % POCT-GLUCOSE [id number] 10:49:00 Test Item Value Reference Range Interpretation Comments POC-GLUCOSE METER 154 mg/dL 70-110 H TESTED AT [facility] 6720 (BEAKER) (test code = [place] 1538) [address] RAD, CHEST, 1 VIEW, NON [id number] 09:24:00Reason for exam:- >HypoxiaShould this be performed [...] right lower lobe pneumonia. Signed: Deshawn Arzola MDReport Verified Date/Time: 03/15/2019 09:24:32 Reading Location: [facility] Radiology Reading Room CREATINE KINASE (CK)2019-03-15 09:04:00 Test Item Value Reference Range Interpretation Comments CREATINE KINASE TOTAL (BEAKER) 94348 U/L 29-200 H (test code = 380) [id number] 07:52:00 Test Item Value Reference Range Interpretation Comments MAGNESIUM (BEAKER) (test code = 2.3 mg/dL 1.6-2.6 627) BASIC METABOLIC [id number] 07:00:00 Test Item Value Reference Range Interpretation [...] APPLICABLE FOR DIALYSIS PATIEN TS. BLOOD GAS, [id number] 06:32:00 Test Item Value Reference Range Interpretation [...] (test code = 1819) 28.0 % POCT-GLUCOSE [id number] 06:31:00 Test Item Value Reference Range Interpretation Comments POC-GLUCOSE METER 162 mg/dL 70-110 H TESTED AT [facility] 6720 (BEAKER) (test code = [place] 1538) [address] [id number] 04:29:00 Test Item Value Reference Range Interpretation [...] for patients wiht mechanical heart valves.HEPATIC FUNCTION [id number] 03:10:00 Test Item Value Reference Range Interpretation [...] 69 U/L 6-55 H 347) BASIC METABOLIC [id number] 03:10:00 Test Item Value Reference Range Interpretation [...] NOT APPLICABLE FOR DIALYSIS PATIEN TS. PROTHROMBIN [id number] 02:58:00 Test Item Value Reference Range Interpretation [...] 0-0 (BEAKER) (test code = 413) POCT-GLUCOSE [id number] 23:48:00 Test Item Value Reference Range Interpretation Comments POC-GLUCOSE METER 144 mg/dL 70-110 H TESTED AT [facility] 6720 (BEAKER) (test code = [place] 1538) [address] CREATINE KINASE (CK)2019-03-14 22:39:00 Test Item Value Reference Range Interpretation Comments CREATINE KINASE TOTAL (BEAKER) (test > U/L 29-200 H code = 380) [id number] 22:21:00 Test Item Value Reference Range Interpretation Comments MAGNESIUM (BEAKER) 2.0 mg/dL 1.6-2.6 Specimen slightly (test code = 627) hemolyzed BASIC METABOLIC [id number] 22:21:00 Test Item Value Reference Range Interpretation [...] APPLICABLE FOR DIALYSIS PATIEN TS. LACTIC ACID, [id number] 22:17:00 Test Item Value Reference Range Interpretation Comments LACTATE BLOOD 2.9 mmol/L 0.5-2.2 H Specimen sligh tly ARTERIAL (2) (BEAKER) hemoly zed (test code = 2874) [id number] 22:15:00 Test Item Value Reference Range Interpretation Comments PARTIAL THROMBOPLASTIN TIME 80.7 seconds 22.5-36.0 H (BEAKER) (test code = 760) HEMOGLOBIN AND [id number] 22:02:00 Test Item Value Reference Range Interpretation Comments HEMOGLOBIN (BEAKER) (test code = 10.2 GM/DL 13.7-17.5 L 410) HEMATOCRIT (BEAKER) (test code = 28.8 % 40.1-51.0 L 411) BLOOD GAS, [id number] 22:01:00 Test Item Value Reference Range Interpretation [...] 21.0 % RAD, CHEST, 1 VIEW, NON [id number] 18:24:00Reason for exam:->Central LineShould this be performed [...] MDReport Verified Date/Time: 03/14/2019 18:24:45 Reading Location: [facility] [id number] Consult Reading Room BLOOD GAS, [id number] 17:45:00 Test Item Value Reference Range Interpretation [...] code = 1819) 21.0 % HEPATIC FUNCTION [id number] 17:45:00 Test Item Value Reference Range Interpretation [...] > U/L 29-200 H code = 380) [id number] 16:33:00 Test Item Value Reference Range Interpretation Comments PHOSPHORUS (BEAKER) (test code = 5.6 mg/dL 2.3-4.7 H 604) [id number] 16:33:00 Test Item Value Reference Range Interpretation Comments MAGNESIUM (BEAKER) (test code = 2.3 mg/dL 1.6-2.6 627) BASIC METABOLIC [id number] 16:33:00 Test Item Value Reference Range Interpretation [...] NOT APPLICABLE FOR DIALYSIS PATIEN TS. PROTHROMBIN TIME/[id number] 16:21:00 Test Item Value Reference Range Interpretation [...] is 2.5-3.5 for patients wiht mechanical heart valves.[id number] 16:21:00 Test Item Value Reference Range Interpretation Comments FIBRINOGEN LEVEL (BEAKER) (test 310 mg/dl 225-434 code = 658) [id number] 16:21:00 Test Item Value Reference Range Interpretation Comments PARTIAL THROMBOPLASTIN TIME 32.2 seconds 22.5-36.0 (BEAKER) (test code = 760) LACTIC ACID, [id number] 16:17:00 Test Item Value Reference Range Interpretation Comments LACTATE BLOOD 3.5 mmol/L 0.5-2.2 H Specimen moder ately ARTERIAL (2) (BEAKER) hemoly zed (test code = 2874) CBC W/PLT COUNT & AUTO [id number] 16:03:00 Test Item Value Reference Range Interpretation [...] (BEAKER) (test code = 2801) BLOOD GAS, [id number] 15:58:00 Test Item Value Reference Range Interpretation [...] (test code = 1819) 28.0 % CALCIUM, [id number] 15:58:00 Test Item Value Reference Range Interpretation Comments CALCIUM IONIZED (BEAKER) (test 1.07 mmol/L 1.12-1.27 L code = 698) PH, BLOOD (BEAKER) (test code = 7.46 1810) PLATELET [id number] 15:55:00 Test Item Value Reference Range Interpretation Comments PLATELET COUNT (BEAKER) (test 167 K/CU MM 150-450 code = 756) HEMOGLOBIN [id number] 15:31:00 Test Item Value Reference Range Interpretation Comments HEMOGLOBIN A1C (BEAKER) (test code = 6.2 % 4.3-6.1 H 368) POSSIBLE HEMOGLOBIN S VARIANT NOTED IN HEMOGLOBIN A1C CHROMATOGRAPH. SUGGEST HEMOGLOBIN ELECTROPHORESIS IF CLINICALLY INDICATED.BLOOD GAS, [id number] 15:25:00 Test Item Value Reference Range Interpretation [...] code = 1819) 100.0 % SODIUM NA-STAT [id number] 15:25:00 Test Item Value Reference Range Interpretation Comments SODIUM (BEAKER) (test code = 381) 133 meq/L 135-148 L HGB/HCT (H&H) - STAT [id number] 15:25:00 Test Item Value Reference Range Interpretation Comments HEMOGLOBIN (BEAKER) (test code = 9.8 g/dL 13.0-16.8 L 410) HEMATOCRIT (BEAKER) (test code = 29.0 % 40.0-50.0 L 411) CALCIUM, [id number] 15:25:00 Test Item Value Reference Range Interpretation Comments CALCIUM IONIZED (BEAKER) (test 1.06 mmol/L 1.12-1.27 L code = 698) PH, BLOOD (BEAKER) (test code = 7.39 1810) GLUCOSE-STAT [id number] 15:22:00 Test Item Value Reference Range Interpretation Comments GLUCOSE RANDOM (BEAKER) (test code 109 mg/dL 70-110 = 652) POTASSIUM-STAT [id number] 15:22:00 Test Item Value Reference Range Interpretation Comments POTASSIUM (BEAKER) (test code = 4.4 meq/L 3.6-5.5 379) BLOOD GAS, [id number] 14:22:00 Test Item Value Reference Range Interpretation [...] code = 1819) 100.0 % SODIUM NA-STAT [id number] 14:22:00 Test Item Value Reference Range Interpretation Comments SODIUM (BEAKER) (test code = 381) 132 meq/L 135-148 L GLUCOSE-STAT [id number] 14:22:00 Test Item Value Reference Range Interpretation Comments GLUCOSE RANDOM (BEAKER) (test code 150 mg/dL 70-110 H = 652) HGB/HCT (H&H) - STAT [id number] 14:22:00 Test Item Value Reference Range Interpretation Comments HEMOGLOBIN (BEAKER) (test code = 13.3 g/dL 13.0-16.8 410) HEMATOCRIT (BEAKER) (test code = 39.0 % 40.0-50.0 L 411) CALCIUM, [id number] 14:21:00 Test Item Value Reference Range Interpretation Comments CALCIUM IONIZED (BEAKER) (test 1.45 mmol/L 1.12-1.27 H code = 698) PH, BLOOD (BEAKER) (test code = 7.30 1810) POTASSIUM-STAT [id number] 14:20:00 Test Item Value Reference Range Interpretation Comments POTASSIUM (BEAKER) (test code = 3.9 meq/L 3.6-5.5 379) CREATINE KINASE (CK)2019-03-14 10:50:00 Test Item Value Reference Range Interpretation Comments CREATINE KINASE TOTAL (BEAKER) (test > U/L 29-200 H code = 380) [id number] 10:08:00 Test Item Value Reference Range Interpretation Comments MAGNESIUM (BEAKER) 2.1 mg/dL 1.6-2.6 Specimen slightly (test code = 627) hemolyzed BASIC METABOLIC [id number] 10:08:00 Test Item Value Reference Range Interpretation [...] NOT APPLICABLE FOR DIALYSIS PATIEN TS. LIPID [id number] 10:08:00 Test Item Value Reference Range Interpretation [...] 130-159 High 160-189 Very High >=190LACTIC ACID, [id number] 09:55:00 Test Item Value Reference Range Interpretation Comments LACTATE BLOOD 1.7 mmol/L 0.5-2.2 Specimen sligh tly ARTERIAL (2) (BEAKER) hemoly zed (test code = 2874) [id number] 09:36:00 Test Item Value Reference Range Interpretation [...] 0-0 (BEAKER) (test code = 413) PROTHROMBIN [id number] 05:15:00 Test Item Value Reference Range Interpretation [...] is 2.5-3.5 for patients wiht mechanical heart valves.[id number] 05:15:00 Test Item Value Reference Range Interpretation Comments FIBRINOGEN LEVEL (BEAKER) (test 515 mg/dl 225-434 H code = 658) [id number] 05:15:00 Test Item Value Reference Range Interpretation Comments PARTIAL THROMBOPLASTIN TIME 36.2 seconds 22.5-36.0 H (BEAKER) (test code = 760) B-TYPE NATRIURETIC FACTOR (BNP)2019-03-14 05:07:00 Test Item Value Reference Range Interpretation Comments B-TYPE NATRIURETIC PEPTIDE (BEAKER) 103 pg/mL 0-100 H (test code = 700) LACTIC ACID, [id number] 05:05:00 Test Item Value Reference Range Interpretation [...] (BEAKER) (test code = 413) LACTIC ACID, [id number] 01:57:00 Test Item Value Reference Range Interpretation Comments LACTATE BLOOD VENOUS 3.1 mmol/L 0.5-2.2 H Specime n markedly (2) (BEAKER) (test hemolyzed code = 2872) [id number] 01:06:00 Test Item Value Reference Range Interpretation Comments FIBRINOGEN LEVEL (BEAKER) (test 533 mg/dl 225-434 H code = 658) BLOOD GAS, [id number] 00:28:00 Test Item Value Reference Range Interpretation [...] code = 1819) 21.0 % BASIC METABOLIC [id number] 21:01:00 Test Item Value Reference Range Interpretation [...] S NOT APPLICABLE FOR DIALYSIS PATIEN TS. [id number] 20:51:00 Test Item Value Reference Range Interpretation Comments PARTIAL THROMBOPLASTIN TIME 118.2 seconds 22.5-36.0 H (BEAKER) (test code = 760) [id number] 20:48:00 Test Item Value Reference Range Interpretation Comments FIBRINOGEN LEVEL (BEAKER) (test 485 mg/dl 225-434 H code = 658) PROTHROMBIN TIME/[id number] 20:47:00 Test Item Value Reference Range Interpretation [...] for patients wiht mechanical heart valves.HEMOGLOBIN AND [id number] 20:38:00 Test Item Value Reference Range Interpretation Comments HEMOGLOBIN (BEAKER) (test code = 15.3 GM/DL 13.7-17.5 410) HEMATOCRIT (BEAKER) (test code = 43.1 % 40.1-51.0 411) CBC W/PLT COUNT & AUTO [id number] 20:38:00 Test Item Value Reference Range Interpretation [...] 0-1 PERCENT (BEAKER) (test code = 2801) [id number] 14:24:00 Test Item Value Reference Range Interpretation Comments PARTIAL THROMBOPLASTIN TIME 46.9 seconds 22.5-36.0 H (BEAKER) (test code = 760) RAD, CHEST, 1 VIEW, NON [id number] 10:39:00Reason for exam:->wheezing, dyspneaFINAL REPORT AP view of the chest dated 03/13/2019 COMPARISON: October 07, 2015 CLINICAL INFORMATION: wheezing, dyspnea Comment: Heart is normal in size. Pulmonary vasculature is unremarkable. Lungs are clear. No pulmonary infiltrate or pleural effusion is present. Impression: No active cardiopulmonary disease or interval change. Signed: Deshawn Arzola MDReport Verified Date/Time: 03/13/2019 10:39:59 Reading Location: [facility] Radiology Reading Room BASIC METABOLIC [id number] 10:13:00 Test Item Value Reference Range Interpretation [...] S NOT APPLICABLE FOR DIALYSIS PATIEN TS. [id number] 06:58:00 Test Item Value Reference Range Interpretation Comments PARTIAL THROMBOPLASTIN TIME 31.5 seconds 22.5-36.0 (BEAKER) (test code = 760) Prior to initiating heparinHEMOGLOBIN AND [id number] 06:38:00 Test Item Value Reference Range Interpretation [...]
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
--- NOTE | 2023-04-14 14:44 | RAD REPORT ---
EXAM DESCRIPTION: RAD - Chest Single View - 04/14/2023 2:31 pm CLINICAL HISTORY: TRAUMA COMPARISON: Chest Single View dated 10/13/2022; Chest Pa And Lat (2 Views) dated 06/25/2021; Chest Sin gle View dated 03/13/2019; Chest Single View dated 11/17/2018 FINDINGS: Lines: None. Lungs: No evidence of edema or pneumonia. Pleural: No significant pleural effusions or pneumothorax. Cardiac: The heart size is within normal limits. Mediastinum: Within normal limits. Bones: No acute fractures. Other: None IMPRESSION: No acute cardiopulmonary disease.
--- NOTE | 2023-04-14 15:10 | RAD REPORT ---
EXAM DESCRIPTION: RAD - Elbow Left 3 View - 04/14/2023 2:29 pm CLINICAL HISTORY: trauma COMPARISON: No comparisons FINDINGS/IMPRESSION: No acute fracture. No malalignment. Olecranon spurring.
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
[2023-04-14 17:27] VITALS: TEMP 98.8
[2023-04-14 17:29] VITALS: O2SAT 99
[2023-04-14 17:31] VITALS: BP 148/82
== END 2023-04-14 16:37 | disposition home or self-care (01) ==
LOC: ER 13:54
DX: S09.90XA Unspecified injury of head, initial encounter (principal); S50.02XA Contusion of left elbow, initial encounter; W05.0XXA Fall from non-moving wheelchair, initial encounter; M25.512 Pain in left shoulder; M25.511 Pain in right shoulder; I10 Essential (primary) hypertension; F17.210 Nicotine dependence, cigarettes, uncomplicated; Z79.82 Long term (current) use of aspirin
CPT/HCPCS: 70450; 71045; 72125

== ENCOUNTER 2023-12-15 12:13 | Emergency (ER) | payer OTHER ==
--- NOTE | 2023-12-15 12:48 | ER ---
Nurse's Notes [facility] Name: Jesus Mcdowell Age: 78 yrs Sex: Male : 1945 Arrival Date: 12/15/2023 Time: 12:13 Bed 11 Private MD: MARQUES GONZALES Diagnosis: Olecranon bursitis, left elbow Presentation: 12/14 12:29 Chief complaint: Patient states: Elbow swelling for 2 weeks "it has fluid in it". nj1 Coronavirus screen: Vaccine status: Patient reports receiving the 2nd dose of the covid vaccine. Ebola Screen: Patient denies travel to an Ebola-affected area in the 21 days before illness onset. Initial Sepsis Screen: Does the patient meet any 2 criteria? No. Patient's initial sepsis screen is negative. Does the patient have a suspected source of infection? No. Patient's initial sepsis screen is negative. Risk Assessment: Do you want to hurt yourself or someone else? Patient reports no desire to harm self or others. Onset of symptoms was November 2023. 12:29 Method Of Arrival: Wheelchair nj 12:29 Acuity: [place] 4 nj1 Triage Assessment: 12:34 General: Appears in no apparent distress. comfortable, Behavior is calm, cooperative, nj1 appropriate for age. Pain: Denies pain. Historical: - Allergies: 12:31 No Known Allergies; nj1 - PMHx: 12:31 arterial insufficiency L leg.; Asthma; blood clots eren legs; COPD; Hypertension; nj1 - PSHx: 12:31 AMPUTATION ABOVE KNEE; nj1 - Immunization history:: Client reports receiving the 2nd dose of the Covid vaccine. - Infectious Disease History:: Denies. - Social history:: Smoking status: Patient reports the use of cigarette tobacco products, smokes one-half pack cigarettes per day. Screenin:[address] [facility] ED Fall Risk Assessment (Adult) History of falling in the last 3 months, ll1 including since admission Yes- single mechanical fall (1 pt) Confusion or Disorientation No (0 pts) Intoxicated or Sedated No (0 pts) Impaired Gait Yes (1 pt) Mobility Assist Device Used Yes (1 pt) Score/Fall Risk Level 3 or more points = High Risk Maintained a safe environment, Used ambulatory aids as needed (educated on \\T\\ assisted with). Abuse screen: Denies threats or abuse. Nutritional screening: No deficits noted. Tuberculosis screening: No symptoms or risk factors identified. Assessment: 13:02 General: Appears uncomfortable, Behavior is calm, cooperative, appropriate for age. ll1 Pain: Complains of pain in L elbow Pain currently is 5 out of 10 on a pain scale. Quality of pain is described as aching. Musculoskeletal: Circulation, motion, and sensation intact. Capillary refill < 3 seconds, Tenderness present in L elbow Reports pain in L elbow. Injury Description: Bruise. Vital Signs: 12:29 BP 122 / 65; Pulse 78; Resp 17; Temp 97.4(TE); Pulse Ox 98% ; Weight 54.43 kg; nj1 13:01 BP 121 / 61; Pulse 77; Resp 17; Temp 97.1; Pulse Ox 98% on R/A; Pain 5/10; ll1 13:01 Pain Scale: Adult ll1 ED Course: 12:14 Patient arrived in ED. rg4 12:14 MARQUES GONZALES is Private Physician. rg4 12:29 Macario Pearson MD is Attending Physician. ec2 12:31 Triage completed. nj1 12:33 Arm band placed on. nj1 13:00 Servando wrap to left elbow. ll1 13:03 No provider procedures requiring assistance completed. Patient did not have IV access ll1 during this emergency room visit. 13:04 Patient has correct armband on for positive identification. Call light in reach. ll1 Provided Education on: keep site clean and dry. Watch for worsening symptoms.. Administered Medications: No medications were administered Medication: 13:05 VIS not applicable for this client. ll1 Outcome: 12:48 Discharge ordered by . ec2 13:04 Discharged to home via wheelchair, ll1 13:04 Condition: stable 13:04 Discharge instructions given to patient, Instructed on discharge instructions, follow up and referral plans. Demonstrated understanding of instructions, follow-up care, 13:05 Patient left the ED. ll1 Signatures: Cristel Hitchcock rg4 Vikash Quiroz RN RN ll1 Renetta Ward RN RN nj1 Macario Pearson MD MD 2
--- NOTE | 2023-12-15 12:49 | EDPHYS ---
Physician Documentation [facility] Name: Jesus Mcdowell Age: 78 yrs Sex: Male : 1945 Arrival Date: 12/15/2023 Time: 12:13 Bed 11 Private MD: MARQUES GONZALES ED Physician Macario Pearson HPI: 12/14 12:34 This 78 yrs old Black Male presents to ER via Wheelchair with complaints of Arm Pain. ec2 12:34 Patient arrives today for swelling of the left elbow. Patient reports that he had hit ec2 the left elbow and noticed swelling. Had a history of bursitis, previous drainage. Asking for drainage. Reports no fevers or chills, no history of pain or discomfort.. Historical: - Allergies: 12:31 No Known Allergies; nj1 - PMHx: 12:31 arterial insufficiency L leg.; Asthma; blood clots eren legs; COPD; Hypertension; nj1 - PSHx: 12:31 AMPUTATION ABOVE KNEE; nj1 - Immunization history:: Client reports receiving the 2nd dose of the Covid vaccine. - Infectious Disease History:: Denies. - Social history:: Smoking status: Patient reports the use of cigarette tobacco products, smokes one-half pack cigarettes per day. ROS: 12:34 Constitutional: as per hpi ec2 Exam: 12:34 Constitutional: GEN: NAD Head: atraumatic Eyes: EOMI Ears: External ears are ec2 normal. CV: regular rate LUNGS: no respiratory distress ABD: non-distended SKIN: no evidence of rashes MSK: no evidence of trauma, swelling of the left elbow bursa, no overlying erythema, no warmth, good range of motion NEURO: moves all extremities equally Vital Signs: 12:29 BP 122 / 65; Pulse 78; Resp 17; Temp 97.4(TE); Pulse Ox 98% ; Weight 54.43 kg; nj1 13:01 BP 121 / 61; Pulse 77; Resp 17; Temp 97.1; Pulse Ox 98% on R/A; Pain 5/10; ll1 13:01 Pain Scale: Adult ll1 Procedures: 12:49 I \T\ D: Incision and drainage was performed for an abscess of the left left arm Prepped ec2 with Betadine, Drained moderate amount bloody fluid. Dressing: sterile 4x4 gauze, the patient tolerated the procedure well. MDM: 12:34 Patient medically screened. ec2 12:34 Data reviewed: vital signs. ED course: Patient arrives today for bursitis. Examination ec2 remarkable for MSK findings noted above. I instructed him on possible risks versus benefits and ultimately patient decided to undergo elective drainage. Will perform drainage of the bursa.. 12:49 ED course: I drained approximately 15 cc of bloody fluid from the left olecranon bursa. ec2 Will discharge home, return precautions given. Instructed on infectious precautions.. 12/14 12:48 Order name: Servando Wrap; Complete Time: 13:01 ec2 Administered Medications: No medications were administered Disposition Summary: 12/15/23 12:48 Discharge Ordered Notes: Location: Home ec2 Condition: Stable ec2 Diagnosis - Olecranon bursitis, left elbow ec2 Followup: ec2 - With: Private Physician - When: - Reason: Re-evaluation by your physician Discharge Instructions: - Discharge Summary Sheet ec2 - Elbow Bursitis ec2 Forms: - Medication Reconciliation Form ec2 - Thank You Letter ec2 - Antibiotic Education ec2 - Prescription Opioid Use ec2 - Patient Portal Instructions ec2 - Leadership Thank You Letter ec2 Signatures: Renetta Ward RN RN nj1 Macario Pearson MD MD ec2
[2023-12-15 14:38] VITALS: BP 121/61; TEMP 97.1; O2SAT 98
== END 2023-12-15 13:05 | disposition home or self-care (01) ==
LOC: ER 12:13
PROC: 0H9EXZZ Drainage of Left Lower Arm Skin, External Approach (ICD-10-PCS; principal; 2023-12-15)
DX: M70.22 Olecranon bursitis, left elbow (principal); F17.210 Nicotine dependence, cigarettes, uncomplicated

== ENCOUNTER 2024-01-24 14:10 | Inpatient (IN) | payer OTHER ==
[2024-01-24] MEDS ORDERED: NA CHLORIDE 0.9% 1,000 ML ONE (14:37)
[2024-01-24] MEDS ORDERED: IPRATROPIUM BROM 0.5MG/2.5ML ONE ×2 (14:37→17:01)
[2024-01-24] MEDS ORDERED: LEVALBUTEROL 1.25 MG/3 ML NEB ONE (14:37)
--- NOTE | 2024-01-24 15:09 | RAD REPORT ---
EXAM DESCRIPTION: [facility] Single View01/24/2024 2:59 pm CLINICAL HISTORY: Cough COMPARISON: 2022 FINDINGS: The lungs appear clear of acute infiltrate. The heart is normal size IMPRESSION: No acute abnormalities displayed
[2024-01-24 15:53] LABS: Absolute Basophils 0.1 K/uL (0-0.5); Absolute Eosinophils 0.1 K/uL (0-0.5); Absolute Lymphocytes (CBC) 0.9 K/uL (0.7-4.9); Absolute Monocytes 0.6 K/uL (0.1-1.3); Absolute Neutrophil 7.7 K/uL (1.8-8.0); Basophils % 0.7 % (0-1.3); Eosinophils % 1.2 % (0-4.4); Hematocrit 41.3 % (39.6-49.0); Hemoglobin 13.2 g/dL (13.6-17.9); Lymphocytes % 9.4 % (15.3-44.8); MCH 27.5 pg (27.0-35.0); MCHC 32.1 g/dL (32.0-36.0); MCV 85.5 fL (80-100); MPV 6.8 fL (7.6-11.3); Monocytes % 6.3 % (3.3-12.3); Neutrophils % 82.4 % (41.7-73.7); Nucleated Red Blood Cells % 0.1 % (0-0); Platelets 412 thou/uL (152-406); RBC Red Blood Cell Count 4.83 M/uL (4.33-5.43); Red Cell Distribution Width 17.6 % (12.1-15.2)
[2024-01-24 16:17] LABS: Albumin 3.8 g/dL (3.4-5.0); Albumin/Globulin Ratio 0.9 (1.1-1.8); Anion Gap 11.3 mEq/L (5.0-15.0); Bilirubin Direct 0.2 mg/dL (0-0.2); Bilirubin Indirect, Calculated 0.4 mg/dL (0.2-0.8); Bilirubin Total 0.6 mg/dL (0.2-1.0); Globulin 4.1 g/dL (2.3-3.5); Magnesium 1.7 mg/dL (1.6-2.4); Potassium 4.3 mEq/L (3.5-5.1); Protein, Total 7.9 g/dL (6.4-8.2); Troponin High Sensitivity 11.2 pg/mL (<58.9)
[2024-01-24 16:18] LABS: PT Prothrombin Time 12.8 SECONDS (9.5-12.5); Protime INR 1.17
[2024-01-24 16:37] LABS: SARS-CoV-2 Antigen CONTROL BLUE LINE VIS/BG OK; SARS-CoV-2 Antigen Rapid Res Negative (Negative)
--- NOTE | 2024-01-24 16:44 | EDPHYS ---
Physician Documentation [facility] Name: Jesus Mcdowell Age: 78 yrs Sex: Male : 1945 Arrival Date: 01/24/2024 Time: 14:10 Bed 2 Private MD: ED Physician Ismael Figueroa HPI: 01/23 16:29 This 78 yrs old Black Male presents to ER via EMS with complaints of Shortness Of lolis Breath. 16:29 The patient has shortness of breath at rest, with light activity. Onset: The lolis symptoms/episode began/occurred 3 day(s) ago. Duration: The symptoms are continuous, and are steadily getting worse. The patient's shortness of breath is aggravated by coughing. Associated signs and symptoms: Pertinent positives: productive cough. Severity of symptoms: At their worst the symptoms were mild moderate in the emergency department the symptoms are unchanged. The patient has experienced similar episodes in the past, multiple times. Historical: - Allergies: 14:23 No Known Allergies; tl4 - Home Meds: 14:24 aspirin 81 mg Oral chew 1 tab once daily [Active]; buspirone 10 mg Oral tab 1 tab 2 tl4 times per day [Active]; donepezil 10 mg Oral tab 1 tab once daily [Active]; isosorbide mononitrate 30 mg Oral Tb24 1 tab once daily [Active]; pentoxifylline 400 mg Oral TbER 1 tab 2 times per day [Active]; tamsulosin 0.4 mg Oral cp24 1 cap once daily [Active]; Toprol XL 100 mg Oral Tb24 1 tab once daily [Active]; - PMHx: 14:23 arterial insufficiency L leg.; Asthma; Deep vein thrombosis; COPD; Hypertension; tl4 14:24 BPH; Dementia; tl4 - PSHx: 14:24 AMPUTATION ABOVE KNEE; tl4 - Immunization history:: Adult Immunizations unknown. - Infectious Disease History:: Denies. - Social history:: Smoking status: Patient reports the use of cigarette tobacco products, smokes one pack cigarettes per day. ROS: 16:29 Constitutional: Negative for fever, chills, and weight loss, Eyes: Negative for injury, lolis pain, redness, and discharge, ENT: Negative for injury, pain, and discharge, Neck: Negative for injury, pain, and swelling, Abdomen/GI: Negative for abdominal pain, nausea, vomiting, diarrhea, and constipation, Back: Negative for injury and pain, : Negative for injury, bleeding, discharge, and swelling, MS/Extremity: Negative for injury and deformity, Skin: Negative for injury, rash, and discoloration, Neuro: Negative for headache, weakness, numbness, tingling, and seizure, 16:29 Cardiovascular: Positive for palpitations, 16:29 Respiratory: Positive for cough, wheezing, inspiratory, expiratory, Exam: 16:34 Constitutional: This is a well developed, well nourished patient who is awake, alert, lolis and in no acute distress. Head/Face: Normocephalic, atraumatic. Eyes: Pupils equal round and reactive to light, extra-ocular motions intact. Lids and lashes normal. Conjunctiva and sclera are non-icteric and not injected. Cornea within normal limits. Periorbital areas with no swelling, redness, or edema. ENT: Nares patent. No nasal discharge, no septal abnormalities noted. Tympanic membranes are normal and external auditory canals are clear. Oropharynx with no redness, swelling, or masses, exudates, or evidence of obstruction, uvula midline. Mucous membranes moist. Neck: Trachea midline, no thyromegaly or masses palpated, and no cervical lymphadenopathy. Supple, full range of motion without nuchal rigidity, or vertebral point tenderness. No Meningismus. Chest/axilla: Normal chest wall appearance and motion. Nontender with no deformity. No lesions are appreciated. Abdomen/GI: Soft, non-tender, with normal bowel sounds. No distension or tympany. No guarding or rebound. No evidence of tenderness throughout. Back: No spinal tenderness. No costovertebral tenderness. Full range of motion. Male : Normal genitalia with no discharge or lesions. Skin: Warm, dry with normal turgor. Normal color with no rashes, no lesions, and no evidence of cellulitis. MS/ Extremity: Pulses equal, no cyanosis. Neurovascular intact. Full, normal range of motion. Neuro: Awake and alert, GCS 15, oriented to person, place, time, and situation. Cranial nerves II-XII grossly intact. Motor strength 5/5 in all extremities. Sensory grossly intact. Cerebellar exam normal. Normal gait. Psych: Awake, alert, with orientation to person, place and time. Behavior, mood, and affect are within normal limits. 16:34 Cardiovascular: Rate: tachycardic, actual rate is 103 bpm, Rhythm: regular, Pulses: Pulses are 4+ in bilateral radial, brachial, femoral, popliteal, posterior tibial and and dorsalis pedis arteries.. Edema: is not appreciated, JVD: is not appreciated, 16:34 ECG was reviewed by the Attending Physician. Vital Signs: 14:20 BP 162 / 77; Pulse 94; Resp 25; Temp 98.1(O); Pulse Ox 99% on R/A; Weight 53.5 kg; Pain tl4 0/10; 14:30 BP 138 / 69; Pulse 91; Resp 31; Pulse Ox 97% on R/A; tl4 15:00 BP 120 / 68; Pulse 85; Resp 25; Pulse Ox 100% on R/A; tl4 15:47 BP 153 / 71; Pulse 103; Resp 27; Pulse Ox 100% on R/A; Pain 0/10; tl4 16:47 BP 143 / 74; Pulse 93; Resp 24; Pulse Ox 98% on R/A; tl4 17:30 BP 154 / 99; Pulse 92; Resp 25; Pulse Ox 99% on R/A; tl4 18:00 BP 131 / 84; Pulse 92; Resp 26; Pulse Ox 100% on R/A; tl4 19:00 BP 148 / 88; Pulse 91; Resp 23; Pulse Ox 97% ; tl4 20:00 BP 133 / 68; Pulse 95; Resp 25; Temp 98.1; Pulse Ox 98% on R/A; Pain 0/10; tl4 14:20 Pain Scale: Adult tl4 15:47 Pain Scale: Adult tl4 20:00 Pain Scale: Adult tl4 MDM: 14:20 Patient medically screened. lolis 16:35 Differential diagnosis: Anemia Anxiety Reaction asthma, Bronchitis CHF exacerbation, lolis Chronic Obstructive Pulmonary Disease pulmonary edema, reactive airway disease, Sepsis Unstable Angina. Antibiotic administration: Levaquin given. Immunization status: Pneumococcal vaccine: within last 5 years. Influenza vaccine: within last 5 years. Data reviewed: vital signs, nurses notes, lab test result(s), EKG, radiologic studies, plain films. I considered the following discharge prescriptions or medication management in the emergency department Medications were administered in the Emergency Department. See MAR. Independent interpretation of the following test(s) in the Emergency Department EKG: See my EKG interpretation above. Test considered but Not performed: CT: no ct chest. Historians other than the Patient: EMS: ems well informed. pt well in formerd. Care significantly affected by the following chronic conditions: Hypertension, Chronic Obstructive Pulmonary Disease, pvd. Counseling: I had a detailed discussion with the patient and/or guardian regarding the historical points, exam findings, and any diagnostic results supporting the discharge/admit diagnosis, lab results, radiology results, the need for further work-up and treatment in the hospital. 01/23 14:22 Order name: Basic Metabolic Panel; Complete Time: 16:27 [facility] 01/23 14:22 Order name: CBC with Diff; Complete Time: 16:27 [facility] 01/23 14:22 Order name: LFT's; Complete Time: 16:27 [facility] 01/23 14:22 Order name: Magnesium; Complete Time: 16:27 [facility] 01/23 14:22 Order name: NT PRO-BNP; Complete Time: 16:27 [facility] 01/23 14:22 Order name: PT-INR; Complete Time: 16:27 [facility] 01/23 14:22 Order name: Troponin HS; Complete Time: 16:27 [facility] 01/23 14:22 Order name: Blood Culture Adult (2) [facility] 01/23 14:22 Order name: Lactate w/ 2H reflex if indic.; Complete Time: 16:27 [facility] 01/23 14:22 Order name: Urinalysis w/ reflexes [facility] 01/23 14:22 Order name: SARS RAPID; Complete Time: 16:44 [facility] 01/23 14:22 Order name: Flu; Complete Time: 16:27 [facility] 01/23 20:23 Order name: Lactate Sepsis 2 HR Follow-up [facility] 01/23 14:22 Order name: XRAY Chest (1 view); Complete Time: 16:27 [facility] 01/23 14:22 Order name: EKG; Complete Time: 14:23 [facility] 01/23 14:22 Order name: Cardiac monitoring; Complete Time: 14:32 [facility] 01/23 14:22 Order name: EKG - Nurse/Tech; Complete Time: 15:20 [facility] 01/23 14:22 Order name: IV Saline Lock; Complete Time: 20:10 [facility] 01/23 14:22 Order name: Labs collected and sent; Complete Time: 20:10 [facility] 01/23 14:22 Order name: O2 Per Protocol; Complete Time: 14:32 [facility] 01/23 14:22 Order name: O2 Sat Monitoring; Complete Time: 14:32 lolis EC:34 Rate is 89 beats/min. Rhythm is regular. QRS [place] is Normal. [place] interval is normal. QRS lolis interval is normal. QT interval is normal. No Q waves. T waves are Normal. No ST changes noted. Clinical impression: NSR w/ Non-specific ST/T Changes and No evidence of ischemia. Interpreted by me. Reviewed by me. Administered Medications: 15:06 Drug: Levalbuterol Inhalation 2.5 mg Inhalation once {Note: via nebulizer with mask and tl4 10 lpm oxygen.} Route: Inhalation; 17:16 Follow up: Response: No adverse reaction; Wheezing diminished tl4 15:06 Drug: Ipratropium Inhalation Aerosol 0.5 mg Inhalation once {Note: via nebulizer with tl4 mask and 10lpm oxygen.} Route: Inhalation; 17:16 Follow up: Response: Wheezing diminished tl4 15:30 Drug: NS 0.9% IV 1000 ml IV at 125 ml/hr continuous Route: IV; Rate: 125 ml/hr; Site: tl4 left wrist; Delivery: Dial-a-flow; 21:21 Follow up: Response: No adverse reaction; IV Status: Completed infusion; IV Intake: tl4 1000ml 17:14 Drug: levofloxacin IVPB 500 mg 100 ml IVPB once over 60 mins Volume: 100 ml; Route: tl4 IVPB; Rate: 100 ml/hr; Infused Over: 60 mins; Site: left wrist; Delivery: Dial-a-flow; 19:39 Follow up: Response: No adverse reaction; IV Status: Completed infusion; IV Intake: tl4 100ml 17:15 Drug: MethylPrednisoLONE IVP 125 mg IVP once Route: IVP; Site: right antecubital; tl4 19:40 Follow up: Response: No adverse reaction tl4 17:15 Drug: Albuterol Inhalation 7.5 mg Inhalation once {Note: administered via nebulizer tl4 with mask, oxygen at 10 lpm.} Route: Inhalation; 19:40 Follow up: Response: No adverse reaction tl4 17:16 Drug: Ipratropium Inhalation Aerosol 0.5 mg Inhalation once {Note: administered via tl4 nebulizer with mask, oxygen at 10 lpm.} Route: Inhalation; 19:40 Follow up: Response: No adverse reaction tl4 Disposition Summary: 01/24/24 16:43 Hospitalization Ordered Notes: Hospitalization Status: Inpatient Admission lolis Provider: Michael Cantu cha Condition: Fair lolis Problem: new lolis Symptoms: have improved lolis Bed/Room Type: Standard lolis Location: Telemetry/MedSurg (Inpatient)(01/24/24 19:20) Room Assignment: 412(01/24/24 19:20) Diagnosis - COPD/ Chronic obstructive pulmonary disease with (acute) exacerbation lolis - Dyspnea lolis - Tobacco abuse counseling lolis - Tobacco use lolis Forms: - Medication Reconciliation Form lolis - SBAR form lolis - Leadership Thank You Letter lolis Signatures: Dispatcher [employer] EDMS Rona Arrieta Kimberly, RN RN kl Anderson, Corey, MD MD cha Attema, Lee, FORM TAMPER OPERATOR-C FORM TAMPER OPERATOR-Cla1 Blake Murillo RN RN tl4 Corrections: (The following items were deleted from the chart) 14:23 14:23 BASIC METABOLIC PANEL+C.LAB.BRZ ordered. EDMS EDMS 14:23 14:23 CBC+H.LAB.BRZ ordered. EDMS EDMS 14:23 14:23 HEPATIC FUNCTION+C.LAB.BRZ ordered. EDMS EDMS 14:23 14:23 MAGNESIUM+C.LAB.BRZ ordered. EDMS EDMS 14:23 14:23 PROBNP+C.LAB.BRZ ordered. EDMS EDMS 14:23 14:23 PROTIME (+INR)+COAG.LAB.BRZ ordered. EDMS EDMS 14:23 14:23 Troponin High Sensitivity+C.LAB.BRZ ordered. EDMS EDMS 14:23 14:23 BLOOD CULTURE*+BA.LAB.BRZ ordered. EDMS EDMS 14:23 14:23 LACTATE+C.LAB.BRZ ordered. EDMS EDMS 14:23 14:23 Urinalysis+U.LAB.BRZ ordered. EDMS EDMS 14:23 14:23 SARS-COV-2 Antigen Rapid+I.LAB.BRZ ordered. EDMS EDMS 14:23 14:23 Influenza Screen (A \\T\\ B)+BA.LAB.BRZ ordered. EDMS EDMS 14:26 14:23 PMHx: BPH (Hypertension); tl4 tl4 14: 14:24 PMHx: blood clots eren legs; tl4 tl4 14: 14:24 PMHx: "prostates problems"; tl4 tl4 14: 14:24 PMHx: "Prostate Problems" (AMPUTATION ABOVE KN); tl4 tl4 18:14 16:43 Telemetry/MedSurg (Inpatient) lolis bd 18:14 16:43 lolis bd 19:20 18:14 [facility] ER HOLD bd kl 19:20 18:14 ERHOLD- bd kl
--- NOTE | 2024-01-24 16:44 | ER ---
Nurse's Notes [facility] Name: Jesus Mcdowell Age: 78 yrs Sex: Male : 1945 Arrival Date: 01/24/2024 Time: 14:10 Bed 2 Private MD: Diagnosis: COPD/ Chronic obstructive pulmonary disease with (acute) exacerbation;Dyspnea;Tobacco abuse counseling;Tobacco use Presentation: 01/23 14:20 Chief complaint: Patient states: Pt c/o increased SOB and cough since yesterday tl4 morning. Pt denies CP, dizziness, fever/chills. Coronavirus screen: At this time, the client does not indicate any symptoms associated with coronavirus-19. Ebola Screen: No symptoms or risks identified at this time. Initial Sepsis Screen: Does the patient meet any 2 criteria? No. Patient's initial sepsis screen is negative. Does the patient have a suspected source of infection? No. Patient's initial sepsis screen is negative. Risk Assessment: Do you want to hurt yourself or someone else? Patient reports no desire to harm self or others. Onset of symptoms was January 23, 2024. 14:20 Method Of Arrival: EMS: [facility] tl4 14:20 Acuity: [place] 3 tl4 14:33 Care prior to arrival: Medication(s) given: Albuterol Neb x 2, Atrovent Neb x 2. tl4 Triage Assessment: 14:26 General: Appears in no apparent distress. Behavior is calm, cooperative. Pain: Denies tl4 pain. EENT: No signs and/or symptoms were reported regarding the EENT system. Neuro: Level of Consciousness is awake, alert, obeys commands, Oriented to person, place, time, situation, Moves all extremities. Full function Speech is normal, Facial symmetry appears normal. Cardiovascular: Reports shortness of breath, Denies chest pain, diaphoresis, lightheadedness, nausea, palpitations, syncope, Capillary refill < 3 seconds Patient's skin is warm and dry. Rhythm is sinus rhythm. Respiratory: Reports shortness of breath cough that is Airway is patent Respiratory effort is even, unlabored, Respiratory pattern is regular, symmetrical, Breath sounds with wheezes bilaterally. Onset: The symptoms/episode began/occurred yesterday, the patient has moderate shortness of breath. GI: No signs and/or symptoms were reported involving the gastrointestinal system. : No signs and/or symptoms were reported regarding the genitourinary system. Derm: No signs and/or symptoms reported regarding the dermatologic system. Musculoskeletal: No signs and/or symptoms reported regarding the musculoskeletal system. Historical: - Allergies: 14:23 No Known Allergies; tl4 - Home Meds: 14:24 aspirin 81 mg Oral chew 1 tab once daily [Active]; buspirone 10 mg Oral tab 1 tab 2 tl4 times per day [Active]; donepezil 10 mg Oral tab 1 tab once daily [Active]; isosorbide mononitrate 30 mg Oral Tb24 1 tab once daily [Active]; pentoxifylline 400 mg Oral TbER 1 tab 2 times per day [Active]; tamsulosin 0.4 mg Oral cp24 1 cap once daily [Active]; Toprol XL 100 mg Oral Tb24 1 tab once daily [Active]; - PMHx: 14:23 arterial insufficiency L leg.; Asthma; Deep vein thrombosis; COPD; Hypertension; tl4 14:24 BPH; Dementia; tl4 - PSHx: 14:24 AMPUTATION ABOVE KNEE; tl4 - Immunization history:: Adult Immunizations unknown. - Infectious Disease History:: Denies. - Social history:: Smoking status: Patient reports the use of cigarette tobacco products, smokes one pack cigarettes per day. Screenin:30 [facility] ED Fall Risk Assessment (Adult) History of falling in the last 3 months, tl4 including since admission No falls in past 3 months (0 pts) Confusion or Disorientation No (0 pts) Intoxicated or Sedated No (0 pts) Impaired Gait No (0 pts) Mobility Assist Device Used Yes (1 pt) Altered Elimination No (0 pt) Score/Fall Risk Level 0 - 2 = Low Risk Oriented to surroundings, Maintained a safe environment, Educated pt \\T\\ family on fall prevention, incl call for assistance when getting out of bed, Assessed \\T\\ reinforced patient's understanding of fall precautions. Abuse screen: Denies threats or abuse. Denies injuries from another. Nutritional screening: No deficits noted. Tuberculosis screening: No symptoms or risk factors identified. Assessment: 15:47 Reassessment: Patient and/or family updated on plan of care and expected duration. Pain tl4 level reassessed. Patient is alert, oriented x 3, equal unlabored respirations, skin warm/dry/pink. 16:47 Reassessment: Patient and/or family updated on plan of care and expected duration. Pain tl4 level reassessed. Patient is alert, oriented x 3, equal unlabored respirations, skin warm/dry/pink. Pt denies any needs at this time. Family at bedside. Will continue to monitor Patient denies pain at this time. Cardiovascular: Capillary refill < 3 seconds Patient's skin is warm and dry. Vital Signs: 14:20 BP 162 / 77; Pulse 94; Resp 25; Temp 98.1(O); Pulse Ox 99% on R/A; Weight 53.5 kg; Pain tl4 0/10; 14:30 BP 138 / 69; Pulse 91; Resp 31; Pulse Ox 97% on R/A; tl4 15:00 BP 120 / 68; Pulse 85; Resp 25; Pulse Ox 100% on R/A; tl4 15:47 BP 153 / 71; Pulse 103; Resp 27; Pulse Ox 100% on R/A; Pain 0/10; tl4 16:47 BP 143 / 74; Pulse 93; Resp 24; Pulse Ox 98% on R/A; tl4 17:30 BP 154 / 99; Pulse 92; Resp 25; Pulse Ox 99% on R/A; tl4 18:00 BP 131 / 84; Pulse 92; Resp 26; Pulse Ox 100% on R/A; tl4 19:00 BP 148 / 88; Pulse 91; Resp 23; Pulse Ox 97% ; tl4 20:00 BP 133 / 68; Pulse 95; Resp 25; Temp 98.1; Pulse Ox 98% on R/A; Pain 0/10; tl4 14:20 Pain Scale: Adult tl4 15:47 Pain Scale: Adult tl4 20:00 Pain Scale: Adult tl4 ED Course: 14:14 Patient arrived in ED. bd 14:19 Ismael Figueroa MD is Attending Physician. lolis 14:22 Triage completed. tl4 14:22 Arm band placed on right wrist. tl4 14:31 Patient has correct armband on for positive identification. Placed in gown. Bed in low tl4 position. Call light in reach. Side rails up X2. Provided Education on: ED process, call oreilly. Client placed on continuous cardiac and pulse oximetry monitoring. NIBP monitoring applied. monitoring and evaluation advisor on. Door closed. Noise minimized. Moved to private room. Warm blanket given. Pillow given. 14:31 No provider procedures requiring assistance completed. tl4 15:00 XRAY Chest (1 view) In Process Unspecified. EDMS 15:06 Flu Sent. tl4 15:06 SARS RAPID Sent. tl4 15:20 EKG done, by ED staff, reviewed by Ismael Figueroa MD. tl4 15:30 Inserted saline lock: 22 gauge in left wrist, using aseptic technique. tl4 15:41 Initial lab(s) drawn, by me, sent to lab. First set of blood cultures drawn by me. tl4 15:46 Inserted saline lock: 22 gauge in right antecubital area, using aseptic technique. tl4 Blood collected. 16:41 Michael Cantu is Hospitalizing Provider. lolis 20:10 Urinalysis w/ reflexes Sent. tl4 20:10 Blood Culture Adult (2) Sent. tl4 21:20 Patient admitted, IV remains in place. tl4 Administered Medications: 15:06 Drug: Levalbuterol Inhalation 2.5 mg Inhalation once {Note: via nebulizer with mask and tl4 10 lpm oxygen.} Route: Inhalation; 17:16 Follow up: Response: No adverse reaction; Wheezing diminished tl4 15:06 Drug: Ipratropium Inhalation Aerosol 0.5 mg Inhalation once {Note: via nebulizer with tl4 mask and 10lpm oxygen.} Route: Inhalation; 17:16 Follow up: Response: Wheezing diminished tl4 15:30 Drug: NS 0.9% IV 1000 ml IV at 125 ml/hr continuous Route: IV; Rate: 125 ml/hr; Site: tl4 left wrist; Delivery: Dial-a-flow; 21:21 Follow up: Response: No adverse reaction; IV Status: Completed infusion; IV Intake: tl4 1000ml 17:14 Drug: levofloxacin IVPB 500 mg 100 ml IVPB once over 60 mins Volume: 100 ml; Route: tl4 IVPB; Rate: 100 ml/hr; Infused Over: 60 mins; Site: left wrist; Delivery: Dial-a-flow; 19:39 Follow up: Response: No adverse reaction; IV Status: Completed infusion; IV Intake: tl4 100ml 17:15 Drug: MethylPrednisoLONE IVP 125 mg IVP once Route: IVP; Site: right antecubital; tl4 19:40 Follow up: Response: No adverse reaction tl4 17:15 Drug: Albuterol Inhalation 7.5 mg Inhalation once {Note: administered via nebulizer tl4 with mask, oxygen at 10 lpm.} Route: Inhalation; 19:40 Follow up: Response: No adverse reaction tl4 17:16 Drug: Ipratropium Inhalation Aerosol 0.5 mg Inhalation once {Note: administered via tl4 nebulizer with mask, oxygen at 10 lpm.} Route: Inhalation; 19:40 Follow up: Response: No adverse reaction tl4 Medication: 14:30 VIS not applicable for this client. tl4 Intake: 19:39 IV: 100ml; Total: 100ml. tl4 21:21 IV: 1000ml; Total: 1100ml. tl4 Outcome: 16:43 Decision to Hospitalize by Provider. lolis 21:21 Admitted to Tele accompanied by tech, room 412, tl4 21:21 Condition: stable 21:21 Instructed on the need for admit, 21:22 Patient left the ED. tl4 Signatures: Dispatcher [employer] EDMS Rona Arrieta Corey, MD MD cha Logdahl, Toni RN RN tl4 Corrections: (The following items were deleted from the chart) 14:26 14:23 PMHx: BPH (Hypertension); tl4 tl4 14:26 14:24 PMHx: blood clots eren legs; tl4 tl4 14:26 14:24 PMHx: "prostates problems"; tl4 tl4 14:26 14:24 PMHx: "Prostate Problems" (AMPUTATION ABOVE KN); tl4 tl4
[2024-01-24] MEDS ORDERED: METHYLPREDNISOLONE 125 MG INJ ONE (17:01)
[2024-01-24] MEDS ORDERED: Levofloxacin500mg IV 500 MG/100 ML BAG IV ONE (17:01)
[2024-01-24] MEDS ORDERED: ALBUTEROL 2.5 MG/3 ML NEB SOL ONE (17:01)
--- NOTE | 2024-01-24 17:31 | P.HP ---
Certification for Inpatient Patient admitted to: Observation With expected LOS: <2 Midnights Patient will require the following post-hospital care: None Practitioner: I am a practitioner with admitting privileges, knowledge of patient current condition, hospital course, and medical plan of care. Services: Services provided to patient in accordance with Admission requirements found in Title 42 Section 412.3 of the Code of Federal Regulations Patient History Date of Service: 01/24/24 Reason for admission: COPD exacerbation History of Present Illness: 78-year-old male with history of PAD, COPD, hypertension, BPH, dementia with bilateral AKA presents emergency department chief complaint shortness of breath. He reports increasing shortness of breath, cough since Wednesday the . He was evaluated in the emergency department and his labs are significant for white blood cell count 9.4 sodium 131 lactic acid 2.6 BNP 864 COVID-negative chest x-ray is unremarkable. On exam patient with expiratory wheezing, minimal improvement after nebulizer treatments, steroids. ED provider wishes to admit patient under observation for COPD exacerbation. Allergies No Known Allergies Allergy (Verified 06/27/21 07:46) Home Medications: Albuterol Sulfate [Proair Digihaler] 90 mcg IH PRN PRN 06/25/21 Amlodipine Besylate 10 mg PO DAILY 06/25/21 Aspirin [Aspirin EC 81 MG] 81 mg PO DAILY 06/25/21 Atorvastatin Calcium [Lipitor] 40 mg PO BEDTIME 06/25/21 Fluticasone/Salmeterol [Advair 250-50 Diskus] 1 each IH BID 06/25/21 Gabapentin [Neurontin] 100 mg PO TID 06/25/21 Metoprolol Succinate 100 mg PO BID 06/25/21 Pentoxifylline 400 mg PO BIDWM 06/25/21 - Past Medical/Surgical History Diabetic: No -: Chronic venous stasis left lower extremity -: HTN -: Peripheral arterial disease -: COPD -: Tobacco abuse -: asthma -: Bilateral femoral to popliteal bypass. Psychosocial/ Personal History: Patient lives at home, alone. - Family History Sister -: Diabetes Father -: Heart disease Mother -: Diabetes - Social History Alcohol use: No CD- Drugs: No Caffeine use: Yes Place of Residence: Home Review of Systems 10-point ROS is otherwise unremarkable Respiratory: Cough, Shortness of Breath Physical Examination - Physical Exam General: Alert, In no apparent distress, Oriented x3 HEENT: Atraumatic, PERRLA Neck: Supple, 2+ carotid pulse no bruit Respiratory: Diminished, Expiratory wheezes Cardiovascular: Regular rate/rhythm, Normal S1 S2 Gastrointestinal: Normal bowel sounds, No tenderness Musculoskeletal: No tenderness Integumentary: No rashes Neurological: Normal speech, Normal strength at 5/5 x4 extr, Normal tone, Normal affect - Studies Laboratory Data (last 24 hrs) 01/24/24 01/24/24 01/24/24 15:41 15:41 15:41 WBC 9.40 Hgb 13.2 L Hct 41.3 Plt Count 412 H PT 12.8 H INR 1.17 Sodium 131 L Potassium 4.3 BUN 6 L Creatinine 0.82 Glucose 106 Magnesium 1.7 Total Bilirubin 0.6 AST 18 ALT 32 Alkaline Phosphatase 92 Microbiology Data (last 24 hrs): 01/24/24 14:42 Nasopharnyx Influenza Type A Antigen Screen - Final 01/24/24 14:42 Nasopharnyx Influenza Type B Antigen Screen - Final Assessment and Plan - Plan Assessment: COPD with exacerbation Hypertension History of PAD with bilateral AKA BPH Plan: COPD with exacerbation Continue steroids, as nebulizer treatments, ICS Monitor under observation Consider pulmonology consult if not having improvement in the morning White blood cell count within normal limits, chest x-ray unremarkable and afebrile currently Hypertension History of PAD with bilateral AKA BPH Continue home medications once verified DVT PPX:Lovenox Code status: Full Discharge Plan: Home Plan to discharge in: 24 Hours - Advance Directives Does patient have a Living Will: No Does patient have a Durable POA for Healthcare: No - Code Status/Comfort Care Code Status Assessed: Yes (Full code) Critical Care: No Time Spent Managing Pts Care (In Minutes): 70
[2024-01-24 20:16] LABS: Sqamous Epithelial <5 /HPF (None Seen); Urine Bacteria <20 /HPF (<20); Urine Bilirubin NEGATIVE (Negative); Urine Blood Trace (Negative); Urine Clarity Extremely Turbid (Clear); Urine Color Light-Yellow (Yellow); Urine Culture Reflex Order REFLEXED; Urine Glucose NEGATIVE (Negative); Urine Ketones NEGATIVE (Negative); Urine Microscopic Reflex YN ORDER UMIC; Urine Mucus Slight /HPF (None Seen); Urine Nitrite NEGATIVE (Negative); Urine Protein TRACE (Negative); Urine RBC <5 /HPF (None Seen); Urine Urobilinogen Normal (Normal); Urine WBC >50 /HPF (<5); Urine WBC Clump Rare /HPF (None Seen); Urine pH 7.5 (5.0-7.0)
[2024-01-24] MEDS: DULERA 200/5 (MOMETASONE/FORMOTEROL) INHALER IH SCH (21:12)
[2024-01-24] MEDS: NA CHLORIDE 0.9% 1,000 ML IV SCH (21:50)
[2024-01-24] MEDS: predniSONE 20 MG TAB PO SCH (21:51)
--- NOTE | 2024-01-24 22:43 | P.PN ---
Subjective Date of Service: 01/24/24 Chief Complaint: COPD exacerbation Elevated lactic overnight, IV Zosyn every 8 ordered, normal saline 500 cc x 1, repeat lactic every 2 hours x 2 ordered vital signs are stable, no hypotension Physical Examination - Vital Signs Temperature: 98.1 F Blood Pressure: 133/68 Pulse: 95 Respirations: 25 - Studies Laboratory Data (last 24 hrs) 01/24/24 01/24/24 01/24/24 15:41 15:41 15:41 WBC 9.40 Hgb 13.2 L Hct 41.3 Plt Count 412 H PT 12.8 H INR 1.17 Sodium 131 L Potassium 4.3 BUN 6 L Creatinine 0.82 Glucose 106 Magnesium 1.7 Total Bilirubin 0.6 AST 18 ALT 32 Alkaline Phosphatase 92 Microbiology Data (last 24 hrs): 01/24/24 14:42 Nasopharnyx Influenza Type A Antigen Screen - Final 01/24/24 14:42 Nasopharnyx Influenza Type B Antigen Screen - Final
[2024-01-24 22:50] VITALS: BMI 47.0
[2024-01-24] MEDS: NA CHLORIDE 0.9% 500 ML IV ONE (23:48)
[2024-01-25] MEDS: PIPER TAZO 3.375 GM in NA CHLORIDE 0.9% 100 ML IV SCH (00:39)
[2024-01-25] MEDS: METHYLPREDNISOLONE 125 MG INJ IV ONE (04:06)
[2024-01-25] MEDS: LORazepam 2 MG/ML VIAL ONE (04:12)
[2024-01-25] MEDS: FUROSEMIDE 40 MG/4 ML VIAL ONE (04:13)
[2024-01-25] MEDS: METHYLPREDNISOLONE 40 MG INJ ONE (04:13)
[2024-01-25] MEDS: FUROSEMIDE 40 MG/4 ML VIAL IV ONE (04:14)
[2024-01-25] MEDS: LORazepam 2 MG/ML VIAL IV ONE (04:15)
[2024-01-25] MEDS: BUDESONIDE 0.5 MG/2 ML NEB ONE (04:21)
[2024-01-25 04:55] LABS: Absolute Lymphocytes (CBC) 0.4 K/uL (0.7-4.9); Absolute Monocytes 0.1 K/uL (0.1-1.3); Absolute Neutrophil 7.5 K/uL (1.8-8.0); Basophils % 0.2 % (0-1.3); Hematocrit 38.9 % (39.6-49.0); Hemoglobin 12.6 g/dL (13.6-17.9); Lymphocytes % 4.6 % (15.3-44.8); MCH 27.5 pg (27.0-35.0); MCHC 32.5 g/dL (32.0-36.0); MCV 84.5 fL (80-100); MPV 6.8 fL (7.6-11.3); Monocytes % 1.5 % (3.3-12.3); Neutrophils % 93.7 % (41.7-73.7); Platelets 398 thou/uL (152-406); RBC Red Blood Cell Count 4.61 M/uL (4.33-5.43); Red Cell Distribution Width 17.7 % (12.1-15.2)
[2024-01-25 05:16] LABS: Anion Gap 12.1 mEq/L (5.0-15.0); Potassium 4.1 mEq/L (3.5-5.1)
[2024-01-25 05:19] LABS: Creatine Phosphokinase 644 U/L (39-308); NT PRO-BNP 1239 pg/mL (<450)
[2024-01-25 05:20] LABS: Band Neutrophils 2 % (0-1); Differential Total Cells Count 100; Lymphocytes 7 % (15-42); Monocytes 1 % (0-10); Segmented Neutrophils 89 % (40-80)
[2024-01-25 05:21] LABS: Blood Morphology Comment NOTED (NOT SEEN); Ovalocytes 2+; Platelet Estimate ADEQ
[2024-01-25 05:33] LABS: Blood O2 Saturation 67.3 % (92-98.5)
[2024-01-25 05:34] LABS: Blood Gas Oxyhemoglobin 65.9 % (94-97); Blood Gas THB 13.6 g/dl (12-18)
[2024-01-25] MEDS: IPRATROPIUM BROM 0.5MG/2.5ML NEB PRN (06:12)
[2024-01-25] MEDS: ALBUTEROL 2.5 MG/3 ML NEB SOL NEB PRN (06:12)
[2024-01-25] MEDS: ENOXAPARIN 40 MG/0.4 ML SQ SCH (08:55)
--- NOTE | 2024-01-25 08:58 | P.PN ---
Date of Service: 01/25/24 Subjective: Had rapid called last night for respiratory distress required BiPap now on NC at 2L ROS: 10 point ROS as noted above, otherwise negative Physical exam GEN: Alert, oriented, NAD HEENT: Normal conjunctiva, sclera anicteric CV: Regular rate and rhythm, no edema Pulm: Expiratory wheezes, diminished, no distress on 2 L per nasal cannula ABD: Soft, nontender, nondistended MSK: No joint tenderness Integumentary: No rashes Neuro: Normal speech, normal affect Vitals reviewed Assessment: COPD with exacerbation Elevated lactate Hypertension History of PAD with bilateral AKA BPH Plan: COPD with exacerbation Elevated lactate Represents called overnight, had respiratory distress Given Lasix, IV steroids and BiPAP with some improvement Tolerating nasal cannula this morning, still significant expiratory wheezing Switched to IV steroids, antibiotic addedLevaquin empirically Pulmonology consult placed Suspect elevated lactate secondary to nebulizer treatment/hypoxia Not septic currently Hypertension History of PAD with bilateral AKA BPH Continue home medications once verified DVT PPX:Lovenox Code status: Full Discharge Plan: Home Plan to discharge in: 2-3 days Time Spent Managing Pts Care (In Minutes): 35
[2024-01-25] MEDS: DULERA 200/5 (MOMETASONE/FORMOTEROL) INHALER IH SCH (09:59)
[2024-01-25] MEDS ORDERED: METHYLPREDNISOLONE 125 MG INJ IV SCH (10:00)
[2024-01-25] MEDS: METHYLPREDNISOLONE 40 MG INJ IV SCH (10:01)
--- NOTE | 2024-01-25 11:19 | RAD REPORT ---
EXAM DESCRIPTION: RAD - Chest Single View - 01/25/2024 4:30 am CLINICAL HISTORY: Sob COMPARISON: None. FINDINGS: Single frontal radiograph view of the chest. Cardiomediastinal silhouette: Atherosclerotic calcification of thoracic aorta. Heart is not enlarged. Lungs: No consolidation, pneumothorax, or pleural effusion. Bones: No acute osseous abnormality. Degenerative change of the spine and shoulders. Upper abdomen: No abnormality identified. IMPRESSION: 1. No acute pulmonary process identified. Electronically signed by: Jhon Steiner DO 01/25/2024 05:53 AM CDT M Due to temporary technical issues with the PACS/Fluency reporting system, reports are being signed by the in house radiologists without review as a courtesy to insure prompt reporting. The interpreting radiologist is fully responsible for the content of the report.
--- NOTE | 2024-01-25 12:09 | P.CNS ---
Date of Consult: 01/25/24 Reason for Consult: COPD exacerbation Chief Complaint: COPD exacerbation History of Present Illness: Patient is 78 years of age poor historian multiple medical problems he has been sick since Wednesday complaining of worsening cough and congestion has uses bronch odilators at home patient is bilateral above-knee amputee still continues to smoke Only uses albuterol at home Allergies No Known Allergies Allergy (Verified 06/27/21 07:46) Home Medications: Albuterol Sulfate [Proair Digihaler] 90 mcg IH PRN PRN 06/25/21 Amlodipine Besylate 10 mg PO DAILY 06/25/21 Aspirin [Aspirin EC 81 MG] 81 mg PO DAILY 06/25/21 Atorvastatin Calcium [Lipitor] 40 mg PO BEDTIME 06/25/21 Fluticasone/Salmeterol [Advair 250-50 Diskus] 1 each IH BID 06/25/21 Gabapentin [Neurontin] 100 mg PO TID 06/25/21 Metoprolol Succinate 100 mg PO BID 06/25/21 Pentoxifylline 400 mg PO BIDWM 06/25/21 - Past Medical/Surgical History Diabetic: No -: Chronic venous stasis left lower extremity -: HTN -: Peripheral arterial disease -: COPD -: Tobacco abuse -: asthma -: Bilateral femoral to popliteal bypass. -: Bilateral above-knee amputations Psychosocial/ Personal History: Patient lives at home, alone. - Family History Sister Medical History: Diabetes Father Medical History: Heart disease Mother Medical History: Diabetes - Social History Smoking Status: Current every day smoker Alcohol use: No CD- Drugs: No Caffeine use: Yes Place of Residence: Home Review of Systems 10-point ROS is otherwise unremarkable General: Weakness Respiratory: Cough, Shortness of Breath Physical Examination Temp Pulse Resp BP Pulse Ox 97.1 F 87 18 122/65 100 01/25/24 08:00 01/25/24 09:10 01/25/24 08:00 01/25/24 08:00 01/25/24 09:10 General: Alert, Oriented x3 Respiratory: Diminished, Expiratory wheezes, Rhonchi/gurgles Cardiovascular: No edema, Normal S1 S2 Gastrointestinal: Normal bowel sounds, Soft and benign Musculoskeletal: Other (Bilateral above-knee amputation) Laboratory Data (last 24 hrs) 01/25/24 01/25/24 01/24/24 04:43 04:43 15:41 WBC 8.00 Hgb 12.6 L Hct 38.9 L Plt Count 398 PT 12.8 H INR 1.17 Sodium 135 L D Potassium 4.1 BUN 11 Creatinine 1.03 Glucose 163 H Magnesium Total Bilirubin AST ALT Alkaline Phosphatase 01/24/24 01/24/24 15:41 15:41 WBC 9.40 Hgb 13.2 L Hct 41.3 Plt Count 412 H PT INR Sodium 131 L Potassium 4.3 BUN 6 L Creatinine 0.82 Glucose 106 Magnesium 1.7 Total Bilirubin 0.6 AST 18 ALT 32 Alkaline Phosphatase 92 - Problems (1) COPD exacerbation Current Visit: No Status: Acute Plan: Patient is 78 years of age admitted with COPD exacerbation continues to smoke chest x-ray is clear most likely he has venous blood gases vital signs oxygenation satisfactory changed to p.o. prednisone DC antibiotic no evidence of bacterial infection treat with long-acting bronchodilators evaluate for home O2 discharge planning
[2024-01-25] MEDS: levoFLOXacin 500 MG TAB PO SCH (13:11)
[2024-01-25] MEDS: ALBUTEROL 2.5 MG/3 ML NEB SOL NEB SCH (13:38)
[2024-01-25] MEDS ORDERED: ALBUTEROL 2.5 MG/3 ML NEB SOL NEB SCH (14:00)
[2024-01-25] MEDS ORDERED: ALBUTEROL 2.5 MG/3 ML NEB SOL NEB PRN (14:00)
[2024-01-25] MEDS: predniSONE 20 MG TAB PO SCH (21:00)
[2024-01-26 07:02] LABS: Absolute Lymphocytes (CBC) 0.7 K/uL (0.7-4.9); Absolute Monocytes 0.9 K/uL (0.1-1.3); Absolute Neutrophil 11.7 K/uL (1.8-8.0); Basophils % 0.2 % (0-1.3); Hematocrit 38.4 % (39.6-49.0); Hemoglobin 12.3 g/dL (13.6-17.9); MCH 27.5 pg (27.0-35.0); MCHC 32.1 g/dL (32.0-36.0); MCV 85.8 fL (80-100); MPV 6.9 fL (7.6-11.3); Monocytes % 7.1 % (3.3-12.3); Neutrophils % 87.7 % (41.7-73.7); Platelets 363 thou/uL (152-406); RBC Red Blood Cell Count 4.47 M/uL (4.33-5.43); Red Cell Distribution Width 17.5 % (12.1-15.2)
[2024-01-26] MEDS ORDERED: levoFLOXacin 750 MG TAB PO SCH (09:00)
[2024-01-26] MEDS ORDERED: HYDRALAZINE HCL 20 MG/ML VIAL IV PRN (09:09)
[2024-01-26] MEDS ORDERED: HOME MED 1 EA UNK (Albuterol Sulfate [Proair Digihaler] 90 MCG Aer.Pw.Bas) IH PRN (10:56)
[2024-01-26] MEDS ORDERED: ALBUTEROL INHALER 200 PUFF/6.7 GM IH PRN (11:22)
[2024-01-26] MEDS: AMLODIPINE 5 MG TAB PO ONE (12:02)
[2024-01-26] MEDS: GABAPENTIN 100 MG CAP PO SCH (12:02)
--- NOTE | 2024-01-26 13:08 | P.PN ---
Date of Service: 01/26/24 Subjective: Doing better today Weaning off 02 ROS: 10 point ROS as noted above, otherwise negative Physical exam GEN: Alert, oriented, NAD HEENT: Normal conjunctiva, sclera anicteric CV: Regular rate and rhythm, no edema Pulm:Mild Expiratory wheezes, diminished, no distress on room air ABD: Soft, nontender, nondistended MSK: No joint tenderness Integumentary: No rashes Neuro: Normal speech, normal affect Vitals reviewed Assessment: COPD with exacerbation Elevated lactate Hypertension History of PAD with bilateral AKA BPH Plan: COPD with exacerbation Elevated lactate Improving did not qualify for home 02 Continue steroids, nebs, ICS possible DC in AM Hypertension History of PAD with bilateral AKA BPH Home meds continued DVT PPX:Lovenox Code status: Full Discharge Plan: Home Plan to discharge in: 2-3 days Time Spent Managing Pts Care (In Minutes): 35
[2024-01-26] MEDS: PENTOXIFYLLINE ER 400 MG TAB PO SCH (16:59)
[2024-01-26] MEDS: ATORVASTATIN 40 MG TAB PO SCH (20:56)
[2024-01-26] MEDS: METOPROLOL XL 100 MG TAB PO SCH (20:57)
[2024-01-27 06:46] LABS: Absolute Lymphocytes (CBC) 0.7 K/uL (0.7-4.9); Absolute Monocytes 0.5 K/uL (0.1-1.3); Absolute Neutrophil 7.6 K/uL (1.8-8.0); Basophils % 0.5 % (0-1.3); Eosinophils % 0.2 % (0-4.4); Hematocrit 39.9 % (39.6-49.0); Hemoglobin 13.1 g/dL (13.6-17.9); Lymphocytes % 7.8 % (15.3-44.8); MCH 27.8 pg (27.0-35.0); MCHC 32.9 g/dL (32.0-36.0); MCV 84.6 fL (80-100); MPV 6.9 fL (7.6-11.3); Monocytes % 6.1 % (3.3-12.3); Neutrophils % 85.4 % (41.7-73.7); Platelets 365 thou/uL (152-406); RBC Red Blood Cell Count 4.71 M/uL (4.33-5.43); Red Cell Distribution Width 17.8 % (12.1-15.2)
[2024-01-27 06:59] LABS: Anion Gap 9.9 mEq/L (5.0-15.0); Potassium 3.9 mEq/L (3.5-5.1)
[2024-01-27 08:43] VITALS: O2SAT 98
[2024-01-27] MEDS: TAMSULOSIN 0.4 MG SR CAP PO SCH (09:37)
[2024-01-27] MEDS: AMLODIPINE 10 MG TAB PO SCH (09:37)
[2024-01-27] MEDS: POTASSIUM CL SA 10 MEQ TAB PO ONE (09:38)
[2024-01-27] MEDS: ASPIRIN EC 81 MG TAB PO SCH (09:38)
[2024-01-27 12:09] VITALS: BP 132/59; TEMP 97.4
--- NOTE | 2024-01-27 13:11 | P.PN ---
Subjective Date of Service: 01/27/24 Chief Complaint: COPD exacerbation Subjective: Improving (Patient is doing much better still has chest congestion) Review of Systems General: Malaise Respiratory: Cough, Shortness of Breath Physical Examination - Vital Signs Temperature: 97.4 F Blood Pressure: 132/59 Pulse: 87 Respirations: 22 Pulse Ox (%): 98 - Physical Exam General: Alert, Oriented x3 Respiratory: Expiratory wheezes Cardiovascular: No edema, Normal pulses, Regular rate/rhythm, Normal S1 S2 - Studies Microbiology Data (last 24 hrs): 01/24/24 19:45 Clean Catch Urine Lyle Count - Final >100,000 CFU/ML. 01/24/24 19:45 Clean Catch Urine - Final MIXED TRINITY. Assessment And Plan - Current Problems (Diagnosis) (1) COPD exacerbation Current Visit: No Status: Acute Plan: Patient admitted with COPD exacerbation doing better plan to discharge on long- acting bronchodilators and prednisone labs chemistries reviewed vital signs stable patient will not qualify for home O2
--- NOTE | 2024-01-27 15:03 | P.DS ---
Admission Date: 01/25/24 Discharge Date: 01/27/24 Disposition: ROUTINE DISCHARGE Discharge Condition: GOOD Reason for Admission: COPD exacerbation Consultations: PulmonologyDr. Long Brief History of Present Illness: 78-year-old male with history of PAD, COPD, hypertension, BPH, dementia with bilateral AKA presents emergency department chief complaint shortness of breath. He reports increasing shortness of breath, cough since Wednesday the . He was evaluated in the emergency department and his labs are significant for white blood cell count 9.4 sodium 131 lactic acid 2.6 BNP 864 COVID-negative chest x-ray is unremarkable. On exam patient with expiratory wheezing, minimal improvement after nebulizer treatments, steroids. ED provider wishes to admit patient under observation for COPD exacerbation. Hospital Course: Assessment: COPD with exacerbation Elevated lactate Hypertension History of PAD with bilateral AKA BPH Patient was admitted to the hospital for a COPD exacerbation and treated with steroids, nebulizer treatments, antibiotics and had significant improvement in his symptoms. On the first evening of admission he did require BiPAP for short period of time but he has significantly improved. He has been weaned off of oxygen completely and is currently 96% on room air even with exertion, his wheezing has significantly improved as well. He was seen by pulmonology who recommends continuation of p.o. prednisone for short course at home and continuation of his long-acting bronchodilator, he uses Wixela, reports he has plenty of albuterol inhalers at home as well. Continue taking your home medications as prescribed with the addition of the following medications Prednisone 20 mg mouth twice daily for 4 days Levofloxacin 500 mg mouth once daily for 5 days Please follow-up with your primary care doctor 1 to 2 weeks Please also follow-up with Dr. Long with pulmonology in the next 1 to 2 weeks Vital Signs/Physical Exam: Temp Pulse Resp BP Pulse Ox 97.4 F 87 22 H 132/59 L 98 01/27/24 13:11 01/27/24 13:11 01/27/24 13:11 01/27/24 13:11 01/27/24 13:11 General: Alert, In no apparent distress, Oriented x3 HEENT: Atraumatic, PERRLA Neck: Supple, JVD not distended Respiratory: Normal air movement, Expiratory wheezes (Mild) Cardiovascular: Regular rate/rhythm, Normal S1 S2 Gastrointestinal: Normal bowel sounds Musculoskeletal: No tenderness Integumentary: No rashes Neurological: Normal speech, Normal tone, Normal affect Laboratory Data at Discharge: WBC 8.90 thou/uL (4.3-10.9) 01/27/24 06:29 Hgb 13.1 g/dL (13.6-17.9) L 01/27/24 06:29 Hct 39.9 % (39.6-49.0) 01/27/24 06:29 Plt Count 365 thou/uL (152-406) 01/27/24 06:29 PT 12.8 SECONDS (9.5-12.5) H 01/24/24 15:41 INR 1.17 01/24/24 15:41 Sodium 137 mEq/L (136-145) 01/27/24 06:29 Potassium 3.9 mEq/L (3.5-5.1) 01/27/24 06:29 BUN 15 mg/dL (7-18) 01/27/24 06:29 Creatinine 0.83 mg/dL (0.70-1.30) 01/27/24 06:29 Glucose 130 mg/dL (74-106) H 01/27/24 06:29 Magnesium 1.7 mg/dL (1.6-2.4) 01/24/24 15:41 Total Bilirubin 0.6 mg/dL (0.2-1.0) 01/24/24 15:41 AST 18 U/L (15-37) 01/24/24 15:41 ALT 32 U/L (16-61) 01/24/24 15:41 Alkaline Phosphatase 92 U/L (45-117) 01/24/24 15:41 Home Medications: Albuterol Sulfate [Proair Digihaler] 90 mcg IH PRN PRN 06/25/21 Amlodipine Besylate 10 mg PO DAILY 06/25/21 Aspirin [Aspirin EC 81 MG] 81 mg PO DAILY 06/25/21 Atorvastatin Calcium [Lipitor] 40 mg PO BEDTIME 06/25/21 Fluticasone/Salmeterol [Advair 250-50 Diskus] 1 each IH BID 06/25/21 Gabapentin [Neurontin*] 100 mg PO TID 06/25/21 Metoprolol Succinate 100 mg PO BID 06/25/21 Pentoxifylline 400 mg PO BIDWM 06/25/21 Tamsulosin [Flomax*] 0.4 mg PO DAILY 01/26/24 levoFLOXacin [Levaquin*] 500 mg PO DAILY 5 Days #5 tab 01/26/24 predniSONE [Deltasone] 20 mg PO BID 4 Days #8 tab 01/26/24 New Medications: levoFLOXacin [Levaquin*] 500 mg PO DAILY 5 Days #5 tab predniSONE [Deltasone] 20 mg PO BID 4 Days #8 tab Physician Discharge Instructions: Patient was admitted to the hospital for a COPD exacerbation and treated with steroids, nebulizer treatments, antibiotics and had significant improvement in his symptoms. On the first evening of admission he did require BiPAP for short period of time but he has significantly improved. He has been weaned off of oxygen completely and is currently 96% on room air even with exertion, his wheezing has significantly improved as well. He was seen by pulmonology who recommends continuation of p.o. prednisone for short course at home and continuation of his long-acting bronchodilator, he uses Wixela, reports he has plenty of albuterol inhalers at home as well. Continue taking your home medications as prescribed with the addition of the following medications Prednisone 20 mg mouth twice daily for 4 days Levofloxacin 500 mg mouth once daily for 5 days Please follow-up with your primary care doctor 1 to 2 weeks Please also follow-up with Dr. Long with pulmonology in the next 1 to 2 weeks Diet: ADA Activity: Wheelchair, transfers Followup: Rex Long MD [ACTIVE - CAN ADMIT] - 1-2 Weeks NONE,NONE [Primary Care Provider] - 1-2 Weeks Time spent managing pt's care (in minutes): 35
--- NOTE | 2024-01-27 15:14 | EKG ---
Test Date: 2024-01-24 Test Time: 15:12:09 [employer] Associate: TL MEASUREMENT RESULTS: Intervals: Rate: 89 PA: 102 QRSD: 84 QT: 326 QTc: 396 Follett: P: 79 PA: 102 QRS: -30 T: 110 INTERPRETIVE STATEMENTS: Sinus rhythm with short PA Left axis deviation Nonspecific ST and T wave abnormality Abnormal ECG Compared to ECG 08/20/2023 04:56:23 ST (T wave) deviation now present Atrial premature complex(es) no longer present Myocardial infarct finding no longer present Electronically Signed On 01-27-24 15:02:34 CDT by Roland Mariee
== END 2024-01-27 14:52 | disposition home or self-care (01) | DRG 192 ==
LOC: ER 14:10 → ERHOLD 17:22 → 4TH 20:19 → OBSVTOIN 01-25 08:58 → UNDODISIN 01-27 10:53
PROVIDERS: ADMIT Internal Medicine; ATTEND Hospitalist
PROC: 4A033R1 Measurement of Arterial Saturation, Peripheral, Percutaneous Approach (ICD-10-PCS; principal; 2024-01-25)
PROC: 5A09457 Assistance with Respiratory Ventilation, 24-96 Consecutive Hours, Continuous Positive Airway Pressure (ICD-10-PCS; 2024-01-25)
DX: J44.1 Chronic obstructive pulmonary disease with (acute) exacerbation (principal); I10 Essential (primary) hypertension; I73.9 Peripheral vascular disease, unspecified; N40.0 Benign prostatic hyperplasia without lower urinary tract symptoms; F03.90 Unspecified dementia, unspecified severity, without behavioral disturbance, psychotic disturbance, mood disturbance, and anxiety; F17.210 Nicotine dependence, cigarettes, uncomplicated; R06.03 Acute respiratory distress; Z60.2 Problems related to living alone; Z71.6 Tobacco abuse counseling; Z79.82 Long term (current) use of aspirin; Z11.52 Encounter for screening for COVID-19; Z79.899 Other long term (current) drug therapy; Z89.512 Acquired absence of left leg below knee; Z89.511 Acquired absence of right leg below knee; Z86.718 Personal history of other venous thrombosis and embolism
CPT/HCPCS: 36415; 36600; 71045; 80048; 80076; 81001; 82550; 82805; 83605; 83735; 83880; 84484; 85025; 85610; 87040; 87086; 87088; 87804; 87811; 93005; 94640; 94660; 94760; 96361; 96365; 96366; 96375; 99285; G0378; J1650; J1940; J2543; J2919; J2920; J3535; J7030; J7040; J7512; J7613; J7614; J7626; J7644

== ENCOUNTER 2024-03-12 18:18 | Emergency (ER) | payer OTHER ==
--- NOTE | 2024-03-12 18:29 | ER ---
Nurse's Notes [facility] Name: Jesus Mcdowell Age: 78 yrs Sex: Male : 1945 Arrival Date: 03/12/2024 Time: 18:18 Bed 15 Private MD: Diagnosis: Phantom leg pain;Chronic shoulder pain Presentation: 03/12 18:23 Chief complaint: EMS states: Pt has bilat above knee amputation and is complaining of rs5 pain to missing extremities as well as lower back pain, and shoulder pain bilat. Coronavirus screen: At this time, the client does not indicate any symptoms associated with coronavirus-19. Ebola Screen: No symptoms or risks identified at this time. Initial Sepsis Screen: Does the patient meet any 2 criteria? No. Patient's initial sepsis screen is negative. Does the patient have a suspected source of infection? No. Patient's initial sepsis screen is negative. Risk Assessment: Do you want to hurt yourself or someone else? Patient reports no desire to harm self or others. Onset of symptoms was March 12, 2024. 18:23 Method Of Arrival: EMS: [facility] rs5 18:23 Acuity: [place] 4 rs5 Historical: - Allergies: 18:25 No Known Allergies; rs5 - PMHx: 18:25 Asthma; BPH; COPD; arterial insufficiency L leg.; Hypertension; Deep vein thrombosis; rs5 Dementia; - PSHx: 18:25 AMPUTATION ABOVE KNEE; rs5 - Immunization history:: Adult Immunizations up to date. - Infectious Disease History:: Denies. - Social history:: Smoking status: Patient denies any tobacco usage or history of. Screenin:24 [facility] ED Fall Risk Assessment (Adult) History of falling in the last 3 months, rs5 including since admission No falls in past 3 months (0 pts) Confusion or Disorientation No (0 pts) Intoxicated or Sedated No (0 pts) Impaired Gait Yes (1 pt) Mobility Assist Device Used Yes (1 pt). [facility] ED Fall Risk Assessment (Adult) Altered Elimination No (0 pt) Score/Fall Risk Level 0 - 2 = Low Risk Oriented to surroundings, Maintained a safe environment. Abuse screen: Denies threats or abuse. Nutritional screening: No deficits noted. Tuberculosis screening: No symptoms or risk factors identified. Assessment: 18:24 General: Appears in no apparent distress. uncomfortable, Behavior is calm, cooperative. rs5 Pain: Complains of pain in pain in missing lower extremitites bilat, shoulders bilat and lower back Pain currently is 9 out of 10 on a pain scale. Quality of pain is described as aching, Is continuous. 18:24 Neuro: Level of Consciousness is awake, alert, obeys commands, Oriented to person, rs5 place, time, situation. Cardiovascular: Patient's skin is warm and dry. Cardiovascular:. Cardiovascular: Patient's skin is warm and dry. Respiratory: Airway is patent Respiratory effort is even, unlabored, Respiratory pattern is regular, symmetrical. GI: Abdomen is round non-distended, Abd is soft and non tender X 4 quads. : No signs and/or symptoms were reported regarding the genitourinary system. EENT: No signs and/or symptoms were reported regarding the EENT system. Derm: Skin is intact, Skin is pink, warm \T\ dry. Musculoskeletal: Amputation of Other: above knee amputations bila. 19:00 Reassessment: report given to EMS at bedside. rs5 19:10 Reassessment: Patient and/or family updated on plan of care and expected duration. Pain rs5 level reassessed. Patient is alert, oriented x 3, equal unlabored respirations, skin warm/dry/pink. Vital Signs: 18:23 BP 141 / 81; Pulse 70; Resp 17; Temp 97.9(O); Pulse Ox 99% on R/A; rs5 19:10 BP 142 / 84; Pulse 73; Resp 17; Pulse Ox 99% on R/A; rs5 ED Course: 18:23 Patient arrived in ED. rs5 18:24 Patient has correct armband on for positive identification. Placed in gown. Bed in low rs5 position. Call light in reach. Side rails up X2. 18:24 No provider procedures requiring assistance completed. rs5 18:25 Triage completed. rs5 18:27 Champ Rosado MD is Attending Physician. rt 18:33 Abiel Larose, CHE is Primary Nurse. rs5 19:12 Patient did not have IV access during this emergency room visit. rs5 Administered Medications: 18:30 Drug: [place] PO 10 mg-325 mg 1 tabs PO once Route: PO; rs5 19:12 Follow up: Response: No adverse reaction rs5 Medication: 19:12 VIS not applicable for this client. rs5 Outcome: 18:28 Discharge ordered by . rt 19:12 Discharged to home via ambulance, rs5 19:12 Condition: stable 19:12 Discharge instructions given to patient, Instructed on discharge instructions, follow up and referral plans. Demonstrated understanding of instructions, follow-up care, 19:13 Patient left the ED. rs5 Signatures: Champ Rosado MD MD rt Abiel Larose, RN RN rs5
--- NOTE | 2024-03-12 18:29 | EDPHYS ---
Physician Documentation [facility] Name: Jesus Mcdowell Age: 78 yrs Sex: Male : 1945 Arrival Date: 03/12/2024 Time: 18:18 Bed 15 Private MD: ED Physician Champ Rosado HPI: 03/12 23:28 This 78 yrs old Black Male presents to ER via EMS with complaints of Pain All Over. rt 23:28 Patient with history of bilateral lower extremity amputation presents to the ED with rt phantom leg pain. He is taking 100 mg of gabapentin 3 times a day. He also reports a pain to his shoulders that been present for about 5 months following accident. Denies any new injuries, worsening of symptoms. Denies other acute complaints, symptoms are mild in severity, no other aggravating alleviating factors.. Historical: - Allergies: 18:25 No Known Allergies; rs5 - PMHx: 18:25 Asthma; BPH; COPD; arterial insufficiency L leg.; Hypertension; Deep vein thrombosis; rs5 Dementia; - PSHx: 18:25 AMPUTATION ABOVE KNEE; rs5 - Immunization history:: Adult Immunizations up to date. - Infectious Disease History:: Denies. - Social history:: Smoking status: Patient denies any tobacco usage or history of. ROS: 23:29 Constitutional: Negative for fever, chills, and weight loss, Cardiovascular: Negative rt for chest pain, palpitations, and edema, Respiratory: Negative for shortness of breath, cough, wheezing, and pleuritic chest pain, Abdomen/GI: Negative for abdominal pain, nausea, vomiting, diarrhea, and constipation, Skin: Negative for injury, rash, and discoloration, Neuro: Negative for headache, weakness, numbness, tingling, and seizure, 23:29 MS/extremity: Positive for laceration, Negative for injury or acute deformity, Exam: 23:29 Constitutional: This is a well developed, well nourished patient who is awake, alert, rt and in no acute distress. Head/Face: Normocephalic, atraumatic. Chest/axilla: Normal chest wall appearance and motion. Nontender with no deformity. No lesions are appreciated. Cardiovascular: Regular rate and rhythm with a normal S1 and S2. No gallops, murmurs, or rubs. Normal PMI, no JVD. No pulse deficits. Respiratory: Lungs have equal breath sounds bilaterally, clear to auscultation and percussion. No rales, rhonchi or wheezes noted. No increased work of breathing, no retractions or nasal flaring. Abdomen/GI: Soft, non-tender, with normal bowel sounds. No distension or tympany. No guarding or rebound. No evidence of tenderness throughout. 23:29 Musculoskeletal/extremity: Bilateral [id number] amputations without swelling, erythema, no focal areas of tenderness on the bilateral shoulders. Vital Signs: 18:23 BP 141 / 81; Pulse 70; Resp 17; Temp 97.9(O); Pulse Ox 99% on R/A; rs5 19:10 BP 142 / 84; Pulse 73; Resp 17; Pulse Ox 99% on R/A; rs5 MDM: 18:27 Patient medically screened. rt 23:29 Differential Diagnosis Chronic pain, phantom leg pain. Data reviewed: vital signs, rt nurses notes. Test considered but Not performed: Other Details Patient with chronic phantom leg pain, other chronic pain. There is no worsening of the pain. X-rays, labs are not indicated.. Care significantly affected by the following chronic conditions: Phantom leg pain. Response to treatment: the patient's symptoms have mildly improved after treatment. Administered Medications: 18:30 Drug: [place] PO 10 mg-325 mg 1 tabs PO once Route: PO; rs5 19:12 Follow up: Response: No adverse reaction rs5 Disposition Summary: 03/12/24 18:28 Discharge Ordered Notes: Location: Home rt Problem: an ongoing problem rt Symptoms: are unchanged rt Condition: Stable rt Diagnosis - Phantom leg pain rt - Chronic shoulder pain rt Followup: rt - With: Private Physician - When: 5 - 6 days - Reason: Discharge Instructions: - Discharge Summary Sheet rt - Shoulder Pain rt - Phantom Limb Pain rt Forms: - Medication Reconciliation Form rt - Antibiotic Education rt - Prescription Opioid Use rt - Patient Portal Instructions rt - Leadership Thank You Letter rt - SBAR form rs5 Signatures: Champ Rosado MD MD rt Abiel Larose RN RN rs5
[2024-03-12] MEDS ORDERED: HYDROCODONE/APAP 10/325 TAB ONE (18:36)
[2024-03-12 19:22] VITALS: BP 142/84; TEMP 97.9; O2SAT 99
== END 2024-03-12 19:13 | disposition home or self-care (01) ==
LOC: ER 18:18
DX: G54.6 Phantom limb syndrome with pain (principal); M25.512 Pain in left shoulder; M25.511 Pain in right shoulder; I10 Essential (primary) hypertension; J44.9 Chronic obstructive pulmonary disease, unspecified; Z89.612 Acquired absence of left leg above knee; Z89.611 Acquired absence of right leg above knee
CPT/HCPCS: 99283